=== PATIENT | female | born 1950 | race Caucasian/White ===

== ENCOUNTER 2022-06-15 14:54 | Outpatient (CLI) | payer MEDICARE, BC, SELFPAY ==
--- OUTSIDE RECORDS SUMMARY | 2022-06-15 14:58 | XMS_ITS | Encounter Summary ---
:1950 Author Organization [facility] Address [address] [place] [id number] Care Team Providers Name Role Phone GonzalezWarner rojasbreonna Garcia APRN, CANDICE Primary Care Provider Encounter Details Date Type Department Care Team Description 05/11/2022 Ancillary Procedure [facility] [address] [place], [place] [address] Social History Tobacco Use Types Packs/Day Years Used Date Former Smoker 1 Quit: 1978 Smokeless Tobacco: Never Used Comments: Former smoker x one year at e age of 34 years Alcohol Use Standard Drinks/Week Comments Not Currently 0 (1 standard drink = 0.6 oz pure alcoho l) Alcohol Habits Answer Date Recorded How often do you have a drink containing alcohol? Monthly or less 09/05/2019 How many drinks containing alcohol do you have on a Not aske d typical day when you are drinking? How often do you have six or more drinks on one Not asked occasion? Comment: Not asked Physical Activity Answer Date Recorded On average, how many days per week do you engage in moderate 0 days 10/27/2018 to strenuous exercise (like walking fast, running, jogging, dancing, swimming, biking, or other activities that cause a light or heavy sweat)? On average, how many minutes do you engage in exercise at No t asked this level? Education Answer Date Recorded What is the highest level of school you have Some college, n o degree 10/21/2018 completed or the highest degree you have received? Sex Assigned at Date Recorded Not on file documented as of this encounter Plan of Treatment Not on filedocumented as of this encounter Procedures Procedure Name Priority Date/Time Associated Diagnosis Comme nts XR CERVICAL SPINE Routine 05/11/2022 3:40 PM Neck stiffness Re sults for this COMPLETE 4-5 VIEWS CDT procedure are in the results section. documented in this encounter Results X-ray cervical spine complete 4-5 views (05/11/2022 3:40 PM CDT) Anatomical Region Laterality Modality Spine, C-spine Radiographic Imaging Specimen (Source) Anatomical Collection Method Collection Time Re ceived Time Location / / Volume Laterality 05/11/2022 3:40 PM CDT Impressions 05/11/2022 3:46 PM CDT IMPRESSION: CERVICAL SPINE 4-5 VIEWS There is mild disc space narrowing with endplate spurring at C5-6 and C6-7. ??There is mild neural foraminal n arrowing bilaterally from C3-4 through C6-7. ??No fracture, malalignmen t, or lytic or blastic lesion. Narrative 05/11/2022 3:46 PM CDT INDICATION: Chronic neck stiffness COMPARISON: None available Procedure Note Jackelyn Mcclelland MD - 05/11/2022 INDICATION: Chronic neck stiffness COMPARISON: None available IMPRESSION: CERVICAL SPINE 4-5 VIEWS There is mild disc space narrowing with endplate spurring at C5-6 and C6-7. There is mild neural foraminal morris rowing bilaterally from C3-4 through C6-7. No fracture, malalignment, or lytic or blastic lesion. Chad Nava MD IMG XR PROCEDURES documented in this encounter Visit Diagnoses Not on filedocumented in this encounter Care Teams Hall Manager Relationship Specialty Start Date End Date Palak Cooley, MANUFACTURING ENGINEERING PROFESSOR, WHITE WASHER PCP - General 05/19/21 [address], [place] [address] documented as of this encounter
--- OUTSIDE RECORDS SUMMARY | 2022-06-15 14:58 | XMS_ITS | Encounter Summary ---
:1950 Author Organization [facility] Address [address] [place] [address] Care Team Providers Name Role Phone GonzalezWarner rojasbreonna Garcia APRN, TRAFFIC CHIEF Primary Care Provider Reason for Visit Reason Comments Medicare Annual Wellness Visit Subsequent Encounter Details Date Type Department Care Team Description 11/27/2021 Clinical Support [place] Medicare annual wellness [address] visit, subsequent [place], [place] [address] Social History Tobacco Use Types Packs/Day Years Used Date Former Smoker 1 Smokeless Tobacco: Never Used Comments: Former smoker x one year at th e age of 34 years Alcohol Use Standard Drinks/Week Comments Yes 0 (1 standard drink = 0.6 oz [...] on file documented as of this encounter Last Filed Vital Signs Vital Sign Reading Time Taken Comments Blood Pressure 110/72 11/27/2021 11:05 AM RIVER GUIDE Pulse 60 11/27/2021 11:05 AM RIVER GUIDE Temperature 36 ??C (96.8 ??F) 11/27/2021 11:05 AM RIVER GUIDE Respiratory Rate 14 11/27/2021 11:05 AM RIVER GUIDE Oxygen Saturation 98% 11/27/2021 11:05 AM RIVER GUIDE Inhaled Oxygen Concentration - - Weight 96.6 kg (213 lb) 11/27/2021 11:05 AM RIVER GUIDE Height 157.5 cm (5' 2) 11/27/2021 11:05 AM RIVER GUIDE Body Mass Index 38.96 11/27/2021 11:05 AM RIVER GUIDE documented in this encounter Progress Notes Asmita Yun LPN - 11/27/2021 10:20 AM CST Annual Wellness Visit CARE TEAM / RESOURCES: Patient Care Team: Palak Cooley APRN, TRAFFIC CHIEF as PCP - General [facility]: [facility] [place] [facility]: None at this time Pharmacy: [address] [address] Other: Visit Vitals BP 110/72 (BP Location: Right arm, Patient Position: Sitting, BP Cuff Size: Adult long) Pulse 60 Temp (!) 36 ??C (96.8 ??F) (Temporal) Resp 14 Ht 1.575 m (5' 2) Wt 96.6 kg (213 lb) SpO2 98% BMI 38.96 kg/m?? Smoking Status Former Smoker BSA 2.06 m?? No Known Allergies Outpatient Encounter Medications as of 11/27/2021 Medication Sig Dispense Refill ??? aspirin 81 MG EC tablet Take 81 mg by mouth 1 (one) time each day ??? atenolol (TENORMIN) 25 MG tablet Take 0.5 tablets (12.5 mg total) by mouth 1 (one) time each day90 tablet 3 ??? Cholecalciferol (VITAMIN D3) 5000 units tablet Take 5,000 Units by mouth daily ??? glucosamine-chondroitin 750-600 MG tablet Take 2 tablets by mouth 1 (one) time each day ??? HORSE CHESTNUT PO Take 250 mg by mouth 1 (one) time each day Takes 1 daily. ??? hydroCHLOROthiazide (HYDRODIURIL) 12.5 MG tablet Take 1 tablet (12.5 mg total) by mouth 1 (one) time each day 90 tablet 3 ??? Lactobacillus (ACIDOPHILUS PROBIOTIC) tablet Take 1 tablet by mouth 1 (one) time each day ??? levothyroxine (Synthroid) 75 MCG tablet Take 1 tablet (75 mcg total) by mouth 1 (one) time each day 90 tablet 3 ??? Lutein-Zeaxanthin 25-5 MG capsule Take 1 capsule by mouth 1 (one) time each day ??? Misc Natural Products (ADRENAL PO) Take by mouth (ashwaganda root, cordyceps Mycelium, Shisandraberry, ginseng, rhodiola root, red azeri ginseng, ginseng root, eleuthero root) ??? [place]-3 Fatty Acids ([employer] FISH OIL) 1200 MG capsule Take 1,200 mg by mouth 1 (one) time each day ??? UNABLE TO FIND TUMERIC/CURCUMEN 500mg tablet 1 daily ??? Zinc 50 MG capsule Take 1 capsule by mouth 1 (one) time each day No facility-administered encounter medications on file as of 11/27/2021. Immunization History Administered Date(s) Administered ??? COVID-19, mRNA, LNP-S, PF, 30mcg/0.3mL dose Pfizer 11/22/2020, 12/13/2020 Patient Active Problem List Diagnosis ??? Edema ??? Essential (primary) hypertension ??? Body mass index (BMI) 40.0-44.9, adult ??? Primary osteoarthritis of both knees ??? Benign paroxysmal positional vertigo ??? Varicose veins of right lower extremity with pain ??? Prediabetes ??? Rosacea ??? Presbycusis of both ears ??? Mixed hyperlipidemia ??? Sensorineural hearing loss (SNHL) of both ears ??? Tinnitus of both ears ??? 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 Allergic rhinitis ??? Arthritis ??? Cataract 2017 wears glasses, [facility] [place], [place] ??? Depression ??? Disease of thyroid gland ??? Herpes zoster without complication 2017 ??? HL (hearing loss) ??? Hypertension ??? Obesity ??? Palpitations 07/16/2017 ??? Rosacea ??? Swelling of lower extremity 03/03/2019 ??? Tinnitus ??? Urinary tract infection ??? Varicella ??? Visual impairment ??? Zoster without complications 07/20/2017 Past Surgical History: Procedure Laterality Date ??? TONSILLECTOMY History of tonsillectomy with adenoidectomy ??? WISDOM TOOTH EXTRACTION Social History Socioeconomic History ??? Marital status: Spouse name: None ??? Number of children: 2 ??? Years of education: None ??? Highest education level: Some college, no degree Occupational History ??? Occupation: Retired Tobacco Use ??? Smoking status: Former Smoker Years: 1.00 ??? Smokeless tobacco: Never Used ??? Tobacco comment: Former smoker x one year at the age of 34 years Vaping Use ??? Vaping Use: Never used Substance and Sexual Activity ??? Alcohol use: Yes ??? Drug use: No ??? Sexual activity: None Other Topics Concern ??? None Social History Narrative Caffeine use: hot chocolate Uses seatbelt Carbon monoxide detector in home Smoke detector in home Uses sunscreen No Advance Directive No guns in home Social Determinants of Health Financial Resource Strain: Not on file Food Insecurity: Not on file Transportation Needs: Not on file Physical Activity: Not on file Stress: Not on file Social Connections: Not on file Intimate Partner Violence: Not on file Housing Stability: Not on file General Care Management Assessment completed with:: Patient Enrolled in care management program:: No Living arrangement:: Spouse Support system:: Spouse, Neighbors, Family, Friends Family conflict:: No Type of residence:: Private residence Home care services:: No Equipment used at home:: None Communication device:: No Financial problems:: No Transportation issues:: No Transportation means:: Regular car Bed or wheelchair confined:: No Diet:: Regular (The patient avoids added sugar and processed foods of any kind) Inadequate nutrition:: No Exercise:: Currently not exercising Inadequate activity/exercise:: Yes Medication adherence problem:: No Experiencing side effects from current medications:: No History of falls in last 6 months:: No Difficulty keeping appointments:: No Family aware of the patient's advance care planning wishes:: No Spiritism or spiritual beliefs that impact treatment:: No Chronic pain:: No Pain Assessment Scored: 0-No pain and location: Utilization / Navigation of Health Care Systems: Does not overuse the [facility], Acute Care, eVisits or Emergency Room. PHQ-9 mental health screening performed. Scored: LEONIDAS-7 anxiety screening performed. Scored: 0 Mini-Cog test performed. Scored: 5 CAGE-AID test performed. BMI/weight management reviewed. BMI: Body mass index is 38.96 kg/m??. Declined referral to nutrition education for BMI greater than 30. Fall Risk Assessment performed. Scored: Tug time: Referral to Physical Therapy not applicable due to low fall risk. Colon Cancer Screening: Last done: Never Due: Declines at this time. Breast Cancer Screening: Last done: Declines at this time but the nurse will set an alarm to readdress in 6 months. Osteoporosis Screening: Last done: Declines Prostate Cancer Screening: No results found for: PSA, PSAD Hepatitis C Screening: Lab Results Component Value Date HEPCAB NON-REACTIVE 11/06/2020 Glaucoma Screening: Preformed at outside facility AAA Screening: Not indicated Lung Cancer Screening: Not indicated Findings: The patients HgbA1c has been trending down and should be repeated today. The patient is also due for a LIPID which could be of benefit. The nurse was unable to find a BP in the patients left arm today but was able to hear one in the right arm. The patient stated that they differ so she wanted both checked. The following referral(s) were created: None. What is an Annual Wellness Visit? Yearly appointment performed by another provider to create or update the personalized prevention plan. This plan helps prevent illness based on your current health and risk factors. ?? Medicare part B coverage the Annual Wellness Visit 100%. ?? Keep in mind that the annual wellness visit is not head to toe physical. ?? The service is similar to but separate from a one time a Welcome to Medicare Preventative Visit. The following information is regarding different screenings that will be discussed. Colon Cancer: ?? Age 50 and up (usually done until age 75) Breast Cancer: Medicare Part B (Medical Insurance) covers a Screening mammogram once every 12 months (11 full months must have passed since the last screening) ?? Women with Part B 40 or older are covered. Provider discretion beyond age 74 ?? Women with Part B between 35-39 can get one baseline mammogram Osteoporosis: Medicare Part B (Medical Insurance) covers this test once every 24 months for people who meet the criteria below: ?? A woman whose doctor determines both of these (based on her medical history and other findings): She's estrogen deficient AND She's at risk for osteoporosis ?? A person whose X-rays show possible osteoporosis, osteopenia, or vertebral fractures ?? A person taking prednisone or steroid-type drugs or is planning to begin this treatment ?? A person who has been diagnosed with primary hyperparathyroidism ?? A person who is being monitored to see if their osteoporosis drug therapy is working Prostate Cancer: Medicare Part B (Medical Insurance) covers: ?? Digital rectal exam: Once every 12 months ?? Prostate specific antigen (PSA) test: Once every 12 months ?? All men over 50 (beginning the day after your 50th birthday) with Part B are covered. Hepatitis C: Medicare covers one Hepatitis C screening test. Medicare also covers yearly repeat screening for certain people at high risk. ?? Those at high risk because they use or used illicit injection drugs. ?? Those who had a blood transfusion before 1991. ?? Those born between 3674-4170. Glaucoma: Medicare Part B (Medical Insurance) covers a glaucoma test once every 12 months for people at high risk for glaucoma. You're at high risk if one of these applies: ?? You have diabetes. ?? You have a family history of glaucoma. ?? You're and 50 or older. ?? You're and 65 or older. AAA: Medicare Part B (Medical Insurance) covers a one-time abdominal aortic aneurysm ultrasound for people who meet the criteria below: ?? You have a family history of abdominal aortic aneurysms. ?? You???re a man age 65 to 75 and have smoked at least 100 cigarettes in your lifetime. Lung Cancer: Medicare Part B (Medical Insurance) covers a lung cancer screening with Low Dose Computed Tomography(LDCT) once per year to those who meet ALL of these conditions: ?? They're 50-77. ?? They're asymptomatic (they don???t have signs or symptoms of lung cancer). ?? They're either a current smoker or have quit smoking within the last 15 years. They have a tobacco smoking history of at least 20 ???pack years?? (an average of one pack a day for 20 years).Nurse Note R GUIDE documented in this encounter Plan of Treatment Not on filedocumented as of this encounter Visit Diagnoses Diagnosis Medicare annual wellness visit, subseque nt documented in this encounter Care Teams Drier Take Off Tender Relationship Specialty Start Date End Date Palak Cooley, RAJI, TRAFFIC CHIEF PCP - General 05/19/[address] [place] [address] documented as of this encounter
--- OUTSIDE RECORDS SUMMARY | 2022-06-15 14:58 | XMS_ITS | Encounter Summary ---
:1950 Author Organization [facility] Address [address] [place] [address] Care Team Providers Name Role Phone GonzalezPalak rojas Jose ALEGRIA, SEASONAL WAREHOUSE ASSOCIATE Primary Care Provider Encounter Details Date Type Department Care Team Description 05/04/2022 Orders Only [place] Eneida Ayers MD [address] [facility] [address] [place], [place] [address] [place], [place] [phone] (Wo rk) Social History Tobacco Use Types Packs/Day Years [...] filedocumented as of this encounter Visit Diagnoses Not on filedocumented in this encounter Care Teams Pigskin Trimmer Relationship Specialty Start Date End Date Palak Cooley APRN, SEASONAL WAREHOUSE ASSOCIATE PCP - General 05/19/21 [address] [place] [address] documented as of this encounter
--- OUTSIDE RECORDS SUMMARY | 2022-06-15 14:58 | XMS_ITS | Encounter Summary ---
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 Generalized edema; [address] [place], [place] Mixed hyperlipidemia; [phone] [id number] Primary osteoarthritis of both knees Social History Tobacco Use Types Packs/Day Years [...] Time Taken Comments Blood Pressure 110/72 11/27/2021 10:26 AM UNDER SEAL OPERATOR Pulse 60 11/27/2021 10:26 AM UNDER SEAL OPERATOR Temperature 36 ??C (96.8 ??F) 11/27/2021 10:26 AM UNDER SEAL OPERATOR Respiratory Rate 14 11/27/2021 10:26 AM UNDER SEAL OPERATOR Oxygen Saturation 98% 11/27/2021 10:26 AM UNDER SEAL OPERATOR Inhaled Oxygen Concentration - - Weight 96.6 kg (213 lb) 11/27/2021 10:26 AM UNDER SEAL OPERATOR Height 159 cm (5' 2.6) 11/27/2021 10:26 AM UNDER SEAL OPERATOR Body Mass Index 38.22 11/27/2021 10:26 AM UNDER SEAL OPERATOR documented in this encounter Patient Instructions Patient InstructionsTamadou Cooley APRN, CNP - 11/27/2021 10:20 AM CST Atenolol 12.5 mg daily Add back hydrochlorothiazide 12.5mg daily Check bp/nurse bp check. Monitor for excess dizziness. Continue synthroid at 75mcg daily, refilled 1 year. But if have significant wt loss may need to recheck. Diclofenac gel can use up to 4x/day for arthritis pain. Fasting labs in the near future. R SEAL OPERATOR documented in this encounter Progress Notes Palak Cooley APRN, CNP - 11/27/2021 10:20 AM CST Subjective Patient ID: Rina Fisher is a 71 y.o. female. Chief Complaint Patient presents with ??? Thyroid review HPI The patient presents to the [place] clinic for follow up of hypothyroidism. She is taking her thyroid medication as prescribed in the AM. Her thyroid levels were reviewed and stable today. Since we held the hydrochlorothiazide from the last visit per patient her hands and legs appeared more puffy. She also feels achy knees. Patient and her plans to go to [place] this month for vacation. They will drive to [facility]. She denies alcohol use or smoking. She's been trying to exercise. Recently seen at the clinicfor contusion of the nose bridge. Her has regular vivid dreams in his sleep and usually flails his extremities during sleep. Overall healing but still experience some mild puffiness at the leftlower eye and cheek. No pain at present, slightly tender with deep palpation per patient. The following portions of the patient's chart were reviewed in this encounter and updated as appropriate: Tobacco Allergies Meds Problems Med Hx Surg Hx Fam Hx No Known Allergies Current Outpatient Medications: ??? aspirin 81 MG EC tablet, Take 81 mg by mouth 1 (one) time each day, Disp: , Rfl: ??? atenolol (TENORMIN) 25 MG tablet, Take 0.5 tablets (12.5 mg total) by mouth 1 (one) time each day, Disp: 90 tablet, Rfl: 3 ??? Cholecalciferol (VITAMIN D3) 5000 units tablet, Take 5,000 Units by mouth daily, Disp: , Rfl: ??? glucosamine-chondroitin 750-600 MG tablet, Take 2 tablets by mouth 1 (one) time each day , Disp:, Rfl: ??? HORSE CHESTNUT PO, Take 250 mg by mouth 1 (one) time each day Takes 1 daily., Disp: , Rfl: ??? Lactobacillus (ACIDOPHILUS PROBIOTIC) tablet, Take 1 tablet by mouth 1 (one) time each day, Disp: , Rfl: ??? levothyroxine (Synthroid) 75 MCG tablet, Take 1 tablet (75 mcg total) by mouth 1 (one) time eachday, Disp: 90 tablet, Rfl: 3 ??? Lutein-Zeaxanthin 25-5 MG capsule, Take 1 capsule by mouth 1 (one) time each day, Disp: , Rfl: ??? Misc Natural Products (ADRENAL PO), Take by mouth (ashwaganda root, cordyceps Mycelium, Shisandra tao, ginseng, rhodiola root, red slovenian ginseng, ginseng root, eleuthero root), Disp: , Rfl: ??? Galvin-3 Fatty Acids ([employer] FISH OIL) 1200 MG capsule, Take 1,200 mg by mouth 1 (one) time each day, Disp: , Rfl: ??? UNABLE TO FIND, TUMERIC/CURCUMEN 500mg tablet 1 daily, Disp: , Rfl: ??? Zinc 50 MG capsule, Take 1 capsule by mouth 1 (one) time each day, Disp: , Rfl: ??? hydroCHLOROthiazide (HYDRODIURIL) 12.5 MG tablet, Take 1 tablet (12.5 mg total) by mouth 1 (one)time each day, Disp: 90 tablet, Rfl: 3 Review of Systems All other systems negative except HPI Objective Visit Vitals BP 110/72 (BP Location: Right arm, Patient Position: Sitting, BP Cuff Size: Adult long) Pulse 60 Temp (!) 36 ??C (96.8 ??F) (Temporal) Resp 14 Ht 1.59 m (5' 2.6) Wt 96.6 kg (213 lb) SpO2 98% BMI 38.22 kg/m?? Smoking Status Former Smoker BSA 2.07 m?? Physical Exam Vitals reviewed. Constitutional: General: She is not in acute distress. Appearance: Normal appearance. She is obese. She is not ill-appearing. HENT: Head: Comments: Facial rosacea. Nose: Nose normal. Eyes: Extraocular Movements: Extraocular movements intact. Conjunctiva/sclera: Conjunctivae normal. Comments: Glasses. Left lower eye is minimally puffy. No discoloration. Cardiovascular: Rate and Rhythm: Normal rate and regular rhythm. Pulmonary: Effort: Pulmonary effort is normal. Breath sounds: Normal breath sounds. Musculoskeletal: Cervical back: Normal range of motion. Right lower leg: Edema present. Left lower leg: Edema present. Comments: Hands are a bit puffy. Neurological: Mental Status: She is alert. Assessment/Plan Problem List Items Addressed This Visit Circulatory Essential (primary) hypertension Overview Atenolol 12.5mg dialy hydrochlorothiazide 12.5mg daily Continue diet/exercise. Relevant Medications atenolol (TENORMIN) 25 MG tablet hydroCHLOROthiazide (HYDRODIURIL) 12.5 MG tablet Other Relevant Orders Hemoglobin A1c Lipid panel Comprehensive metabolic panel Musculoskeletal Primary osteoarthritis of both knees Overview Patient states her knee pain have been improving with the weight loss and use of regular compression socks. Endocrine/Metabolic Mixed hyperlipidemia Overview 2020: ASCVD 10yr risk 27.2%, high. Declined statin. Using fish oil and baby aspirin. 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 BP and pulse controlled and normal today. We can resume the hydrochlorothiazide for the puffiness complaint she has. She also has a history of arthritic knees. Weight of no significant change. She will return in the near future for annual fasting labs. Otherwise will send report by mail. Willfollow up in 1 year. She declined all other health maintenance checks and was agreeable to discontinue them. Patient Instructions Atenolol 12.5 mg daily Add back hydrochlorothiazide 12.5mg daily Check bp/nurse bp check. Monitor for excess dizziness. Continue synthroid at 75mcg daily, refilled 1 year. But if have significant wt loss may need to recheck. Diclofenac gel can use up to 4x/day for arthritis pain. Fasting labs in the near future. R SEAL OPERATOR Yesi Yee - 11/27/2021 10:20 AM CST Left message with patient to make appointment for fasting labs. Yesi Yee - 11/27/2021 10:20 AM CST Left message with patient to make appointment for fasting labs. Yesi Yee - 11/27/2021 10:20 AM CST LMTCB to make appt for fasting labs (has active orders from Fredy Cooley). Karena Maddox - 11/27/2021 10:20 AM CST Leb appt scheduled for Wednesday03/04/22. Karena Maddox - 11/27/2021 10:20 AM CST Left message on home phone requesting diabetic review with fasting labs. Cell phone has no VM set up. 03/03/22 - Left message requesting lab appt for A1C. Karena Maddox - 11/27/2021 10:20 AM CST Left message on home phone requesting diabetic review with fasting labs. Cell phone has no VM set up. Karena Maddox - 11/27/2021 10:20 AM CST Left message on home phone requesting diabetic review with fasting labs. Cell phone has no VM set up. Left message requesting lab appt for A1C. Karena Maddox - 11/27/2021 10:20 AM CST Left message on home phone requesting diabetic review with fasting labs. Cell phone has no VM set up. Lab appt scheduled for Wednesday03/04/22. documented in this encounter Plan of Treatment Not on filedocumented as of this encounter Results (ABNORMAL) Comprehensive metabolic panel (03/04/2022 11:09 AM CDT) [facility] Time Signature Total Protein 6.7 6.3 - 8.2 03/05/2022 [place] g/dL 1:[address] [facility] Albumin, Serum 4.1 3.5 - 5.0 03/05/2022 [place] g/dL 1:[address] [facility] Total Bilirubin 0.8 0.1 - 1.0 03/05/2022 [place] mg/dL 1:[address] [facility] AST 18 8 - 43 U/L 03/05/2022 [place] 1:[address] [facility] Alkaline 77 38 - 128 03/05/2022 [place] Phosphatase U/L 1:[address] [facility] ALT (SGPT) 16 0 - 34 U/L 03/05/2022 [place] 1:[address] [facility] Sodium 139 135 - 145 03/05/2022 [place] mEq/L 1:[address] [facility] Potassium 4.5 3.5 - 5.1 03/05/2022 [place] mEq/L 1:[address] [facility] Chloride 106 98 - 107 03/05/2022 [place] mEq/L 1:[address] [facility] CO2 30 (H) 22 - 29 03/05/2022 [place] mmol/L 1:[address] [facility] BUN 15 5 - 25 03/05/2022 [place] mg/dL 1:[address] [facility] Creatinine 0.9 0.4 - 1.2 03/05/2022 [place] mg/dL 1:[address] [facility] Glucose 123 (H) 70 - 100 03/05/2022 [place] mg/dL 1:[address] [facility] Calcium, Total,S 9.3 8.4 - 10.2 03/05/2022 [place] mg/dL 1:[address] [facility] Fasting? Yes 03/04/2022 [place] 11:[address] [facility] Specimen Anatomical Collection Method Collection Time Receive d Time (Source) Location / / Volume Laterality Blood 03/04/2022 11:09 03/05/2022 AM CDT 12:19 PM CDT Palak Cooley APRN, CNP LAB BLOOD ORDERABLES Performing Organization Address City/State/ZIP Code Phon e Number [facility] [address] [place] [address] (ABNORMAL) Lipid panel (03/04/2022 11:09 AM CDT) athologist Signature Cholesterol 183 0 - 199 03/05/2022 [facility] mg/dL 1:54 PM [facility] Comment: Recommended by National Cholesterol Education Program (ATP III) -------- Cholesterol Ranges -------- <200 ?Desirable 200-239 ? Borderline high >=240 ? High Triglycerides 96 0 - 149 mg/dL 03/05/2022 1:54 PM CDT [facility] Comment: -------- TRIG Ranges -------- <150 ?Normal 150-199 ? Borderline high 200-499 ? High >=500 ? Very high HDL 44 40 - 250 mg/dL 03/05/2022 1:54 PM CDT [facility] Comment: -------- HDL Ranges -------- <40 ?Low 40-59 ?Normal >=60 ? Optimal LDL Calculated 120 (H) 0 - 99 mg/dL 03/05/2022 1:54 PM CDT [facility] Comment: -------- LDL Ranges -------- <100 ? Optimal 100-129 ?Near optimal/above op timal 130-159 ?Borderline high 160-189 ?High >=190 ?Very high Specimen Anatomical Collection Method Collection Time Receive d Time (Source) Location / / Volume Laterality Blood 03/04/2022 11:09 03/05/2022 AM CDT 12:19 PM CDT Palak Cooley APRN, FISH SKINNING MACHINE FEEDER LAB BLOOD ORDERABLES Performing Organization Address City/State/ZIP Code Phon e Number [facility] [address] [place] [address] (ABNORMAL) Hemoglobin A1c (03/04/2022 11:09 AM CDT) Analysis Performed At Patho logist Time Signature Hemoglobin A1C 6.1 (H) 4.0 - 5.6 03/05/2022 [place] % A1C 12:[address] [facility] Comment: Reference Range 4.0-5.6% is for non-preg nant adults >=18 yrs <5.6% ? Non-Diabetic 5.7-6.4% ??Increased risk of Diabetes >=6.5% ?Indicative of Diabetes <7.0% ? ADA goal for glycemic contro l Methodology may not detect all hemoglobi n variants which can affect A1c results. Method certified by National Glycohemoglobin Standardization Program. Specimen Anatomical Collection Method Collection Time Receive d Time (Source) Location / / Volume Laterality Blood 03/04/2022 11:09 03/05/2022 AM CDT 12:19 PM CDT Palak Cooley APRN, CNP LAB BLOOD ORDERABLES Performing Organization Address City/State/ZIP Code Phon e Number [facility] [address] [place] [address] documented in this encounter Visit Diagnoses Diagnosis Hypothyroidism due to Param's thyroi ditis - Primary Essential (primary) hypertension Unspecified essential hypertension Generalized edema Edema Mixed hyperlipidemia Primary osteoarthritis of both knees documented in this encounter Care Teams Metal Fabricator Helper Relationship Specialty Start Date End Date Palak Cooley APRN, FISH SKINNING MACHINE FEEDER PCP - General 05/19/[address] [place], [place] [address] documented as of this encounter
--- OUTSIDE RECORDS SUMMARY | 2022-06-15 14:58 | XMS_ITS | Encounter Summary ---
:1950 Author Organization [facility] Address [address] [place] [address] Care Team Providers Name Role Phone GonzalezWarner rojasbreonna Garcia APRN, CANDICE Primary Care Provider Encounter Details Date Type Department Care Team Description 05/11/2022 Ancillary Procedure [facility] [address] [place], [place] [address] Social History Tobacco Use Types [...] Priority Date/Time Associated Diagnosis Comme nts XR SHOULDER 2+ Routine 05/11/2022 3:41 PM Acute pain of both R esults for this VIEWS LEFT CDT shoulders procedure are i n the results section. documented in this encounter Results X-ray Shoulder 2+ Views Left (05/11/2022 3:41 PM CDT) Anatomical Region Laterality Modality Upper Extremities, Shoulder Left Radiographic Imaging Specimen (Source) Anatomical Collection Method Collection Time Re ceived Time Location / / Volume Laterality 05/11/2022 3:41 PM CDT Impressions 05/11/2022 3:45 PM CDT IMPRESSION: SHOULDER COMPLETE LEFT (MIN 2 VIEWS) Linear areas of artifact project over th e shoulder. ??No definitive soft tissue calcification. ??There is mild to moderate narrowing with spurring at the acromioclavicular joint. ??There is mild subacromial spurring. ?? There is mild spurring inferiorly at the glenohumeral joint. ??No fracture, dislocation, or lytic or blastic lesion. Narrative 05/11/2022 3:45 PM CDT INDICATION: left shoulder AC joint pain, possible de generative rotator cuff tear? COMPARISON: None available Procedure Note Jackelyn Mcclelland MD - 05/11/2022 INDICATION: left shoulder AC joint pain, possible de generative rotator cuff tear? COMPARISON: None available IMPRESSION: SHOULDER COMPLETE LEFT (MIN 2 VIEWS) Linear areas of artifact project over th e shoulder. No definitive soft tissue calcification. There is mild to m oderate narrowing with spurring at the acromioclavicular joint. There is mild subacromial spurring. There is mild spurring inferiorly at the glenohumeral joint. No fracture, dislocation, or lytic or blastic lesion. Chad Nava MD IMG XR PROCEDURES documented in this encounter Visit Diagnoses Not on filedocumented in this encounter Care Teams Director Of Distance Learning Relationship Specialty Start Date End Date Palak Cooley, SENIOR WEB ENGINEER, EDUCATIONAL PROGRAMMING DIRECTOR PCP - General 05/19/21 [address] [place] [address] documented as of this encounter
--- OUTSIDE RECORDS SUMMARY | 2022-06-15 14:58 | XMS_ITS | Encounter Summary ---
:1950 Author Organization [facility] [place] [facility] Address [address] [place] [address] Care Team Providers Name Role Phone GonzalezWarner rojasbreonna Garcia APRN, PROPERTY UTILIZATION OFFICER Primary Care Provider Encounter Details Date Type Department Care Team Description 03/04/2022 Lab [place] Essential (primary) hyperten harmony; [address] Mixed hyperlipidemia [place], [place] [address] Social History Tobacco Use [...] Name Priority Date/Time Associated Diagnosis Comme nts GLOMERULAR FILTRATION Routine 03/04/2022 11:09 Essential (prim alan) Results for this RATE AM CDT hypertension procedure are i n the results section. HEMOGLOBIN A1C Routine 03/04/2022 11:09 Essential (primary) Re sults for this AM CDT hypertension procedure are i n the results section. LIPID PANEL Routine 03/04/2022 11:09 Essential (primary) Resu lts for this AM CDT hypertension procedure are in Mixed hyperlipidemia the res ults section. COMPREHENSIVE Routine 03/04/2022 11:09 Essential (primary) Res ults for this METABOLIC PANEL AM CDT hypertension procedure ar e in the results section. documented in this encounter Results Glomerular filtration rate (GFR) (03/04/2022 11:09 AM CDT) athologist Signature GFR >60 03/05/2022 [facility] 1:54 PM CDT [facility] >60 03/05/2022 [facility] [place] GFR 1:54 PM T [facility] Comment: GFR calculated from serum creatinine v alue Chronic Kidney Disease less than 60 mL/m in/1.73 m2 Kidney Failure less than 15 mL/min/1.73 m2 IDMS-Traceable MDRD Study Equation used. Specimen Anatomical Collection Method Collection Time Receive d Time (Source) Location / / Volume Laterality 03/04/2022 11:09 03/04/2022 AM CDT 11:09 AM CDT Palak Cooley APRN, CNP LAB BLOOD ORDERABLES Performing Organization Address City/State/ZIP Code Phon e Number [facility] [address] [place] [address] (ABNORMAL) Hemoglobin A1c (03/04/2022 11:09 AM CDT) Analysis Performed At Patho logist Time Signature Hemoglobin A1C 6.1 (H) 4.0 - 5.6 03/05/2022 [place] % A1C 12:57 PM CDT [facility] Comment: Reference Range 4.0-5.6% [...] Organization Address City/State/ZIP Code Phon e Number [facility] [address] [place] [address] (ABNORMAL) Lipid panel (03/04/2022 11:09 AM CDT) athologist Signature Cholesterol 183 0 - 199 03/05/2022 [facility] mg/dL 1:54 PM [facility] Comment: Recommended by National Cholesterol Education Program (ATP III) -------- Cholesterol Ranges -------- <200 ?Desirable 200-239 ? Borderline high >=240 ? High Triglycerides 96 0 - 149 mg/dL 03/05/2022 1:54 PM CDT [facility] Comment: -------- TRIG Ranges -------- <150 ?Normal 150-199 ? Borderline high 200-499 ? High >=500 ? Very high HDL 44 40 - 250 mg/dL 03/05/2022 1:54 PM CDT [facility] Comment: -------- HDL Ranges -------- <40 ?Low 40-59 ?Normal >=60 ? Optimal LDL Calculated 120 (H) 0 - 99 mg/dL 03/05/2022 1:54 PM T [facility] Comment: -------- LDL Ranges -------- <100 ? Optimal 100-129 ?Near optimal/above op timal 130-159 ?Borderline high 160-189 ?High >=190 ?Very high Specimen Anatomical Collection Method Collection Time Receive d Time (Source) Location / / Volume Laterality Blood 03/04/2022 11:09 03/05/2022 AM CDT 12:19 PM CDT Palakbreonna Cooley TYPEWRITER ASSEMBLER, PROPERTY UTILIZATION OFFICER LAB BLOOD ORDERABLES Performing Organization Address City/State/ZIP Code Phon e Number [facility] [address] [place] [address] (ABNORMAL) Comprehensive metabolic panel (03/04/2022 11:09 AM CDT) [facility] Method Time Signature Total Protein 6.7 6.3 - 8.2 03/05/2022 [place] g/dL 1:54 PM [facility] Albumin, Serum 4.1 3.5 - 5.0 03/05/2022 [place] g/dL 1:54 PM [facility] Total Bilirubin 0.8 0.1 - 1.0 03/05/2022 [place] mg/dL 1:54 PM [facility] AST 18 8 - 43 U/L 03/05/2022 [place] 1:54 PM [facility] Alkaline 77 38 - 128 03/05/2022 [place] Phosphatase U/L 1:54 PM [facility] ALT (SGPT) 16 0 - 34 U/L 03/05/2022 [place] 1:54 PM [facility] Sodium 139 135 - 145 03/05/2022 [place] mEq/L 1:54 PM [facility] Potassium 4.5 3.5 - 5.1 03/05/2022 [place] mEq/L 1:54 PM [facility] Chloride 106 98 - 107 03/05/2022 [place] mEq/L 1:54 PM [facility] CO2 30 (H) 22 - 29 03/05/2022 [place] mmol/L 1:54 PM [facility] BUN 15 5 - 25 03/05/2022 [place] mg/dL 1:54 PM [facility] Creatinine 0.9 0.4 - 1.2 03/05/2022 [place] mg/dL 1:54 PM [facility] Glucose 123 (H) 70 - 100 03/05/2022 [place] mg/dL 1:54 PM [facility] Calcium, Total,S 9.3 8.4 - 10.2 03/05/2022 [place] mg/dL 1:54 PM [facility] Fasting? Yes 03/04/2022 [place] 11:13 AM [facility] Specimen Anatomical Collection Method Collection Time Receive d Time (Source) Location / / Volume Laterality Blood 03/04/2022 11:09 03/05/2022 AM CDT 12:19 PM CDT Palak Cooley APRN, CNP LAB BLOOD ORDERABLES Performing Organization Address City/State/ZIP Code Phon e Number [facility] [address] [place] [phone] documented in this encounter Visit Diagnoses Diagnosis Essential (primary) hypertension Unspecified essential hypertension Mixed hyperlipidemia documented in this encounter Care Teams Machinist Mechanic Relationship Specialty Start Date End Date Palak Cooley APRN, CNP PCP - General 05/19/21 [address] [place] [address] documented as of this encounter
--- OUTSIDE RECORDS SUMMARY | 2022-06-15 14:58 | XMS_ITS | Encounter Summary ---
:1950 Author Organization [facility] Address [address] [place] [address] Care Team Providers Name Role Phone Palak Cooley APRN, CNP Primary Care Provider Encounter Details Date Type Department Care Team Description 05/06/2022 Telephone [place] Palak Cooley APRN, CNP [address] [place], [place] [address] [place] [address] (Wo rk) Social History Tobacco Use Types [...] on file documented as of this encounter Miscellaneous Notes Telephone Encounter - Earline Montoya RN - 05/08/2022 4:13 PM CDT Patient in clinic being seen at this time. Telephone Encounter - Karena Maddox - 05/08/2022 1:42 PM CDT Pt schedled an appt with Dr Nava for this afternoon. NO NEED TO CALL. What we received form Hilda Amato is a letter explaining Pt's condition. I called Hilda and asked for xray orders and she she since Pt is on medicare a chiropractor can not order xrays and needs a medical Provider to do it. Pt called back about getting the x-rays completed. I called Hilda Amato and they will re-fax the xray order to us. (order has been received) I explained to Pt we do not have a last pattern grader in [place] until nextweek 05/15/22. I am going to contact Saundra in [place] to have her look at the xray order once weget it and see when Pt an have it competed in [place]. Until she can get this xray done and have her treatment determined by [facility]ilda Amato, Pt is wondering what OTC treatment she can do. Pt's shoulders have been painful for a month as well as pain in both hips and back. Please call Pt at [phone] to advise. Telephone Encounter - Jackson Flowers LPN - 05/08/2022 10:41 AM CDT Please review and advise on x-rays for this patient Telephone Encounter - Yesi Yee - 05/06/2022 2:16 PM CDT Pt seeing Dr. Jose Alberto Amato for ambulatory care coordinator in [place], painful joints, pain management. Stated a letterwas sent from Dr. Amato 8 as wanting x-rays to be taken if possible. Pt on , could possibly pay toward further chiropractic treatment, which is what pt desires. Advise [phone]. documented in this encounter Plan of Treatment Not on filedocumented as of this encounter Visit Diagnoses Not on filedocumented in this encounter Care Teams Patient Experience Coordinator Relationship Specialty Start Date End Date Palak Cooley, RAJI, BUSINESS STRATEGIST PCP - General 05/19/21 [address] [place] [address] documented as of this encounter
--- OUTSIDE RECORDS SUMMARY | 2022-06-15 14:58 | XMS_ITS | Encounter Summary ---
:1950 Author Organization [facility] Address [address] [place] [address] Care Team Providers Name Role Phone GonzalezPalak rojas Jose ALEGRIA, WOOD FURNITURE ASSEMBLER Primary Care Provider Reason for Visit Reason Onset Date Comments Wants PMR labs 05/12/2022 Encounter Details Date Type Department Care Team Description 05/12/2022 Telephone [place] Chad Nava MD Wants PMR labs [address] [place], [place] [address] [place], [place] [phone] (Wo rk) Social History Tobacco Use Types [...] Telephone Encounter - Earline Montoya RN - 05/12/2022 10:41 AM CDT Spoke with patient and call successfully transferred to R to schedule lab draw. Telephone Encounter - Chad Nava MD - 05/12/2022 10:11 AM CDT Diagnosis Plan 1. Polyarthralgia ESR-Sed rate C-reactive protein CBC Branch Off w/Diff Telephone Encounter - Earline Montoya RN - 05/12/2022 9:47 AM CDT Please advise and order labs. Telephone Encounter - Caty Escobar - 05/12/2022 9:29 AM CDT Pt was seen by Dr Nava and she had declined blood testing for PMR. She has changed her mind and would like him to order labs. Please contact pt when ordered. She will need a lab appt. documented in this encounter Plan of Treatment Not on filedocumented as of this encounter Results (ABNORMAL) CBC Branch Off w/Diff (05/18/2022 11:32 AM CDT) Analysis Performed At Patho logist Time Signature WBC 10.5 3.5 - 10.5 05/18/2022 [facility] K/uL 12:49 PM CDT [place] RBC 4.78 3.90 - 05/18/2022 [facility] 5.00 M/uL 12:49 PM CDT [place] Hemoglobin 13.8 12.0 - 05/18/2022 [facility] 15.5 g/dL 12:49 PM CDT [place] Hematocrit 43.1 35.0 - 05/18/2022 [facility] 44.0 % 12:49 PM CDT [place] Platelets 288 150 - 450 05/18/2022 [facility] K/uL 12:49 PM CDT [place] MCV 90.2 81.6 - 05/18/2022 [facility] 98.3 fL 12:49 PM CDT [place] MCH 28.9 26.0 - 05/18/2022 [facility] 32.0 pg 12:49 PM CDT [place] MCHC 32.0 32.0 - 05/18/2022 [facility] 36.0 g/dL 12:49 PM CDT [place] RDW 12.9 11.9 - 05/18/2022 [facility] 15.5 % 12:49 PM CDT [place] Lymphocytes % 24.4 % 05/18/2022 [facility] 12:49 PM CDT [place] Mid-size Cells 4.0 % 05/18/2022 [facility] 12:49 PM CDT [place] Granulocytes/Fabienne 71.6 % 05/18/2022 [facility] trophils 12:49 PM CDT [place] Lymphocytes 2.6 0.9 - 2.9 05/18/2022 [facility] Absolute K/uL 12:49 PM CDT [place] MIDS Absolute 0.4 0.4 - 1.5 05/18/2022 [facility] K/uL 12:49 PM CDT [place] Granulocytes/Fabienne 7.5 (H) 1.7 - 7.0 05/18/2022 [facility] trophils K/uL 12:49 PM CDT [place] Absolute Specimen Anatomical Collection Method Collection Time Receive d Time (Source) Location / / Volume Laterality Blood 05/18/2022 11:32 05/18/2022 AM CDT 11:34 AM CDT Chad Nava MD LAB BLOOD ORDERABLES Performing Organization Address City/State/ZIP Code Phon e Number [facility] [place] [address] [place] [address] (ABNORMAL) C-reactive protein (05/18/2022 11:32 AM CDT) P athologist Signature CRP 14.4 (H) 0.0 - 4.9 05/19/2022 [facility] mg/L 1:34 PM CDT [facility] Specimen Anatomical Collection Method Collection Time Receive d Time (Source) Location / / Volume Laterality Blood (Blood, 05/18/2022 11:32 05/19/2022 Venous) AM CDT 12:20 PM CDT Chad Nava MD LAB BLOOD ORDERABLES Performing Organization Address City/State/ZIP Code Phon e Number [facility] [address] [place] [phone] ESR-Sed rate (05/18/2022 11:32 AM CDT) P athologist Signature Sed Rate 26 0 - 29 05/19/2022 [facility] mm/hr 1:03 PM CDT [facility] Specimen Anatomical Collection Method Collection Time Receive d Time (Source) Location / / Volume Laterality Blood (Blood, 05/18/2022 11:32 05/19/2022 Venous) AM CDT 12:20 PM CDT Chad Nava MD LAB BLOOD ORDERABLES Performing Organization Address City/State/ZIP Code Phon e Number [facility] [address] [place] [phone] documented in this encounter Visit Diagnoses Diagnosis Polyarthralgia - Primary Pain in joint, multiple sites documented in this encounter Care Teams Supervisor Dairy Sanitation Relationship Specialty Start Date End Date Palak Cooley, RN HOME HEALTH, WOOD FURNITURE ASSEMBLER PCP - General 05/19/[address] [place] [address] documented as of this encounter
--- OUTSIDE RECORDS SUMMARY | 2022-06-15 14:58 | XMS_ITS | Encounter Summary ---
:1950 Author Organization [facility] Address [address] [place] [address] Care Team Providers Name Role Phone Palak Cooley APRN, CANDICE Primary Care Provider Reason for Visit Reason Onset Date Comments lab results 03/04/2022 Encounter Details Date Type Department Care Team Description 03/04/2022 Telephone [place] Palak Cooley APRN, CNP lab results [address] [place], [place] [address] [place] [address] (Wo rk) Social History Tobacco Use Types [...] this encounter Miscellaneous Notes Telephone Encounter - Asmita Yun LPN - 03/06/2022 1:46 PM CDT Noted Telephone Encounter - Yesi Yee - 03/06/2022 12:53 PM CDT To drafting detailer bag, 6, to be mailed. Telephone Encounter - Asmita Yun LPN - 03/06/2022 12:37 PM CDT Please mail labs to patient. Telephone Encounter - Karena Maddox - 03/04/2022 11:17 AM CDT Pt asked if her lab results from today's 03/04/22 visit could be mailed to her. documented in this encounter Plan of Treatment Not on filedocumented as of this encounter Visit Diagnoses Not on filedocumented in this encounter Care Teams Centerless Grinder Operator Relationship Specialty Start Date End Date Palak Cooley, RAJI, DISTRICT SALES MANAGER PCP - General 05/19/21 [facility] [address], [place] [address] documented as of this encounter
--- OUTSIDE RECORDS SUMMARY | 2022-06-15 14:58 | XMS_ITS | Encounter Summary ---
:1950 Author Organization [facility] Address [address] [place] [address] Care Team Providers Name Role Phone Palak Cooley Jose NICOLEN, MAIL RIDER Primary Care Provider Encounter Details Date Type Department Care Team Description 05/18/2022 Lab [place] Polyarthralgia [address] [place], [place] [address] Social History Tobacco Use [...] documented as of this encounter Miscellaneous Notes Result Encounter Note - Chad Nava MD - 05/18/2022 11:30 AM CDT CISCO. I reviewed her results, recommended prednisone and she declines for now; she may be coming in to get a printed copy of lab reports. documented in this encounter Plan of Treatment Not on filedocumented as of this encounter Procedures Procedure Name Priority Date/Time Associated Diagnosis Comme nts CBC BRANCH OFFICE Routine 05/18/2022 11:32 Polyarthralgia Resu lts for this W/DIFF AM CDT procedure are i n the results section. SEDIMENTATION RATE, Routine 05/18/2022 11:32 Polyarthralgia Re sults for this AUTOMATED AM CDT procedure are i n the results section. C-REACTIVE PROTEIN Routine 05/18/2022 11:32 Polyarthralgia Res ults for this AM CDT procedure are i n the results section. documented in this encounter Results ESR-Sed rate (05/18/2022 11:32 AM CDT) athologist Signature Sed Rate 26 0 - 29 05/19/2022 [facility] mm/hr 1:03 PM CDT [facility] Specimen Anatomical Collection Method Collection Time Receive d Time (Source) Location / / Volume Laterality Blood (Blood, 05/18/2022 11:32 05/19/2022 Venous) AM CDT 12:20 PM CDT Chad Nava MD LAB BLOOD ORDERABLES Performing Organization Address City/State/ZIP Code Phon e Number [facility] [address] [place] [phone] (ABNORMAL) C-reactive protein (05/18/2022 11:32 AM CDT) athologist Signature CRP 14.4 (H) 0.0 - 4.9 05/19/2022 [facility] mg/L 1:34 PM CDT [facility] Specimen Anatomical Collection Method Collection Time Receive d Time (Source) Location / / Volume Laterality Blood (Blood, 05/18/2022 11:32 05/19/2022 Venous) AM CDT 12:20 PM CDT Chad Nava MD LAB BLOOD ORDERABLES Performing Organization Address City/[facility]/ZIP Code Phon e Number [facility] [address] [place] [address] (ABNORMAL) CBC Branch Off w/Diff (05/18/2022 11:32 AM CDT) Analysis Performed At Patho logist Time Signature WBC 10.5 3.5 - 10.5 05/18/2022 [facility] K/uL 12:49 PM CDT [place] RBC 4.78 3.90 - 05/18/2022 [facility] 5.00 M/uL 12:49 PM CDT [place] Hemoglobin 13.8 12.0 - 05/18/2022 [facility] 15.5 g/dL 12:49 PM CDT [place] Hematocrit 43.1 35.0 - 05/18/2022 [facility] 44.0 % 12:49 PM CDT [place] Platelets 288 150 - 450 05/18/2022 [facility] K/uL 12:49 PM CDT [place] MCV 90.2 81.6 - 05/18/2022 [facility] 98.3 fL 12:49 PM CDT [place] MCH 28.9 26.0 - 05/18/2022 [facility] 32.0 pg 12:49 PM CDT [place] MCHC 32.0 32.0 - 05/18/2022 [facility] 36.0 g/dL 12:49 PM CDT [place] RDW 12.9 11.9 - 05/18/2022 [facility] 15.5 % 12:49 PM CDT [place] Lymphocytes % 24.4 % 05/18/2022 [facility] 12:49 PM CDT [place] Mid-size Cells 4.0 % 05/18/2022 [facility] 12:49 PM CDT [place] Granulocytes/Fabienne 71.6 % 05/18/2022 [facility] trophils 12:49 PM CDT [place] Lymphocytes 2.6 0.9 - 2.9 05/18/2022 [facility] Absolute K/uL 12:49 PM CDT [place] MIDS Absolute 0.4 0.4 - 1.5 05/18/2022 [facility] K/uL 12:49 PM CDT [place] Granulocytes/Fabienne 7.5 (H) 1.7 - 7.0 05/18/2022 [facility] trophils K/uL 12:49 PM CDT [place] Absolute Specimen Anatomical Collection Method Collection Time Receive d Time (Source) Location / / Volume Laterality Blood 05/18/2022 11:32 05/18/2022 AM CDT 11:34 AM CDT Chad Nava MD LAB BLOOD ORDERABLES Performing Organization Address City/State/ZIP Code Phon e Number [facility] [place] [address] [place] [address] documented in this encounter Visit Diagnoses Diagnosis Polyarthralgia Pain in joint, multiple sites documented in this encounter Care Teams Compounding Pharmacy Technician Relationship Specialty Start Date End Date Palak Cooley, FUNCTIONAL MENTAL DISABILITY TEACHER, MAIL RIDER PCP - General 05/19/21 [address] [place] [address] documented as of this encounter
--- OUTSIDE RECORDS SUMMARY | 2022-06-15 14:58 | XMS_ITS | Encounter Summary ---
:1950 Author Organization [facility] Address [address] [place] [address] Care Team Providers Name Role Phone Palak Cooley APRN, CNP Primary Care Provider Encounter Details Date Type Department Care Team Description 01/28/2022 Telephone [place] Palak Cooley APRN, CNP [address] [place], [place] [address] [place] [address] (Wo rk) Social History Tobacco Use Types [...] Telephone Encounter - Asmita Yun LPN - 01/29/2022 9:02 AM CDT She is currently at the hospital with her who is having surgery. She will call back to schedule labs once this is over with and he is home. Telephone Encounter - Yesi Yee - 01/28/2022 1:31 PM CDT Left message with patient to make appointment for fasting labs per message from Fredy Cooley. documented in this encounter Plan of Treatment Not on filedocumented as of this encounter Visit Diagnoses Not on filedocumented in this encounter Care Teams Senior Actuarial Analyst Relationship Specialty Start Date End Date Palak Cooley APRN, SHIPPING TECHNICIAN PCP - General 05/19/21 [address], [place] [address] documented as of this encounter
--- OUTSIDE RECORDS SUMMARY | 2022-06-15 14:58 | XMS_ITS | Encounter Summary ---
:[address] 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 She was concern about the synthroid being prescribed. Her sister who is a nurse also has this and is using armour thyroid. This is derived from porcine. I am happy to send the armour thyroid for her however do not know if her insurance will cover it. As I attempted to pend the medication and an indication poppedup suggesting alternative therapy due to coverage. I also offered an endocrinology referral she can discuss in detail, but she didn't seem interested as it is located in [place]. At the end she was agreeable to try the synthroid and f/u in 2 months to recheck. 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 [address] documented as of this encounter
--- OUTSIDE RECORDS SUMMARY | 2022-06-15 14:58 | XMS_ITS | Encounter Summary ---
:1950 Author Organization [facility] Address [address] [place] [address] Care Team Providers Name Role Phone GonzalezWarner rojasbreonna Garcia APRN, CANDICE Primary Care Provider Encounter Details Date Type Department Care Team Description 05/11/2022 Ancillary Procedure [facility] [address] [place], [place] [address] Social History Tobacco Use Types [...] Priority Date/Time Associated Diagnosis Comme nts XR LUMBAR SPINE Routine 05/11/2022 3:38 PM Chronic bilateral R esults for this COMPLETE 4+ VIEWS CDT low back pain procedure are in without sciatica the results section. documented in this encounter Results X-ray Lumbar Spine Complete 4+ Views (05/11/2022 3:38 PM CDT) Anatomical Region Laterality Modality Spine, L-spine Radiographic Imaging Specimen (Source) Anatomical Collection Method Collection Time Re ceived Time Location / / Volume Laterality 05/11/2022 3:38 PM CDT Impressions 05/11/2022 3:42 PM CDT IMPRESSION: LUMBAR SPINE MIN 4 VIEWS There is stable mild chronic anterior ve rtebral body wedging at T12 and L1. ??No malalignment or acute fracture. ??No suspicious lytic or blastic lesion. ??There is mild disc space narro wing with endplate spurring at T11-12 and T12-L1. ??There is minimal di sc space narrowing at L2-3. ??There is minimal anterior endplate spurring at L3-4. ??There is mild to moderate bilateral facet joint spurring at L4-5 a nd L5-S1. ??There is scattered aortic calcification. Narrative 05/11/2022 3:42 PM CDT INDICATION: >8 weeks of low back pain COMPARISON: Two view chest x-ray July 16, 2017 Procedure Note Jackelyn Mcclelland MD - 05/11/2022 INDICATION: >8 weeks of low back pain COMPARISON: Two view chest x-ray July 16, 2017 IMPRESSION: LUMBAR SPINE MIN 4 VIEWS There is stable mild chronic anterior ve rtebral body wedging at T12 and L1. No malalignment or acute fracture. N o suspicious lytic or blastic lesion. There is mild disc space narrowi ng with endplate spurring at T11-12 and T12-L1. There is minimal disc space narrowing at L2-3. There is minimal anterior endplate spurring at L3-4. There is mild to moderate bilateral facet joint spurring at L4-5 a nd L5-S1. There is scattered aortic calcification. Chad Nava MD IMG XR PROCEDURES documented in this encounter Visit Diagnoses Not on filedocumented in this encounter Care Teams Oil Inspector Relationship Specialty Start Date End Date Palak Cooley, CORPORATE TRAVEL AGENT, SUPERVISOR HOT DIP TINNING PCP - General 05/19/21 [address] [place] [address] documented as of this encounter
--- OUTSIDE RECORDS SUMMARY | 2022-06-15 14:58 | XMS_ITS | Encounter Summary ---
:1950 Author Organization [facility] Address [address] [place] [address] Care Team Providers Name Role Phone GonzalezWarner rojasbreonna Garcia APRN, SUPERVISOR SCRAP PREPARATION Primary Care Provider Encounter Details Date Type Department Care Team Description 07/28/2021 Lab [place] Hypothyroidism due to [address] Param's thyroiditis [place], [place] [address] Social History Tobacco Use [...] Name Priority Date/Time Associated Diagnosis Comme nts TSH Routine 07/28/2021 10:55 AM Hypothyroidism due to Results for this ELECTROPLATING TECHNICIAN Param's thyroiditis proc edure are in the results section. documented in this encounter Results TSH (07/28/2021 10:55 AM ELECTROPLATING TECHNICIAN) P athologist Signature TSH, Sensitive 2.13 0.46 - 07/28/2021 LUISA LEON L 4.68 mIU/L 7:32 PM ELECTROPLATING TECHNICIAN [facility] Comment: The results from this or any other diagn ostic test should be used and interpreted only in the context of the overall clinical picture. Biotin levels in serum remain elevated f or up to 24 hours after oral or intravenous biotin adminis tration and may interfere with this assay to produce unr eliable results. Heterophilic antibodies in serum or plas ma samples may cause interference in immunoassays. ??Exposure to animal antigens, either in the environment or as part of treatment or imaging procedures, may have circulating anti-an imal antibodies present. These antibodies may interfere with the assay reagents to produce unreliable results. ??Results which are inconsistent with clinical observations indicate the need for additional testing. 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 [address] documented as of this encounter
--- OUTSIDE RECORDS SUMMARY | 2022-06-15 14:58 | XMS_ITS | Encounter Summary ---
:1950 Author Organization [facility] Address [address] [place] [address] Care Team Providers Name Role Phone Palak Cooley APRN, LEAD NUCLEAR MEDICINE TECHNOLOGIST Primary Care Provider Reason for Visit Reason Onset Date Comments Levothyroxine refill 10/29/2021 Encounter Details Date Type Department Care Team Description 10/29/2021 Telephone [place] Palak Cooley APRN, Levothyroxine refill [address] [place], [place] [address] [address] [facility] [phone] [place], [place] [address] (Wo rk) Social History Tobacco Use Types [...] Telephone Encounter - Asmita Yun LPN - 11/19/2021 3:42 PM CST noted M PRESSURE CHAMBER OPERATOR Telephone Encounter - Karena Maddox - 11/19/2021 3:32 PM CST Thyroid lab scheduled for Wednesday11/24/21. Thyroid review with Fredy Cooley scheduled for 11/27/21. M PRESSURE CHAMBER OPERATOR Telephone Encounter - Karena [place] - 11/18/2021 9:09 AM CST Left message requesting med review with lab work. M PRESSURE CHAMBER OPERATOR Telephone Encounter - Palak Cooley APRN, CNP - 10/29/2021 11:08 AM CST Needs recheck tsh non fasting for more refills. Sent #[phone] to [facility]. Lab ordered to start 10/31/21. Need appt with provider after for tsh review/bp recheck. M PRESSURE CHAMBER OPERATOR Telephone Encounter - Karena [place] - 10/29/2021 10:52 AM CST Pt called stating she realized she only has 5 pills of her Levothyroxine remaining and the bottle states no refills. Pt is needing this refilled. Pt uses [facility] pharmacy. Please call Pt at [phone] to advise. 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 [address] documented as of this encounter
--- OUTSIDE RECORDS SUMMARY | 2022-06-15 14:58 | XMS_ITS | Encounter Summary ---
:1950 Author Organization [facility] Address [address] [place] [id number] Care Team Providers Name Role Phone GonzalezWarner rojasbreonna Garcia APRN, CANDICE Primary Care Provider Encounter Details Date Type Department Care Team Description 05/11/2022 Ancillary Procedure [facility] [address] [place], [place] [address] Social History Tobacco Use Types [...] of both R esults for this VIEWS RIGHT CDT shoulders procedure are i n the results section. documented in this encounter Results X-ray Shoulder 2+ Views Right (05/11/2022 3:41 PM CDT) Anatomical Region Laterality Modality Upper Extremities, Shoulder Right Radiographic Imaging Specimen (Source) Anatomical Collection Method Collection Time Re ceived Time Location / / Volume Laterality 05/11/2022 3:41 PM CDT Impressions 05/11/2022 3:46 PM CDT IMPRESSION: SHOULDER COMPLETE RIGHT (MIN 2 VIEWS) There is mild narrowing at the acromiocl avicular joint. ??The glenohumeral joint shows no abnormality. ??No soft ti ssue calcification, fracture, dislocation, or lytic or blastic lesion. Narrative 05/11/2022 3:46 PM CDT INDICATION: right shoulder AC joint pain, possible d egenerative rotator cuff tear? COMPARISON: None available Procedure Note Jackelyn Mcclelland MD - 05/11/2022 INDICATION: right shoulder AC joint pain, possible d egenerative rotator cuff tear? COMPARISON: None available IMPRESSION: SHOULDER COMPLETE RIGHT (MIN 2 VIEWS) There is mild narrowing at the acromiocl avicular joint. The glenohumeral joint shows no abnormality. No soft tiss ue calcification, fracture, dislocation, or lytic or blastic lesion. Chad Nava MD IMG XR PROCEDURES documented in this encounter Visit Diagnoses Not on filedocumented in this encounter Care Teams Watch Manufacturing Supervisor Relationship Specialty Start Date End Date Palak Cooley, PORT PATROL OFFICER, LOAF COUNTER PCP - General 05/19/21 [facility] [address], [place] [address] documented as of this encounter
--- OUTSIDE RECORDS SUMMARY | 2022-06-15 14:58 | XMS_ITS | Encounter Summary ---
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 (Primary Dx); [address] CANDICE ALEGRIA Essential (primary) hypertension [place], [place] [address] [place] [address] [place], [place] [phone] [id number] Social History Tobacco Use Types Packs/Day Years [...] Sign Reading Time Taken Comments Blood Pressure 112/60 07/31/2021 1:44 PM MAPPING ENGINEER Pulse 67 07/31/2021 1:03 PM MAPPING ENGINEER Temperature 36.1 ??C (96.9 ??F) 07/31/2021 1:03 PM MAPPING ENGINEER Respiratory Rate 16 07/31/2021 1:03 PM MAPPING ENGINEER Oxygen Saturation 98% 07/31/2021 1:03 PM MAPPING ENGINEER Inhaled Oxygen Concentration - - Weight 92.5 kg (204 lb) 07/31/2021 1:03 PM MAPPING ENGINEER Height - - Body Mass Index 37.31 05/29/2021 10:59 AM CDT documented in this encounter Patient Instructions Patient InstructionsTamadou Cooley APRN, CNP - 07/31/2021 1:00 PM CST Refill synthroid 75mcg daily x3mons revisit; wt changes, recheck tsh hydrochlorothiazide water pill cut in half x5 days then stop Come check bp in about 2-3weeks nurse visit. ING ENGINEER documented in this encounter Progress Notes Palak Cooley APRN, CNP - 07/31/2021 1:00 PM CST Subjective Patient ID: Rina Fisher is a 70 y.o. female. Chief Complaint Patient presents with ??? Follow-up 2 weeks HPI The patient presents to the [facility] for follow-up, recently diagnosed hypothyroidism dueto Param's thyroiditis. Today she is feeling very well. States last time when she was seen 2 months ago she had no motivation or energy to do things. Today she is very motivated and it is doing more around the house. She is not exercising but is watching what she eats and trying to eat healthier. She is also sleeping a bit better. We reviewed that her weight has decreased, today at 204 pounds, few months ago at 211 pounds, and 9 months ago at 233 pounds. Her blood pressure is also trending downwards along with her weight. The following portions of the patient's chart were reviewed in this encounter and updated as appropriate: Tobacco Allergies Meds Med Hx Surg Hx Fam Hx Soc Hx No Known Allergies Current Outpatient Medications: ??? aspirin 81 MG EC tablet, Take 81 mg by mouth 1 (one) time each day, Disp: , Rfl: ??? atenolol (TENORMIN) 25 MG tablet, Take 1 tablet (25 mg total) by mouth 1 (one) time each day, Disp: 90 tablet, Rfl: 3 ??? Cholecalciferol (VITAMIN D3) 5000 units tablet, Take 5,000 Units by mouth daily, Disp: , Rfl: ??? glucosamine-chondroitin 750-600 MG tablet, Take 2 tablets by mouth 1 (one) time each day , Disp:, Rfl: ??? HORSE CHESTNUT PO, Take 250 mg by mouth 2 (two) times a day Takes 1 daily., Disp: , Rfl: ??? Lactobacillus (ACIDOPHILUS PROBIOTIC) tablet, Take 1 tablet by mouth 1 (one) time each day, Disp: , Rfl: ??? levothyroxine (Synthroid) 75 MCG tablet, Take 1 tablet (75 mcg total) by mouth 1 (one) time eachday, Disp: 90 tablet, Rfl: 0 ??? Lutein-Zeaxanthin 25-5 MG capsule, Take 1 capsule by mouth 1 (one) time each day, Disp: , Rfl: ??? Misc Natural Products (ADRENAL PO), Take by mouth (ashwaganda root, cordyceps Mycelium, Shisandra tao, ginseng, rhodiola root, red turkish ginseng, ginseng root, eleuthero root), Disp: , Rfl: ??? [place]-3 Fatty Acids ([employer] FISH OIL) 1200 MG capsule, Take 1,200 mg by mouth 1 (one) time each day, Disp: , Rfl: ??? UNABLE TO FIND, TUMERIC/CURCUMEN 500mg tablet 1 daily, Disp: , Rfl: ??? Zinc 50 MG capsule, Take 1 capsule by mouth 1 (one) time each day, Disp: , Rfl: Review of Systems All other systems negative except HPI Objective Visit Vitals BP 112/60 (BP Location: Left arm, Patient Position: Sitting) Pulse 67 Temp (!) 36.1 ??C (96.9 ??F) (Temporal) Resp 16 Wt 92.5 kg (204 lb) SpO2 98% BMI 37.31 kg/m?? Smoking Status Former Smoker BSA 2.01 m?? Physical Exam General: Alert and oriented female in no acute distress not ill-appearing Heart: RRR, S1-S2 Lungs: CTA bilaterally Psych: Mood, thought process, eye contact, speech are normal. Assessment/Plan Problem List Items Addressed This Visit Circulatory Essential (primary) hypertension Overview Atenolol 25 mg daily Continue diet/exercise. 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 We can go ahead and decrease and stop the hydrochlorothiazide at this time and she will come back in a couple weeks to do a blood pressure recheck. Encourage An again to try to exercise at least 5 to 10 minutes a day. Patient Instructions Refill synthroid 75mcg daily x3mons revisit; wt changes, recheck tsh hydrochlorothiazide water pill cut in half x5 days then stop Come check bp in about 2-3weeks nurse visit. ING ENGINEER documented in this encounter Plan of Treatment Not on filedocumented as of this encounter Results TSH (11/24/2021 11:01 AM MAPPING ENGINEER) P athologist Signature TSH, Sensitive 3.10 0.46 - 11/25/2021 LUISA MEDICA L 4.68 mIU/L 2:30 PM MAPPING [facility]INE[facility] Comment: The results from this [...] (Source) Location / / Volume Laterality Blood 11/24/2021 11:01 11/25/2021 AM MAPPING ENGINEER 12:53 PM MAPPING ENGINEER Palak Cooley APRN, CNP LAB BLOOD ORDERABLES Performing Organization Address City/State/ZIP Code Phon e Number [facility] [address] [place] [address] documented in this encounter Visit Diagnoses Diagnosis Hypothyroidism due to Param's thyroi ditis - Primary Essential (primary) hypertension Unspecified essential hypertension documented in this encounter Care Teams Cloth Inspector Relationship Specialty Start Date End Date Palak Cooley APRN, CNP PCP - General 05/19/[address] [place] [address] documented as of this encounter
--- OUTSIDE RECORDS SUMMARY | 2022-06-15 14:58 | XMS_ITS | Encounter Summary ---
:1950 Author Organization [facility] Address [address] [place] [address] Care Team Providers Name Role Phone GonzalezWarner rojasbreonna Garcia APRN, NAVAL ENGINEER Primary Care Provider Reason for Visit Reason Comments Blood Pressure Check Encounter Details Date Type Department Care Team Description 09/10/2021 Clinical Support [place] [address] [place], [place] [address] Social History Tobacco Use [...] Sign Reading Time Taken Comments Blood Pressure 123/72 09/10/2021 2:39 PM ELECTRICAL MECHANIC Pulse 70 09/10/2021 2:39 PM ELECTRICAL MECHANIC Temperature - - Respiratory Rate - - Oxygen Saturation - - Inhaled Oxygen Concentration - - Weight - - Height - - Body Mass Index - - documented in this encounter Plan of Treatment Not on filedocumented as of this encounter Visit Diagnoses Not on filedocumented in this encounter Care Teams Indirect Fire Infantryman Relationship Specialty Start Date End Date Palak Cooley APRN, NAVAL ENGINEER PCP - General 05/19/21 [address] [place] [address] documented as of this encounter
--- OUTSIDE RECORDS SUMMARY | 2022-06-15 14:58 | XMS_ITS | Encounter Summary ---
:1950 Author Organization [facility] Address [address] [place] [address] Care Team Providers Name Role Phone GonzalezWarner rojasbreonna Garcia APRN, CANDICE Primary Care Provider Encounter Details Date Type Department Care Team Description 05/11/2022 Ancillary Procedure [facility] [address] [place], [place] [address] Social History Tobacco Use Types [...] Priority Date/Time Associated Diagnosis Comme nts XR HIP 2-3 VIEWS Today 05/11/2022 3:08 PM Posterior pain of Results for this RIGHT WITH PELVIS CDT right hip procedure are in Pain of both the results sacroiliac joints section. documented in this encounter Results X-ray hip 2-3 views right with pelvis (05/11/2022 3:08 PM CDT) Anatomical Region Laterality Modality Radiographic Imaging Specimen (Source) Anatomical Collection Method Collection Time Re ceived Time Location / / Volume Laterality 05/11/2022 3:08 PM CDT Impressions 05/11/2022 3:11 PM CDT IMPRESSION: HIP 2-3 VIEWS RIGHT WITH PELVIS There is mild narrowing with spurring bi laterally at the hip joints, more prominent on the left. ??There is minima l spurring bilaterally at the inferior sacroiliac joints. ??Endplate s purring is partially demonstrated in the lower lumbar spine. ??Bone densit y appears diffusely decreased. ??No fracture, dislocation, or lytic or blast ic lesion. Narrative 05/11/2022 3:11 PM CDT INDICATION: Bilateral groin and posterior hip SI checo nt pain > 8 weeks COMPARISON: None available Procedure Note Jackelyn Mcclelland MD - 05/11/2022 INDICATION: Bilateral groin and posterior hip SI checo nt pain > 8 weeks COMPARISON: None available IMPRESSION: HIP 2-3 VIEWS RIGHT WITH PELVIS There is mild narrowing with spurring bi laterally at the hip joints, more prominent on the left. There is minimal spurring bilaterally at the inferior sacroiliac joints. Endplate spu rring is partially demonstrated in the lower lumbar spine. Bone density appears diffusely decreased. No fracture, dislocation, or lytic or blast ic lesion. Chad Nava MD IMG XR PROCEDURES documented in this encounter Visit Diagnoses Not on filedocumented in this encounter Care Teams Hooker On Relationship Specialty Start Date End Date Palak Cooley, SYSTEMS SOFTWARE DEVELOPER, SHAREBROKER PCP - General 05/19/21 [address] [place] [address] documented as of this encounter
--- OUTSIDE RECORDS SUMMARY | 2022-06-15 14:58 | XMS_ITS | Clinical Summary ---
:1950 Author Organization [facility] [place] [facility] Address [address] [place] [address] Care Team Providers Name Role Phone GonzalezWarner rojasbreonna Garcia APRN, AUTOMATIC LATHE OPERATOR Primary Care Provider Allergies No known active allergies Medications Medication Sig Dispensed Refills Start Date End Date Status aspirin 81 MG EC tablet Take 81 mg by 0 Active mouth 1 (one) time each day [place]-3 Fatty Acids ([facility]S Take 1,200 mg 0 Active FISH OIL) 1200 MG capsule by mouth 1 (one) time each day glucosamine-chondroitin Take 2 tablets 0 Active 750-600 MG tablet by mouth 1 (one) time each day Cholecalciferol (VITAMIN Take 5,000 0 Active D3) 5000 units tablet Units by mouth daily UNABLE TO FIND TUMERIC/CURCUME 0 Active N 500mg tablet 1 daily HORSE CHESTNUT PO Take 250 mg by 0 Active mouth 1 (one) time each day Takes 1 daily. Lactobacillus Take 1 tablet 0 Ac tive (ACIDOPHILUS PROBIOTIC) by mouth 1 tablet (one) time each day Zinc 50 MG capsule Take 1 capsule 0 Active by mouth 1 (one) time each day Lutein-Zeaxanthin 25-5 MG Take 1 capsule 0 Active capsule by mouth 1 (one) time each day Misc Natural Products Take by mouth 0 Active (ADRENAL PO) (ashwaganda root, cordyceps Mycelium, Shisandra tao, ginseng, rhodiola root, red romansh ginseng, ginseng root, eleuthero root) levothyroxine (Synthroid) Take 1 tablet 90 tablet 3 11/27/2021 Active 75 MCG tabletIndications: (75 mcg total) Hypothyroidism due to by mouth 1 Param's thyroiditis (one) time each day atenolol (TENORMIN) 25 MG Take 0.5 90 tablet 3 11/27/2021 Active tabletIndications: tablets (12.5 Essential (primary) mg total) by hypertension mouth 1 (one) time each day hydroCHLOROthiazide Take 1 tablet 90 tablet 3 11/27/202111/27 Active (HYDRODIURIL) 12.5 MG (12.5 mg total) 3 tabletIndications: by mouth 1 Essential (primary) (one) time each hypertension, Generalized day edema ibuprofen (ADVIL) 800 MG Take 800 mg by 0 Active tablet mouth every 6 (six) hours if needed for mild pain Patient taking 800mg 3 times daily Active Problems Problem Noted Date 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 11/07/20: A1C 6.1 Last Assessment & Plan: Discuss results with the patient and at this time she would like to have time to work on her diet and exercise. She will follow up in 6 months and we can recheck this. Presbycusis of both ears 11/07/2020 Overview: Patient states she had a positive hearin g loss test at one of the hearing aid clinic that offered free testing. She also has tinnitus. Last Assessment & Plan: She was agreeable for an audiology refer ral. Mixed hyperlipidemia 11/07/2020 Overview: 2020: ASCVD 10yr risk 27.2%, high. Decli juana statin. Using fish oil and baby aspirin. Last Assessment & Plan: Again declined statin therapy. Benign paroxysmal positional vertigo 11/04/2020 Varicose veins of right lower extremity with pain 02/18 Overview: Currently using compression socks and st ates overall symptoms improved. She is working on weight loss and exercise. Taking horse [place] supplement and states this is helping. Body mass index (BMI) 40.0-44.9, adult 11/29/2018 Primary osteoarthritis of both knees 11/29/2018 Overview: Patient states her knee pain have been i mproving with the weight loss and use of regular compression socks. Last Assessment & Plan: Currently doing well and has no complain ts. Edema 07/16/2017 Essential (primary) hypertension 07/16/2017 Overview: Atenolol 12.5mg dialy hydrochlorothiazide 12.5mg daily Continue diet/exercise. Last Assessment & Plan: Hypertension is improving with lifestyle modifications. Continue current treatment regimen. Blood pressure will be reassessed at the next regular appointment. 6months. Discussed monitor for any dizziness, per form at home bp checks or clinic bp checks. Discussed small frequent exercise. Rosacea Overview: Patient states the facial redness improv es with evening primrose oil. Declines other treatments needed. Resolved Problems Problem Noted Date Resolved Date Swelling of lower extremity 03/03/2019 11/07/2020 Zoster without complications 07/20/2017 05/29/2021 Palpitations 07/16/2017 11/07/2020 Encounters Date Type Specialty Care Team Description 05/19/2022 Telephone Family Medicine Chad Nava MD 05/18/2022 Lab Family Medicine Polyarthralg ia 05/12/2022 Telephone Family Chad Bui PMR becki Waters MD 05/11/2022 Ancillary Procedure Radiology 05/11/2022 Ancillary Procedure Radiology 05/11/2022 Ancillary Procedure Radiology 05/11/2022 Ancillary Procedure Radiology 05/11/2022 Ancillary Procedure Radiology 05/08/2022 Office Visit Family Chad Bui Neck stiff ness (Primary Dx); MD Jt Chronic bilater al low back pain without sciatica; Acute pain of b oth shoulders; Posterior pain of right hip; Pain of both sa croiliac joints 05/06/2022 Telephone Family Medicine Palak Cooley, BALANCE STAFF INSPECTOR, AUTOMATIC LATHE OPERATOR 05/04/2022 Orders Only Family Medicine Eneida Ayers MD from Last 3 Months Immunizations Name Administration Dates Next Due COVID-19, mRNA, LNP-S, PF, 30mcg/0.3mL dose Pfizer 1, 11/22/2020 Family History Medical History Relation Comments Colon polyps Brother COPD Father Hearing loss Father Heart failure Father Hyperlipidemia Father Hypertension Father Kidney failure Father STAGE 4 Melanoma Father Prostate cancer Father Anxiety disorder Mother Atrial fibrillation Mother Clotting disorder Mother Lung Depression Mother Hearing loss Mother Heart attack Mother Hypertension Mother Addiction problem Son Anxiety disorder Son Depression Son Diabetes Son Relation Status Comments Brother Alive Father Mother Son Social History Tobacco Use Types Packs/Day Years Used Date Former Smoker 1 Quit: 1978 Smokeless Tobacco: Never Used Tobacco Cessation: Counseling Given: No Comments: Former smoker x one year at [...] Assigned at Date Recorded Not on file Last Filed Vital Signs Vital Sign Reading Time Taken Comments Blood Pressure 102/74 05/08/2022 3:53 PM CDT Pulse 70 05/08/2022 3:53 PM CDT Temperature 36.2 ??C (97.2 ??F) 05/08/2022 3:53 PM CDT Respiratory Rate 16 05/08/2022 3:53 PM CDT Oxygen Saturation 99% 05/08/2022 3:53 PM CDT Inhaled Oxygen Concentration - - Weight 97.8 kg (215 lb 8 oz) 05/08/2022 3:53 PM CDT Height 160 cm (5' 3) 05/08/2022 3:53 PM CDT Body Mass Index 38.17 05/08/2022 3:53 PM CDT Plan of Treatment Health Maintenance Due Date Last Done Comments CT Colonography 1950 FIT-DNA 1950 Sigmoidoscopy 1950 iFOBT 1950 Zoster Vaccines (1 of 2) 1999 Glaucoma Screening 67+ Yr 11/08/2022 Postpo juana from 1950 (Caitlyn ent Refused) Fall Risk Performed 11/27/2022 11/27/2021 [facility] 11/27/2022 11/27/2021 COVID-19 Vaccine Discontinued 12/13/2020, 11/22/2020 Colonoscopy Discontinued Colorectal Cancer Screening Discontinued HPV Vaccines Aged Out No longer eligib le based on patient's age to complete this to pic Mammogram Discontinued Pneumococcal Vaccine: 65+ Discontinued Years Procedures Procedure Name Priority Date/Time Associated Diagnosis Comme nts SEDIMENTATION RATE, Routine 05/18/2022 11:32 Polyarthralgia Re sults for this AUTOMATED AM CDT procedure are i n the results section. C-REACTIVE PROTEIN Routine 05/18/2022 11:32 Polyarthralgia Res ults for this AM CDT procedure are i n the results section. CBC BRANCH OFFICE Routine 05/18/2022 11:32 Polyarthralgia Resu lts for this W/DIFF AM CDT procedure are i n the results section. XR SHOULDER 2+ VIEWS Routine 05/11/2022 3:41 Acute pain of bot h Results for this LEFT PM CDT shoulders procedure are i n the results section. XR SHOULDER 2+ VIEWS Routine 05/11/2022 3:41 Acute pain of bot h Results for this RIGHT PM CDT shoulders procedure are i n the results section. XR CERVICAL SPINE Routine 05/11/2022 3:40 Neck stiffness Resul ts for this COMPLETE 4-5 VIEWS PM CDT procedure are in the results section. XR LUMBAR SPINE Routine 05/11/2022 3:38 Chronic bilateral low Results for this COMPLETE 4+ VIEWS PM CDT back pain without proce dure are in sciatica the results section. XR HIP 2-3 VIEWS Today 05/11/2022 3:08 Posterior pain of Res ults for this RIGHT WITH PELVIS PM CDT right hip procedure are in Pain of both the results sacroiliac joints section. from Last 3 Months Results (ABNORMAL) CBC Branch Off w/Diff (05/18/2022 11:32 AM CDT) Analysis Performed At Patho logist Time Signature WBC 10.5 3.5 - 10.5 05/18/2022 [facility] K/uL 12:49 PM CDT FALLS RBC 4.78 3.90 - 05/18/2022 [facility] 5.00 M/uL 12:49 PM CDT FALLS Hemoglobin 13.8 12.0 - 05/18/2022 [facility] 15.5 g/dL 12:49 PM CDT FALLS Hematocrit 43.1 35.0 - 05/18/2022 [facility] 44.0 % 12:49 PM CDT FALL[place] Platelets 288 150 - 450 05/18/2022 [facility] K/uL 12:49 PM CDT F[place] MCV 90.2 81.6 - 05/18/2022 [facility] 98.3 fL 12:49 PM CDT F[place] MCH 28.9 26.0 - 05/18/2022 [facility] 32.0 pg 12:49 PM CDT F[place] MCHC 32.0 32.0 - 05/18/2022 [facility] 36.0 g/dL 12:49 PM CDT F[place] RDW 12.9 11.9 - 05/18/2022 [facility] 15.5 % 12:49 PM CDT [place] Lymphocytes % 24.4 % 05/18/2022 [facility] 12:49 PM CDT [place] Mid-size Cells 4.0 % 05/18/2022 [facility] 12:49 PM CDT [place] Granulocytes/Fabienne 71.6 % 05/18/2022 [facility] trophils 12:49 PM CDT [place] Lymphocytes 2.6 0.9 - 2.9 05/18/2022 [facility] Absolute K/uL 12:49 PM CDT [place] MIDS Absolute 0.4 0.4 - 1.5 05/18/2022 [facility] K/uL 12:49 PM CDT [place] Granulocytes/Fabienne 7.5 (H) 1.7 - 7.0 05/18/2022 [facility] trophils K/uL 12:49 PM CDT [place] Absolute Specimen Anatomical Collection Method Collection Time Receive d Time (Source) Location / / Volume Laterality Blood 05/18/2022 11:32 05/18/2022 AM CDT 11:34 AM CDT Chad Nava MD LAB BLOOD ORDERABLES Performing Organization Address [facility]/ZIP Code Phon e Number [facility] [place] [address] [place] [address] ESR-Sed rate (05/18/2022 11:32 AM CDT) P athologist Signature Sed Rate 26 0 - 29 05/19/2022 [facility] mm/hr 1:03 PM CDT [facility] Specimen Anatomical Collection Method Collection Time Receive d Time (Source) Location / / Volume Laterality Blood (Blood, 05/18/2022 11:32 05/19/2022 Venous) AM CDT 12:20 PM CDT Chad Nava MD LAB BLOOD ORDERABLES Performing Organization Address [facility]/ZIP Code Phon e Number [facility] [address] [place] [phone] (ABNORMAL) C-reactive protein (05/18/2022 11:32 AM CDT) athologist Signature CRP 14.4 (H) 0.0 - 4.9 05/19/2022 [facility] mg/L 1:34 PM CDT [facility] Specimen Anatomical Collection Method Collection Time Receive d Time (Source) Location / / Volume Laterality Blood (Blood, 05/18/2022 11:32 05/19/2022 Venous) AM CDT 12:20 PM CDT Cahd Nava MD LAB BLOOD ORDERABLES Performing Organization Address [facility]/ZIP [facility] Phon e Number [facility] [address] [place] [phone] X-ray Shoulder 2+ Views Right (05/11/2022 3:41 [...] lesion. Chad Nava MD IMG XR PROCEDURES X-ray Shoulder 2+ Views Left (05/11/2022 3:41 [...] lytic or blastic lesion. Chad Nava MD IM XR PROCEDURES X-ray cervical spine complete 4-5 views (05/11/2022 [...] lytic or blastic lesion. Chad Nava MD [facility] XR PROCEDURES X-ray Lumbar Spine Complete 4+ Views (05/11/2022 [...] calcification. Chad Nava MD IMG XR PROCEDURES X-ray hip 2-3 views right with pelvis [...] lesion. Chad Nava MD IMG XR PROCEDURES from Last 3 Months Insurance Payer Benefit Plan / Subscriber ID Effective Dates Phone Addre ss Type Group MEDICARE MEDICARE [id number] 2020-Presen [address] [place] [address] BCBS OF BCBS AMBLER [id number] 2020-Presen [address] [address] [place] [address] [place] MEDICARE NON [id number] ADVANTAGE Care Teams Music Producer Relationship Specialty Start Date End Date Palak Cooley, BALANCE STAFF INSPECTOR, AUTOMATIC LATHE OPERATOR PCP - General 05/19/[address] [place], [place] [address]
--- OUTSIDE RECORDS SUMMARY | 2022-06-15 14:58 | XMS_ITS | Encounter Summary ---
:1950 Author Organization [facility] Address [address] [place] [address] Care Team Providers Name Role Phone Palak Cooley Jose ALEGRIA, FURNITURE PAINTER Primary Care Provider Encounter Details Date Type Department Care Team Description 05/19/2022 Telephone [place] Chad Nava MD [address] [facility] [address] [place], [place] [address] [place], [place] [phone] (Wo rk) Social History Tobacco Use Types [...] this encounter Miscellaneous Notes Telephone Encounter - Chad Nava MD - 05/19/2022 1:59 PM CDT Spoke to patient I believe she has PMR, ESR was borderline, and CRP was elevated and other usual indices for inflammation on her CBC were elevated relative to her baseline. I recommended prednisone 15 mg/ day and follow up in 7-10 days but patient declines for now and worries about possible steroid side effects. She will come cotton picking machine operator copies of her lab reports. I did give anticipatory guidance on if any headaches in the temporal area that are new or different from prior headaches to let us know right away as concern for GCA complications in patients with PMR is higher. documented in this encounter Plan of Treatment Not on filedocumented as of this encounter Visit Diagnoses Not on filedocumented in this encounter Care Teams Call Or Contact Centre Manager Relationship Specialty Start Date End Date Palak Cooley APRN, FURNITURE PAINTER PCP - General 05/19/[address] [place] [id number] documented as of this encounter
--- OUTSIDE RECORDS SUMMARY | 2022-06-15 14:58 | XMS_ITS | Encounter Summary ---
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 documented in this encounter Results TSH (11/24/2021 11:01 AM [facility]) P athologist Signature TSH, Sensitive 3.10 0.46 - 11/25/2021 [facility] 4.68 mIU/L 2:30 PM [facility] Comment: The results from this [...] Volume Laterality Blood 11/24/2021 11:01 11/25/2021 AM [facility] 12:53 PM [facility] Palak Cooley APRN, CNP LAB BLOOD ORDERABLES Performing Organization Address City/State/ZIP Code Phon e Number [facility] [address] [place] [address] documented in this encounter Visit Diagnoses Diagnosis Hypothyroidism due to Param's thyroi ditis documented in this encounter Care Teams Manufacturers Agent Relationship Specialty Start Date End Date Palak Cooley APRN DECORATING MACHINE TENDER PCP - General 05/19/[address] [place] [address] documented as of this encounter
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
--- OUTSIDE RECORDS SUMMARY | 2022-06-15 14:59 | XMS_ITS | Encounter Summary ---
:1950 Author Organization [facility] Address [address] [place] [address] Care Team Providers Name Role Phone None, Pcp Primary Care Provider Unavailable Reason for Visit Reason Comments Medicare Annual Wellness Visit Initial Encounter Details Date Type Department Care Team Description 11/07/2020 Clinical Support Kiel Gong Medicare annual wellness [address] visit, initial KAREN Butts [phone] 09 Social History Tobacco Use Types [...] Sign Reading Time Taken Comments Blood Pressure 138/76 11/07/2020 9:25 AM CROSSCUTTER Pulse 84 11/07/2020 9:25 AM CROSSCUTTER Temperature 35.6 ??C (96.1 ??F) 11/07/2020 9:25 AM CROSSCUTTER Respiratory Rate 14 11/07/2020 9:25 AM CROSSCUTTER Oxygen Saturation 99% 11/07/2020 9:25 AM CROSSCUTTER Inhaled Oxygen Concentration - - Weight 106 kg (233 lb) 11/07/2020 9:25 AM CROSSCUTTER Height 157.5 cm (5' 2.01) 11/07/2020 9:25 AM CROSSCUTTER Body Mass Index 42.61 11/07/2020 9:25 AM CROSSCUTTER documented in this encounter Progress Notes Asmita Yun LPN - 11/07/2020 11:20 AM CST Annual Wellness Visit CARE TEAM / RESOURCES: Patient Care Team: Pcp None as PCP - General (Pressure Vessel Inspector) [facility] Care: [facility]: NONE at this time Pharmacy: [facility] [address] [address] Other: Visit Vitals BP 138/76 (BP Location: Right arm, Patient Position: Sitting) Pulse 84 Temp (!) 35.6 ??C (96.1 ??F) (Temporal) Resp 14 Ht 1.575 m (5' 2.01) Wt 106 kg (233 lb) SpO2 99% BMI 42.61 kg/m?? Smoking Status Former Smoker BSA 2.15 m?? No Known Allergies Outpatient Encounter Medications as of 11/07/2020 Medication Sig Dispense Refill ??? aspirin 81 MG EC tablet Take 81 mg by mouth 1 (one) time each day ??? atenolol (TENORMIN) 25 MG tablet TAKE 1 TABLET BY MOUTH ONCE DAILY. 90 tablet 3 ??? Cholecalciferol (VITAMIN D3) 5000 units tablet Take 5,000 Units by mouth daily ??? EQL EVENING PRIMROSE OIL PO Take 1,300 tablets by mouth daily ??? glucosamine-chondroitin 750-600 MG tablet Take 2 tablets by mouth 1 (one) time each day ??? HORSE CHESTNUT PO Take 250 mg by mouth 2 (two) times a day ??? hydroCHLOROthiazide (HYDRODIURIL) 25 MG tablet TAKE 1 TABLET BY MOUTH ONCE DAILY. 90 tablet 3 ??? Lactobacillus (ACIDOPHILUS PROBIOTIC) tablet Take 1 tablet by mouth 1 (one) time each day ??? Multiple Vitamins-Minerals (MULTIVITAMIN ADULT PO) Take by mouth 1 (one) time each day No Iron ??? [place]-3 Fatty Acids ([facility] FISH OIL) 1200 MG capsule Take 1,200 mg by mouth 1 (one) time each day ??? UNABLE TO FIND Med Name: SUPER B COMPLEX / B Vit / Biotin / Folate / Pantothenic Acid ??? UNABLE TO FIND TUMERIC/CURCUMEN 500mg tablet 1 daily No facility-administered encounter medications on file as of 11/07/2020. There is no immunization history on file for this patient. Patient Active Problem List Diagnosis ??? Edema ??? Essential (primary) hypertension ??? Palpitations ??? Zoster without complications ??? Body mass index (BMI) 40.0-44.9, adult ??? Primary osteoarthritis of both knees ??? Benign paroxysmal positional vertigo ??? Varicose veins of lower extremity ??? Swelling of lower extremity Past Medical History: Diagnosis Date ??? Allergic ??? Allergic rhinitis ??? Arthritis ??? Cataract ??? Depression ??? Hypertension ??? Obesity ??? Rosacea ??? Urinary tract infection ??? Varicella ??? Visual impairment Past Surgical History: Procedure Laterality Date ??? TONSILLECTOMY History of tonsillectomy with adenoidectomy ??? WISDOM TOOTH EXTRACTION Social History Socioeconomic History ??? Marital status: Spouse name: None ??? Number of children: 2 ??? Years of education: None ??? Highest education level: Some college, no degree Occupational History ??? 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 Financial resource strain: None ??? Food insecurity Worry: None Inability: None ??? Transportation needs Medical: None Non-medical: None Tobacco Use ??? Smoking status: Former Smoker Years: 1.00 ??? Smokeless tobacco: Never Used ??? Tobacco comment: Former smoker x one year at the age of 34 years Substance and Sexual Activity ??? Alcohol use: Yes Frequency: Monthly or less ??? Drug use: No ??? Sexual activity: None Lifestyle ??? Physical activity Days per week: 0 days Minutes per session: None ??? Stress: None Relationships ??? Social connections Talks on phone: None Gets together: None Attends confucianist service: None Active member of club or organization: None Attends meetings of clubs or organizations: None Relationship status: None ??? Intimate partner violence Fear of current or ex partner: None Emotionally abused: None Physically abused: None Forced sexual activity: None Other Topics Concern ??? None Social History Narrative Caffeine use: hot chocolate Uses seatbelt Carbon monoxide detector in home Smoke detector in home Uses sunscreen No Advance Directive No guns in home Pain Assessment Scored: 0-No pain and location: Utilization / Navigation of Health Care Systems: Does not overuse the [facility], Acute Care, eVisits or Emergency Room. PHQ-9 mental health screening performed. Scored: LEONIDAS-7 anxiety screening performed. Scored: Mini-Cog test performed. Scored: CAGE-AID test performed. BMI/weight management reviewed. BMI: Body mass index is 42.61 kg/m??. Declined referral to nutrition education for BMI greater than 30. Fall Risk Assessment performed. Scored: Tug time: Referral to Physical Therapy not applicable due to low fall risk. Colon Cancer Screening: Last done: NEVER Due: The patient declined at this time. Doctor will discuss cologaurd Breast Cancer Screening: Last done: DECLINES at this time Osteoporosis Screening: Last done: DECLINES at this time Prostate Cancer Screening: No results found for: PSA, PSAD Hepatitis C Screening: No results found for: HEPCAB Glaucoma Screening: Not indicated AAA Screening: Not indicated Lung Cancer Screening: Not indicated Findings: The nurse gave the patient information on a ColoGaurd. She is due for a pneumonia vaccine as one has never been given. The following referral(s) were created: None. What [...] transfusion before 1991. ?? Those born between 7123-3017. Glaucoma: Medicare Part B (Medical Insurance) covers [...] meet ALL of these conditions: ?? They're 55-77. ?? They're asymptomatic (they don???t have signs or symptoms of lung cancer). ?? They're either a current smoker or have quit smoking within the last 15 years. ?? They have a tobacco smoking history of at least 30 ???pack years?? (an average of one pack a dayfor 30 years). SCUTTER documented in this encounter Plan of Treatment Not on filedocumented as of this encounter Visit Diagnoses Diagnosis Medicare annual wellness visit, initial documented in this encounter Care Teams Cardiac Nurse Practitioner Relationship Specialty Start Date End Date None, Pcp PCP - General Pressure Vessel Inspector 11/06/20 05/18/21 [address] [place] [address] documented as of this encounter
--- OUTSIDE RECORDS SUMMARY | 2022-06-15 14:59 | XMS_ITS | Encounter Summary ---
:1950 Author Organization [facility] Address [address] [place] [address] Care Team Providers Name Role Phone None, Pcp Primary Care Provider Unavailable Reason for Visit Reason Comments Hearing Loss 5+ years Tinnitus 5+ years Consultation (Routine) - Closed Specialty Diagnoses / Procedures Referred By Contact Refer red To Contact Audiology Diagnoses Presbycusis of both ears Palak Cooley, RAJI, DIRECTOR INSURANCE Audiology [address] [place] [address] [place] [address] [place] [address] Fax: Referral ID Status Reason Start Date Expiration Date Visits V isits Requested Authorized [id number] Closed Specialty 11/07/2020 11/07/2021 1 1 Services Required Encounter Details Date Type Department Care Team Description 12/10/2020 Office Visit Audiology Batsheva Zambrano, Sensorineural hearing loss ( SNHL) of both ears (Primary Dx); [address] [place] [address] Au.D. Tinnitus of both ears [address] [phone] [place] [phone] Social History Tobacco Use Types Packs/Day Years [...] documented as of this encounter Progress Notes Anca Oswald - 12/10/2020 4:00 PM CDT Audiology: Audiological Evaluation Subjective Referral: Palak Cooley APRN, CNP Chief complaint: Chief Complaint Patient presents with ??? Hearing Loss 5+ years ??? Tinnitus 5+ years Reason for visit: Ms. Fisher is seen today at the request of Palak Cooley APRN, CNP for an evaluation of hearing. Patient has noticed increasing difficulty hearing. Patient denies: otalgia, dizziness and aural fullness Patient complains of: hearing loss and tinnitus for at least the last 5 years Family History of hearing loss: Yes History of loud noise exposure: No Objective Otoscopic examination: Right Ear: clear ear canal Left Ear: clear ear canal Pure tone audiometry indicated a mild to moderate sensorineural hearing loss in both ears. Speech recognition thresholds were obtained at 35 dB HL in the right ear and at 35 dB HL in the left ear. Wordrecognition scores were obtained at 96% with a presentation level of 70 dB HL in the right ear and at 100% with a presentation level of 70 dB HL in the left ear. Words were presented using recorded speech at the patient's most comfortable listening level without the use of visual and contextual cues, bilaterally. Appropriate masking was used, as needed, during all testing. Assessment: Encounter Diagnoses Name Primary? Sensorineural hearing loss (SNHL) of both ears Yes ??? Tinnitus of both ears Plan 1. A copy of the audiologic evaluation was provided for the patient's personal records. 2. Consider amplification trial period. 3. Re-check hearing in 1-2 years, sooner if perceived change in hearing. documented in this encounter Plan of Treatment Scheduled Referrals Name Type Priority Associated Diagnoses Order S [facility] Ambulatory referral Outpatient Referral Routine Presbycusis of both Ordered: to Audiology ears 11/07/2020 documented as of this encounter Visit Diagnoses Diagnosis Sensorineural hearing loss (SNHL) of bot h ears - Primary Tinnitus of both ears Unspecified tinnitus documented in this encounter Care Teams Surface Supply Breathing Apparatus Relationship Specialty Start Date End Date None, Pcp PCP - General Train Station Agent 11/06/20 05/18/21 [address] [place] [address] documented as of this encounter
--- OUTSIDE RECORDS SUMMARY | 2022-06-15 14:59 | XMS_ITS | Encounter Summary ---
:1950 Author Organization [facility] Address [address] [place] [address] Care Team Providers Name Role Phone Margie Mcmanus APRN, CNP Primary Care Provider [phone] Reason for Referral Consultation (Routine) - Closed Specialty Diagnoses / Procedures Referred By Contact Refer red To Contact Diagnoses Chronic pain of both knees Margie Mcmanus, [facility] CANDICE [facility] [place] [address] [address] [place] [id number] Phone: Fax: Referral ID Status Reason Start Date Expiration Date Visits Requ ested Visits Authorized [id number] Closed 01/05/2019 01/06/2020 1 1 Encounter Details Date Type Department Care Team Description 01/05/2019 Orders Only [place] Margie Mcmanus, Chronic pain of both [address] CANDICE ALEGRIA knees (Primary Dx) [place], [place] [address] [address] [place] [address] [phone] Social History Tobacco Use Types Packs/Day Years [...] as of this encounter Plan of Treatment Scheduled Referrals Name Type Priority Associated Order Schedule Diagnoses Ambulatory External Outpatient Referral Routine Chronic pain o f Ordered: Referral both knees 01/05/2019 documented as of this encounter Visit Diagnoses Diagnosis Chronic pain of both knees - Primary documented in this encounter Care Teams Watchmaker Apprentice Relationship Specialty Start Date End Date Margie Mcmanus, RN CARE TRANSITION, WEIGHER AND GRADER PCP - General 04/26/18 05/27/[address] [place] [address] [place] [address] documented as of this encounter
--- OUTSIDE RECORDS SUMMARY | 2022-06-15 14:59 | XMS_ITS | Encounter Summary ---
:1950 Author Organization [facility] Address [address] [place] [address] Care Team Providers Name Role Phone Margie Mcmanus BILINGUAL TEACHER ASSISTANT, EYE CARE PROFESSIONAL Primary Care Provider [phone] Encounter Details Date Type Department Care Team Description 09/06/2019 Orders Only [place] Margie Mcmanus, Prediabetes (Primary [address] BILINGUAL TEACHER ASSISTANT, EYE CARE PROFESSIONAL Dx) [place], [place] 100 [facility] [address] [place] [address] Social History Tobacco Use Types Packs/Day Years [...] as of this encounter Visit Diagnoses Diagnosis Prediabetes - Primary Other abnormal glucose documented in this encounter Care Teams Copy Room Technician Relationship Specialty Start Date End Date Margie Mcmanus APRN, EYE CARE PROFESSIONAL PCP - General 04/26/18 05/27/20 100 [facility] [place] [address] documented as of this encounter
--- OUTSIDE RECORDS SUMMARY | 2022-06-15 14:59 | XMS_ITS | Encounter Summary ---
:1950 Author Organization [facility] Address [address] [place] [address] Care Team Providers Name Role Phone Margie Mcmanus READING SPECIALIST, MOBILE PHLEBOTOMIST Primary Care Provider [phone] Reason for Visit Reason Onset Date Comments QUESTIONS ABOUT KNEE INJ. 11/17/2018 Encounter Details Date Type Department Care Team Description 11/17/2018 Telephone [place] Margie Mcmanus, QUESTIONS ABOUT KNEE [address] READING SPECIALIST, MOBILE PHLEBOTOMIST INJ. [place], [place] [address] [address] [facility] [address] [phone] [place], [place] [address] Social History Tobacco Use Types Packs/Day Years Used Date Former Smoker 1 Comments: Former smoker x one year at [...] this encounter Miscellaneous Notes Telephone Encounter - Margie Mcmanus APRN, CNP - 11/22/2018 2:48 PM LAGGING MACHINE OPERATOR Referral completed. ING MACHINE OPERATOR Telephone Encounter - Karena Maddox - 11/17/2018 4:41 PM CST Pt would like to see Dr Karena Christiansen Podiatry at [facility]. Pt will make appt to consult with Dr. Ayers about knee injections. ING MACHINE OPERATOR Telephone Encounter - Geena Webb MA - 11/17/2018 1:39 PM CST Patient informed and will call back when she gets the podiatry information ING MACHINE OPERATOR Telephone Encounter - Margie Mcmanus APRN, CNP - 11/17/2018 12:43 PM LAGGING MACHINE OPERATOR The patient should come in for consultation with Dr. Crisostomo regarding the Synvisc injections, as they do need to be prior off before she can receive them. When she knows where she would like to go to podiatry it certainly be willing to make those arrangements, referrals. Say hi to her for me. Thanks Vern. ING MACHINE OPERATOR Telephone Encounter - Geena Webb MA - 11/17/2018 11:23 AM CST Spoke with patient who wanted to know how affective the synvisc injections can be? Also wondering how long it lasts, do you injections every year or how often? Any side effects? Would you like the patient to come in for a consult about the injections? Patient would like to get her foot looked at firstbefore injections. Patient instructed to call insurance to find out where she is covered for podiatry. ING MACHINE OPERATOR Telephone Encounter - Karena Maddox - 11/17/2018 10:50 AM CST Pt called with some questions about possible knee injections Vern Mcmanus had given her some information on. Pt also noted she would like to go ahead with the podiatry referral, but would like to know her options on where to go for that. Please call Pt to advise. ING MACHINE OPERATOR documented in this encounter Plan of Treatment Not on filedocumented as of this encounter Visit Diagnoses Not on filedocumented in this encounter Care Teams Space Sciences Director Relationship Specialty Start Date End Date Margie Mcmanus, READING SPECIALIST, MOBILE PHLEBOTOMIST PCP - General 04/26/18 05/27/20 100 [facility] [place] [address] documented as of this encounter
--- OUTSIDE RECORDS SUMMARY | 2022-06-15 14:59 | XMS_ITS | Encounter Summary ---
:1950 Author Organization [facility] Address [address] [place] [address] Care Team Providers Name Role Phone Margie Mcmanus DELICATESSEN GOODS STOCK CLERK, TREASURY ACCOUNTANT Primary Care Provider [phone] Encounter Details Date Type Department Care Team Description 01/05/2019 Telephone Kiel Gong Margie Mcmanus, [address] DELICATESSEN GOODS STOCK CLERK, TREASURY ACCOUNTANT [place] [address] [phone] [place], [place] [address] Social History Tobacco Use [...] this encounter Miscellaneous Notes Telephone Encounter - Luz Ny - 01/06/2019 8:28 AM CDT Referral faxed. Telephone Encounter - Kiarra Conner RN - 01/06/2019 8:09 AM CDT Please fax order for PT to [facility] Telephone Encounter - Margie Mcmanus APRN, CANDICE - 01/05/2019 4:47 PM CDT Please let the patient know the referral has been sent, and they will call her to schedule, and she can determine the timing, but at least the process is started. Thanks, Vern Telephone Encounter - Eneida Ayers MD - 01/05/2019 4:34 PM CDT Vern, I was going to do Synvisc injections on Rina's knee(s) but she requires by her insurance to do PT first and if she fails then we can do the injections. She can certainly start PT anytime. I will let you do the referral to PT. Telephone Encounter - Kiarra Conner RN - 01/05/2019 11:02 AM CDT Patient stated her insurance will cover PT in [facility]. She isn't sure if she should be starting PT now with the upcoming appointments.. Orthotics should be coming in 01/18/19. US of legs on 01/27. Please advise and place referral, she does want to do PT though just isn't sure when. documented in this encounter Plan of Treatment Not on filedocumented as of this encounter Visit Diagnoses Not on filedocumented in this encounter Care Teams Contract Specialist Relationship Specialty Start Date End Date Margie Mcmanus APRN, TREASURY ACCOUNTANT PCP - General 8/7/18 9/7/20 [address] [place], [place] [address] documented as of this encounter
--- OUTSIDE RECORDS SUMMARY | 2022-06-15 14:59 | XMS_ITS | Encounter Summary ---
:1950 Author Organization [facility] Address [address] [place] [address] Care Team Providers Name Role Phone None, Pcp Primary Care Provider Unavailable Encounter Details Date Type Department Care Team Description 11/06/2020 Lab Kiel Gong Prediabetes; [address] Encounter for hepatitis C sc reening test for low risk patient; [place] [address] Essential (primary) hyperten harmony [phone] Social History Tobacco Use Types Packs/Day Years [...] Associated Diagnosis Comme nts GLOMERULAR FILTRATION Routine 11/06/2020 10:16 Essential (prim alan) Results for this RATE AM RAISE MINER hypertension procedure are i n the results section. HEPATITIS C ANTIBODY Routine 11/06/2020 10:16 Encounter for Re sults for this AM RAISE MINER hepatitis C procedure are i n screening test for the resul ts low risk patient section. T3 Routine 11/06/2020 10:16 Results for this AM RAISE MINER procedure are i n the results section. TSH Routine 11/06/2020 10:16 Essential (primary) Resu lts for this AM RAISE MINER hypertension procedure are i n the results section. T4, FREE Routine 11/06/2020 10:16 Results for this AM RAISE MINER procedure are i n the results section. MAGNESIUM Routine 11/06/2020 10:16 Essential (primary) Resu lts for this AM RAISE MINER hypertension procedure are i n the results section. HEMOGLOBIN A1C Routine 11/06/2020 10:16 Prediabetes Results f or this AM RAISE MINER procedure are i n the results section. LIPID PANEL Routine 11/06/2020 10:16 Prediabetes Results for this AM RAISE MINER procedure are i n the results section. COMPREHENSIVE Routine 11/06/2020 10:16 Essential (primary) Res ults for this METABOLIC PANEL AM RAISE MINER hypertension procedure ar e in the results section. documented in this encounter Results (ABNORMAL) T3 (11/06/2020 10:16 AM RAISE MINER) P athologist Signature T3, Total 4.31 (H) 0.97 - 1.69 11/07/2020 [facility] ng/mL 7:21 PM [facility] Comment: The results from this or any other diagn ostic test should be used and interpreted only in the context of the overall clinical picture. Heterophilic antibodies in serum or plas ma [...] Time (Source) Location / / Volume Laterality 11/06/2020 10:16 11/07/2020 AM RAISE MINER 12:45 PM RAISE MINER Palak Cooley APRN, RESIDENTIAL TECH LAB BLOOD ORDERABLES Performing Organization Address City/State/ZIP Code Phon e Number [facility] [address] [place] [address] T4, free (11/06/2020 10:16 AM RAISE MINER) athologist Signature Free T4 0.81 0.78 - 2.19 11/07/2020 [facility] ng/dL 7:08 PM [facility] Comment: The results from this or any other diagn ostic test should be used and interpreted only in the context of the overall clinical picture. Heterophilic antibodies in serum or plas ma [...] Time (Source) Location / / Volume Laterality 11/06/2020 10:16 11/07/2020 AM RAISE MINER 12:45 PM RAISE MINER Palak Cooley APRN, CNP LAB BLOOD ORDERABLES Performing Organization Address City/[facility] Phon e Number [facility] [address] [place] [phone] Glomerular filtration rate (GFR) (11/06/2020 10:16 AM RAISE MINER) athologist [facility] GFR >60 11/07/2020 [facility] 1:07 PM [facility] >60 11/07/2020 [facility] Mal[place] GFR 1:07 PM [facility] Comment: GFR calculated from serum creatinine v alue Chronic Kidney Disease less than 60 mL/m in/1.73 m2 Kidney Failure less than 15 mL/min/1.73 m2 Note: effective 02/02/07 IDMS-Traceable MDRD Study Equation used. Specimen Anatomical Collection Method Collection Time Receive d Time (Source) Location / / Volume Laterality 11/06/2020 10:16 11/06/2020 AM RAISE MINER 10:16 AM RAISE MINER Palak Cooley APRN, CNP LAB BLOOD ORDERABLES Performing Organization Address City/[facility] Phon e Number [facility] [address] [place] [phone] (ABNORMAL) Lipid panel (11/06/2020 10:16 AM RAISE MINER) athologist Signature Cholesterol 183 0 - 199 11/07/2020 [facility] mg/dL 1:07 PM [facility] Comment: Recommended by National Cholesterol Education Program (ATP III) -------- Cholesterol Ranges -------- <200 ?Desirable 200-239 ? Borderline high >=240 ? High Triglycerides 119 0 - 149 mg/dL 11/07/2020 1:07 PM [facility] Comment: -------- TRIG Ranges -------- <150 ?Normal 150-199 ? Borderline high 200-499 ? High >=500 ? Very high HDL 38 (L) 40 - 250 mg/dL 11/07/2020 1:07 PM [facility] Comment: -------- HDL Ranges -------- <40 ?Low 40-59 ?Normal >=60 ? Optimal LDL Calculated 121 (H) 0 - 99 mg/dL 11/07/2020 1:07 PM [facility] Comment: -------- LDL Ranges -------- <100 ? Optimal 100-129 ?Near optimal/above op timal 130-159 ?Borderline high 160-189 ?High >=190 ?Very high Specimen Anatomical Collection Method Collection Time Receive d Time (Source) Location / / Volume Laterality Blood 11/06/2020 10:16 11/07/2020 AM [facility] 12:32 PM RAISE MINER Palak Cooley GEAR CODING MACHINE OPERATOR, RESIDENTIAL TECH LAB BLOOD ORDERABLES Performing Organization Address City/State/ZIP Code Phon e Number [facility] [address] [place] [phone] (ABNORMAL) TSH (11/06/2020 10:16 AM RAISE MINER) [facility] Method Time Signature TSH, Sensitive 14.30 (H) 0.46 - 11/07/2020 [place] 4.68 mIU/L 2:11 PM [facility] Comment: The results from this [...] (Source) Location / / Volume Laterality Blood 11/06/2020 10:16 11/07/2020 AM RAISE MINER 12:45 PM RAISE [facility] Palak Cooley APRN, RESIDENTIAL TECH LAB BLOOD ORDERABLES Performing Organization Address City/State/ZIP Code Phon e Number [facility] [address] [place] [phone] (ABNORMAL) Comprehensive metabolic panel (11/06/2020 10:16 AM RAISE MINER) [facility] Method Time Signature Total Protein 6.9 6.3 - 8.2 11/07/2020 [place] g/dL 1:07 PM [facility] Albumin, Serum 4.2 3.5 - 5.0 11/07/2020 [place] g/dL 1:07 PM [facility] Total Bilirubin 0.8 0.1 - 1.0 11/07/2020 [facility] mg/dL 1:07 PM [facility] AST 21 8 - 43 U/L 11/07/2020 [place] 1:07 PM [facility] Alkaline 76 38 - 128 11/07/2020 [facility] Phosphatase U/L 1:07 PM [facility] ALT (SGPT) 16 0 - 34 U/L 11/07/2020 [place] 1:07 PM [facility] Sodium 140 135 - 145 11/07/2020 [place] mEq/L 1:07 PM [facility] Potassium 3.8 3.5 - 5.1 11/07/2020 [place] mEq/L 1:07 PM [facility] Chloride 104 98 - 107 11/07/2020 [place] mEq/L 1:07 PM [facility] CO2 30 (H) 22 - 29 11/07/2020 [place] mmol/L 1:07 PM [facility] BUN 22 5 - 25 11/07/2020 [place] mg/dL 1:07 PM [facility] Creatinine 0.8 0.4 - 1.2 11/07/2020 [place] mg/dL 1:07 PM [facility] Glucose 138 (H) 70 - 100 11/07/2020 [place] mg/dL 1:07 PM [facility] Calcium, Total,S 9.3 8.4 - 10.2 11/07/2020 [place] mg/dL 1:07 PM [facility] Fasting? Yes 11/06/2020 [place] 10:19 AM [facility] Specimen Anatomical Collection Method Collection Time Receive d Time (Source) Location / / Volume Laterality Blood 11/06/2020 10:16 11/07/2020 AM RA[facility]ER 12:32 PM RA[facility] Palak Cooley APRN, CNP LAB BLOOD ORDERABLES Performing Organization Address [facility] Code Phon e Number [facility] [address] [place] [phone] Magnesium (11/06/2020 10:16 AM RAISE MINER) P athologist Signature Magnesium 2.1 1.6 - 2.3 11/07/2020 [facility] mg/dL 1:07 PM [facility] Specimen Anatomical Collection Method Collection Time Receive d Time (Source) Location / / Volume Laterality Blood 11/06/2020 10:16 11/07/2020 AM RA[facility] 12:32 PM [facility] Palak Cooley APRN, RESIDENTIAL TECH LAB BLOOD ORDERABLES Performing Organization Address City/[facility] Code Phon e Number [facility] [address] [place] [phone] Hepatitis C antibody (11/06/2020 10:16 AM RAISE MINER) Patholo gist Method Time Signature Hepatitis C NON-REACTI Non-Reacti 11/07/2020 [place] Antibody VE ve 2:35 PM [facility] Comment: The results from this or any other diagn ostic test should be used and interpreted only in the context of the overall clinical picture. Heterophilic antibodies in serum or plas ma [...] Location / / Volume Laterality Blood (Blood, 11/06/2020 10:16 11/07/2020 Venous) AM RAISE MINER 12:45 PM RAISE MINER Palak Cooley APRN, RESIDENTIAL TECH LAB BLOOD ORDERABLES Performing Organization Address City/[facility]/ZIP Code Phon e Number [facility] [address] [place] [phone] (ABNORMAL) Hemoglobin A1c (11/06/2020 10:16 AM RAISE MINER) [facility] Signature Hemoglobin A1C 6.1 (H) 4.0 - 5.6 11/07/2020 [place] % A1C 1:07 PM [facility] Comment: Reference Range 4.0-5.6% [...] (Source) Location / / Volume Laterality Blood 11/06/2020 10:16 11/07/2020 AM [facility]ISE [facility]ER 12:32 PM [facility] Palak Cooley APRN, RESIDENTIAL TECH LAB BLOOD ORDERABLES Performing Organization Address City/State/ZIP Code Phon e Number [facility] [address] [place] [phone] documented in this encounter Visit Diagnoses Diagnosis Prediabetes Other abnormal glucose Encounter for hepatitis C screening test for low risk patient Essential (primary) hypertension Unspecified essential hypertension documented in this encounter Care Teams Automatic Corn Grinder Operator Relationship Specialty Start Date End Date None, Pcp PCP - General Statistical Clerk Advertising 11/06/20 05/18/21 [address] [place] [address] documented as of this encounter
--- OUTSIDE RECORDS SUMMARY | 2022-06-15 14:59 | XMS_ITS | Encounter Summary ---
:[address] [facility] Address [address] [place] [address] Care Team Providers Name Role Phone Margie Mcmanus OUTPATIENT CODER, SALESPERSON DRIVER Primary Care Provider [phone] Reason for Visit Reason Onset Date Comments MED REFILL 07/25/2018 Encounter Details Date Type Department Care Team Description 07/25/2018 Telephone [place] Margie Mcmanus, MED REFILL [address] RAJI, CANDICE [place], [place] [address] [address] [facility] [address] [phone] [place], [place] [address] Social History Tobacco Use Types Packs/Day Years Used Date Never Assessed Alcohol Habits Answer Date Recorded How often [...] exercise at No t asked this level? Sex Assigned at Date Recorded Not on file documented as of this encounter Miscellaneous Notes Telephone Encounter - Kiarra Conner RN - 07/25/2018 3:24 PM CST Patient informed. She stated she will make sure it is the HCTZ and not the Atenolol. EY WORKER Telephone Encounter - Margie Mcmanus APRN, CNP - 07/25/2018 3:18 PM PULLEY WORKER This is been renewed times 90 days hydrochlorothiazide 25 mg that she will need a clinical visit formedication review and that period of time. EY WORKER Telephone Encounter - Geena Webb MA - 07/25/2018 3:01 PM CST I have pended a medication for your review. EY WORKER Telephone Encounter - An Kierra - 07/25/2018 2:47 PM CST The patient is short one 90-day supply of Hydroclorothyazide. [facility]ill to [facility]. She willcall back this afternoon to talk to nurse. EY WORKER documented in this encounter Plan of Treatment Not on filedocumented as of this encounter Visit Diagnoses Diagnosis Hypertension, unspecified type - Primary documented in this encounter Care Teams Religious Educator Relationship Specialty Start Date End Date Margie Mcmanus APRN, CNP PCP - General 04/26/18 05/27/20 100 [facility] [place] [address] documented as of this encounter
--- OUTSIDE RECORDS SUMMARY | 2022-06-15 14:59 | XMS_ITS | Encounter Summary ---
:1950 Author Organization [facility] Address [address] [place] [address] Care Team Providers Name Role Phone Margie Mcmanus APRN, CHEMICAL PLANT WORKER Primary Care Provider Encounter Details Date Type Department Care Team Description 09/05/2019 Lab [place] Essential (primary) hyperten harmony; [address] Prediabetes [place], [place] [address] Social History Tobacco Use [...] Associated Diagnosis Comme nts GLOMERULAR FILTRATION Routine 09/05/2019 10:57 Essential (prim alan) Results for this RATE AM IRISH MOSS BLEACHER hypertension procedure are i n the results section. HEMOGLOBIN A1C Routine 09/05/2019 10:57 Prediabetes Results f or this AM IRISH MOSS BLEACHER procedure are i n the results section. COMPREHENSIVE Routine 09/05/2019 10:57 Essential (primary) Res ults for this METABOLIC PANEL AM IRISH MOSS BLEACHER hypertension procedure ar e in the results section. documented in this encounter Results Glomerular filtration rate (GFR) (09/05/2019 10:57 AM IRISH MOSS BLEACHER) P athologist Signature GFR >60 09/06/2019 [facility] 1:50 PM [facility] >60 09/06/2019 [facility] Spanish GFR 1:50 PM [facility] Comment: GFR calculated from serum creatinine v alue Chronic Kidney Disease less than 60 mL/m in/1.73 m2 Kidney Failure less than 15 mL/min/1.73 m2 Note: effective 02/02/07 IDMS-Traceable MDRD Study Equation used. Specimen Anatomical Collection Method Collection Time Receive d Time (Source) Location / / Volume Laterality 09/05/2019 10:57 09/05/2019 AM IRISH MOSS BLEACHER 10:57 AM IRISH MOSS BLEACHER Margie Mcmanus APRN, CHEMICAL PLANT WORKER LAB BLOOD ORDERABLES Performing Organization Address City/State/ZIP Code Phon e Number [facility] [address] [place] [phone] (ABNORMAL) Hemoglobin A1c (09/05/2019 10:57 AM IRISH MOSS BLEACHER) Analysis Performed At Patho logist Time Signature Hemoglobin A1C 6.2 (H) 4.0 - 5.6 09/06/2019 [place] % A1C 1:32 PM [facility] Comment: Reference Range 4.0-5.6% is [...] (Source) Location / / Volume Laterality Blood 09/05/2019 10:57 09/06/2019 AM IRISH MOSS BLEACHER 12:56 PM IRISH MOSS BLEACHER Margie Mcmanus LAB TECH, CHEMICAL PLANT WORKER LAB BLOOD ORDERABLES Performing Organization Address City/State/ZIP Code Phon e Number [facility] [address] [place] [address] (ABNORMAL) Comprehensive metabolic panel (09/05/2019 10:57 AM IRISH MOSS BLEACHER) [facility] Method Time Signature Total Protein 7.1 6.3 - 8.2 09/06/2019 [place] g/dL 1:50 PM [facility] Albumin, Serum 4.1 3.5 - 5.0 09/06/2019 [place] g/dL 1:50 PM [facility] Total Bilirubin 1.1 (H) 0.1 - 1.0 09/06/2019 [place] mg/dL 1:50 PM [facility] AST 24 8 - 43 U/L 09/06/2019 [place] 1:50 PM [facility] Alkaline 66 38 - 128 09/06/2019 [place] Phosphatase U/L 1:50 PM [facility] ALT (SGPT) 23 0 - 34 U/L 09/06/2019 [place] 1:50 PM [facility] Sodium 143 135 - 145 09/06/2019 [place] mEq/L 1:50 PM [facility] Potassium 4.3 3.5 - 5.1 09/06/2019 [place] mEq/L 1:50 PM [facility] Chloride 105 98 - 107 09/06/2019 [place] mEq/L 1:50 PM [facility] CO2 30 (H) 22 - 29 09/06/2019 [place] mmol/L 1:50 PM [facility] BUN 15 5 - 25 09/06/2019 [place] mg/dL 1:50 PM [facility] Creatinine 0.9 0.4 - 1.2 09/06/2019 [place] mg/dL 1:50 PM [facility] Glucose 129 (H) 70 - 100 09/06/2019 [place] mg/dL 1:50 PM [facility] Calcium, Total,S 9.6 8.4 - 10.2 09/06/2019 [place] mg/dL 1:50 PM [facility] Fasting? Yes 09/05/2019 [place] 10:59 AM [facility] Specimen Anatomical Collection Method Collection Time Receive d Time (Source) Location / / Volume Laterality Blood 09/05/2019 10:57 09/06/2019 AM [facility]ISH MOSS BLEACHER 12:56 PM IRISH MOSS BLEACHER Margie Mcmanus APRN, CNP LAB BLOOD ORDERABLES Performing Organization Address City/State/ZIP Code Phon e Number [facility] [address] [place] [address] documented in this encounter Visit Diagnoses Diagnosis Essential (primary) hypertension Unspecified essential hypertension Prediabetes Other abnormal glucose documented in this encounter Care Teams Sport Internship Relationship Specialty Start Date End Date Margie Mcmanus APRN, CANDICE PCP - General 04/26/18 05/27/20 100 [place] [address] documented as of this encounter
--- OUTSIDE RECORDS SUMMARY | 2022-06-15 14:59 | XMS_ITS | Encounter Summary ---
:1950 Author Organization [facility] Address [address] [place] [address] Care Team Providers Name Role Phone Margie Mcmanus CELL CHANGER, [facility] Primary Care Provider [phone] Encounter Details Date Type Department Care Team Description 12/26/2018 Abstract [facility] Margie Mcmanus, CELL CHANGER, [address] [place] [address] [facility] [address] [phone] [place], [place] [address] Social History Tobacco Use [...] Name Priority Date/Time Associated Diagnosis Comme nts HM LVEF Routine 09/02/2017 Results for thi s procedure are in the resu lts section. documented in this encounter Results Hm LVEF (09/02/2017) P athologist Signature HM LVEF 66% Historical Provider MD HEALTH MAINTENANCE documented in this encounter Visit Diagnoses Not on filedocumented in this encounter Care Teams Industrial Health Engineer Relationship Specialty Start Date End Date Margie Mcmanus APRN, MEDICAL ADMINISTRATIVE TECHNICIAN PCP - General 04/26/18 05/27/[address] [place], [place] [address] [id number] documented as of this encounter
--- OUTSIDE RECORDS SUMMARY | 2022-06-15 14:59 | XMS_ITS | Encounter Summary ---
:1950 Author Organization [facility] Address [address] [place] [address] Care Team Providers Name Role Phone Margie Mcmanus SALESPERSON MEATS, VBA DEVELOPER Primary Care Provider [phone] Encounter Details Date Type Department Care Team Description 05/18/2019 Telephone [place] Margie Mcmanus, [address] SALESPERSON MEATS, VBA DEVELOPER [place] [address] [address] [facility] [address] [address] [phone] [place], [place] [address] Social History Tobacco Use [...] Telephone Encounter - Asmita Yun LPN - 05/18/2019 1:34 PM CDT P.T. FAX: [phone] order so we can fax the referral over. documented in this encounter Plan of Treatment Not on filedocumented as of this encounter Visit Diagnoses Not on filedocumented in this encounter Care Teams Emergency Spill Response Technician Relationship Specialty Start Date End Date Margie Mcmanus APRN, VBA DEVELOPER PCP - General 04/26/18 05/27/[address] [place] [address] [place] [id number] documented as of this encounter
--- OUTSIDE RECORDS SUMMARY | 2022-06-15 14:59 | XMS_ITS | Encounter Summary ---
:1950 Author Organization [facility] Address [address] [place] [address] Care Team Providers Name Role Phone Margie Mcmanus APRN, CASING BUILDER Primary Care Provider [phone] Encounter Details Date Type Department Care Team Description 10/27/2018 Lab [place] Screening, anemia, deficienc y, iron; [address] Lipid screening; [place], [place] [address] Essential hypertension; [phone] Bilateral lower extremity edema; Screening for d iabetes mellitus Social History Tobacco Use Types Packs/Day Years [...] encounter Procedures Procedure Name Priority Date/Time Associated Comments Diagnosis GLOMERULAR Routine 10/27/2018 8:57 AM Essential Results f or this FILTRATION RATE HAT MAKER hypertension procedure are in Bilateral lower the results extremity edema section. CBC BRANCH OFFICE Routine 10/27/2018 8:57 AM Screening, anemia , Results for this W/DIFF HAT MAKER deficiency, iron procedure a re in the results section. HEMOGLOBIN A1C Routine 10/27/2018 8:57 AM Screening for Result s for this HAT MAKER diabetes mellitus procedure are in the results section. LIPID PANEL Routine 10/27/2018 8:57 AM Lipid screening Result s for this HAT MAKER procedure are i n the results section. BASIC METABOLIC Routine 10/27/2018 8:57 AM Essential Result s for this PANEL HAT MAKER hypertension procedure are in Bilateral lower the results extremity edema section. documented in this encounter Results (ABNORMAL) Glomerular filtration rate (GFR) (10/27/2018 8:57 AM HAT MAKER) athologist Signature GFR 55 (A) 10/27/2018 [facility] 11:15 AM [facility] >60 10/27/2018 [facility] [place] GFR 11:15 AM [facility] Comment: GFR calculated from serum creatinine v alue Chronic Kidney Disease less than 60 mL/m in/1.73 m2 Kidney Failure less than 15 mL/min/1.73 m2 Note: effective 02/02/07 IDMS-Traceable MDRD Study Equation used. Specimen Anatomical Collection Method Collection Time Receive d Time (Source) Location / / Volume Laterality 10/27/2018 8:57 AM 9 8:57 HAT MAK[facility] AM HAT MAKER Margie Mcmanus APRN, CASING BUILDER LAB BLOOD ORDERABLES Performing Organization Address City/State/ZIP Code Phon e Number [facility] [address] [place] [id number] (ABNORMAL) Hemoglobin A1c (10/27/2018 8:57 AM HAT MAKER) Analysis Performed At Patho logist Time Signature Hemoglobin A1C 6.5 (H) 4.0 - 5.6 10/27/2018 [place] % A1C 1:45 PM [facility] Comment: Reference Range 4.0-5.6% [...] Location / / Volume Laterality Blood (Blood, 10/27/2018 8:57 AM 10/27/19 19 1:19 Venous) HAT MAKER PM HAT MAKER Margie Mcmanus APRN, CNP LAB BLOOD ORDERABLES Performing Organization Address City/[facility]/ZIP Code Phon e Number [facility] [address] [place] [address] (ABNORMAL) Basic metabolic panel (10/27/2018 8:57 AM HAT MAKER) P athologist Signature Sodium 147 (H) 135 - 145 10/27/2018 [facility] mmol/L 11:15 AM [place] Potassium 3.5 3.5 - 5.1 10/27/2018 [facility] mmol/L 11:15 AM [facility] [place] Comment: . Chloride 106 98 - 107 mmol/L 10/27/2018 11:15 AM HAT MAKER [facility] [place] Comment: . CO2 31 (H) 22 - 29 mmol/L 10/27/2018 11:15 AM HAT MAKER [facility] [place] Comment: . Creatinine 1.0 0.4 - 1.2 mg/dL 10/27/2018 11:15 AM HAT MAKER [facility] [place] Comment: . BUN 16 5 - 25 mg/dL 10/27/2018 11:15 AM HAT MAKER [facility] [place] Comment: . Glucose 138 (H) 70 - 100 mg/dL 10/27/2018 11:15 AM [facility] [place] HAT MAKER Calcium, Total,S 9.6 8.4 - 10.2 mg/dL 10/27/2018 11:15 AM [facility] [place] HAT MAKER Comment: . Specimen Anatomical Collection Method Collection Time Receive d Time (Source) Location / / Volume Laterality Blood (Blood, 10/27/2018 8:57 AM 10/27/19 19 9:02 Venous) HAT MAKER AM HAT MAKER Margie Mcmanus APRN, CNP LAB BLOOD ORDERABLES Performing Organization Address City/[facility]/ZIP Code Phon e Number [facility] [place] [address] [place] [id number] (ABNORMAL) Lipid panel (10/27/2018 8:57 AM HAT MAKER) athologist Signature Cholesterol 150 0 - 199 10/28/2018 [facility] mg/dL 1:52 PM [facility] Comment: Recommended by National Cholesterol Education Program (ATP III) -------- Cholesterol Ranges -------- <200 ? Desirable 200-239 ? Borderline high >=240 ? High Triglycerides 88 0 - 149 mg/dL 10/28/2018 1:52 PM [facility] Comment: -------- TRIG Ranges -------- <150 ?Normal 150-199 ? Borderline high 200-499 ? High >=500 ? Very high HDL 33 (A) 40 - 60 mg/dL 10/28/2018 1:52 PM [facility] Comment: -------- HDL Ranges -------- <40 ?Low 40-59 ?Normal >=60 ? Optimal LDL Calculated 99 0 - 99 mg/dL 10/28/2018 1:52 PM [facility] Comment: -------- LDL Ranges -------- <100 ? Optimal 100-129 ?Near optimal/above op timal 130-159 ?Borderline high 160-189 ?High >=190 ?Very high Fasting? Yes 10/27/2018 9:02 AM [facility] Specimen Anatomical Collection Method Collection Time Receive d Time (Source) Location / / Volume Laterality Blood (Blood, 10/27/2018 8:57 AM 10/28/19 19 Venous) HAT MAKER 12:30 PM HAT MAKER Margie Mcmanus APRN, CASING BUILDER LAB BLOOD ORDERABLES Performing Organization Address City/State/ZIP Code Phon e Number [facility] [address] [place] [phone] CBC Branch Off w/Diff (10/27/2018 8:57 AM HAT MAKER) P athologist Signature WBC 7.4 3.5 - 10.5 10/27/2018 [facility] K/uL 9:03 AM [facility] [place] RBC 4.83 3.90 - 10/27/2018 [facility] 5.00 M/uL 9:03 AM [facility] [place] Hemoglobin 14.6 12.0 - 10/27/2018 [facility] 15.5 g/dL 9:03 AM [facility] [place] Hematocrit 43.5 35.0 - 10/27/2018 [facility] 44.0 % 9:03 AM [facility] [place] Platelets 231 150 - 450 10/27/2018 [facility] K/uL 9:03 AM [facility] [place] MCV 90.1 81.6 - 10/27/2018 [facility] 98.3 fL 9:03 AM [facility] [place] MCH 30.2 26.0 - 10/27/2018 [facility] 32.0 pg 9:03 AM [facility] [place] MCHC 33.6 32.0 - 10/27/2018 [facility] 36.0 g/dL 9:03 AM [facility] [place] RDW 13.1 11.9 - 10/27/2018 [facility] 15.5 % 9:03 AM [facility] [place] Lymphocytes % 22.6 18.0 - 10/27/2018 [facility] 45.0 % 9:03 AM [facility]AT [place] Mid-size Cells 8.8 3.3 - 10.1 10/27/2018 [facility] % 9:03 AM [facility] Granulocytes/Fabienne 68.6 45.8 - 10/27/2018 [facility] trophils 73.7 % 9:03 AM [facility]AT [place] Lymphocytes 1.7 0.9 - 2.9 10/27/2018 [facility] Absolute K/uL 9:03 AM [facility] [place] MIDS Absolute 0.7 0.2 - 0.8 10/27/2018 [facility] K/uL 9:03 AM [facility] [place] Granulocytes/Fabienne 5.0 2.1 - 8.7 10/27/2018 [facility] trophils K/uL 9:03 AM [facility] Absolute Specimen Anatomical Collection Method Collection Time Receive d Time (Source) Location / / Volume Laterality Blood (Blood, 10/27/2018 8:57 AM 10/27/19 19 9:02 Venous) HAT MAKER AM HAT MAKER Margie Mcmanus APRN, CANDICE LAB BLOOD ORDERABLES Performing Organization Address City/State/ZIP Code Phon e Number [facility] [place] [address] [place] [id number] documented in this encounter Visit Diagnoses Diagnosis Screening, anemia, deficiency, iron Screening for iron deficiency anemia Lipid screening Screening for lipoid disorders Essential hypertension Unspecified essential hypertension Bilateral lower extremity edema Screening for diabetes mellitus documented in this encounter Care Teams Lunch Wagon Operator Relationship Specialty Start Date End Date Margie Mcmanus APRN, CASING BUILDER PCP - General 04/26/18 05/27/[address] [place] [address] [place] [address] documented as of this encounter
--- OUTSIDE RECORDS SUMMARY | 2022-06-15 14:59 | XMS_ITS | Encounter Summary ---
:1950 Author Organization [facility] Address [address] [place] [address] Care Team Providers Name Role Phone Margie Mcmanus FIRE ALARM OPERATOR, HOST Primary Care Provider [phone] Encounter Details Date Type Department Care Team Description 12/19/2018 Telephone [place] Margie Mcmanus, [address] FIRE ALARM OPERATOR, HOST [place] [address] [phone] [place], [place] [address] Social History Tobacco Use [...] Telephone Encounter - Asmita Yun LPN - 12/19/2018 1:46 PM CDT The patient is going to call her insurance to find out if P.T. Is covered or not. Than let us know if referral needs to be placed. Telephone Encounter - Eneida Ayers MD - 12/19/2018 1:28 PM CDT Call Rina and let her know that her insurance needs us to document that she has had a trial of PT prior to allowing her to get the Synvisc injections into her knees. Ask if she has had PT for her knees in the last year and if not then we will need to refer her to [facility] in [place] for 8-12 sessions of PT before we can order the Synvisc. Also instruct her if she is currently not taking to take at least 1000 mg (two extra strength) of Tylenol three times a day. If she gets PT and takes the Tylenolas above and she is still having significant knee pain after 4-6 weeks then we can order the Synviscsolution and set her up for injections. Let me know what she says. Telephone Encounter - Asmita Yun LPN - 12/19/2018 1:03 PM CDT Setting up P.T. For the insurance coverage on knee injections. documented in this encounter Plan of Treatment Not on filedocumented as of this encounter Visit Diagnoses Not on filedocumented in this encounter Care Teams Resident Services Manager Relationship Specialty Start Date End Date Margie Mcmanus, FIRE ALARM OPERATOR, HOST PCP - General 04/26/18 05/27/20 [address] [facility] [place] [id number] documented as of this encounter
--- OUTSIDE RECORDS SUMMARY | 2022-06-15 14:59 | XMS_ITS | Encounter Summary ---
:1950 Author Organization [facility] Address [address] [place] [address] Care Team Providers Name Role Phone Margie Mcmanus APRN, DRIED FRUIT WASHER Primary Care Provider [phone] Reason for Visit Reason Comments Blood Pressure Check Encounter Details Date Type Department Care Team Description 10/06/2019 Clinical Support [place] [address] [place], [place] [address] Social History Tobacco Use [...] Sign Reading Time Taken Comments Blood Pressure 128/60 10/06/2019 11:51 AM BODY TEAM MEMBER Pulse 62 10/06/2019 11:51 AM BODY TEAM MEMBER Temperature - - Respiratory Rate - - Oxygen Saturation - - Inhaled Oxygen Concentration - - Weight - - Height - - Body Mass Index - - documented in this encounter Progress Notes Asmita Yun LPN - 10/06/2019 11:30 AM CST BP: 128/60 Right arm P: 62 TEAM MEMBER Margie Mcmanus APRN, CNP - 10/06/2019 11:30 AM CST The patient should be checked on both arms with next blood pressure recheck. TEAM MEMBER Margie Mcmanus APRN, CNP - 10/06/2019 11:30 AM CST The patient was notified she should continue to take the aspirin. TEAM MEMBER documented in this encounter Plan of Treatment Not on filedocumented as of this encounter Visit Diagnoses Not on filedocumented in this encounter Care Teams Microsoft Dynamics Developer Relationship Specialty Start Date End Date Margie Mcmanus APRN, CNP PCP - General 04/26/18 05/27/20 [address] [facility] [place] [id number] documented as of this encounter
--- OUTSIDE RECORDS SUMMARY | 2022-06-15 14:59 | XMS_ITS | Encounter Summary ---
:1950 Author Organization [facility] Address [address] [place] [address] Care Team Providers Name Role Phone Margie Mcmanus APRN, ANCIENT ART CURATOR Primary Care Provider [phone] Reason for Visit Reason Comments Annual Exam Encounter Details Date Type Department Care Team Description 10/27/2018 Office Visit Binu Gong Margie Mcmanus Annual physical exam (Primar y Dx); [address] M, CANDICE ALEGRIA Essential hypertension; [place], [place] [address] Bilateral lower extremity edema; [address] [place] [address] Left foot pain; [phone] Chronic pain of both knees; Situational dep ression; Screening, anem ia, deficiency, iron; Lipid screening ; Screening for d iabetes mellitus Social History Tobacco Use Types Packs/Day Years Used Date Former Smoker 1 Tobacco Cessation: Counseling Given: No Comments: Former [...] Sign Reading Time Taken Comments Blood Pressure 128/68 10/27/2018 9:16 AM MULTIMEDIA EDITOR Pulse 74 10/27/2018 9:16 AM MULTIMEDIA EDITOR Temperature 37 ??C (98.6 ??F) 10/27/2018 9:16 AM MULTIMEDIA EDITOR Respiratory Rate 16 10/27/2018 9:16 AM MULTIMEDIA EDITOR Oxygen Saturation 95% 10/27/2018 9:16 AM MULTIMEDIA EDITOR Inhaled Oxygen Concentration - - Weight 106 kg (234 lb 2.1 oz) 10/27/2018 9:16 AM MULTIMEDIA EDITOR Height 160 cm (5' 2.99) 10/27/2018 9:16 AM MULTIMEDIA EDITOR Body Mass Index 41.48 10/27/2018 9:16 AM MULTIMEDIA EDITOR documented in this encounter Patient Instructions Patient InstructionsChera Mcmanus APRN, CNP - 10/27/2018 8:00 AM MULTIMEDIA EDITOR Mammogram please consider Colonoscopy first recommendation (Cologuard) Will call with the official radiology reports Left foot pain - consider podiatry Osteoarthritis - could consider Sinvisc injections DEXA scan Immunizations Varicosities could consider general surgery referral IMEDIA EDITOR documented in this encounter Progress Notes Margie Mcmanus APRN, CNP - 10/27/2018 8:00 AM CST Well Adult - Estab Subjective Patient ID: Rina Fisher is a 67 y.o. female presenting for the following concerns. Chief Complaint Patient presents with ??? Annual Exam HPI: The patient is a pleasant 67-year-old female presenting ambulatory to the clinical setting today vivian annual physical. The patient has never had a mammogram. The patient has not had a DEXA scan, but feels she attains an adequate amount of dietary calcium, as she likes milk, yogurt, cheese, and broccoli, and takes a multivitamin daily and Vitamin D 5000 international units daily. The patient has never had colon cancer screening and her brother had an adenomatous polyp. The patient inquires about Cologuard testing. The patient does not formally exercise, as she does not like to be cold in the winter, planning assistant the summertime, and then acknowledges she makes excuses. The patient is not updated on flu, Tdap, Pneumovax, Prevnar, nor Shingrix immunizations. The patient has multiple concerns today. The patient reports her only child, her son, at the age of 45, on July 22, 2018. The patient's son had been addicted to drugs, was meth dependent, and ultimately , and likely from a meth overdose. The patient reports her son had lived in [place], in a motel, the [facility] had rented for him, and for whatever reason her son was asked to leave. 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 The mother reports her son made the decision to move to [place], and was attempting to facilitate rehab. She received a call from a hospital in [place],with a physician on the line, as her son was in full cardiac arrest, was intubated, initially with no pulse, and then staff had regained a pulse. The patient was at work the day she received this phonecall, and was trying to make significant decisions on her son's behalf, over the phone, without being in his presence, which was most difficult. The patient knew her son do not want to be resuscitated and made the decision to discontinue all resuscitative efforts. The patient was crying several times when telling the story. The patient reports her cut the end of his finger off this past year,with multiple medical visits, which has been stressful. The patient reports one of her best friends,her second cousin, who is now in [place], lost her 40-year-old son, from an apparent heart attack, and she has been supportive, as they are both grieving the loss of their sons. She reports she was able to get together her friend, cousin over Thanksgiving which was good. The patient continues to work but is liking her job less. She does feel a sense of depression. The patient injured her left foot in March while walking, hearing a crunch. The patient feels she mayhave sprained it, and it seems to be improving; however, there is a sense it slips, with pain in herleft mid-foot radiating into the arch of her foot. The patient has tried orthotics and an ankle support. The patient reports there is discomfort, as she points to the first and second metatarsal of theleft foot. The patient reports she has to wear tennis shoes with good support. The patient reports she has had pain in her knees, as she points to the distal patellar aspect, to the point she has to hang on to something while going up and down the stairs. The patient denies any locking sensation; however, there is an unstable feeling, as if they are going to give out. The patient reports she does notkneel because of her discomfort. The patient reports she feels she is developing a left fourth trigger finger, for the past couple of months, as it gravitates to a flexed position. The patient's past medical history includes allergic rhinitis, hypertension, palpitations, varicose veins, lower extremity edema, arthritis, cataracts, depression, rosacea, stress incontinence, and obesity. The patient is currently on HCTZ 25 mg daily, Atenolol 25 mg daily, and a baby aspirin daily for her hypertension, palpitations, and lower extremity edema, with improvement in her symptoms and normal blood pressure readings. The patient does consume dietary sodium, does not formally exercise, alcohol use is rare, and she is a non- smoker. The patient takes fish oil and glucosamine chondroitin forher joint discomfort. She is not on any medication for her rosacea. The following portions of the patient's chart were reviewed in this encounter and updated as appropriate: Allergies Meds Problems Med Hx Surg Hx Fam Hx Current Outpatient Medications: ??? aspirin 81 MG EC tablet, Take 81 mg by mouth 1 (one) time each day, Disp: , Rfl: ??? atenolol (TENORMIN) 25 MG tablet, Take by mouth 1 (one) time each day, Disp: , Rfl: ??? glucosamine-chondroitin 750-600 MG tablet, Take 2 tablets by mouth 1 (one) time each day , Disp:, Rfl: ??? Multiple Vitamins-Minerals (MULTIVITAMIN ADULT PO), Take by mouth 1 (one) time each day, Disp: ,Rfl: ??? Creswell-3 Fatty Acids ([facility] FISH OIL) 1200 MG capsule, Take 1,200 mg by mouth 1 (one) time each day, Disp: , Rfl: ??? UNABLE TO FIND, Med Name: SUPER B COMPLEX / D3 5000i.u. / LUTEIN-ZANTHUM / EVENING PRIMROSE OIL / CURCUMIN, Disp: , Rfl: ??? hydroCHLOROthiazide (HYDRODIURIL) 25 MG tablet, Take 1 tablet (25 mg total) by mouth 1 (one) time each day, Disp: 90 tablet, Rfl: 0 No Known Allergies There is no immunization history on file for this patient. Past Medical History: Diagnosis Date ??? Allergic ??? Allergic rhinitis ??? Arthritis ??? Cataract ??? Depression ??? Hypertension ??? Obesity ??? Rosacea ??? Urinary tract infection ??? Varicella ??? Visual impairment Past Surgical History: Procedure Laterality Date ??? TONSILLECTOMY History of tonsillectomy with adenoidectomy ??? WISDOM TOOTH EXTRACTION Family History Problem Relation Age of Onset ??? Heart attack Mother ??? Atrial fibrillation Mother ??? Hypertension Mother ??? Depression Mother ??? Anxiety disorder Mother ??? Clotting disorder Mother Lung ??? Kidney failure Father STAGE 4 ??? COPD Father ??? Heart failure Father ??? Hyperlipidemia Father ??? Hypertension Father ??? Prostate cancer Father ??? Melanoma Father 89 ??? Colon polyps Brother ??? Diabetes Son ??? Anxiety disorder Son ??? Depression Son ??? Addiction problem Son Social History Socioeconomic History ??? Marital status: Spouse name: Not on file ??? Number of children: 2 ??? Years of education: Not on file ??? Highest education level: Some college, no degree Occupational History ??? 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 Financial resource strain: Not on file ??? Food insecurity: Worry: Not on file Inability: Not on file ??? Transportation needs: Medical: Not on file Non-medical: Not on file Tobacco Use ??? Smoking status: Former Smoker Years: 1.00 ??? Tobacco comment: Former smoker x one year at the age of 34 years Substance and Sexual Activity ??? Alcohol use: Yes Frequency: Monthly or less ??? Drug use: No ??? Sexual activity: Not on file Lifestyle ??? Physical activity: Days per week: 0 days Minutes per session: Not on file ??? Stress: Not on file Relationships ??? Social connections: Talks on phone: Not on file Gets together: Not on file Attends christian service: Not on file Active member of club or organization: Not on file Attends meetings of clubs or organizations: Not on file Relationship status: Not on file ??? Intimate partner violence: Fear of current or ex partner: Not on file Emotionally abused: Not on file Physically abused: Not on file Forced sexual activity: Not on file Other Topics Concern ??? Not on file Social History Narrative Caffeine use: hot chocolate Uses seatbelt Carbon monoxide detector in home Smoke detector in home Uses sunscreen No Advance Directive No guns in home REVIEW OF SYSTEMS: GENERAL: No fever, chills, sweats, change in weight, and/or change in appetite. The patient has a level of fatigue, is unable to discern when this started, but states she wants to sleep a lot, is not tracking well, and likely from depression. INTEGUMENTARY: See HPI. The patient has a history of rosacea. The patient reports she has itchy discomfort in her back and likely dry skin from the cold winter. The patient reports her skin is hard, from her sock line distally, and tender from her sock line proximal to her knees, which is been ongoingfor an unspecified period of time. No rashes, lesions, and/or pruritus. HEAD/NECK: No headache or dizziness. EYES: The patient reports she has had visual changes, wears glasses, and is due for an eye exam. EARS: No hearing loss and/or pain. The patient has tinnitus in both ears. NOSE: The patient has chronic sinusitis and sneezes every day. MOUTH/THROAT: The patient has had problems with her teeth, which have broken, and she does not see adentist on a regular basis. CARDIOVASCULAR: The patient has had palpitations which have been thoroughly worked up. She has bilateral lower extremity edema, which typically starts from the calf distally, and persistently. No chestpain, pressure, lightheadedness, dizziness, presyncope and/or syncope. The patient has a history of a cardiac murmur. RESPIRATORY: The patient experiences dyspnea with exertion. No cough, asthma and/or wheezing. The patient does not feel she has sleep apnea. BREASTS: No pain, masses, discharge and/or change in appearance. The patient has not had a mammogram. GASTROINTESTINAL: The patient reports about a week ago, she had an area of tenderness over her rectal area, that did not feel like her previous hemorrhoids, which seem to have resolved. The patient experiences diarrhea which she feels is from anxiety, and infrequent constipation. The patient occasionally has heartburn, typically food triggered. No nausea, vomiting, loss of appetite, abdominal pain, hematemesis, melena, and/or hematochezia. The patient has not had colon cancer screening. GENITOURINARY: The patient has urinary frequency, urgency, and stress incontinence. No hematuria or dysuria. 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 The patient is unable to recall when her last menstrual period was, no vaginal bleeding since. She is sexually active with no discomfort. ENDOCRINOLOGY: No thyroid dysfunction, diabetes, nor osteoporosis. MUSCULOSKELETAL: See HPI. The patient has had bilateral knee discomfort, as she points to her distalpatellar area, bilaterally, which she noticed before going to [place] in July, which were swollen in October. The patient has had left foot pain, as she points to her midfoot, which radiates through the arch of her foot, since March, when she heard something crunch, while walking, with an unstablesliding feeling since. The patient noticed when she strenuously active, doing yardwork in April, she has significant knee discomfort. The patient reports she had discomfort in her knees, legs, ankle. NEUROLOGICAL: The patient reports she had discomfort in her right forearm, and a numbness, tingling sensation, a few weeks ago, which lasted for a day or 2, and has since resolved. The patient feels a sense of weakness in her legs, which she feels is from deconditioning. No migraine headache and/or seizures. PSYCHIATRIC: See HPI. The patient has situational depression, regarding the loss of her son. The patient is contemplating retiring, as she is liking her job less than she used to, particularly in the past 6 months, with new management. Objective Visit Vitals BP 128/68 (BP Location: Left arm, Patient Position: Sitting) Pulse 74 Temp 37 ??C (98.6 ??F) Resp 16 Ht 1.6 m (5' 2.99) Wt 106 kg (234 lb 2.1 oz) SpO2 95% BMI 41.48 kg/m?? Smoking Status Former Smoker BSA 2.17 m?? GENERAL: The patient is alert, orientated and in no apparent distress. HEET: Head normocephalic. Eyes - pupils round and reactive to light. EOMs intact without nystagmus. Ears - normal canals, normal pearly anne TMs bilaterally. Throat - normal oropharynx. Uvula rises midline. No erythema. Poor dentition. NECK: Supple. No cervical or posterior lymphadenopathy. No thyromegaly. BREASTS: Symmetric, no retractions, discharge or lesions. Contour and consistency firm and homogenous. No masses or tenderness, no lymphadenopathy. INTEGUMENTARY: Skin is warm and dry. No evidence of lesions. CARDIOVASCULAR: Normal heart rate and rhythm. No murmur despite previous auscultation. The patient has significant edema from below her knees distally significant over the sock line. The patient has several scattered thrombosed vessels on both of her lower extremities, starting in her thighs distally. Positive peripheral pulses, x4. RESPIRATORY: Lungs are clear, bilaterally. No wheezing. MUSCULOSKELETAL: The patient moves freely about the room. GYNECOLOGIC: The patient declined. GASTROENTEROLOGY: Abdomen is soft, no organomegaly, positive bowel sounds. The patient has a thrombosed hemorrhoid which appears to be healing at about 3:00, an area where it opened, with a scab remaining. NEUROLOGICAL: The patient is alert and oriented to person, place, time, and situation. PSYCHIATRIC: The patient's affect is appropriate. The patient became teary-eyed several times when discussing the loss of her son. DIAGNOSTICS: Basic metabolic panel, CBC with differential, lipid panel, hemoglobin A1c, left foot x-ray, and knee x-rays. Assessment/Plan Rina was seen today for annual exam. Diagnoses and all orders for this visit: Annual physical exam (Primary) Essential hypertension - Basic metabolic panel; Future Bilateral lower extremity edema - Basic metabolic panel; Future Left foot pain - X-ray Foot 1-2 Views Left; Future - Cancel: X-ray Foot 1-2 Views Left Chronic pain of both knees - X-ray Knee 3 Views Right; Future - X-ray Knee 1-2 Views Left; Future - Cancel: X-ray Knee 3 Views Right - X-ray Knee 1-2 Views Left Situational depression Screening, anemia, deficiency, iron - CBC Branch Off w/Diff; Future Lipid screening - Lipid panel; Future Screening for diabetes mellitus - Hemoglobin A1c; Future Other orders - X-ray foot 3+ views left - X-ray knee 4+ views right Discussed the plan of care with the patient. Recommended a DEXA scan for screening osteoporosis, anderson mammogram screening for breast cancer, which the patient will consider. Recommended updating her immunizations including her Tdap, Pneumovax, Prevnar, and Shingrix, which she will consider. Recommended a colonoscopy, because of her brothers history of adenomatous polyps, the patient received information regarding Cologuard testing. Explained to the patient if the Cologuard testing is positive, the colonoscopy would be diagnostic and not screening. The patient should formally exercise for 30 minutes daily. The patient no longer needs a Pap smear, after the age of 65. The patient could consider a surgical referral for the varicosities in her lower extremities which could be causing her lower extremity weakness. The patient will continue on all of her current medications, a baby aspirin daily, atenolol 25 mg daily, hydrochlorothiazide 25 mg tablet daily for hypertension, peripheral edema, and palpitations. The patient can be referred to podiatry for her left foot discomfort, unstable feeling, but she is considering housekeeper caregiver. She will be notified of her left foot x-ray, with no evidenceof fractures at this time. The patient can consider Synvisc for her chronic knee pain, with evidenceof degenerative changes on the xray. Discussed prescribing an antidepressant the patient declines. The patient should see a dentist on a regular basis. The patient will be notified of her lab results, and official radiology report of her knees and left foot x-rays. The patient agrees and understands this plan of care. Margie Mcmanus APRN, CANDICE IMEDIA EDITOR documented in this encounter Plan of Treatment Not on filedocumented as of this encounter Procedures Procedure Name Priority Date/Time Associated Diagnosis Comme nts XR FOOT 3+ VIEWS Routine 10/27/2018 10:18 AM Resu lts for this LEFT MULTIMEDIA EDITOR procedure are i n the results section. XR KNEE 1-2 VIEWS Routine 10/27/2018 10:15 AM Chronic pain of both Results for this LEFT MULTIMEDIA EDITOR knees procedure are i n the results section. XR KNEE 4+ VIEWS Routine 10/27/2018 10:13 AM Resu lts for this RIGHT MULTIMEDIA EDITOR procedure are i n the results section. documented in this encounter Results X-ray foot 3+ views left (10/27/2018 10:18 AM MULTIMEDIA EDITOR) Anatomical Region Laterality Modality Lower Extremities, Foot Left Radiographic Nicol ging Specimen (Source) Anatomical Collection Method Collection Time Re ceived Time Location / / Volume Laterality 10/27/2018 10:18 AM MULTIMEDIA EDITOR Impressions 10/27/2018 10:30 AM MULTIMEDIA EDITOR IMPRESSION: FOOT COMPLETE LEFT MIN 3 VIEWS No fracture or dislocation. ??No lytic l esion or erosion. ??There is mild spurring medially at the 1st metatarsal head. ??There is a moderate to large plantar calcaneal spur. ??Small sc lerotic bone island is seen at the base of the great toe proximal phalanx. Narrative 10/27/2018 10:30 AM MULTIMEDIA EDITOR INDICATION: left foot pain since march, unstable feel ing in the foot COMPARISON: None available Procedure Note Jackelyn Mcclelland MD - 10/27/2018 INDICATION: left foot pain since march, unstable feel ing in the foot COMPARISON: None available IMPRESSION: FOOT COMPLETE LEFT MIN 3 VIEWS No fracture or dislocation. No lytic les ion or erosion. There is mild spurring medially at the 1st metatarsal head. There is a moderate to large plantar calcaneal spur. Small scle rotic bone island is seen at the base of the great toe proximal phalanx. Margie Mcmanus MONORAIL CAR OPERATOR, ANCIENT ART CURATOR IMG XR PROCEDURES X-ray Knee 1-2 Views Left (10/27/2018 10:15 AM MULTIMEDIA EDITOR) Anatomical Region Laterality Modality Lower Extremities, Knee Left Radiographic Nicol ging Specimen (Source) Anatomical Collection Method Collection Time Re ceived Time Location / / Volume Laterality 10/27/2018 10:15 AM MULTIMEDIA EDITOR Impressions 10/27/2018 10:30 AM MULTIMEDIA EDITOR IMPRESSION: KNEE LEFT (1-2 VIEWS) There is mild patellofemoral joint spurr ing. ??There is a minimal effusion. ?? No fracture, dislocation, or lytic or bl astic lesion. Narrative 10/27/2018 10:30 AM MULTIMEDIA EDITOR INDICATION: bilateral knee pain COMPARISON: None available Procedure Note Jackelyn Mcclelland MD - 10/27/2018 INDICATION: bilateral knee pain COMPARISON: None available IMPRESSION: KNEE LEFT (1-2 VIEWS) There is mild patellofemoral joint spurr ing. There is a minimal effusion. No fracture, dislocation, or lytic or bl astic lesion. Margie Mcmanus APRN, CNP IMG XR PROCEDURES X-ray knee 4+ views right (10/27/2018 10:13 AM MULTIMEDIA EDITOR) Anatomical Region Laterality Modality Lower Extremities, Knee Right Radiographic Nicol ging Specimen (Source) Anatomical Collection Method Collection Time Re ceived Time Location / / Volume Laterality 10/27/2018 10:13 AM MULTIMEDIA EDITOR Impressions 10/27/2018 10:34 AM MULTIMEDIA EDITOR IMPRESSION: KNEE COMPLETE RIGHT (MIN 4 VIEWS) Right knee: There is narrowing with spurring, which is mild to moderate at the medial compartment and mild at the lateral comp artment and patellofemoral joint. ?? There is a small effusion. ??No fracture , dislocation, or lytic or blastic lesion. Left knee: There is narrowing with spurring, which is moderate at the medial compartment and mild at the lateral comp artment. ??No fracture, dislocation, or lytic or blastic lesion. Narrative 10/27/2018 10:34 AM MULTIMEDIA EDITOR INDICATION: bilateral knee pain COMPARISON: None available Procedure Note Jackelyn Mcclelland MD - 10/27/2018 INDICATION: bilateral knee pain COMPARISON: None available IMPRESSION: KNEE COMPLETE RIGHT (MIN 4 VIEWS) Right knee: There is narrowing with spurring, which is mild to moderate at the medial compartment and mild at the lateral comp artment and patellofemoral joint. There is a small effusion. No fracture, dislocation, or lytic or blastic lesion. Left knee: There is narrowing with spurring, which is moderate at the medial compartment and mild at the lateral comp artment. No fracture, dislocation, or lytic or blastic lesion. Margie Mcmanus APRN, CANDICE IMG XR PROCEDURES (ABNORMAL) Hemoglobin A1c (10/27/2018 8:57 AM MULTIMEDIA EDITOR) Analysis Performed At Patho logist Time Signature Hemoglobin A1C 6.5 (H) 4.0 - 5.6 10/27/2018 LUISA % A1C 1:45 PM [facility] Comment: Reference Range 4.0-5.6% [...] 10/27/2018 8:57 AM 10/27/19 19 1:19 Venous) MULTIMEDIA EDITOR PM MULTIMEDIA EDITOR Margie Mcmanus APRN, ANCIENT ART CURATOR LAB BLOOD ORDERABLES Performing Organization Address City/State/ZIP Code Phon e Number [facility] [address] [place] [id number] CBC Branch Off w/Diff (10/27/2018 8:57 AM MULTIMEDIA EDITOR) P athologist Signature WBC 7.4 3.5 - 10.5 10/27/2018 [facility] K/uL 9:03 AM MULTIMEDIA EDITOR [place] RBC 4.83 3.90 - 10/27/2018 [facility] 5.00 M/uL 9:03 AM MULTIMEDIA EDITOR [place]ALL[place] Hemoglobin 14.6 12.0 - 10/27/2018 [facility] 15.5 g/dL 9:03 AM MULTIMEDIA EDITOR [place]ALL[place] Hematocrit 43.5 35.0 - 10/27/2018 [facility] 44.0 % 9:03 AM MULTIMEDIA EDITOR [place]ALL[place] Platelets 231 150 - 450 10/27/2018 [facility] K/uL 9:03 AM MULTIMEDIA EDITOR [place]ALL[place] MCV 90.1 81.6 - 10/27/2018 [facility] 98.3 fL 9:03 AM MULTIMEDIA EDITOR [place]ALLS MCH 30.2 26.0 - 10/27/2018 [facility] 32.0 pg 9:03 AM MULTIMEDIA EDITOR [place]ALL[place] MCHC 33.6 32.0 - 10/27/2018 [facility] 36.0 g/dL 9:03 AM MULTIMEDIA EDITOR [place]ALL[place] RDW 13.1 11.9 - 10/27/2018 [facility] 15.5 % 9:03 AM MULTIMEDIA EDITOR FALLS Lymphocytes % 22.6 18.0 - 10/27/2018 [facility] 45.0 % 9:03 AM MULTIMEDIA EDITOR FALLS Mid-size Cells 8.8 3.3 - 10.1 10/27/2018 [facility] % 9:03 AM MULTIMEDIA EDITOR FALLS Granulocytes/Fabienne 68.6 45.8 - 10/27/2018 [facility] trophils 73.7 % 9:03 AM MULTIMEDIA EDITOR [place]ALL[place] Lymphocytes 1.7 0.9 - 2.9 10/27/2018 [facility] Absolute K/uL 9:03 AM MULTIMEDIA EDITOR [place]ALL[place] MIDS Absolute 0.7 0.2 - 0.8 10/27/2018 [facility] [facility] K/uL 9:03 AM MULTIMEDIA EDITOR [place] Granulocytes/Fabienne 5.0 2.1 - 8.7 10/27/2018 [facility] trophils K/uL 9:03 AM MULTIMEDIA EDITOR [place] Absolute Specimen Anatomical Collection Method Collection Time Receive d Time (Source) Location / / Volume Laterality Blood (Blood, 10/27/2018 8:57 AM 10/27/19 19 9:02 Venous) MULTIMEDIA EDITOR AM MULTIMEDIA EDITOR Margie Mcmanus APRN, ANCIENT ART CURATOR LAB BLOOD ORDERABLES Performing Organization Address City/State/ZIP Code Phon e Number [facility] [place] [address] [place] [address] (ABNORMAL) Lipid panel (10/27/2018 8:57 AM MULTIMEDIA EDITOR) athologist Signature Cholesterol 150 0 - 199 10/28/2018 [facility] mg/dL 1:52 PM [facility] Comment: Recommended by National Cholesterol Education Program (ATP III) -------- Cholesterol Ranges -------- <200 ? Desirable 200-239 ? Borderline high >=240 ? High Triglycerides 88 0 - 149 mg/dL 10/28/2018 1:52 PM [facility] Comment: -------- TRIG Ranges -------- <150 ?Normal 150-199 ? Borderline high 200-499 ? High >=500 ? Very high HDL 33 (A) 40 - 60 mg/dL 10/28/2018 1:52 PM [facility] Comment: -------- HDL Ranges -------- <40 ?Low 40-59 ?Normal >=60 ? Optimal LDL Calculated 99 0 - 99 mg/dL 10/28/2018 1:52 PM [facility] Comment: -------- LDL Ranges -------- <100 ? Optimal 100-129 ?Near optimal/above op timal 130-159 ?Borderline high 160-189 ?High >=190 ?Very high Fasting? Yes 10/27/2018 9:02 AM [facility] Specimen Anatomical Collection Method Collection Time Receive d Time (Source) Location / / Volume Laterality Blood (Blood, 10/27/2018 8:57 AM 10/28/19 19 Venous) MULTIMEDIA EDITOR 12:30 PM MULTIMEDIA EDITOR Margie Mcmanus APRN, ANCIENT ART CURATOR LAB BLOOD ORDERABLES Performing Organization Address City/State/ZIP Code Phon e Number [facility] [address] [place] [address] (ABNORMAL) Basic metabolic panel (10/27/2018 8:57 AM MULTIMEDIA EDITOR) P athologist Signature Sodium 147 (H) 135 - 145 10/27/2018 [facility] mmol/L 11:15 AM MULTIMEDIA EDITOR [place] Potassium 3.5 3.5 - 5.1 10/27/2018 [facility] mmol/L 11:15 AM [facility] Comment: . Chloride 106 98 - 107 mmol/L 10/27/2018 11:15 AM [facility] [place] [place] Comment: . CO2 31 (H) 22 - 29 mmol/L 10/27/2018 11:15 AM MULTIMEDIA EDITOR [place] Comment: . Creatinine 1.0 0.4 - 1.2 mg/dL 10/27/2018 11:15 AM [facility] [place] [place] Comment: . BUN 16 5 - 25 mg/dL 10/27/2018 11:15 AM [facility] [place] Comment: . Glucose 138 (H) 70 - 100 mg/dL 10/27/2018 11:15 AM [facility] [place] MULTIMEDIA EDITOR Calcium, Total,S 9.6 8.4 - 10.2 mg/dL 10/27/2018 11:15 AM [facility] [place] [place] MULTIMEDIA EDITOR Comment: . Specimen Anatomical Collection Method Collection Time Receive d Time (Source) Location / / Volume Laterality Blood (Blood, 10/27/2018 8:57 AM 10/27/19 19 9:02 Venous) MULTIMEDIA EDITOR AM MULTIMEDIA EDITOR Margie Mcmanus APRN, ANCIENT ART CURATOR LAB BLOOD ORDERABLES Performing Organization Address City/State/ZIP Code Phon e Number [facility] [address] [place] [address] documented in this encounter Visit Diagnoses Diagnosis Annual physical exam - Primary Routine general medical examination at a health care facility Essential hypertension Unspecified essential hypertension Bilateral lower extremity edema Left foot pain Pain in soft tissues of limb Chronic pain of both knees Situational depression Screening, anemia, deficiency, iron Screening for iron deficiency anemia Lipid screening Screening for lipoid disorders Screening for diabetes mellitus documented in this encounter Care Teams Senior Escrow Officer Relationship Specialty Start Date End Date Margie Mcmanus APRN, ANCIENT ART CURATOR PCP - General 04/26/18 05/27/[address] [place] [address] [facility] [address] documented as of this encounter
--- OUTSIDE RECORDS SUMMARY | 2022-06-15 14:59 | XMS_ITS | Encounter Summary ---
:1950 Author Organization [facility] Address [address] [place] [address] Care Team Providers Name Role Phone Margie Mcmanus FINANCIAL SERVICE PROFESSIONAL, TOOLER Primary Care Provider [phone] Reason for Visit Reason Comments Med Refill Encounter Details Date Type Department Care Team Description 11/04/2019 Refill [place] Margie Mcmanus, Hypertension, [address] FINANCIAL SERVICE PROFESSIONAL, TOOLER unspecified type [place] [address] [address] [facility] [phone] [place], [place] [address] Social History Tobacco Use [...] this encounter Miscellaneous Notes Telephone Encounter - Leighkami Langford LPN - 11/06/2019 11:04 AM CST Last visit in Provider Department: 09/05/2019 Upcoming appointment with Provider: Visit date not found Last Rx: Atenolol 25 mg 11/15/2018 # 90, 3 refills HCTZ 25 mg 11/15/2018 # 90, 3 refills Requested Prescriptions Pending Prescriptions Disp Refills ??? atenolol (TENORMIN) 25 MG tablet [Pharmacy Med Name: ATENOLOL 25MG TABS] 90 tablet 3 Sig: TAKE 1 TABLET BY MOUTH ONCE DAILY. ??? hydroCHLOROthiazide (HYDRODIURIL) 25 MG tablet [Pharmacy Med Name: HYDROCHLOROTHIAZIDE 25MG TABS] 90 tablet 3 Sig: TAKE 1 TABLET BY MOUTH ONCE DAILY. Labs: Component Latest Ref Rng & Units 09/05/2019 Total Protein 6.3 - 8.2 g/dL 7.1 Albumin, Serum 3.5 - 5.0 g/dL 4.1 Total Bilirubin 0.1 - 1.0 mg/dL 1.1 (H) AST 8 - 43 U/L 24 Alkaline Phosphatase 38 - 128 U/L 66 ALT (SGPT) 0 - 34 U/L 23 Sodium 135 - 145 mEq/L 143 Potassium 3.5 - 5.1 mEq/L 4.3 Chloride 98 - 107 mEq/L 105 CO2 22 - 29 mmol/L 30 (H) BUN 5 - 25 mg/dL 15 Creatinine 0.4 - 1.2 mg/dL 0.9 Glucose 70 - 100 mg/dL 129 (H) Calcium, Total,S 8.4 - 10.2 mg/dL 9.6 Fasting? Yes Patient has pending AREVALO!c Vitals: BP Readings from Last 2 Encounters: 10/06/19 128/60 09/05/19 147/60 GRATION PARALEGAL documented in this encounter Plan of Treatment Not on filedocumented as of this encounter Visit Diagnoses Diagnosis Hypertension, unspecified type documented in this encounter Care Teams After School Program Director Relationship Specialty Start Date End Date Margie Mcmanus APRN, TOOLER PCP - General 04/26/18 05/27/20 [address] [facility] [place] [id number] documented as of this encounter
--- OUTSIDE RECORDS SUMMARY | 2022-06-15 14:59 | XMS_ITS | Encounter Summary ---
:[address] [facility] Address [address] [place] [address] Care Team Providers Name Role Phone Margie Mcmanus APRN, MULTIPLEX OPERATOR Primary Care Provider [phone] Reason for Visit Reason Comments Follow-up blood pressure Labs Only would like an A1c Encounter Details Date Type Department Care Team Description 09/05/2019 Office Visit [place] Margie Mcmanus (primary) hyperten harmony (Primary Dx); [address] M, RAJI, CANDICE Prediabetes [place], [place] [address] [facility] [address] [place] [address] Social History Tobacco Use Types Packs/Day Years [...] Sign Reading Time Taken Comments Blood Pressure 147/60 09/05/2019 10:02 AM NEW CAR SALES MANAGER Pulse 61 09/05/2019 10:02 AM NEW CAR SALES MANAGER Temperature 35.8 ??C (96.5 ??F) 09/05/2019 10:02 AM NEW CAR SALES MANAGER Respiratory Rate 16 09/05/2019 10:02 AM NEW CAR SALES MANAGER Oxygen Saturation - - Inhaled Oxygen Concentration - - Weight 100 kg (221 lb 8 oz) 09/05/2019 10:02 AM NEW CAR SALES MANAGER Height - - Body Mass Index 39.25 05/18/2019 12:31 PM CDT documented in this encounter Patient Instructions Patient InstructionsChera Mcmanus APRN, CNP - 09/05/2019 10:00 AM NEW CAR SALES MANAGER Will call with lab results CAR SALES MANAGER documented in this encounter Progress Notes Margie Mcmanus APRN, CNP - 09/05/2019 10:00 AM CST Estab Patient Visit Subjective Patient ID: Rina Fisher is a 68 y.o. female presenting for the following concerns. Chief Complaint Patient presents with ??? Follow-up blood pressure ??? Labs Only would like an A1c HPI: The patient is a pleasant 68 y.o. year old female presenting ambulatory to the clinical setting to discuss her blood pressure medications, have fasting labs drawn, and discuss varicose veins. The patient reports since October she has incorporated a healthy diet, eating whole-wheat and vegetables, decreasing portion sizes, avoiding sodium, started taking a probiotic, and a horse Sarepta extract supplement. The patient reports by incorporating this healthy diet and supplement she is losingweight. The patient initially intended to discuss decreasing her blood pressure medications with herweight loss; however, she realizes with her blood pressure being elevated at 147/60, she may need tocontinue her hypertension medications. The patient is currently on atenolol 25 mg and hydrochlorothiazide 25 mg daily for her hypertension and peripheral edema, and is tolerating the medications without side effects. The patient denies any chest pain, discomfort, lightheadedness, dizziness, palpitations, presyncope, syncope and/or cardiac murmur. The patient does have lower extremity edema which has improved with weight loss, a diuretic, and compression stockings. Non-smoker. The patient has a history of varicose veins, was evaluated by a vascular specialist at [place] on 03/03/19, with the recommendation of wearing compression stockings, incorporating a healthier diet and exercising. The patient reports she found comfortable non-prescription compression stockings, which she can put on, they do not bunch at her ankles, nor cut the circulation off at her knees. The patient reports the stockings, which she has been wearing since June, have been effective, as her lower extremities are not nearly as tired with activity and the swelling has decreased. The patient reports the reduction in her weight may be improving her symptoms as well. The patient notices her stomach does not feel as bloated nor the swelling on top of her hands. The patient is not formally exercising. The patient inquires if she should be on a baby aspirin, with the new recommendations. She has family history of cardiac disease. The patient???s blood sugar was 138 on 10/27/2018 and she would like to repeat a fasting blood sugar and HGB A1c today. The patient hopes with the dietary changes, and weight loss, her fasting blood sugars will improve. ROS: GENERAL: The patient lost 13 pounds since October by incorporating a healthier diet. EARS: The patient reports she feels her tinnitus is worsening, in both of her ears, a higher pitch in her right ear, and a lower rumbling, waterfall in her left ear, with decreased hearing in both ears. The patient is scheduled for hearing aids. CARDIOVASCULAR: See HPI. The patient has as history of hypertension, peripheral edema, and varicose veins. No chest pain, pressure, palpitations, lightheadedness, dizziness, presyncope, syncope, and/orcardiac murmurs. MUSCULOSKELETAL: The patient reports her bilateral knee discomfort has improved, she can go up and down the stairs easier, and possibly improved because of weight loss. NEUROLOGICAL: The patient reports when she was on a turbulent flight to [place] this fall, without eating, she became quite dizzy, and walking in the airport with other people walking around her, made her feel even dizzier. The patient reports her symptoms resolved after eating and resting. The following portions of the patient's chart were reviewed in this encounter and updated as appropriate: Tobacco Allergies Meds Problems Med Hx Surg Hx Fam Hx Soc Hx Current Outpatient Medications: ??? aspirin 81 MG EC tablet, Take 81 mg by mouth 1 (one) time each day, Disp: , Rfl: ??? atenolol (TENORMIN) 25 MG tablet, TAKE ONE TABLET BY MOUTH EVERY DAY, Disp: 90 tablet, Rfl: 3 ??? Cholecalciferol (VITAMIN D3) 5000 units tablet, Take 5,000 Units by mouth daily, Disp: , Rfl: ??? EQL EVENING PRIMROSE OIL PO, Take 1,300 tablets by mouth daily, Disp: , Rfl: ??? glucosamine-chondroitin 750-600 MG tablet, Take 2 tablets by mouth 1 (one) time each day , Disp:, Rfl: ??? HORSE CHESTNUT PO, Take 250 mg by mouth 2 (two) times a day, Disp: , Rfl: ??? hydroCHLOROthiazide (HYDRODIURIL) 25 MG tablet, TAKE ONE TABLET BY MOUTH EVERY DAY, Disp: 90 tablet, Rfl: 3 ??? Lactobacillus (ACIDOPHILUS PROBIOTIC) tablet, Take 1 tablet by mouth 1 (one) time each day, Disp: , Rfl: ??? Multiple Vitamins-Minerals (MULTIVITAMIN ADULT PO), Take by mouth 1 (one) time each day, Disp: ,Rfl: ??? Mona-3 Fatty Acids ([employer] FISH OIL) 1200 MG capsule, Take 1,200 mg by mouth 1 (one) time each day, Disp: , Rfl: ??? UNABLE TO FIND, Med Name: SUPER B COMPLEX / D3 5000i.u. / LUTEIN-ZANTHUM / EVENING PRIMROSE OIL / CURCUMIN, Disp: , Rfl: ??? UNABLE TO FIND, MEMBERS SINGH EYE MULTIPLE VITAMIN TABLET, Disp: , Rfl: ??? UNABLE TO FIND, TUMERIC/CURCUMEN 500mg tablet 1 daily, Disp: , Rfl: Objective Visit Vitals BP 147/60 (BP Location: Right arm, Patient Position: Sitting) Pulse 61 Temp (!) 35.8 ??C (96.5 ??F) (Temporal) Resp 16 Wt 100 kg (221 lb 8 oz) BMI 39.25 kg/m?? Smoking Status Former Smoker BSA 2.11 m?? GENERAL: The patient is alert, orientated, and in no apparent distress. EARS: Normal canals, normal pearly anne TMs bilaterally. CARDIOVASCULAR: Normal heart rate and rhythm. No murmur. No peripheral edema. Positive peripheral pulses, x4. The patient does have varicose veins scattered throughout her lower extremities, the swelling in her lower extremities is minimal today with the compression stockings. The patient's blood pressure was rechecked in her right arm for 107/60. RESPIRATORY: Lungs are clear, bilaterally. No wheezing. DIAGNOSTICS: Lab on 09/05/2019 Component Date Value Ref Range Status ??? Total Protein 09/05/2019 7.1 6.3 - 8.2 g/dL Final ??? Albumin, Serum 09/05/2019 4.1 3.5 - 5.0 g/dL Final ??? Total Bilirubin 09/05/2019 1.1* 0.1 - 1.0 mg/dL Final ??? AST 09/05/2019 24 8 - 43 U/L Final ??? Alkaline Phosphatase 09/05/2019 66 38 - 128 U/L Final ??? ALT (SGPT) 09/05/2019 23 0 - 34 U/L Final ??? Sodium 09/05/2019 143 135 - 145 mEq/L Final ??? Potassium 09/05/2019 4.3 3.5 - 5.1 mEq/L Final ??? Chloride 09/05/2019 105 98 - 107 mEq/L Final ??? CO2 09/05/2019 30* 22 - 29 mmol/L Final ??? BUN 09/05/2019 15 5 - 25 mg/dL Final ??? Creatinine 09/05/2019 0.9 0.4 - 1.2 mg/dL Final ??? Glucose 09/05/2019 129* 70 - 100 mg/dL Final ??? Calcium, Total,S 09/05/2019 9.6 8.4 - 10.2 mg/dL Final ??? Fasting? 09/05/2019 Yes Final ??? Hemoglobin A1C 09/05/2019 6.2* 4.0 - 5.6 % A1C Final ? ? GFR 09/05/2019 >60 Final ? ? GFR 09/05/2019 >60 Final Assessment/Plan Rina was seen today for follow-up and labs only. Diagnoses and all orders for this visit: Essential (primary) hypertension (Primary) - Comprehensive metabolic panel; Future Prediabetes - Hemoglobin A1c; Future Discussed the plan of care with the patient. The patient will continue atenolol 25 mg daily and hydrochlorothiazide 25 mg daily. The patient should continue to eat healthy and will likely continue to lose weight. Recommended formal exercise for 30 minutes daily and continue to wear the compression stockings. The patient will be notified of her lab results. The patient agrees and understands this planof care. Margie Mcmanus APRN, CANDICE documented in this encounter Plan of Treatment Not on filedocumented as of this encounter Results (ABNORMAL) Comprehensive metabolic panel (09/05/2019 10:57 AM NEW CAR SALES MANAGER) [facility] Time Signature Total Protein 7.1 6.3 - 8.2 09/06/2019 [place] g/dL 1:50 PM [facility] Albumin, Serum 4.1 3.5 - 5.0 09/06/2019 [place] g/dL 1:50 PM [facility] Total Bilirubin 1.1 (H) 0.1 - 1.0 09/06/2019 [place] mg/dL 1:50 PM [facility] AST 24 8 - 43 U/L 09/06/2019 [place] 1:50 PM [facility] Alkaline 66 38 - 128 09/06/2019 [place] Phosphatase U/L 1:50 PM [facility] ALT (SGPT) 23 0 - 34 U/L 09/06/2019 [place] 1:50 PM [facility] Sodium 143 135 - 145 09/06/2019 [place] mEq/L 1:50 PM [facility] Potassium 4.3 3.5 - 5.1 09/06/2019 [place] mEq/L 1:50 PM [facility] Chloride 105 98 - 107 09/06/2019 [place] mEq/L 1:50 PM [facility] CO2 30 (H) 22 - 29 09/06/2019 [place] mmol/L 1:50 PM [facility] BUN 15 5 - 25 09/06/2019 [place] mg/dL 1:50 PM [facility] Creatinine 0.9 0.4 - 1.2 09/06/2019 [place] mg/dL 1:50 PM [facility] Glucose 129 (H) 70 - 100 09/06/2019 [place] mg/dL 1:50 PM [facility] Calcium, Total,S 9.6 8.4 - 10.2 09/06/2019 [place] mg/dL 1:50 PM [facility] Fasting? Yes 09/05/2019 [place] 10:59 AM [facility] Specimen Anatomical Collection Method Collection Time Receive d Time (Source) Location / / Volume Laterality Blood 09/05/2019 10:57 09/06/2019 AM NEW CAR SALES MANAGER 12:56 PM NEW CAR SALES MANAGER Margie Mcmanus APRN, MULTIPLEX OPERATOR LAB BLOOD ORDERABLES Performing Organization Address City/[facility]/ZIP Code Phon e Number [facility] [address] [place] [address] (ABNORMAL) Hemoglobin A1c (09/05/2019 10:57 AM NEW CAR SALES MANAGER) [facility] Time Signature Hemoglobin A1C 6.2 (H) 4.0 - 5.6 09/06/2019 [place] % A1C 1:32 PM [facility] Comment: Reference Range 4.0-5.6% is for [...] Volume Laterality Blood 09/05/2019 10:57 09/06/2019 AM NEW CAR SALES MANAGER 12:56 PM NEW CAR SALES MANAGER Margie Mcmanus APRN, MULTIPLEX OPERATOR LAB BLOOD ORDERABLES Performing Organization Address City/[facility]/ZIP Code Phon e Number [facility] [address] [place] [address] documented in this encounter Visit Diagnoses Diagnosis Essential (primary) hypertension - Prima ry Unspecified essential hypertension Prediabetes Other abnormal glucose documented in this encounter Care Teams Bottle Feeder Relationship Specialty Start Date End Date Margie Mcmanus APRN, MULTIPLEX OPERATOR PCP - General 04/26/18 05/27/20 100 [facility] [place] [id number] documented as of this encounter
--- OUTSIDE RECORDS SUMMARY | 2022-06-15 14:59 | XMS_ITS | Encounter Summary ---
:1950 Author Organization [facility] Address [address] [place] [address] Care Team Providers Name Role Phone Margie Mcmanus Claudine ALEGRIA, DEMAND PLANNING MANAGER Primary Care Provider [phone] Reason for Referral Consultation (Routine) - Denied Specialty Diagnoses / Procedures Referred By Contact Refer red To Contact Diagnoses Primary osteoarthritis of both knees Eneida Ayers MD Molenaar, D. Karl, MD [address] [place] [address] [place], [place] [facility] [phone] Fax: Referral ID Status Reason Start Date Expiration Date Visits Requ ested Visits Authorized [id number] Denied 11/29/2018 11/30/2019 1 0 Scheduling Instructions Please obtain a Prior Authorization so t hat we can give a series of three injections of Synvisc first in her right knee and i f this goes well then we will later on do her left knee. Other solutions other than Sy nvisc would be OK depending upon what is covered. Let us know [facility] so that we can schedule our patient for this procedure at the [facility] site in [place]. Consultation (Routine) - Closed Specialty Diagnoses / Procedures Referred By Contact Refer red To Contact Diagnoses Left foot pain Eneida Ayers MD [facility] [address] [address] Referral ID Status Reason Start Date Expiration Date Visits Requ ested Visits Authorized [id number] Closed 11/29/2018 11/30/2019 1 1 Scheduling Instructions Please refer patient to [facility] odiatrist, [facility] Reason for Visit Reason Comments Consult knee injection Encounter Details Date Type Department Care Team Description 11/28/2018 Office Visit Eneida Gray Chronic pain of both knees ( Primary Dx); [address] MD Kranthi Left foot pain; [place], [place] [address] Primary ost eoarthritis of both knees [address] [phone] KAR[place] Butts [id number] Social History Tobacco Use Types Packs/Day Years [...] Sign Reading Time Taken Comments Blood Pressure 132/64 11/28/2018 8:49 AM CDT Pulse 86 11/28/2018 8:49 AM CDT Temperature 28.6 ??C (83.4 ??F) 11/28/2018 8:49 AM CDT Respiratory Rate 17 11/28/2018 8:49 AM CDT Oxygen Saturation 97% 11/28/2018 8:49 AM CDT Inhaled Oxygen Concentration - - Weight 106 kg (233 lb 0.4 oz) 11/28/2018 8:49 AM CDT Height 160 cm (5' 2.99) 11/28/2018 8:49 AM CDT Body Mass Index 41.29 11/28/2018 8:49 AM CDT documented in this encounter Progress Notes Eneida Ayers MD - 11/28/2018 8:40 AM CDT Estab Patient Visit Subjective Patient ID: Rina Fisher is a 68 y.o. female. HPI Patient is here today for a couple different reasons. First she has previously seen the gear hobber operator down in [facility] a Dr. Stark who she liked referral again to because of some left foot pain and discomfort so we will put that referral secondary to some left foot pain unstable ankle and affecting her gait. She has had x-rays previously takenof her ankles and feet and will let the gear hobber operator do further x-rays if they feel necessary. Next she is having problems with both her knees and she is wondering about Synvisc injection. She has never had any surgery in her knees she has no had no MRIs of her knees she has had no particular knee injuries either remotely or recently. She did have x-rays taken within the last 1 year which showed minimal to moderate degenerative changes right greater than left. Her knees do not really swell on her they do not give out on her and they do not lock in position but they do tend to cause a little pain and discomfort with walking and ambulation and she would like to see whether or not injection therapy would be of benefit. She will sometimes wear knee wraps around her knees just to help the aches and pains medications like Glucosamine and ibuprofen help a little bit but she feels that her symptoms have been progressivelygetting little worse in the last year and as such she like to try something else so that she can do more household activity climb up stairs better and walk a little better when she is shopping. It should also be noted she has had no history of gout no history of rheumatoid arthritis no historyof pseudogout or other arthritic conditions other than degenerative changes. Review of Systems See history of present illness Objective Physical Exam She is alert she appears comfortable at rest her vital signs are stable no fever is noted. She can go from a sitting to standing position without too much difficulty she can walk from the chair to the exam table get up on the exam table without too much difficulty. Upon evaluation of both lower extremities from the knee and down to the ankle and foot there is no obvious redness no obvious open sores there is no varicosities warmth is good sensation is good there is no open calluses or other sores. She can move her ankles left right up and down through full rangeof motion without any particular difficulty. The Achilles tendons are intact ankle is okay there is no particular tenderness on the plantar aspect there is no particular discomfort with movement of her forefoot tore her metatarsal bones. Her knees are not swollen there is no significant joint line tenderness there is no tenderness over the patella region the patella tendon or the bursal region. She has pretty good full active range of motion without any joint line instability. We reviewed her x-rays that have been done and again minimal to moderate degenerative changes we actually looked at the x-rays ourselves and again the more moderate changes in the right medial portion of her knee. We then discussed with her that MRI scans are much more specific and I suspect given the amount of discomfort or pain she is having I suspect she has more cartilage damage that what is noted on x-ray findings and as such I do feel she is an excellent candidate for injection therapy. We then discussed the injection therapy with her what it did includes the fact we have to get thingsapproved for her and then set her up for a series of injections we discussed that there is spaced 1 week apart we discussed only one knee at a time. The overall assessment is bilateral knee pain secondary to degenerative joint disease of both knees. Plan at this time is to qualify her for Synvisc injections and then to set her up for these procedures. Secondary issue was left ankle and foot pain secondary to degenerative arthritis plan for that is referral to Dr. Stark gear hobber operator done in [facility]. Assessment/Plan Diagnoses and all orders for this visit: Chronic pain of both knees Asmita Yun LPN - 11/28/2018 8:40 AM CDT She already has an appointment with Podiatry they called today. She will wait two weeks to hear about the injections. documented in this encounter Plan of Treatment Scheduled Referrals Name Type Priority Associated Diagnoses Order S chedule Ambulatory External Outpatient Referral Routine Left foot pain Ordered: Referral 11/29/2018 Ambulatory referral Outpatient Referral Routine Primary osteoa rthritis Ordered: for ortho injection of both knees 019 (ortho and SMAP use only) documented as of this encounter Visit Diagnoses Diagnosis Chronic pain of both knees - Primary Left foot pain Pain in soft tissues of limb Primary osteoarthritis of both knees documented in this encounter Care Teams Trust Administrative Assistant Relationship Specialty Start Date End Date Margie Mcmanus, DIET ASSISTANT, DEMAND PLANNING MANAGER PCP - General 04/26/18 05/27/20 [address] [place] [address] documented as of this encounter
--- OUTSIDE RECORDS SUMMARY | 2022-06-15 14:59 | XMS_ITS | Encounter Summary ---
:1950 Author Organization [facility] Address [address] [place] [address] Care Team Providers Name Role Phone Margie Mcmanus APRN, CNP Primary Care Provider [phone] Reason for Referral Consultation (Routine) - Closed Specialty Diagnoses / Procedures Referred By Contact Refer red To Contact Diagnoses Left foot pain Margie Mcmanus, [facility] [place] CANDICE ALEGRIA [address] [place] [address] [address] [place] [address] Fax: Referral ID Status Reason Start Date Expiration Date Visits Requ ested Visits Authorized [id number] Closed 11/22/2018 11/23/2019 1 1 [place] DRILLER Encounter Details Date Type Department Care Team Description 11/22/2018 Orders Only [place] Margie Mcmanus, Left foot pain [address] CANDICE ALEGRIA (Primary Dx) [place], [place] [address] [facility] [address] [place] [address] Social History Tobacco Use Types Packs/Day Years [...] documented as of this encounter Progress Notes Margie Mcmanus APRN, CNP - 11/22/2018 2:46 PM CST Please see note. NE DRILLER documented in this encounter Plan of Treatment Scheduled Referrals Name Type Priority Associated Order Schedule Diagnoses Ambulatory External Outpatient Referral Routine Left foot pain Ordered: Referral 11/22/2018 documented as of this encounter Visit Diagnoses Diagnosis Left foot pain - Primary Pain in soft tissues of limb documented in this encounter Care Teams Voltage Tester Relationship Specialty Start Date End Date Margie Mcmanus APRN, CNP PCP - General 04/26/18 05/27/20 100 [facility] [place] [address] documented as of this encounter
--- OUTSIDE RECORDS SUMMARY | 2022-06-15 14:59 | XMS_ITS | Encounter Summary ---
:1950 Author Organization [facility] Address [address] [place] [address] Care Team Providers Name Role Phone Margie Mcmanus DIGITAL ENGINEER, SOFTWARE DESIGN ENGINEER Primary Care Provider [phone] Reason for Visit Reason Onset Date Comments talk with nurse 05/18/2019 Encounter Details Date Type Department Care Team Description 05/18/2019 Telephone [place] Margie Mcmanus, talk with nurse [address] DIGITAL ENGINEER, SOFTWARE DESIGN ENGINEER [place], [place] [address] [address] [facility] [address] [phone] [place], [place] [address] Social History Tobacco Use [...] Encounter - Asmita Yun LPN - 05/18/2019 12:02 PM CDT Wanting the patient to come in at 1:20pm, she is getting a ride. Telephone Encounter - Karena Maddox - 05/18/2019 11:50 AM CDT Pt called stating she woke up feeling dizzy. She has tried drinking water but threw it up both times. Please call Pt at [phone] to advise. documented in this encounter Plan of Treatment Not on filedocumented as of this encounter Visit Diagnoses Not on filedocumented in this encounter Care Teams Stator Tester Relationship Specialty Start Date End Date Margie Mcmanus APRN, SOFTWARE DESIGN ENGINEER PCP - General 04/26/18 05/27/20 [address] [facility] [place] [address] documented as of this encounter
--- OUTSIDE RECORDS SUMMARY | 2022-06-15 14:59 | XMS_ITS | Encounter Summary ---
:1950 Author Organization [facility] Address [address] [place] [address] Care Team Providers Name Role Phone None, Pcp Primary Care Provider Unavailable Reason for Referral Consultation (Routine) - Closed Specialty Diagnoses / Procedures Referred By Contact Refer red To Contact Audiology Diagnoses Presbycusis of both ears Palak Cooley APRN, CNP Se Audiology [address] [place] [address] [place] [address] Fax: Referral ID Status Reason Start Date Expiration Date Visits V isits Requested Authorized [id number] Closed Specialty 11/07/2020 11/07/2021 1 1 Services Required Scheduling Instructions Please call the Audiology Judo Instructor desk at [phone] ext. [phone] to schedule an appointment. Tinnitus + hearing loss test 1 yr ago pe r patient. TOCK SPRAY UNIT FEEDER Reason for Visit Reason Comments BP Med review Encounter Details Date Type Department Care Team Description 11/07/2020 Office Visit [place] Palak Cooley, Well woman exam (Primary Dx) ; [address] CANDICE ALEGRIA Essential (primary) hypertension; [place], [place] [address] Prediabetes; [address] [place], [place] Primary osteoarthritis of venkata th knees; [phone] [id number] Varicose veins of right lower extremity with pain; [phone] Rosacea; (Work) Encounter for hepatitis C screening test for low risk patient; [phone] Presbycusis of both ears; (Fax) Elevated TSH; Mixed hyperlipi demia Social History Tobacco Use Types Packs/Day Years [...] Time Taken Comments Blood Pressure 138/76 11/07/2020 9:07 AM GUNSTOCK SPRAY UNIT FEEDER Pulse 84 11/07/2020 9:07 AM GUNSTOCK SPRAY UNIT FEEDER Temperature 35.6 ??C (96.1 ??F) 11/07/2020 9:07 AM GUNSTOCK SPRAY UNIT FEEDER Respiratory Rate 14 11/07/2020 9:07 AM GUNSTOCK SPRAY UNIT FEEDER Oxygen Saturation 99% 11/07/2020 9:07 AM GUNSTOCK SPRAY UNIT FEEDER Inhaled Oxygen Concentration - - Weight 101 kg (223 lb) 11/07/2020 9:07 AM GUNSTOCK SPRAY UNIT FEEDER Height 157.5 cm (5' 2) 11/07/2020 9:07 AM GUNSTOCK SPRAY UNIT FEEDER Body Mass Index 40.79 11/07/2020 9:07 AM GUNSTOCK SPRAY UNIT FEEDER documented in this encounter Patient Instructions Patient InstructionsTamadou Cooley APRN, CRIME ANALYST - 11/07/2020 9:00 AM CST Look into twin fruit Higher protein foods. Protein/fruit smoothies Low carb soups. Fit on francisco javier, Maimai exercise videos. Get better sleep TOCK SPRAY UNIT FEEDER documented in this encounter Progress Notes Palak Cooley APRN, CNP - 11/07/2020 9:00 AM CST Subjective Patient ID: Rina Fisher is a 69 y.o. female. Chief Complaint Patient presents with ??? BP Med review HPI Patient [facility] for a medication refill. She is also due for an annual exam. Overall she has been doing well. She has a history of varicose veins with discomfort and was seen by a specialist in the past recommending compression socks and diet exercise. She has been applying compression socks and this has been helping. She also has bilateral arthritic right knees confirmed by previous imaging. Overall symptoms have been improving she has been working out weight loss. She uses ibuprofen as needed and in the past 1 month she may be two doses. Patient also commented on some gurgling sensation in her upper abdomen with deep breathing. Does notoccur in pattern or exacerbated by any reasons. In the last 1 month she had about 2 occurrences of this. There is no pain and this does not wake her up at night. Patient recently retired in March 2020. Currently at home with her . She does have trouble with sleeping at home as her has vivid dreams and would sometimes wake her up at night due to his movements. The following portions of the patient's chart [...] time each day, Disp: 90 tablet, Rfl: 1 ??? Cholecalciferol (VITAMIN D3) 5000 units tablet, [...] time each day, Disp: 90 tablet, Rfl: 1 ??? Lactobacillus (ACIDOPHILUS PROBIOTIC) tablet, Take 1 tablet by mouth 1 (one) time each day, Disp: , Rfl: ??? Multiple Vitamins-Minerals (MULTIVITAMIN ADULT PO), Take by mouth 1 (one) time each day No Iron,Disp: , Rfl: ??? Ransom-3 Fatty Acids ([employer] FISH OIL) 1200 MG capsule, Take 1,200 mg by mouth 1 (one) time each day, Disp: , Rfl: ??? UNABLE TO FIND, Med Name: SUPER B COMPLEX / B Vit / Biotin / Folate / Pantothenic Acid, Disp: , Rfl: ??? UNABLE TO FIND, TUMERIC/CURCUMEN 500mg tablet 1 daily, Disp: , Rfl: No Known Allergies Past Medical History: Diagnosis Date ??? Allergic rhinitis ??? Arthritis ??? Cataract 2017 wears glasses, [facility] [employer] [place], [place] ??? Depression ??? Herpes zoster without complication 2018 ??? Hypertension ??? Obesity ??? Palpitations 07/16/2017 ??? Rosacea ??? Swelling of lower extremity 03/03/2019 ??? Urinary tract infection ??? Varicella ??? Visual impairment Past Surgical History: Procedure Laterality Date ??? TONSILLECTOMY History of tonsillectomy with adenoidectomy ??? WISDOM TOOTH EXTRACTION Social History Socioeconomic History ??? Marital status: Spouse name: Not on file ??? Number of children: 2 ??? Years of education: Not on file ??? Highest education level: Some college, no degree Occupational History ??? 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 Financial resource strain: Not on file ??? Food insecurity Worry: Not on file Inability: Not on file ??? Transportation needs Medical: Not on file Non-medical: Not on file Tobacco Use ??? Smoking status: Former Smoker Years: 1.00 ??? Smokeless tobacco: Never Used ??? Tobacco comment: Former smoker x one year at the age of 34 years Substance and Sexual Activity ??? Alcohol use: Yes Frequency: Monthly or less ??? Drug use: No ??? Sexual activity: Not on file Lifestyle ??? Physical activity Days per week: 0 days Minutes per session: Not on file ??? Stress: Not on file Relationships ??? Social connections Talks on phone: Not on file Gets together: Not on file Attends sabianism service: Not on file Active member of club or organization: Not on file Attends meetings of clubs or organizations: Not on file Relationship status: Not on file ??? Intimate partner violence Fear of current or ex partner: Not on file Emotionally abused: Not on file Physically abused: Not on file Forced sexual activity: Not on file Other Topics Concern ??? Not on file Social History Narrative Caffeine use: hot chocolate Uses seatbelt Carbon monoxide detector in home Smoke detector in home Uses sunscreen No Advance Directive No guns in home Family History Problem Relation Age of Onset [...] ??? Depression Son ??? Addiction problem Son There is no immunization history on file for this patient. Review of Systems All other systems reviewed and negative Objective Visit Vitals BP 138/76 (BP Location: Right arm, Patient Position: Sitting) Pulse 84 Temp (!) 35.6 ??C (96.1 ??F) (Temporal) Resp 14 Ht 1.575 m (5' 2) Wt 101 kg (223 lb) SpO2 99% BMI 40.79 kg/m?? Smoking Status Former Smoker BSA 2.1 m?? Physical Exam GENERAL APPEARANCE: The patient is in no acute distress, is obese, not ill appearing, very pleasant. HEENT: Normocephalic and atraumatic. Moderate centralize facial redness. EOMI, PERRL. Conjunctivae clear. Oropharynx is clear. Mouth revealed good dentition, no lesions. Tympanic membranes are clear. NECK: Supple. No thyroid enlargement. LUNGS: Lungs are clear to auscultation at all lobes anterior/posterior. No wheezes, rhonchi, or rales. HEART: Regular rate and rhythm with normal S1 and S2. No murmurs. ABDOMEN: Soft, nontender, bowel sounds hyperactive. MUSC: No asymmetry or weakness. NEUROLOGIC: Gait is normal. Cranial nerves II through XII are intact. Deep tendon reflexes +2 bilaterally. PSYCHIATRIC: The patient is awake, alert, and oriented x3. Recent and remote memory is intact. Appropriate mood and affect. SKIN: Warm, dry, and well perfused. Good turgor. Assessment/Plan Problem List Items Addressed This Visit Nervous Varicose veins of right lower extremity with pain Overview Currently using compression socks and states overall symptoms improved. She is working on weight loss and exercise. Taking horse Tiffin supplement and states this is helping. Presbycusis of both ears Overview Patient states she had a positive hearing loss test at one of the hearing aid clinic that offered free testing. She also has tinnitus. Current Assessment & Plan She was agreeable for an audiology referral. Relevant Orders Ambulatory referral to Audiology Circulatory Essential (primary) hypertension Overview Hydrochlorothiazide 25 mg daily Atenolol 25 mg daily Would like time to continue working on diet and exercise before increasing medications. Current Assessment & Plan Follow-up in 6 months. Patient was agreeable. Relevant Medications atenolol (TENORMIN) 25 MG tablet hydroCHLOROthiazide (HYDRODIURIL) 25 MG tablet Other Relevant Orders TSH (Completed) Comprehensive metabolic panel (Completed) Magnesium (Completed) Musculoskeletal Primary osteoarthritis of both knees Overview Patient states her knee pain have been improving with the weight loss. Last year she lost about 17 pounds however recently she came back about 6 pounds or so and continues to work on exercise and dieting. Current Assessment & Plan Currently doing well and has no complaints. Rosacea Overview Patient states the facial redness improves with evening primrose oil. Declines other treatments needed. Endocrine/Metabolic Prediabetes Overview A1c in August 2019 was 6.2. 11/07/20: 6.1 Current Assessment & Plan Discuss results with the patient and at this time she would like to have time to work on her diet and exercise. She will follow up in 6 months and we can recheck this. Relevant Orders Hemoglobin A1c (Completed) Lipid panel (Completed) Mixed hyperlipidemia Overview ASCVD 10yr risk 27.2%, high Current Assessment & Plan Recommended statin therapy, patient would like time to think about it and continue to work on the diet and exercise. She is currently taking baby aspirin and fish oil. Other Visit Diagnoses Well woman exam - Primary Encounter for hepatitis C screening test for low risk patient Relevant Orders Hepatitis C antibody (Completed) Elevated TSH Relevant Orders Add-On Test Request (Completed) TSH There are no preventive care reminders to display for this patient. Immunizations due: declined shingrix/pneum23 Hepatitis C: ordered Colon Cancer Screen: decline Last eye exam: 04/2020 Last Dental visit: >1yr Mammogram: decline Pap exam: decline Glaucoma Screen 67+: decline DXA hip/spine >65, or <65 FRAX 10yr risk >9.3%: decline Contacted patient by phone and discussed laboratory results: She had somewhat of an elevated TSH and is overall asymptomatic. Reviewed some of her vitamin supplements and 2 of them has biotin content. She was agreeable to hold the supplements for 2 weeks and we can recheck her TSH. This is likely related to the supplement. Patient Instructions Look into twin fruit Higher protein foods. Protein/fruit smoothies Low carb soups. Fit on francisco javier, Maimai exercise videos. Get better sleep TOCK SPRAY UNIT FEEDER documented in this encounter Miscellaneous Notes Assessment & Plan Note - Palak Cooley APRN, CNP - 11/08/2020 7:55 AM GUNSTOCK SPRAY UNIT FEEDER Associated Problem(s): Primary osteoarthritis of both knees Currently doing well and has no complaints. TOCK SPRAY UNIT FEEDER Assessment & Plan Note - Palak Cooley APRN, CNP - 11/08/2020 7:54 AM GUNSTOCK SPRAY UNIT FEEDER Associated Problem(s): Presbycusis of both ears She was agreeable for an audiology referral. TOCK SPRAY UNIT FEEDER Assessment & Plan Note - Palak Cooley APRN, CNP - 11/08/2020 7:53 AM GUNSTOCK SPRAY UNIT FEEDER Associated Problem(s): Mixed hyperlipidemia Recommended statin therapy, patient would like time to think about it and continue to work on the diet and exercise. She is currently taking baby aspirin and fish oil. TOCK SPRAY UNIT FEEDER Assessment & Plan Note - Palak Cooley APRN, CNP - 11/08/2020 7:52 AM GUNSTOCK SPRAY UNIT FEEDER Associated Problem(s): Prediabetes Discuss results with the patient and at this time she would like to have time to work on her diet and exercise. She will follow up in 6 months and we can recheck this. TOCK SPRAY UNIT FEEDER Assessment & Plan Note - Palak Cooley APRN, CNP - 11/07/2020 12:27 PM GUNSTOCK SPRAY UNIT FEEDER Associated Problem(s): Essential (primary) hypertension Follow-up in 6 months. Patient was agreeable. TOCK SPRAY UNIT FEEDER documented in this encounter Plan of Treatment Scheduled Referrals Name Type Priority [facility] Diagnoses [facility] referral Outpatient Referral Routine Presbycusis of both Ordered: to Audiology ears 11/07/2020 documented as of this encounter Procedures Procedure Name Priority Date/Time Associated Diagnosis Comme nts ADD-ON TEST REQUEST Routine 11/07/2020 5:12 PM Elevated TSH Re sults for this GUNSTOCK SPRAY UNIT FEEDER procedure are i n the results section. documented in this encounter Results (ABNORMAL) TSH (11/25/2020 2:03 PM GUNSTOCK SPRAY UNIT FEEDER) Analysis Performed At Patho logist Time Signature TSH, Sensitive 6.88 (H) 0.46 - 11/26/2020 LUISA 4.68 mIU/L 4:46 PM [facility] Comment: The results from [...] (Source) Location / / Volume Laterality Blood 11/25/2020 2:03 PM 1 1:53 GUNSTOCK SPRAY UNIT FEEDER PM [facility]ST[facility]AY UNIT FEEDER Palak Cooley APRN, CRIME ANALYST LAB BLOOD ORDERABLES Performing Organization Address City/[facility] Code Phon e Number [facility] [address] [place] [phone] Add-On Test Request (11/07/2020 5:12 PM GUNSTOCK SPRAY UNIT FEEDER) [facility] Method Time Signature Add-on Testing SEE BELOW 11/07/2020 LUISA 6:30 PM GUNSTOCK SPRAY UNIT FEEDER [facility] Comment: Free T4 and T3 added. Specimen Anatomical Collection Method Collection Time Receive d Time (Source) Location / / Volume Laterality 11/07/2020 5:12 PM 1 5:12 GUNSTOCK SPRAY UNIT FEEDER PM [facility] FEEDER Palak Cooley APRN, CRIME ANALYST LAB BLOOD ORDERABLES Performing Organization Address [facility] Code Phon e Number [facility] [address] [place] [phone] Hepatitis C antibody (11/06/2020 10:16 AM GUNSTOCK SPRAY UNIT FEEDER) [facility] Method Time Signature Hepatitis C NON-REACTI Non-Reacti 11/07/2020 LUISA Antibody VE ve 2:35 PM GUNSTOCK SPRAY UNIT FEEDER [facility] Comment: The results [...] Blood (Blood, 11/06/2020 10:16 11/07/2020 Venous) AM GUNSTOCK SPRAY UNIT FEEDER 12:45 PM GUNSTOCK SPRAY UNIT FEEDER Palak Cooley APRN, CNP LAB BLOOD ORDERABLES Performing Organization Address City/State/ZIP Code Phon e Number [facility] [address] [place] [phone] Magnesium (11/06/2020 10:16 AM GUNSTOCK SPRAY UNIT FEEDER) P athologist Signature Magnesium 2.1 1.6 - 2.3 11/07/2020 LUISA MEDICAL mg/dL 1:07 PM [facility] Specimen Anatomical Collection Method Collection Time Receive d Time (Source) Location / / Volume Laterality Blood 11/06/2020 10:16 11/07/2020 AM GUNSTOCK SPRAY UNIT FEEDER 12:32 PM G[employer]STOCK SPRAY UNIT FEEDER Palak Cooley APRN, CNP LAB BLOOD ORDERABLES Performing Organization Address [facility] Code Phon e Number [facility] [address] [place] [phone] (ABNORMAL) Comprehensive metabolic panel (11/06/2020 10:16 AM GUNSTOCK SPRAY UNIT FEEDER) Patholo gist Method Time Signature Total Protein 6.9 6.3 - 8.2 11/07/2020 LUISA g/dL 1:07 PM [facility] Albumin, Serum 4.2 3.5 - 5.0 11/07/2020 LUISA g/dL 1:07 PM [facility] Total Bilirubin 0.8 0.1 - 1.0 11/07/2020 LUISA mg/dL 1:07 PM [facility] AST 21 8 - 43 U/L 11/07/2020 LUISA 1:07 PM [facility] Alkaline 76 38 - 128 11/07/2020 LUISA Phosphatase U/L 1:07 PM [facility] ALT (SGPT) 16 0 - 34 U/L 11/07/2020 LUISA 1:07 PM [facility] Sodium 140 135 - 145 11/07/2020 LUISA mEq/L 1:07 PM [facility] Potassium 3.8 3.5 - 5.1 11/07/2020 LUISA mEq/L 1:07 PM [facility] Chloride 104 98 - 107 11/07/2020 LUISA mEq/L 1:07 PM [facility] CO2 30 (H) 22 - 29 11/07/2020 LUISA mmol/L 1:07 PM [facility] BUN 22 5 - 25 11/07/2020 LUISA mg/dL 1:07 PM [facility] Creatinine 0.8 0.4 - 1.2 11/07/2020 LUISA mg/dL 1:07 PM [facility] Glucose 138 (H) 70 - 100 11/07/2020 LUISA mg/dL 1:07 PM [facility] Calcium, Total,S 9.3 8.4 - 10.2 11/07/2020 LUISA mg/dL 1:07 PM [facility] Fasting? Yes 11/06/2020 LUISA 10:19 AM [facility] Specimen Anatomical Collection Method Collection Time Receive d Time (Source) Location / / Volume Laterality Blood 11/06/2020 10:16 11/07/2020 AM GUNSTOCK SPRAY UNIT FEEDER 12:32 PM GUNSTOCK SPRAY UNIT FEEDER Palak Cooley APRN, CRIME ANALYST LAB BLOOD ORDERABLES Performing Organization Address City/State/ZIP Code Phon e Number [facility] [address] [place] [address] (ABNORMAL) TSH (11/06/2020 10:16 AM GUNSTOCK SPRAY UNIT FEEDER) [facility] Method Time Signature TSH, Sensitive 14.30 (H) 0.46 - 11/07/2020 LUISA 4.68 mIU/L 2:11 PM [facility] Comment: The results from this or [...] Volume Laterality Blood 11/06/2020 10:16 11/07/2020 AM GUNSTOCK SPRAY UNIT FEEDER 12:45 PM G[employer]STOCK [employer]AY UNIT FEEDER Palak Garcia Lenora VISUAL DESIGNER, CRIME ANALYST LAB BLOOD ORDERABLES Performing Organization Address City/State/ZIP Code Osiel Cantrell [facility] [address] [place] [address] (ABNORMAL) Lipid panel (11/06/2020 10:16 AM GUNSTOCK SPRAY UNIT FEEDER) athologist Signature Cholesterol 183 0 - 199 11/07/2020 [facility] mg/dL 1:07 PM [facility] Comment: Recommended by National Cholesterol Education Program (ATP III) -------- Cholesterol Ranges -------- <200 ?Desirable 200-239 ? Borderline high >=240 ? High Triglycerides 119 0 - 149 mg/dL 11/07/2020 1:07 PM [facility] Comment: -------- TRIG Ranges -------- <150 ?Normal 150-199 ? Borderline high 200-499 ? High >=500 ? Very high HDL 38 (L) 40 - 250 mg/dL 11/07/2020 1:07 PM [facility] Comment: -------- HDL Ranges -------- <40 ?Low 40-59 ?Normal >=60 ? Optimal LDL Calculated 121 (H) 0 - 99 mg/dL 11/07/2020 1:07 PM [facility] Comment: -------- LDL Ranges -------- <100 ? Optimal 100-129 ?Near optimal/above op timal 130-159 ?Borderline high 160-189 ?High >=190 ?Very high Specimen Anatomical Collection Method Collection Time Receive d Time (Source) Location / / Volume Laterality Blood 11/06/2020 10:16 11/07/2020 AM GUNSTOCK SPRAY UNIT FEEDER 12:32 PM GUNSTOCK SPRAY UNIT FEEDER Palak Jose Lenora ALEGRIA CNP LAB BLOOD ORDERABLES Performing Organization Address City/[facility]/ZIP Code Phon e Number [facility] [address] [place] [phone] (ABNORMAL) Hemoglobin A1c (11/06/2020 10:16 AM GUNSTOCK SPRAY UNIT FEEDER) Analysis Performed At Patho logist Time Signature Hemoglobin A1C 6.1 (H) 4.0 - 5.6 11/07/2020 LUISA % A1C 1:07 PM [facility] Comment: Reference Range 4.0-5.6% is for [...] Volume Laterality Blood 11/06/2020 10:16 11/07/2020 AM GUNSTOCK SPRAY UNIT FEEDER 12:32 PM [employer]AY UNIT FEEDER Palak Cooley APRN, CNP LAB BLOOD ORDERABLES Performing Organization Address City/[facility] Phon e Number [facility] [address] [place] [phone] documented in this encounter Visit Diagnoses Diagnosis Well woman exam - Primary Routine general medical examination at a health care facility Essential (primary) hypertension Unspecified essential hypertension Prediabetes Other abnormal glucose Primary osteoarthritis of both knees Varicose veins of right lower extremity with pain Rosacea Encounter for hepatitis C screening test for low risk patient Presbycusis of both ears Elevated TSH Other abnormal blood chemistry Mixed hyperlipidemia documented in this encounter Care Teams Radio Tester Relationship Specialty Start Date End Date None, Pcp PCP - General Architectural Manager 11/06/20 05/18/21 [address] [place] [address] documented as of this encounter
--- OUTSIDE RECORDS SUMMARY | 2022-06-15 14:59 | XMS_ITS | Encounter Summary ---
:1950 Author Organization [facility] Address [address] [place] [address] Care Team Providers Name Role Phone Palak Cooley APRN, CANDICE Primary Care Provider Encounter Details Date Type Department Care Team Description 06/02/2021 Telephone [facility] rv[facility] Palak Cooley APRN, CNP [address] [place] [address] [place], [place] [phone] (Wo rk) Social History Tobacco Use Types [...] filedocumented as of this encounter Results TSH (07/28/2021 10:55 AM DYE JIG OPERATOR) P athologist Signature TSH, Sensitive 2.13 0.46 - 07/28/2021 LUISA LEON L 4.68 mIU/L 7:32 PM [facility]PER[facility] Comment: The results from this [...] (Blood, 07/28/2021 10:55 07/28/2021 6:31 Venous) AM DYE JIG OPERATOR PM DYE JIG OPERATOR Palak Cooley APRN, CNP LAB BLOOD ORDERABLES Performing Organization Address City/State/ZIP Code Phon e Number [facility] [address] [place] [phone] documented in this encounter Visit Diagnoses Diagnosis 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 [address] documented as of this encounter
--- OUTSIDE RECORDS SUMMARY | 2022-06-15 14:59 | XMS_ITS | Encounter Summary ---
:1950 Author Organization [facility] Address [address] [place] [address] Care Team Providers Name Role Phone Gonzalezcrystal Palak Garcia LICENSED MIDWIFE, CANDICE Primary Care Provider Reason for Visit Reason Comments Medication Visit Encounter Details Date Type Department Care Team Description 05/29/2021 Office Visit Kiel Gong GonzalezcrystalPalak, Essential (primary) hyperten harmony (Primary Dx); [address] CANDICE ALEGRIA Prediabetes; [place], [place] [address] Primary osteoarthritis of both knees; [address] [place], [place] Mixed hyperlipidemia [phone] [id number] Social History Tobacco Use Types Packs/Day Years [...] Sign Reading Time Taken Comments Blood Pressure 120/74 05/29/2021 10:59 AM CDT Pulse 76 05/29/2021 10:59 AM CDT Temperature 36.7 ??C (98 ??F) 05/29/2021 10:59 AM CDT Respiratory Rate 16 05/29/2021 10:59 AM CDT Oxygen Saturation 96% 05/29/2021 10:59 AM CDT Inhaled Oxygen Concentration - - Weight 96.1 kg (211 lb 12.8 oz) 05/29/2021 10:59 AM CDT Height 157.5 cm (5' 2) 05/29/2021 10:59 AM CDT Body Mass Index 38.74 05/29/2021 10:59 AM CDT documented in this encounter Patient Instructions Patient InstructionsTamadou Cooley APRN, CNP - 05/29/2021 11:00 AM CDT Congratulations on your recent weight loss! Keep up the good work! Continue youtube different exercises at least 10min daily. Try to get more sleep at least 8hrs a night. Continue diet regimen. documented in this encounter Progress Notes Palak Cooley APRN, CNP - 05/29/2021 11:00 AM CDT Subjective Patient ID: Rina Fisher is a 70 y.o. female. Chief Complaint Patient presents with ??? Medication Visit HPI The patient presents to the [facility] for medication/lab visit. She is doing well today and has no complaints. She lost about 10+lbs in the last six months. She is feeling good and states her legs/knee pain has improved. Denies any further leg pain, is using her compression socks regularly. She is cutting out carbs. States need to improve on her sleep habits. Is retired and is sleeping at 1-2am and waking up at 9-10am. She would eat at 11am and would be done eating at 7pm at night. States in the last 2 weeks she's been stuck on the same weight. Taking atenolol and hydrochlorothiazide 25mg daily when she can remember. She is forgetting to take it about once a week. She did not take her meds this am, did take it yesterday. Denies smoking or regular alcohol use. The following portions of the patient's chart [...] time each day, Disp: , Rfl: ??? Lutein-Zeaxanthin 25-5 MG capsule, Take 1 capsule by mouth 1 (one) time each day, Disp: , Rfl: ??? Misc Natural Products (ADRENAL PO), Take by mouth (ashwaganda root, cordyceps Mycelium, Shisandra tao, ginseng, rhodiola root, red albanian ginseng, ginseng root, eleuthero root), Disp: , Rfl: ??? [place]-3 Fatty Acids ([facility] FISH OIL) 1200 MG [...] 1 (one) time each day No Iron (Patient not taking: Reported on 05/29/2021), Disp: , Rfl: ??? UNABLE TO FIND, Med Name: SUPER B COMPLEX / B Vit / Biotin / Folate / Pantothenic Acid (Patient not taking: Reported on 05/29/2021), Disp: , Rfl: Review of Systems Constitutional: Sometimes feels tired after weeding or easily tired per patient with chores at home. Contributes this to possibility of laying around more often. Neurological: Negative for dizziness. All other systems negative except HPI Objective Visit Vitals BP 120/74 (BP Location: Right arm, Patient Position: Sitting, BP Cuff Size: Large adult) Pulse 76 Temp 36.7 ??C (98 ??F) (Temporal) Resp 16 Ht 1.575 m (5' 2) Wt 96.1 kg (211 lb 12.8 oz) SpO2 96% BMI 38.74 kg/m?? Smoking Status Former Smoker BSA 2.05 m?? Physical Exam Vitals reviewed. Constitutional: General: She is not in acute distress. Appearance: Normal appearance. She is obese. She is not ill-appearing. Cardiovascular: Rate and Rhythm: Normal rate and regular rhythm. Heart sounds: No murmur heard. Pulmonary: Effort: Pulmonary effort is normal. Breath sounds: Normal breath sounds. Musculoskeletal: General: Normal range of motion. Neurological: Mental Status: She is alert. Psychiatric: Mood and Affect: Mood normal. Behavior: Behavior normal. Thought Content: Thought content normal. Assessment/Plan Problem List Items Addressed This Visit Circulatory Essential (primary) hypertension - Primary Overview Hydrochlorothiazide 25 mg daily Atenolol 25 mg daily Continue diet/exercise. Current Assessment & Plan Hypertension is improving with lifestyle modifications. Continue current treatment regimen. Blood pressure will be reassessed at the next regular appointment. 6months. Discussed monitor for any dizziness, perform at home bp checks or clinic bp checks. Discussed small frequent exercise. Musculoskeletal Primary osteoarthritis of both knees Overview Patient states her knee pain have been improving with the weight loss and use of regular compression socks. Endocrine/Metabolic Prediabetes Overview 09/07 A1C 6.2. /: A1C 6.1 Relevant Orders Hemoglobin A1c Microalbumin/Creatinine Ratio HemoCue glucose Mixed hyperlipidemia Overview ASCVD 10yr risk 27.2%, high. Declined statin. Using fish oil and baby aspirin. Current Assessment & Plan Again declined statin therapy. Patient saw audiology; will need to get hearing aides at [facility] per pt. Not currently taking any biotin supplement. Patient Instructions Congratulations on your recent weight loss! Keep up the good work! Continue youtube different exercises at least 10min daily. Try to get more sleep at least 8hrs a night. Continue diet regimen. documented in this encounter Miscellaneous Notes Assessment & Plan Note - Palak Cooley APRN, CNP - 05/29/2021 11:40 AM CDT Associated Problem(s): Essential (primary) hypertension Hypertension is improving with lifestyle modifications. Continue current treatment regimen. Blood pressure will be reassessed at the next regular appointment. 6months. Discussed monitor for any dizziness, perform at home bp checks or clinic bp checks. Discussed small frequent exercise. Assessment & Plan Note - Palak Cooley APRN, CNP - 05/29/2021 11:39 AM CDT Associated Problem(s): Mixed hyperlipidemia Again declined statin therapy. documented in this encounter Plan of Treatment Not on filedocumented as of this encounter Results Microalbumin/Creatinine Ratio (05/29/2021 11:54 AM CDT) athologist Signature Microalbumin,m 11.3 0.0 - 16.6 05/30/2021 [facility] g/day mg/L 2:17 PM CDT [facility] Comment: . Creatinine, Urine 252 mg/dL 05/30/2021 2:21 PM CDT [facility] Comment: No established reference range. Microalb/Creat Ratio 4 0 - 24 mg/g 05/30/2021 2:2 1 PM CDT [facility] Specimen Anatomical Collection Method Collection Time Receive d Time (Source) Location / / Volume Laterality Urine 05/29/2021 11:54 05/30/2021 AM CDT 12:49 PM CDT Palak Cooley APRN, CNP LAB URINE ORDERABLES Performing Organization Address City/State/ZIP Code Phon e Number [facility] [address] [place] [address] (ABNORMAL) HemoCue glucose (05/29/2021 11:45 AM CDT) P athologist Signature Glucose, Bld 111 (H) 70 - 100 05/29/2021 [facility] mg[facility] 12:10 PM CDT [place] Comment: . Specimen Anatomical Collection Method Collection Time Receive d Time (Source) Location / / Volume Laterality Blood 05/29/2021 11:45 05/29/2021 AM CDT 12:09 PM CDT Palak Cooley APRN, CNP LAB BLOOD ORDERABLES Performing Organization Address City/State/ZIP Code Phon e Number [facility] [place] [address] [place] [address] (ABNORMAL) Hemoglobin A1c (05/29/2021 11:45 AM CDT) Analysis Performed At Patho logist Time Signature Hemoglobin A1C 5.8 (H) 4.0 - 5.6 05/30/2021 [place] % A1C 3:15 PM CDT [facility] Comment: Reference [...] (Source) Location / / Volume Laterality Blood 05/29/2021 11:45 05/30/2021 AM CDT 12:48 PM CDT Palak Cooley APRN, CNP LAB BLOOD ORDERABLES Performing Organization Address City/State/ZIP Code Phon e Number [facility] [address] [place] [address] documented in this encounter Visit Diagnoses Diagnosis Essential (primary) hypertension - Prima ry Unspecified essential hypertension Prediabetes Other abnormal glucose Primary osteoarthritis of both knees Mixed hyperlipidemia documented in this encounter Care Teams Supervisor [employer] Relationship Specialty Start Date End Date Palak Cooley APRN, CNP PCP - General 05/19/[address] [place] [address] documented as of this encounter
--- OUTSIDE RECORDS SUMMARY | 2022-06-15 14:59 | XMS_ITS | Encounter Summary ---
:1950 Author Organization [facility] Address [address] [place] [address] Care Team Providers Name Role Phone None, Pcp Primary Care Provider Unavailable Encounter Details Date Type Department Care Team Description 11/25/2020 Lab [place] Elevated TSH [address] [place], [place] [address] Social History Tobacco Use [...] encounter Miscellaneous Notes Result Encounter Note - Palak Cooley APRN, CNP - 11/25/2020 2:00 PM DELINQUENT ACCOUNT CLERK We can recheck this in 8 weeks, ask that patient hold the biotin supplment 1 week prior to checking.Somewhat elevated but not interventions needed. NQUENT ACCOUNT CLERK Result Encounter Note - Palak Cooley APRN, CNP - 11/25/2020 2:00 PM DELINQUENT ACCOUNT CLERK She can resume the supplement for now hold for 1 week before next tsh recheck. NQUENT ACCOUNT CLERK documented in this encounter Plan of Treatment Not on filedocumented as of this encounter Procedures Procedure Name Priority Date/Time Associated Diagnosis Comme nts TSH Routine 11/25/2020 2:03 PM Elevated TSH Results f or this DELINQUENT ACCOUNT CLERK procedure are i n the results section . documented in this encounter Results (ABNORMAL) Thyroid Function [place] (05/29/2021 11:45 AM CDT) Analysis Performed At Patho logist Time Signature TSH, Sensitive 8.50 (H) 0.46 - 05/30/2021 [place] 4.68 mIU/L 2:39 PM CDT [facility] Comment: The results from this or [...] Location / / Volume Laterality Blood (Blood, 05/29/2021 11:45 05/30/2021 [place]) AM CDT 12:56 PM CDT Palak Cooley APRN, CNP LAB BLOOD ORDERABLES Performing Organization Address City/State/ZIP Code Phon e Number [facility] [address] [place] [address] (ABNORMAL) TSH (11/25/2020 2:03 PM DELINQUENT ACCOUNT CLERK) Analysis Performed At Patho logist Time Signature TSH, Sensitive 6.88 (H) 0.46 - 11/26/2020 [place] 4.68 mIU/L 4:46 PM [facility] Comment: The results from [...] / Volume Laterality Blood 11/25/2020 2:03 PM 1:53 DELINQUENT ACCOUNT CLERK PM DELINQUENT ACCOUNT CLERK Palak Cooley APRN, MEDICAL RECEPTIONIST BILLER LAB BLOOD ORDERABLES Performing Organization Address City/State/ZIP Code Phon e Number [facility] [address] [place] [address] documented in this encounter Visit Diagnoses Diagnosis Elevated TSH Other abnormal blood chemistry documented in this encounter Care Teams Chaplaincy Relationship Specialty Start Date End Date None, Pcp PCP - General Shoe Stitcher Odd 11/06/20 05/18/[address] [place] [address] documented as of this encounter
--- OUTSIDE RECORDS SUMMARY | 2022-06-15 14:59 | XMS_ITS | Encounter Summary ---
:1950 Author Organization [facility] Address [address] [place] [address] Care Team Providers Name Role Phone Palak Cooley APRN, CNP Primary Care Provider Encounter Details Date Type Department Care Team Description 05/29/2021 Lab [place] Prediabetes; [address] Elevated TSH [place], [place] [address] Social History Tobacco Use [...] - Palak Cooley APRN, CNP - 05/29/2021 10:15 AM CDT Letter routed to [facility] bilingual medical receptionist to print and mail to patient per pt request thanks. documented in this encounter Plan of Treatment Not on filedocumented as of this encounter Procedures Procedure Name Priority Date/Time Associated Comments Diagnosis MICROALBUMIN/CREATININE Routine 05/29/2021 11:54 Prediabetes Results for this RATIO AM CDT procedure are i n the results section. FASTING ? Routine 05/29/2021 11:45 Prediabetes Results for this AM CDT procedure are i n the results section. THYROPEROXIDASE (TPO) Routine 05/29/2021 11:45 Elevated TSH Re sults for this AB AM CDT procedure are i n the results section. THYROID FUNCTION Routine 05/29/2021 11:45 Elevated TSH Results for this [place] AM CDT procedure are i n the results section. HEMOCUE GLUCOSE Routine 05/29/2021 11:45 Prediabetes Results for this AM CDT procedure are i n the results section. T4, FREE Routine 05/29/2021 11:45 Elevated TSH Results for this AM CDT procedure are i n the results section. HEMOGLOBIN A1C Routine 05/29/2021 11:45 Prediabetes Results f or this AM CDT procedure are i n the results section. documented in this encounter Results Microalbumin/Creatinine Ratio (05/29/2021 11:54 AM CDT) P athologist Signature Microalbumin,m 11.3 0.0 - 16.6 05/30/2021 [facility] g/day mg/L 2:17 PM CDT [facility] Comment: . Creatinine, Urine 252 mg/dL 05/30/2021 2:21 PM CDT [facility] Comment: No established reference range. Microalb/Creat Ratio 4 0 - 24 mg/g 05/30/2021 2:2 1 PM CDT [facility] Specimen Anatomical Collection Method Collection Time Receive d Time (Source) Location / / Volume Laterality Urine 05/29/2021 11:54 05/30/2021 AM CDT 12:49 PM CDT Palak Cooley APRN, CNP LAB URINE ORDERABLES Performing Organization Address City/State/ZIP Code Phon e Number [facility] [address] [place] [address] T4, free (05/29/2021 11:45 AM CDT) P athologist Signature Free T4 0.79 0.78 - 2.19 05/30/2021 [facility] ng/dL 5:04 PM CDT [facility] Comment: The results from this [...] Time (Source) Location / / Volume Laterality 05/29/2021 11:45 05/30/2021 AM CDT 12:56 PM CDT Palak Cooley APRN, CNP LAB BLOOD ORDERABLES Performing Organization Address City/State/ZIP Code Phon e Number [facility] [address] [place] [address] (ABNORMAL) Thyroperoxidase (TPO) Ab (05/29/2021 11:45 AM CDT) Patholo gist Method Time Signature Thyroid 245.3 (H) <9.0 06/02/[address] [facility] Peroxidase IU/mL 1:53 PM CDT LAB[facility]ATORIES (TPO) Ab Comment: Test Performed by: [facility] [address] [place] [address] Web Manager: Graham Beach M.D. Ph. D.; CLIA# [id number] Specimen Anatomical Collection Method Collection Time Receive d Time (Source) Location / / Volume Laterality 05/29/2021 11:45 05/30/2021 8:16 AM CDT PM CDT Palak Cooley APRN, CNP LAB BLOOD ORDERABLES Performing Organization Address City/[facility]/ZIP Code Phon e Number [facility] see result attachment for specific address Fasting ? (05/29/2021 11:45 AM CDT) athologist Signature Fasting? Yes 05/29/2021 [facility] 12:09 PM CDT [place] Specimen Anatomical Collection Method Collection Time Receive d Time (Source) Location / / Volume Laterality 05/29/2021 11:45 05/29/2021 AM CDT 11:45 AM CDT Palak Cooley APRN, FUR CLEANER LAB BLOOD ORDERABLES Performing Organization Address City/State/ZIP Code Phon e Number [facility] [place] [address] [place], [place] [address] (ABNORMAL) Thyroid Function [place] (05/29/2021 11:45 AM CDT) Analysis Performed At [facility] Signature TSH, Sensitive 8.50 (H) 0.46 - 05/30/2021 [place] 4.68 mIU/L 2:39 PM CDT [facility] Comment: The results from [...] CDT 12:56 PM CDT Palak Cooley APRN, FUR CLEANER LAB BLOOD ORDERABLES Performing Organization Address City/State/ZIP Code Phon e Number [facility] [address] [place] [address] (ABNORMAL) Hemoglobin A1c (05/29/2021 11:45 AM CDT) Analysis Performed At [facility] Time Signature Hemoglobin A1C 5.8 (H) 4.0 - 5.6 05/30/2021 [place] % A1C 3:15 PM CDT [facility] [...] Organization Address City/State/ZIP Code Phon e Number [facility] [address] [place] [address] (ABNORMAL) HemoCue glucose (05/29/2021 11:45 AM CDT) athologist Signature Glucose, Bld 111 (H) 70 - 100 05/29/2021 [facility] mg/dL 12:10 PM CDT [place] Comment: . Specimen Anatomical Collection Method Collection Time Receive d Time (Source) Location / / Volume Laterality Blood 05/29/2021 11:45 05/29/2021 AM CDT 12:09 PM CDT Palak Cooley APRN, CNP LAB BLOOD ORDERABLES Performing Organization Address City/[facility]/ZIP Code Phon e Number [facility] [address] [place] [address] documented in this encounter Visit Diagnoses Diagnosis Prediabetes Other abnormal glucose Elevated TSH Other abnormal blood chemistry documented in this encounter Care Teams Ota Relationship Specialty Start Date End Date Palak Cooley APRN, CNP PCP - General 05/19/[address] [place] [address] documented as of this encounter
--- OUTSIDE RECORDS SUMMARY | 2022-06-15 14:59 | XMS_ITS | Encounter Summary ---
:1950 Author Organization [facility] Address [address] [place] [address] Care Team Providers Name Role Phone Margie Mcmanus TWIST TESTER, [facility] Primary Care Provider [phone] Encounter Details Date Type Department Care Team Description 10/21/2018 Abstract [facility] Margie Mcmanus, RAJI, [address] [place] [address] [facility] [address] [phone] [place], [place] [address] Social History Tobacco Use [...] on filedocumented in this encounter Care Teams Cdl Program Coordinator Relationship Specialty Start Date End Date Margie Mcmanus, TWIST TESTER, AIR CONDITIONING ENGINEER PCP - General 04/26/18 05/27/20 [address] [place] [address] documented as of this encounter
--- OUTSIDE RECORDS SUMMARY | 2022-06-15 14:59 | XMS_ITS | Encounter Summary ---
:1950 Author Organization [facility] Address [address] [place] [address] Care Team Providers Name Role Phone Margie Mcmanus APRN, CANDICE Primary Care Provider [phone] Reason for Referral Consultation (Routine) - Canceled Specialty Diagnoses / Procedures Referred By Contact Refer red To Contact Diagnoses Benign paroxysmal positional vertigo, unspecified laterality Margie Mcmanus, [facility] RAJI, CANDICE SYSTEM - [place] [id number] [place] [address] Phone: Fax: Referral ID Status Reason Start Date Expiration Date Visits V isits Requested Authorized [id number] Canceled 05/18/2019 05/18/2020 1 1 Consultation (Routine) - Closed Specialty Diagnoses / Procedures Referred By Contact Refer red To Contact Diagnoses Benign paroxysmal positional vertigo, unspecified laterality Margie Mcmanus, [facility] RAJI, SOCCER COACH SYSTEM - [address] [address] [place] [address] Phone: Fax: Referral ID Status Reason Start Date Expiration Date Visits Requ ested Visits Authorized [id number] Closed 05/18/2019 05/18/2020 1 1 Consultation (Routine) - Closed Specialty Diagnoses / Procedures Referred By Contact Refer red To Contact Diagnoses Benign paroxysmal positional vertigo, unspecified laterality Margie Mcmanus, [facility] RAJI, SOCCER COACH SYSTEM - [place] [address] [address] [place] [address] Phone: Fax: Referral ID Status Reason Start Date Expiration Date Visits Requ ested Visits Authorized [id number] Closed 05/18/2019 05/18/2020 1 1 Reason for Visit Reason Comments Nausea Dizziness Encounter Details Date Type Department Care Team Description 05/18/2019 Office Visit [place] Margie Mcmanus Benign paroxysmal [address] M, CANDICE ALEGRIA positional vertigo, [place] [address] unspecified [id number] [place] [address] laterality (Primary [phone] Dx) Social History Tobacco Use Types Packs/Day Years [...] Sign Reading Time Taken Comments Blood Pressure 119/76 05/18/2019 12:38 PM CDT Pulse 72 05/18/2019 12:38 PM CDT Temperature 35.8 ??C (96.4 ??F) 05/18/2019 12:31 PM CDT Respiratory Rate 16 05/18/2019 12:31 PM CDT Oxygen Saturation 94% 05/18/2019 12:31 PM CDT Inhaled Oxygen Concentration - - Weight 104 kg (228 lb 6.3 oz) 05/18/2019 12:31 PM CDT Height 160 cm (5' 2.99) 05/18/2019 12:31 PM CDT Body Mass Index 40.47 05/18/2019 12:31 PM CDT documented in this encounter Patient Instructions Patient InstructionsChera Mcmanus APRN, CNP - 05/18/2019 1:20 PM CDT Will have [place] to arrange a physical therapy documented in this encounter Progress Notes Margie Mcmanus APRN, CNP - 05/18/2019 1:20 PM CDT Estab Patient Visit Subjective Patient ID: Rina Fisher is a 68 y.o. female presenting for the following concerns. Chief Complaint Patient presents with ??? Nausea ??? Dizziness HPI: The patient is a pleasant 68-year-old female presenting ambulatory to the clinical setting today with acute onset of dizziness, with head movements, as if the room is spinning, causing nausea, vomiting, which started acutely at around 6:30 this morning, when she got up to void. The patient recalls being up at 3:00 in the morning to void, and was feeling fine. The patient reports initially the dizziness, nausea, and vomiting, which was so extreme, she could not even drink water without having an emesis. No abdominal pain. The patient feels her symptoms are improving at this time. The patient finds if she holds her head still, or closes her eyes when she turns her head, her symptoms are less severe. The patient denies any headache or injury. No difficulty swallowing, smiling and/or talking. The patient made sure she was neurologically intact this morning, hearing stories that dizziness is a symptom of a stroke, and has not noticed any deficits. The patient denies any chest pain or discomfort. No cough nor dyspnea. The patient has had 2 bowel movements today which is not unusual. No fevers but she did feel a little chilled this morning. No UTI symptoms, no urinary frequency, urgency, dysuria and/or hematuria. The patient reports she has a longstanding history of having dizziness, particularly on rides, and even as a small child, but has never had the degree of dizziness she is presenting with today. The patient was not able to drive to this clinical appointment because of her symptoms. ROS: GENERAL: No fever, the patient did have chills this morning. EYES: The patient denies any visual changes and the dizziness improves when her eyes are closed before she moves her head. CARDIOVASCULAR: No chest pain or discomfort. RESPIRATORY: No dyspnea on exertion, cough, asthma and/or wheezing. GASTROINTESTINAL: See HPI. The patient is having nausea and vomiting from the dizziness without associated abdominal pain. GENITOURINARY: No dysuria, urinary frequency, urgency, nocturia and/or hematuria. NEUROLOGICAL: See HPI. The patient had acute onset of dizziness, with head movement, as if the room is spinning, with decreased symptoms with holding her head straight, looking straight ahead, and closing her eyes before moving her head from side to side. The patient reports her symptoms seem to be improving at this time. The following portions of the patient's chart [...] time each day , Disp:, Rfl: ??? hydroCHLOROthiazide (HYDRODIURIL) 25 MG tablet, TAKE ONE TABLET BY MOUTH EVERY DAY, Disp: 90 tablet, Rfl: 3 ??? Multiple Vitamins-Minerals (MULTIVITAMIN ADULT PO), Take by mouth 1 (one) time each day, Disp: ,Rfl: ??? [place]-3 Fatty Acids (CVS FISH OIL) 1200 MG [...] Disp: , Rfl: Objective Visit Vitals BP 119/76 (BP Location: Right arm, Patient Position: Sitting) Pulse 72 Temp (!) 35.8 ??C (96.4 ??F) (Temporal) Resp 16 Ht 1.6 m (5' 2.99) Wt 104 kg (228 lb 6.3 oz) SpO2 94% BMI 40.47 kg/m?? Smoking Status Former Smoker BSA 2.15 m?? GENERAL: The patient is alert, orientated, and in no apparent distress. HEENT: Head normocephalic. Eyes - pupils round and reactive to light. Horizontal nystagmus bilaterally, causing the patient to have obvious discomfort, as she squints her eyes. NEUROLOGICAL: The patient is alert and oriented to person, place, time, and situation. Cranial nerves II through XII grossly intact. DIAGNOSTICS: None. Assessment/Plan Encounter Diagnosis Name Primary? Benign paroxysmal positional vertigo, unspecified laterality Yes Discussed the plan of care with the patient. Recommend the patient have physical therapy for her benign positional vertigo even this afternoon to provide her comfort. Will try to arrange a physical therapy consultation at [facility] today. The patient will not drive until she feels she is safe in proceeding. The patient agrees and understands this plan of care. Margie Mcmanus APRN, CANDICE documented in this encounter Plan of Treatment Scheduled Referrals Name Type Priority Associated Diagnoses Order S chedule Ambulatory External Outpatient Referral Routine Benign paroxys mal Ordered: Referral positional vertigo, 05/18/20 19 unspecified laterality Ambulatory External Outpatient Referral Routine Benign paroxys mal Ordered: Referral positional vertigo, 05/18/20 19 unspecified laterality Ambulatory External Outpatient Referral Routine Benign paroxys mal Ordered: Referral positional vertigo, 05/18/20 19 unspecified laterality documented as of this encounter Visit Diagnoses Diagnosis Benign paroxysmal positional vertigo, un specified laterality - Primary documented in this encounter Care Teams Supervisor Machining Relationship Specialty Start Date End Date Margie Mcmanus, SKI PATROLLER, SOCCER COACH PCP - General 04/26/18 05/27/20 [address] [place] [address] documented as of this encounter
--- OUTSIDE RECORDS SUMMARY | 2022-06-15 14:59 | XMS_ITS | Encounter Summary ---
:1950 Author Organization [facility] Address [address] [place] [address] Care Team Providers Name Role Phone Palak Cooley INDUSTRIAL ENGINEERING ANALYST, AIR CARGO SPECIALIST SUPERVISOR Primary Care Provider Reason for Visit Reason Comments Med Refill Encounter Details Date Type Department Care Team Description 2018 Refill [place] Margie Mcmanus, Hypertension, [address] INDUSTRIAL ENGINEERING ANALYST, CANDICE unspecified type [place], [place] [address] [address] [facility] [address] [phone] [place], [place] [address] Social History Tobacco Use [...] this encounter Miscellaneous Notes Telephone Encounter - Myrtle Carter MA - 11/15/2018 6:28 AM PREDATORY ANIMAL TRAPPER HCTZ 25mg last rx 07/25/18 #90 no refill Atenolol 25mg last rx 08/13/17 #90, 3 refills Last date med(s) reviewed: 10/27/18 No Appt scheduled 10/27/18 BP 128/68 Component Latest Ref Rng & Units 10/27/2018 Sodium 135 - 145 mmol/L 147 (H) Potassium 3.5 - 5.1 mmol/L 3.5 Chloride 98 - 107 mmol/L 106 CO2 22 - 29 mmol/L 31 (H) Creatinine 0.4 - 1.2 mg/dL 1.0 BUN 5 - 25 mg/dL 16 Glucose 70 - 100 mg/dL 138 (H) Calcium, Total,S 8.4 - 10.2 mg/dL 9.6 No pending labs in chart ATORY ANIMAL TRAPPER documented in this encounter Plan of Treatment Not on filedocumented as of this encounter Visit Diagnoses Diagnosis Hypertension, unspecified type documented in this encounter Care Teams Pastoral Worker Relationship Specialty Start Date End Date Palak Cooley, INDUSTRIAL ENGINEERING ANALYST, AIR CARGO SPECIALIST SUPERVISOR PCP - General 05/19/[address] [place] [address] documented as of this encounter
--- OUTSIDE RECORDS SUMMARY | 2022-06-15 14:59 | XMS_ITS | Encounter Summary ---
:1950 Author Organization [facility] Address [address] [place] [address] Care Team Providers Name Role Phone None, Pcp Primary Care Provider Unavailable Reason for Visit Reason Onset Date Comments return call 11/27/2020 Encounter Details Date Type Department Care Team Description 11/27/2020 Telephone [place] Palak Cooley, GLASS FRAME FITTER, E COMMERCE MERCHANT return call [address] [place], [place] [address] [place] [address] [phone] (Wo rk) Social History Tobacco Use Types [...] Telephone Encounter - Asmita Yun LPN - 11/27/2020 1:04 PM CST See other notes ENTICESHIP TRAINING REPRESENTATIVE Telephone Encounter - Margret Romano - 11/27/2020 10:32 AM CST Patient called back in regards to lab tests. She had received a call. Please call her again. (no nurse available) ENTICESHIP TRAINING REPRESENTATIVE documented in this encounter Plan of Treatment Not on filedocumented as of this encounter Visit Diagnoses Not on filedocumented in this encounter Care Teams Senior Examiner Relationship Specialty Start Date End Date None, Pcp PCP - General Photo Offset Printer 11/06/20 05/18/21 210 [place] [address] documented as of this encounter
[2022-06-15 15:21] LABS: Appearance Urine Clear (Clear); Bilirubin Urine Negative (Negative); Blood Urine Negative (Negative); Color Urine Yellow (Yellow); Glucose Urine Negative (Negative); Ketones Urine Negative (Negative); Leukocyte Esterase Urine Negative (Negative); Nitrite Urine Negative (Negative); Protein Urine Negative (Negative); Specific Gravity Urine 1.015 (1.000-1.030); Urobilinogen Urine 0.2 (0.2-1.0); pH Urine 5.5 (5.0-8.5)
[2022-06-15 21:43] LABS: Basophils Percent Auto 0.5 % (0.0-3.0); Eosinophils Percent Auto 4.4 % (0.0-7.0); Hematocrit 43.1 % (33.0-51.0); Hemoglobin* 13.8 gm/dL (12.0-16.0); Immature Granulocytes Abs Auto 0.02 K/uL (0.00-0.30); Lymphocytes Percent Auto 24.1 % (20-44); Mean Corpuscular HGB Conc 32 gm/dL (32-36); Mean Corpuscular Hemoglobin 29 pg (26-34); Mean Corpuscular Volume 91 fL (80-100); Monocytes Percent Auto 6.8 % (0.0-11.0); Platelet Count* 340 K/uL (140-440); RDW Coefficient of Variation % 13.9 % (11.5-15.5); Red Blood Count 4.72 m/uL (4.00-5.20); White Blood Count* 11.93 K/uL (4.50-11.00)
[2022-06-15 21:50] LABS: Slide Review Reflex No
[2022-06-15 22:42] LABS: Erythrocyte SedimentationRate* 18 mm/hr (2-20)
[2022-06-17 15:28] LABS: CRP, High Sensitivity 5.6 mg/L (<=3.0)
== END 2022-06-15 14:55 | disposition home or self-care (01) ==
PROVIDERS: PCP Nurse Practitioner Family; Visit Provider Nurse Practitioner Family
DX: M25.50 Pain in unspecified joint (principal); M79.10 Myalgia, unspecified site; R32 Unspecified urinary incontinence; E06.3 Autoimmune thyroiditis
CPT/HCPCS: 36415; 81003; 85025; 85651; 86141; 86618; 87086; 87186

== ENCOUNTER 2022-06-16 12:43 | Outpatient (CLI) | payer MEDICARE, BC, SELFPAY ==
--- OUTSIDE RECORDS SUMMARY | 2022-06-16 12:46 | XMS_ITS | Clinical Summary ---
:1950 Author Organization [facility] Address [address] [place] [address] Care Team Providers Name Role Phone GonzalezWarner rojasbreonna Garcia APRN, MANAGER SALT Primary Care Provider Allergies No known active allergies Medications Medication Sig Dispensed Refills Start Date End Date Status aspirin 81 MG EC tablet Take 81 mg by 0 Active mouth 1 (one) time each day [place]-3 Fatty Acids (CVS Take 1,200 mg 0 [...] Mycelium, Shisandra tao, ginseng, rhodiola root, red french ginseng, ginseng root, eleuthero root) levothyroxine (Synthroid) [...] on weight loss and exercise. Taking horse [place] supplement and states this is helping. Body [...] joints 05/06/2022 Telephone Family Medicine Palak Cooley, CERAMIC CHEMIST, MANAGER SALT 05/04/2022 Orders Only Family Medicine Eneida Ayers [...] ent Refused) Fall Risk Performed 11/27/2022 11/27/2021 [facility] Annual Wellness 11/27/2022 11/27/2021 COVID-19 Vaccine Discontinued [...] Signature WBC 10.5 3.5 - 10.5 05/18/2022 [facility] [place] K/uL 12:49 PM CDT FALLS RBC 4.78 3.90 - 05/18/2022 [facility] [place] 5.00 M/uL 12:49 PM CDT FALLS Hemoglobin 13.8 12.0 - 05/18/2022 [facility] [place] 15.5 g/dL 12:49 PM CDT FALLS Hematocrit 43.1 35.0 - 05/18/2022 [facility] [place] 44.0 % 12:49 PM CDT F[place] Platelets 288 150 - 450 05/18/2022 [facility] [place] K/uL 12:49 PM CDT [place] MCV 90.2 81.6 - 05/18/2022 [facility] [place] 98.3 fL 12:49 PM CDT [place] MCH 28.9 26.0 - 05/18/2022 [facility] [place] 32.0 pg 12:49 PM CDT F[place] MCHC 32.0 32.0 - 05/18/2022 [facility] [place] 36.0 g/dL 12:49 PM CDT F[place] RDW 12.9 11.9 - 05/18/2022 [facility] [place] 15.5 % 12:49 PM CDT [place] Lymphocytes % 24.4 % 05/18/2022 [facility] [place] 12:49 PM CDT [place] Mid-size Cells 4.0 % 05/18/2022 [facility] [place] 12:49 PM CDT [place] Granulocytes/Fabienne 71.6 % 05/18/2022 [facility] [place] trophils 12:49 PM CDT [place] Lymphocytes 2.6 0.9 - 2.9 05/18/2022 [facility] [place] Absolute K/uL 12:49 PM CDT [place] MIDS Absolute 0.4 0.4 - 1.5 05/18/2022 [facility] [place] K/uL 12:49 PM CDT [place] Granulocytes/Fabienne 7.5 (H) 1.7 - 7.0 05/18/2022 [facility] [place] trophils K/uL 12:49 PM CDT [place] Absolute Specimen Anatomical Collection Method Collection Time Receive d Time (Source) Location / / Volume Laterality Blood 05/18/2022 11:32 05/18/2022 AM CDT 11:34 AM CDT Chad Nava MD LAB BLOOD ORDERABLES Performing Organization Address [facility]/ZIP Code Phon e Number [facility] [place] [address] [place] [address] ESR-Sed rate (05/18/2022 11:32 AM CDT) P athologist Signature Sed Rate 26 0 - 29 05/19/2022 [facility] mm/hr 1:03 PM CDT [facility] Specimen Anatomical Collection Method Collection Time Receive d Time (Source) Location / / Volume Laterality Blood (Blood, 05/18/2022 11:32 05/19/2022 Venous) AM CDT 12:20 PM CDT Chad Nava MD LAB BLOOD ORDERABLES Performing Organization Address [facility]/ZIP Code Phon e Number [facility] [address] [place] [phone] (ABNORMAL) C-reactive protein (05/18/2022 11:32 AM CDT) athologist Signature CRP 14.4 (H) 0.0 - 4.9 05/19/2022 [facility] mg/L 1:34 PM CDT [facility] Specimen Anatomical Collection Method Collection Time Receive d Time (Source) Location / / Volume Laterality Blood (Blood, 05/18/2022 11:32 05/19/2022 Venous) AM CDT 12:20 PM CDT Chad Nava MD LAB BLOOD ORDERABLES Performing Organization Address [facility]/ZIP [facility] Phon e Number [facility] [address] [place] [phone] X-ray Shoulder 2+ Views Right (05/11/2022 3:41 [...] lytic or blastic lesion. Chad Nava MD [facility] XR PROCEDURES X-ray Lumbar Spine Complete 4+ [...] INDICATION: Bilateral groin and posterior hip SI cheoc nt pain > 8 weeks COMPARISON: None [...] Phone Addre ss Type Group MEDICARE MEDICARE [id number] 2020-[employer] [address] [place] [address] BCBS OF BCBS [place] [id number] 2020-[employer]en [address] [place] [address] [place], [place]ICARE [place] [id number] ADVANTAGE Care Teams Construction Economist Relationship Specialty Start Date End Date Palak Cooley, CERAMIC CHEMIST, MANAGER SALT PCP - General 05/19/[address] [place], [place] [address]
--- OUTSIDE RECORDS SUMMARY | 2022-06-16 12:46 | XMS_ITS | Encounter Summary ---
:1950 Author Organization [facility] Address [address] [place] [address] Care Team Providers Name Role Phone GonzalezWarner rojasbreonna Garcia APRN, CANDICE Primary Care Provider Encounter Details Date Type Department Care Team Description 05/11/2022 Ancillary Procedure [facility] [address] [place], [place] [address] Social History Tobacco Use Types [...] on filedocumented in this encounter Care Teams Licensed Direct Entry Midwife Relationship Specialty Start Date End Date Palak Cooley, COSMETICS AND TOILETRIES SALESPERSON, HONING MACHINE OPERATOR SEMIAUTOMATIC PCP - General 05/19/21 [address] [place] [address] documented as of this encounter
--- OUTSIDE RECORDS SUMMARY | 2022-06-16 12:46 | XMS_ITS | Encounter Summary ---
:[address] [facility] Address [address] [place] [address] Care Team Providers Name Role Phone GonzalezWarner rojasbreonna Garcia APRN, CROSS TIE CUTTER Primary Care Provider Reason for Visit Reason Comments Medicare Annual Wellness Visit Subsequent Encounter Details Date Type Department Care Team Description 11/27/2021 Clinical Support [place] Medicare annual wellness [address] visit, subsequent [place], [place] [address] Social History Tobacco Use [...] Comments Blood Pressure 110/72 11/27/2021 11:05 AM MOLD REPAIR TECHNICIAN Pulse 60 11/27/2021 11:05 AM MOLD REPAIR TECHNICIAN Temperature 36 ??C (96.8 ??F) 11/27/2021 11:05 AM MOLD REPAIR TECHNICIAN Respiratory Rate 14 11/27/2021 11:05 AM MOLD REPAIR TECHNICIAN Oxygen Saturation 98% 11/27/2021 11:05 AM MOLD REPAIR TECHNICIAN Inhaled Oxygen Concentration - - Weight 96.6 kg (213 lb) 11/27/2021 11:05 AM MOLD REPAIR TECHNICIAN Height 157.5 cm (5' 2) 11/27/2021 11:05 AM MOLD REPAIR TECHNICIAN Body Mass Index 38.96 11/27/2021 11:05 AM MOLD REPAIR TECHNICIAN documented in this encounter Progress Notes Asmita Yun LPN - 11/27/2021 10:20 AM CST Annual Wellness Visit CARE TEAM / RESOURCES: Patient Care Team: Palak oColey APRN, CROSS TIE CUTTER as PCP - General Eye Care: [facility] Dental Care: None at this time Pharmacy: [address] [address] Other: Visit Vitals BP 110/72 (BP Location: [...] cordyceps Mycelium, Shisandraberry, ginseng, rhodiola root, red greenlandic ginseng, ginseng root, eleuthero root) ??? [place]-3 Fatty Acids ([facility] FISH OIL) 1200 MG [...] ??? Cataract 2017 wears glasses, [facility] [place], [place] ??? Depression ??? Disease of thyroid [...] the patient's advance care planning wishes:: No Alevism or spiritual beliefs that impact treatment:: No [...] transfusion before 1991. ?? Those born between 9350-6009. Glaucoma: Medicare Part B (Medical Insurance) covers [...] pack a day for 20 years).Nurse Note REPAIR TECHNICIAN documented in this encounter Plan of Treatment Not on filedocumented as of this encounter Visit Diagnoses Diagnosis Medicare annual wellness visit, subseque nt documented in this encounter Care Teams Falafel Cart Cook Relationship Specialty Start Date End Date Palak Cooley, RAJI, CROSS TIE CUTTER PCP - General 05/19/[address] [place] [address] documented as of this encounter
--- OUTSIDE RECORDS SUMMARY | 2022-06-16 12:46 | XMS_ITS | Encounter Summary ---
:1950 Author Organization [facility] Address [address] [place] [address] Care Team Providers Name Role Phone GonzalezPalak rojas Jose ALEGRIA, REHABILITATION ENGINEER Primary Care Provider Encounter Details Date Type Department Care Team Description 05/04/2022 Orders Only [place] Eneida Ayers MD [address] [facility] [address] [place], [place] [address] [place], [place] [phone] (Wo rk) Social History Tobacco Use Types [...] on filedocumented in this encounter Care Teams Programming Instructor Relationship Specialty Start Date End Date Palak Cooley APRN, REHABILITATION ENGINEER PCP - General 05/19/21 [address] [place] [address] documented as of this encounter
--- OUTSIDE RECORDS SUMMARY | 2022-06-16 12:46 | XMS_ITS | Encounter Summary ---
:[address] [facility] Address [address] [place] [address] Care Team Providers Name Role Phone GonzalezWarner rojasbreonna Garcia APRN, CANDICE Primary Care Provider Encounter Details Date Type Department Care Team Description 05/11/2022 Ancillary Procedure [facility] [address] [place], [place] [address] Social History Tobacco Use Types [...] on filedocumented in this encounter Care Teams Grievance Coordinator Relationship Specialty Start Date End Date Palak Cooley, GREENS TIER, ROTARY DRYER OPERATOR PCP - General 05/19/21 [facility] [address], [place] [address] documented as of this encounter
--- OUTSIDE RECORDS SUMMARY | 2022-06-16 12:46 | XMS_ITS | Encounter Summary ---
:1950 Author Organization [facility] Address [address] [place] [address] Care Team Providers Name Role Phone GonzalezWarner rojasbreonna Garcia APRN, CANDICE Primary Care Provider Encounter Details Date Type Department Care Team Description 05/11/2022 Ancillary Procedure [facility] [address] [facility] 11 [place], [place] [address] Social History Tobacco Use Types [...] on filedocumented in this encounter Care Teams Brazer Helper Induction Relationship Specialty Start Date End Date Palak Cooley, BAND SAW RUNNER, YARD PIPE GRADER PCP - General 05/19/21 [address] [address] documented as of this encounter
--- OUTSIDE RECORDS SUMMARY | 2022-06-16 12:46 | XMS_ITS | Encounter Summary ---
:1950 Author Organization [facility] Address [address] [place] [address] Care Team Providers Name Role Phone Palak Cooley Jose NICOLEN, CREELER Primary Care Provider Encounter Details Date Type Department Care Team Description 05/18/2022 Lab [facility] Polyarthralgia [address] [place], [place] [address] Social History Tobacco Use [...] Sed Rate 26 0 - 29 05/19/2022 [facility] mm/hr 1:03 PM CDT [facility] Specimen Anatomical Collection Method Collection Time Receive d Time (Source) Location / / Volume Laterality Blood (Blood, 05/18/2022 11:32 05/19/2022 Venous) AM CDT 12:20 PM CDT Chad Nava MD LAB BLOOD ORDERABLES Performing Organization Address City/State/ZIP Code Phon e Number [facility] [address] [place] [phone] (ABNORMAL) C-reactive protein (05/18/2022 11:32 AM CDT) athologist Signature CRP 14.4 (H) 0.0 - 4.9 05/19/2022 [facility] mg/L 1:34 PM CDT CENTER [facility] Specimen Anatomical Collection Method Collection Time Receive d Time (Source) Location / / Volume Laterality Blood (Blood, 05/18/2022 11:32 05/19/2022 Venous) AM CDT 12:20 PM CDT Chad Nava MD LAB BLOOD ORDERABLES Performing Organization Address City/[facility]/ZIP Code Phon e Number [facility] [address] [place] [phone] (ABNORMAL) CBC Branch Off w/Diff (05/18/2022 11:32 AM CDT) Analysis Performed At Patho logist Time Signature WBC 10.5 3.5 - 10.5 05/18/2022 [facility] K/uL 12:49 PM CDT [place] RBC 4.78 3.90 - 05/18/2022 [facility] 5.00 M/uL 12:49 PM CDT [place] Hemoglobin 13.8 12.0 - 05/18/2022 [facility] 15.5 g/dL 12:49 PM CDT [place] Hematocrit 43.1 35.0 - 05/18/2022 [facility] 44.0 % 12:49 PM CDT [place] Platelets 288 150 - 450 05/18/2022 [facility] K/uL 12:49 PM CDT [place] MCV 90.2 81.6 - 05/18/2022 [facility] 98.3 fL 12:49 PM CDT [place] MCH 28.9 26.0 - 05/18/2022 [facility] 32.0 pg 12:49 PM CDT [place] MCHC 32.0 32.0 - 05/18/2022 [facility] 36.0 g/dL 12:49 PM CDT [place] RDW 12.9 11.9 - 05/18/2022 [facility] 15.5 % 12:49 PM CDT [place] Lymphocytes % 24.4 % 05/18/2022 [facility] 12:49 PM CDT [place] Mid-size Cells 4.0 % 05/18/2022 [facility] 12:49 PM CDT [place] Granulocytes/Fabienne 71.6 % 05/18/2022 [facility] trophils 12:49 PM CDT [place] Lymphocytes 2.6 0.9 - 2.9 05/18/2022 [facility] Absolute K/uL 12:49 PM CDT [place] MIDS Absolute 0.4 0.4 - 1.5 05/18/2022 [facility] K/uL 12:49 PM CDT [place] Granulocytes/Fabienne 7.5 (H) 1.7 - 7.0 05/18/2022 [facility] trophils K/uL 12:49 PM CDT [place] Absolute Specimen Anatomical Collection Method Collection Time Receive d Time (Source) Location / / Volume Laterality Blood 05/18/2022 11:32 05/18/2022 AM CDT 11:34 AM CDT Chad Nava MD LAB BLOOD ORDERABLES Performing Organization Address City/State/ZIP Code Phon e Number [facility] [place] [address] [place] [phone] documented in this encounter Visit Diagnoses Diagnosis Polyarthralgia Pain in joint, multiple sites documented in this encounter Care Teams Training Director Relationship Specialty Start Date End Date Palak Cooley, PROP SAWYER, CREELER PCP - General 05/19/21 [address] [place] [address] documented as of this encounter
--- OUTSIDE RECORDS SUMMARY | 2022-06-16 12:46 | XMS_ITS | Encounter Summary ---
:1950 Author Organization [facility] Address [address] [place] [address] Care Team Providers Name Role Phone Palak Cooley Jose NICOLEN, APPLICATION ADMINISTRATOR Primary Care Provider Reason for Visit Reason Comments Pain Bilateral shoulders, hips, b ack Encounter Details Date Type Department Care Team Description 05/08/2022 Office Visit [place] Chad Nava, Neck stiffness (Primary Dx); [address] MD Chronic bilateral low back pain without sciatica; [place], [place] [address] Acute pain of both shoulders; [address] [place], [place] Posterior pain of right hip; [phone] Pain of both sacroiliac joints Social History Tobacco Use Types Packs/Day Years [...] Mass Index 38.17 05/08/2022 3:53 PM CDT documented in this encounter Progress Notes Chad Nava MD - 05/08/2022 3:40 PM CDT Subjective Patient ID: Rina Fisher is a 71 y.o. female. Chief Complaint Patient presents with ??? Pain Bilateral shoulders, hips, back HPI Patient reports bilateral low back pain that is worsened during gardening season. She did a lot of weeding in February and it did not get better like it usually does in a a couple days. Did some window washing about one month ago. Trouble reaching above head and pain in both shoulders for the past 1 monthsince window washing. Also has neck stiffness. She did have some sciatic pain in right leg last weekthat has resolved Hamstrings feel tight. Taking ibuprofen 800 mg TID for the past week. Tylenol did not help. Denies weakness or numbness. No fevers or chills. No prior injuries or surgeries in these areas. Patient recently seen by health care law specialist here in [place]. Patient requesting imaging. Letter received and reviewed from Chiropractor, Dr. Hilda Amato. The following portions of the patient's chart were reviewed in this encounter and updated as appropriate: Tobacco Allergies Meds Med Hx Surg Hx Fam Hx Soc Hx ROS ROS done as noted in HPI Objective Visit Vitals BP 102/74 (BP Location: Left arm, Patient Position: Sitting, BP Cuff Size: Large adult) Pulse 70 Temp 36.2 ??C (97.2 ??F) (Temporal) Resp 16 Ht 1.6 m (5' 3) Wt 97.8 kg (215 lb 8 oz) SpO2 99% BMI 38.17 kg/m?? Smoking Status Former Smoker BSA 2.08 m?? Physical Exam Vitals reviewed. Constitutional: General: She is not in acute distress. Appearance: She is not ill-appearing or toxic-appearing. Musculoskeletal: Comments: Bilateral shoulders pain with palpation in AC joint areas and Proximal biceps. Active ROMdecreased to abduction bilaterally. Positive empty can sign bilaterally for supraspinatus. Negative Obriens test bilaterally for labral tear. Positive Neers testing bilaterally for shoulder impingement. Bilateral hips with pain in hip adductors and ipsilateral hip/ pelvic rim area when performing FABERtest. Negative FADIR test bilaterally. No hip joint groin tenderness. No greater trochanteric tenderness. Negative straight leg raise bilaterally. Tenderness to bilateral musculature in paraspinal areas of low back. No spinous process tenderness or swelling. Negative Spurlings test bilaterally. Passive ROM neck normal. No cervical vertebral tenderness. There is tenderness medial to scapula areas bilaterally. Neurological: Mental Status: She is alert. Assessment Diagnosis Plan 1. Neck stiffness X-ray cervical spine complete 4-5 views 2. Chronic bilateral low back pain without sciatica X-ray Lumbar Spine Complete 4+ Views X-ray Lumbar Spine Complete 4+ Views 3. Acute pain of both shoulders X-ray Shoulder 2+ Views Right X-ray Shoulder 2+ Views Left X-ray Shoulder 2+ Views Right X-ray Shoulder 2+ Views Left 4. Posterior pain of right hip X-ray hip 2-3 views right with pelvis X-ray hip 2-3 views right with pelvis 5. Pain of both sacroiliac joints X-ray hip 2-3 views right with pelvis X-ray hip 2-3 views right with pelvis Patient has 2 months of low back pain and 1 month of shoulder pain and trouble reaching above head. Consider ESR CRP (for possible PMR). Patient states prefers XR's and have these sent to Chiropractorand see if treatments there help. I will follow up with her on these results when they are back and she may need copies sent to Dr. Amato. Recommending relative rest and OTC NSAID in the meantime. Patient Instructions Provided handout on PMR to consider ruling that out Note created using voice dictation software. Total time spent in patient care was over 30 minutes which included the pre- work, visit work, and post-visit work. documented in this encounter Plan of Treatment Not on filedocumented as of this encounter Procedures Procedure Name Priority Date/Time Associated Diagnosis Comme nts XR SHOULDER 2+ Routine 05/11/2022 3:41 PM Acute pain of both R esults for this VIEWS RIGHT CDT shoulders procedure are i n the results section. XR SHOULDER 2+ Routine 05/11/2022 3:41 PM Acute pain of both R esults for this VIEWS LEFT CDT shoulders procedure are i n the results section. XR CERVICAL SPINE Routine 05/11/2022 3:40 PM Neck stiffness Re sults for this COMPLETE 4-5 VIEWS CDT procedure are in the results section. XR LUMBAR SPINE Routine 05/11/2022 3:38 PM Chronic bilateral R esults for this COMPLETE 4+ VIEWS CDT low back pain procedure are in without sciatica the results section. XR HIP 2-3 [...] IMG XR PROCEDURES X-ray Shoulder 2+ Views Right (05/11/2022 3:41 [...] Chad Nava MD IMG XR PROCEDURES X-ray cervical spine complete 4-5 [...] neck stiffness COMPARISON: None available Procedure Note Jackleyn Mcclelland MD - 05/11/2022 INDICATION: Chronic neck stiffness COMPARISON: None available IMPRESSION: CERVICAL SPINE 4-5 VIEWS There is mild disc space narrowing with endplate spurring at C5-6 and C6-7. There is mild neural foraminal morris rowing bilaterally from C3-4 through C6-7. No fracture, malalignment, or lytic or blastic lesion. Chad Nava MD IMG XR PROCEDURES X-ray Lumbar Spine Complete 4+ [...] PROCEDURES documented in this encounter Visit Diagnoses Diagnosis Neck stiffness - Primary Torticollis, unspecified Chronic bilateral low back pain without sciatica Acute pain of both shoulders Posterior pain of right hip Pain of both sacroiliac joints documented in this encounter Care Teams Planting Material Unloader Relationship Specialty Start Date End Date Palak Cooley, VIOLIN RESTORER, APPLICATION ADMINISTRATOR PCP - General 05/19/21 [address], [place] [address] documented as of this encounter
--- OUTSIDE RECORDS SUMMARY | 2022-06-16 12:46 | XMS_ITS | Encounter Summary ---
:1950 Author Organization [facility] Address [address] [place] [address] Care Team Providers Name Role Phone GonzalezWarner rojasbreonna Garcia APRN, CANDICE Primary Care Provider Encounter Details Date Type Department Care Team Description 05/11/2022 Ancillary Procedure [facility] [address] [place], [place] [address] Social History Tobacco Use Types [...] on filedocumented in this encounter Care Teams Intensive Care Unit Nurse Relationship Specialty Start Date End Date Palka Cooley, KNITTER MACHINE, BEE RANCHER PCP - General 05/19/21 [address] [place] [address] documented as of this encounter
--- OUTSIDE RECORDS SUMMARY | 2022-06-16 12:46 | XMS_ITS | Encounter Summary ---
:1950 Author Organization [facility] Address [address] [place] [address] Care Team Providers Name Role Phone GonzalezWarner rojasbreonna Garcia APRN, CANDICE Primary Care Provider Encounter Details Date Type Department Care Team Description 05/11/2022 Ancillary Procedure [facility] [address] [place], [place] [address] Social History Tobacco Use Types [...] on filedocumented in this encounter Care Teams Registered Nurse Bone Marrow Transplant Relationship Specialty Start Date End Date Palak Cooley, COOLING TOWER OPERATOR, BRACER PCP - General 05/19/21 [address] [place] [address] documented as of this encounter
--- OUTSIDE RECORDS SUMMARY | 2022-06-16 12:46 | XMS_ITS | Encounter Summary ---
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 Generalized edema; [address] [place], [place] Mixed hyperlipidemia; [phone] Primary osteoarthritis of both knees Social History [...] Comments Blood Pressure 110/72 11/27/2021 10:26 AM APPLICATION OPERATIONS ENGINEER Pulse 60 11/27/2021 10:26 AM APPLICATION OPERATIONS ENGINEER Temperature 36 ??C (96.8 ??F) 11/27/2021 10:26 AM APPLICATION OPERATIONS ENGINEER Respiratory Rate 14 11/27/2021 10:26 AM APPLICATION OPERATIONS ENGINEER Oxygen Saturation 98% 11/27/2021 10:26 AM APPLICATION OPERATIONS ENGINEER Inhaled Oxygen Concentration - - Weight 96.6 kg (213 lb) 11/27/2021 10:26 AM APPLICATION OPERATIONS ENGINEER Height 159 cm (5' 2.6) 11/27/2021 10:26 AM APPLICATION OPERATIONS ENGINEER Body Mass Index 38.22 11/27/2021 10:26 AM APPLICATION OPERATIONS ENGINEER documented in this encounter Patient Instructions Patient [...] pain. Fasting labs in the near future. ICATION OPERATIONS ENGINEER documented in this encounter Progress Notes Palak Cooley APRN, CNP - 11/27/2021 10:20 AM CST Subjective Patient ID: Rina Fisher is a 71 y.o. female. Chief Complaint Patient presents with ??? Thyroid review HPI The patient presents to the [place] [facility] for follow up of hypothyroidism. She is taking her thyroid medication as prescribed in the AM. Her thyroid levels were reviewed and stable today. Since we held the hydrochlorothiazide from the last visit per patient her hands and legs appeared more puffy. She also feels achy knees. Patient and her plans to go to [place] this month for vacation. They will drive to [facility]. She denies alcohol use or smoking. She's [...] Mycelium, Shisandra tao, ginseng, rhodiola root, red montenegrin ginseng, ginseng root, eleuthero root), Disp: , Rfl: ??? Ganado-3 Fatty Acids ([facility] FISH OIL) 1200 MG [...] pain. Fasting labs in the near future. ICATION OPERATIONS ENGINEER Yesi Yee - 11/27/2021 10:20 AM CST [...] Comprehensive metabolic panel (03/04/2022 11:09 AM CDT) [facility] Time Signature Total Protein 6.7 6.3 - 8.2 03/05/2022 [facility] g/dL 1:54 PM [facility] Albumin, Serum 4.1 3.5 - 5.0 03/05/2022 [facility] g/dL 1:54 PM [facility] Total Bilirubin 0.8 0.1 - 1.0 03/05/2022 [facility] mg/dL 1:54 PM [facility] AST 18 8 - 43 U/L 03/05/2022 [facility] 1:54 PM [facility] Alkaline 77 38 - 128 03/05/2022 [facility] Phosphatase U/L 1:54 PM [facility] ALT (SGPT) 16 0 - 34 U/L 03/05/2022 [facility] 1:54 PM [facility] Sodium 139 135 - 145 03/05/2022 [facility] mEq/L 1:54 PM [facility] Potassium 4.5 3.5 - 5.1 03/05/2022 [facility] mEq/L 1:54 PM [facility] Chloride 106 98 - 107 03/05/2022 [facility] mEq/L 1:54 PM [facility] CO2 30 (H) 22 - 29 03/05/2022 [facility] mmol/L 1:54 PM [facility] BUN 15 5 - 25 03/05/2022 [facility] mg/dL 1:54 PM [facility] Creatinine 0.9 0.4 - 1.2 03/05/2022 [facility] mg/dL 1:54 PM [facility] Glucose 123 (H) 70 - 100 03/05/2022 [facility] mg/dL 1:54 PM [facility] Calcium, Total,S 9.3 8.4 - 10.2 03/05/2022 [facility] mg/dL 1:54 PM [facility] Fasting? Yes 03/04/2022 [facility] 11:13 AM [facility] Specimen Anatomical Collection Method Collection Time Receive d Time (Source) Location / / Volume Laterality Blood 03/04/2022 11:09 03/05/2022 AM CDT 12:19 PM CDT Palak Cooley APRN, CNP LAB BLOOD ORDERABLES Performing Organization Address City/State/ZIP Code Phon e Number [facility] [address] [place] [address] (ABNORMAL) Lipid panel (03/04/2022 11:09 AM CDT) athologist Signature Cholesterol 183 0 - 199 03/05/2022 [facility] mg/dL 1:54 PM [facility] Comment: Recommended by National Cholesterol Education Program (ATP III) -------- Cholesterol Ranges -------- <200 ?Desirable 200-239 ? Borderline high >=240 ? High Triglycerides 96 0 - 149 mg/dL 03/05/2022 1:54 PM CDT [facility] Comment: -------- TRIG Ranges -------- <150 ?Normal 150-199 ? Borderline high 200-499 ? High >=500 ? Very high HDL 44 40 - 250 mg/dL 03/05/2022 1:54 PM CDT [facility] Comment: -------- HDL Ranges -------- <40 ?Low 40-59 ?Normal >=60 ? Optimal LDL Calculated 120 (H) 0 - 99 mg/dL 03/05/2022 1:54 PM CDT [facility] Comment: -------- LDL Ranges -------- <100 ? Optimal 100-129 ?Near optimal/above op timal 130-159 ?Borderline high 160-189 ?High >=190 ?Very high Specimen Anatomical Collection Method Collection Time Receive d Time (Source) Location / / Volume Laterality Blood 03/04/2022 11:09 03/05/2022 AM CDT 12:19 PM CDT Palak Cooley APRN, SOUP PERSON LAB BLOOD ORDERABLES Performing Organization Address City/State/ZIP Code Phon e Number [facility] [address] [place] [address] (ABNORMAL) Hemoglobin A1c (03/04/2022 11:09 AM CDT) Analysis Performed At Patho logist Time Signature Hemoglobin A1C 6.1 (H) 4.0 - 5.6 03/05/2022 [facility] % A1C 12:57 PM [facility] Comment: Reference Range 4.0-5.6% is [...] Address City/State/ZIP Code Phon e Number [facility] [address] [place] [address] documented in this encounter Visit Diagnoses Diagnosis 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 [place], [place] [address] documented as of this encounter
--- OUTSIDE RECORDS SUMMARY | 2022-06-16 12:46 | XMS_ITS | Encounter Summary ---
:[address] [facility] Address [address] [place] [address] Care Team Providers Name Role Phone GonzalezPalak rojas Jose ALEGRIA, SALES MARKET LEADER Primary Care Provider Reason for Visit Reason Onset Date Comments Wants PMR labs 05/12/2022 Encounter Details Date Type Department Care Team Description 05/12/2022 Telephone [place] Chad Nava MD Wants PMR labs [address] [place], [place] [address] [place], [place] [phone] (Wo rk) Social History Tobacco Use Types [...] Signature WBC 10.5 3.5 - 10.5 05/18/2022 [facility] K/uL 12:49 PM CDT [place] RBC 4.78 3.90 - 05/18/2022 [facility] 5.00 M/uL 12:49 PM CDT [place] Hemoglobin 13.8 12.0 - 05/18/2022 [facility] 15.5 g/dL 12:49 PM CDT [place] Hematocrit 43.1 35.0 - 05/18/2022 [facility] 44.0 % 12:49 PM CDT [place] Platelets 288 150 - 450 05/18/2022 [facility] K/uL 12:49 PM CDT [place] MCV 90.2 81.6 - 05/18/2022 [facility] 98.3 fL 12:49 PM CDT [place] MCH 28.9 26.0 - 05/18/2022 [facility] 32.0 pg 12:49 PM CDT [place] MCHC 32.0 32.0 - 05/18/2022 [facility] 36.0 g/dL 12:49 PM CDT [place] RDW 12.9 11.9 - 05/18/2022 [facility] 15.5 % 12:49 PM CDT [place] Lymphocytes % 24.4 % 05/18/2022 [facility] 12:49 PM CDT [place] Mid-size Cells 4.0 % 05/18/2022 [facility] 12:49 PM CDT [place] Granulocytes/Fabienne 71.6 % 05/18/2022 [facility] trophils 12:49 PM CDT [place] Lymphocytes 2.6 0.9 - 2.9 05/18/2022 [facility] Absolute K/uL 12:49 PM CDT [place] MIDS Absolute 0.4 0.4 - 1.5 05/18/2022 [facility] K/uL 12:49 PM CDT [place] Granulocytes/Fabienne 7.5 (H) 1.7 - 7.0 05/18/2022 [facility] trophils K/uL 12:49 PM CDT [place] Absolute Specimen Anatomical Collection Method Collection Time Receive d Time (Source) Location / / Volume Laterality Blood 05/18/2022 11:32 05/18/2022 AM CDT 11:34 AM CDT Chad Nava MD LAB BLOOD ORDERABLES Performing Organization Address City/State/ZIP Code Phon e Number [facility] [place] [address] [place] [address] (ABNORMAL) C-reactive protein (05/18/2022 11:32 AM CDT) P athologist Signature CRP 14.4 (H) 0.0 - 4.9 05/19/2022 [facility] mg/L 1:34 PM CDT [facility] Specimen Anatomical Collection Method Collection Time Receive d Time (Source) Location / / Volume Laterality Blood (Blood, 05/18/2022 11:32 05/19/2022 Venous) AM CDT 12:20 PM CDT Chad Nava MD LAB BLOOD ORDERABLES Performing Organization Address City/State/ZIP Code Phon e Number [facility] [address] [place] [address] ESR-Sed rate (05/18/2022 11:32 AM CDT) P athologist Signature Sed Rate 26 0 - 29 05/19/2022 [facility] mm/hr 1:03 PM CDT [facility] Specimen Anatomical Collection Method Collection Time Receive d Time (Source) Location / / Volume Laterality Blood (Blood, 05/18/2022 11:32 05/19/2022 Venous) AM CDT 12:20 PM CDT Chad Nava MD LAB BLOOD ORDERABLES Performing Organization Address City/State/ZIP Code Phon e Number [facility] [address] [place] [address] documented in this encounter Visit Diagnoses Diagnosis Polyarthralgia - Primary Pain in joint, multiple sites documented in this encounter Care Teams Veneer Stock Layer Relationship Specialty Start Date End Date Palak Cooley, BUSINESS INFORMATION MANAGER, SALES MARKET LEADER PCP - General 05/19/[address] [place] [address] documented as of this encounter
--- OUTSIDE RECORDS SUMMARY | 2022-06-16 12:46 | XMS_ITS | Encounter Summary ---
:1950 Author Organization [facility] Address [address] [place] [address] Care Team Providers Name Role Phone Palak Cooley APRN, CANDICE Primary Care Provider Reason for Visit Reason Onset Date Comments lab results 03/04/2022 Encounter Details Date Type Department Care Team Description 03/04/2022 Telephone [place] Palak Cooley APRN, CNP lab results [address] [place], [place] [address] [place] [address] (Wo rk) Social History Tobacco Use Types [...] Yee - 03/06/2022 12:53 PM CDT To double cut sawyer bag, 6, to be mailed. Telephone Encounter [...] on filedocumented in this encounter Care Teams Index Editor Relationship Specialty Start Date End Date Palak Cooley, RAJI, SUPERVISOR WELDING EQUIPMENT REPAIRER PCP - General 05/19/[address] [facility] [address], [place] [address] documented as of this encounter
--- OUTSIDE RECORDS SUMMARY | 2022-06-16 12:46 | XMS_ITS | Encounter Summary ---
:1950 Author Organization [facility] Address [address] [place] [address] Care Team Providers Name Role Phone Palak Cooley APRN, CNP Primary Care Provider Encounter Details Date Type Department Care Team Description 01/28/2022 Telephone [place] Palak Cooley APRN, CNP [address] [place], [place] [address] [place] [address] (Wo rk) Social History Tobacco Use Types [...] on filedocumented in this encounter Care Teams Crystal Report Developer Relationship Specialty Start Date End Date Palak Cooley APRN, DUMBWAITER OPERATOR PCP - General 05/19/21 [address], [place] [address] documented as of this encounter
--- OUTSIDE RECORDS SUMMARY | 2022-06-16 12:46 | XMS_ITS | Encounter Summary ---
:1950 Author Organization [facility] Address [address] [place] [address] Care Team Providers Name Role Phone Palak Cooley Jose ALEGRIA, TRADE MARK EXAMINER Primary Care Provider Encounter Details Date Type Department Care Team Description 05/19/2022 Telephone [place] Chad Nava MD [address] [facility] 20 [place], [place] [address] [place], [place] [phone] (Wo rk) Social History Tobacco Use Types [...] possible steroid side effects. She will come cigar packer and picker copies of her lab reports. I did [...] on filedocumented in this encounter Care Teams Mechanical Drawing Teacher Relationship Specialty Start Date End Date Palak Cooley APRN, TRADE MARK EXAMINER PCP - General 05/19/[address] [place] [address] documented as of this encounter
--- OUTSIDE RECORDS SUMMARY | 2022-06-16 12:46 | XMS_ITS | Encounter Summary ---
:1950 Author Organization [facility] Address [address] [place] [address] Care Team Providers Name Role Phone GonzalezWarner rojasbreonna Garcia APRN, DISPLAY FABRICATION SUPERVISOR Primary Care Provider Encounter Details Date Type Department Care Team Description 03/04/2022 Lab [place] Essential (primary) hyperten harmony; [address] Mixed hyperlipidemia [place], [place] [address] Social History Tobacco Use [...] AM CDT) athologist Signature GFR >60 03/05/2022 [facility] 1:54 PM CDT CENTER LABORATORY >60 03/05/2022 [facility] Peruvian GFR 1:54 PM T CENTER LABORATORY Comment: [...] Organization Address City/State/ZIP Code Phon e Number [facility] [address] [place] [address] (ABNORMAL) Hemoglobin A1c (03/04/2022 11:09 AM CDT) Analysis Performed At Patho logist Time Signature Hemoglobin A1C 6.1 (H) 4.0 - 5.6 03/05/2022 [place] % A1C 12:57 PM CDT MEDICAL CENTER [...] Organization Address City/State/ZIP Code Phon e Number [facility] [address] [place] [address] (ABNORMAL) Lipid panel (03/04/2022 11:09 AM CDT) athologist Signature Cholesterol 183 0 - 199 03/05/2022 [facility] mg/dL 1:54 PM [facility] Comment: Recommended by National Cholesterol Education Program (ATP III) -------- Cholesterol Ranges -------- <200 ?Desirable 200-239 ? Borderline high >=240 ? High Triglycerides 96 0 - 149 mg/dL 03/05/2022 1:54 PM CDT [facility] Comment: -------- TRIG Ranges -------- <150 ?Normal 150-199 ? Borderline high 200-499 ? High >=500 ? Very high HDL 44 40 - 250 mg/dL 03/05/2022 1:54 PM CDT [facility] Comment: -------- HDL Ranges -------- <40 ?Low 40-59 ?Normal >=60 ? Optimal LDL Calculated 120 (H) 0 - 99 mg/dL 03/05/2022 1:54 PM T [facility] Comment: -------- LDL Ranges -------- <100 ? Optimal 100-129 ?Near optimal/above op timal 130-159 ?Borderline high 160-189 ?High >=190 ?Very high Specimen Anatomical Collection Method Collection Time Receive d Time (Source) Location / / Volume Laterality Blood 03/04/2022 11:09 03/05/2022 AM CDT 12:19 PM CDT Palakbreonna Cooley OCCUPATIONAL THERAPY PROFESSOR, DISPLAY FABRICATION SUPERVISOR LAB BLOOD ORDERABLES Performing Organization Address City/State/ZIP Code Phon e Number [facility] [address] [place] [address] (ABNORMAL) Comprehensive metabolic panel (03/04/2022 11:09 AM CDT) [facility] Method Time Signature Total Protein 6.7 6.3 - 8.2 03/05/2022 [place] g/dL 1:54 PM [facility] Albumin, Serum 4.1 3.5 - 5.0 03/05/2022 [place] g/dL 1:54 PM [facility] Total Bilirubin 0.8 0.1 - 1.0 03/05/2022 [place] mg/dL 1:54 PM [facility] AST 18 8 - 43 U/L 03/05/2022 [place] 1:54 PM [facility] Alkaline 77 38 - 128 03/05/2022 [place] Phosphatase U/L 1:54 PM [facility] ALT (SGPT) 16 0 - 34 U/L 03/05/2022 [place] 1:54 PM [facility] Sodium 139 135 - 145 03/05/2022 [place] mEq/L 1:54 PM [facility] Potassium 4.5 3.5 - 5.1 03/05/2022 [place] mEq/L 1:54 PM [facility] Chloride 106 98 - 107 03/05/2022 [place] mEq/L 1:54 PM [facility] CO2 30 (H) 22 - 29 03/05/2022 [place] mmol/L 1:54 PM [facility] BUN 15 5 - 25 03/05/2022 [place] mg/dL 1:54 PM [facility] Creatinine 0.9 0.4 - 1.2 03/05/2022 [place] mg/dL 1:54 PM [facility] Glucose 123 (H) 70 - 100 03/05/2022 [place] mg/dL 1:54 PM [facility] Calcium, Total,S 9.3 8.4 - 10.2 03/05/2022 [place] mg/dL 1:54 PM [facility] Fasting? Yes 03/04/2022 [place] 11:13 AM [facility] Specimen Anatomical Collection Method Collection Time Receive d Time (Source) Location / / Volume Laterality Blood 03/04/2022 11:09 03/05/2022 AM CDT 12:19 PM CDT Palak Cooley APRN, CNP LAB BLOOD ORDERABLES Performing Organization Address City/State/ZIP Code Phon e Number [facility] [address] [place] [address] documented in this encounter Visit Diagnoses Diagnosis Essential (primary) hypertension Unspecified essential hypertension Mixed hyperlipidemia documented in this encounter Care Teams Net C Developer Relationship Specialty Start Date End Date Palak Cooley APRN, CNP PCP - General 05/19/21 [address] [place] [address] documented as of this encounter
--- OUTSIDE RECORDS SUMMARY | 2022-06-16 12:47 | XMS_ITS | Encounter Summary ---
:1950 Author Organization [facility] Address [address] [place] [address] Care Team Providers Name Role Phone Palak Cooley APRN, CANDICE Primary Care Provider Encounter Details Date Type Department Care Team Description 06/02/2021 Telephone [facility] Palak Cooley APRN, CNP [address] [place] [address] [place], [place] [address] (Wo rk) Social History Tobacco Use Types [...] this encounter Results TSH (07/28/2021 10:55 AM OTOLARYNGOLOGY REP) P athologist Signature TSH, Sensitive 2.13 0.46 - 07/28/2021 [place] LEON L 4.68 mIU/L 7:32 PM OTOLARYNGOLOGY REP CENTER LABORATORY Comment: The results from this [...] (Blood, 07/28/2021 10:55 07/28/2021 6:31 Venous) AM OTOLARYNGOLOGY REP PM OTOLARYNGOLOGY REP Palak Cooley APRN, CNP LAB BLOOD ORDERABLES Performing Organization Address City/State/ZIP Code Phon e Number [facility] [address] [place] [address] documented in this encounter Visit Diagnoses Diagnosis 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 [address] documented as of this encounter
--- OUTSIDE RECORDS SUMMARY | 2022-06-16 12:47 | XMS_ITS | Encounter Summary ---
:1950 Author Organization [facility] Address [address] [place] [address] Care Team Providers Name Role Phone None, Pcp Primary Care Provider Unavailable Encounter Details Date Type Department Care Team Description 11/25/2020 Lab [place] Elevated TSH [address] [place], [place] [address] Social History Tobacco Use [...] Cooley APRN, CNP - 11/25/2020 2:00 PM PHARMACOLOGY ASSOCIATE We can recheck this in 8 weeks, ask that patient hold the biotin supplment 1 week prior to checking.Somewhat elevated but not interventions needed. MACOLOGY ASSOCIATE Result Encounter Note - Palak Cooley APRN, CNP - 11/25/2020 2:00 PM PHARMACOLOGY ASSOCIATE She can resume the supplement for now hold for 1 week before next tsh recheck. MACOLOGY ASSOCIATE documented in this encounter Plan of Treatment Not on filedocumented as of this encounter Procedures Procedure Name Priority Date/Time Associated Diagnosis Comme nts TSH Routine 11/25/2020 2:03 PM Elevated TSH Results f or this PHARMACOLOGY ASSOCIATE procedure are i n the results section . documented in this encounter Results (ABNORMAL) Thyroid Function [place] (05/29/2021 11:45 AM CDT) Analysis Performed At Patho logist Time Signature TSH, Sensitive 8.50 (H) 0.46 - 05/30/2021 [place] 4.68 mIU/L 2:39 PM CDT [facility] Comment: The results from this [...] Organization Address City/State/ZIP Code Phon e Number [facility] [address] [place] [address] (ABNORMAL) TSH (11/25/2020 2:03 PM PHARMACOLOGY ASSOCIATE) Analysis Performed At Patho logist Time Signature TSH, Sensitive 6.88 (H) 0.46 - 11/26/2020 [place] 4.68 mIU/L 4:[address] [facility] Comment: The results from [...] Volume Laterality Blood 11/25/2020 2:03 PM 1:53 PHARMACOLOGY ASSOCIATE PM PHARMACOLOGY ASSOCIATE Palak Cooley APRN, HALAL MEAT PACKER LAB BLOOD ORDERABLES Performing Organization Address City/State/ZIP Code Phon e Number [facility] [address] [place] [address] documented in this encounter Visit Diagnoses Diagnosis Elevated TSH Other abnormal blood chemistry documented in this encounter Care Teams Social Services Designee Relationship Specialty Start Date End Date None, Pcp PCP - General Telegraph Messenger 11/06/20 05/18/[address] [place] [address] documented as of this encounter
--- OUTSIDE RECORDS SUMMARY | 2022-06-16 12:47 | XMS_ITS | Encounter Summary ---
:1950 Author Organization [facility] Address [address] [place] [address] Care Team Providers Name Role Phone Margie Mcmanus APRN, CNP Primary Care Provider [phone] Reason for Referral Consultation (Routine) - Closed Specialty Diagnoses / Procedures Referred By Contact Refer red To Contact Diagnoses Left foot pain Margie Mcmanus, [facility] CANDICE ALEGRIA [address] [place] [address] [address] [place] [address] Fax: Referral ID Status Reason Start Date Expiration Date Visits Requ ested Visits Authorized [id number] Closed 11/22/2018 11/23/2019 1 1 LAYER Encounter Details Date Type Department Care Team Description 11/22/2018 Orders Only [place] Margie Mcmanus, Left foot pain [address] CANDICE ALEGRIA (Primary Dx) [place], [place] 100 [facility] [address] [place] [address] Social History Tobacco Use Types Packs/Day Years [...] 11/22/2018 2:46 PM CST Please see note. LAYER documented in this encounter Plan of Treatment Scheduled Referrals Name Type Priority Associated Order Schedule Diagnoses Ambulatory External Outpatient Referral Routine Left foot pain Ordered: Referral 11/22/2018 documented as of this encounter Visit Diagnoses Diagnosis Left foot pain - Primary Pain in soft tissues of limb documented in this encounter Care Teams Pack Worker Relationship Specialty Start Date End Date Margie Mcmanus APRN, CNP PCP - General 04/26/18 05/27/20 100 [facility] [place] [address] documented as of this encounter
--- OUTSIDE RECORDS SUMMARY | 2022-06-16 12:47 | XMS_ITS | Encounter Summary ---
:[address] 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 Dx); [address] CANDICE ALEGRIA Essential (primary) hypertension [place], [place] [address] [place] [address] [place], [place] [phone] [address] Social History Tobacco Use Types Packs/Day Years [...] Comments Blood Pressure 112/60 07/31/2021 1:44 PM LABORER POULTRY HATCHERY Pulse 67 07/31/2021 1:03 PM LABORER POULTRY HATCHERY Temperature 36.1 ??C (96.9 ??F) 07/31/2021 1:03 PM LAB[facility]ER POULTRY HATCHERY Respiratory Rate 16 07/31/2021 1:03 PM LABORER POULTRY HATCHERY Oxygen Saturation 98% 07/31/2021 1:03 PM LABORER POULTRY HATCHERY Inhaled Oxygen Concentration - - Weight 92.5 kg (204 lb) 07/31/2021 1:03 PM LABORER POULTRY HATCHERY Height - - Body Mass Index 37.31 05/29/2021 10:59 AM CDT documented in this encounter Patient Instructions Patient InstructionsTamadou Cooley APRN, CNP - 07/31/2021 1:00 PM CST Refill synthroid 75mcg daily x3mons revisit; wt changes, recheck tsh hydrochlorothiazide water pill cut in half x5 days then stop Come check bp in about 2-3weeks nurse visit. RER POULTRY HATCHERY documented in this encounter Progress Notes Palak Cooley APRN, CNP - 07/31/2021 1:00 PM CST Subjective Patient ID: Rina Fisher is a 70 y.o. female. Chief Complaint Patient presents with ??? Follow-up 2 weeks HPI The patient presents to the [facility] for follow-up, recently diagnosed hypothyroidism dueto Param's [...] Mycelium, Shisandra tao, ginseng, rhodiola root, red grenadian ginseng, ginseng root, eleuthero root), Disp: , Rfl: ??? [place]-3 Fatty Acids ([facility] FISH OIL) 1200 MG [...] check bp in about 2-3weeks nurse visit. RER POULTRY HATCHERY documented in this encounter Plan of Treatment Not on filedocumented as of this encounter Results TSH (11/24/2021 11:01 AM LABORER POULTRY HATCHERY) P athologist Signature TSH, Sensitive 3.10 0.46 - 11/25/2021 [place] MEDICA L 4.68 mIU/L 2:30 PM LABORER POULTRY [facility]ATCHERY [facility] Comment: The results from this [...] Volume Laterality Blood 11/24/2021 11:01 11/25/2021 AM LAB[facility] POULTRY HATCHERY 12:53 PM LAB[facility]ER POULTRY HATCHERY Palak Cooley APRN, CNP LAB BLOOD ORDERABLES Performing Organization Address City/State/ZIP Code Phon e Number [facility] [address] [place] [address] documented in this encounter Visit Diagnoses Diagnosis 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 [address] documented as of this encounter
--- OUTSIDE RECORDS SUMMARY | 2022-06-16 12:47 | XMS_ITS | Encounter Summary ---
:1950 Author Organization [facility] Address [address] [place] [address] Care Team Providers Name Role Phone Palak Cooley APRN, COMSEC MANAGER Primary Care Provider Reason for Visit Reason Onset Date Comments Levothyroxine refill 10/29/2021 Encounter Details Date Type Department Care Team Description 10/29/2021 Telephone [place] Palak Cooley APRN, Levothyroxine refill [address] [place], [place] [address] [address] [facility] [phone] [place], [place] [address] (Wo rk) Social History [...] LPN - 11/19/2021 3:42 PM CST noted ISTRY TUTOR Telephone Encounter - Karena Maddox - 11/19/2021 3:32 PM CST Thyroid lab scheduled for Wednesday11/24/21. Thyroid review with Fredy Cooley scheduled for 11/27/21. ISTRY TUTOR Telephone Encounter - Karena Maddox - 11/18/2021 9:09 AM CST Left message requesting med review with lab work. ISTRY TUTOR Telephone Encounter - Palak Cooley APRN, CNP - 10/29/2021 11:08 AM CST Needs recheck tsh non fasting for more refills. Sent #[phone] to [facility]. Lab ordered to start 10/31/21. Need appt with provider after for tsh review/bp recheck. ISTRY TUTOR Telephone Encounter - Karena Maddox - 10/29/2021 10:52 AM CST Pt called stating she realized she only has 5 pills of her Levothyroxine remaining and the bottle states no refills. Pt is needing this refilled. Pt uses [facility] pharmacy. Please call Pt at [phone] to advise. 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 [address] documented as of this encounter
--- OUTSIDE RECORDS SUMMARY | 2022-06-16 12:47 | XMS_ITS | Encounter Summary ---
:1950 Author Organization [facility] Address [address] [place] [address] Care Team Providers Name Role Phone Margie Mcmanus APRN, PERSONAL LINES INSURANCE AGENT Primary Care Provider [phone] Reason for Visit Reason Comments Follow-up blood pressure Labs Only would like an A1c Encounter Details Date Type Department Care Team Description 09/05/2019 Office Visit [place] Margie Mcmanus (primary) hyperten harmony (Primary Dx); [address] M, RAJI, CANDICE Prediabetes [place], [place] 100 [facility] [address] [place] [address] Social History Tobacco Use Types Packs/Day Years [...] Comments Blood Pressure 147/60 09/05/2019 10:02 AM TECHNICAL MAINTENANCE TECHNICIAN Pulse 61 09/05/2019 10:02 AM TECHNICAL MAINTENANCE TECHNICIAN Temperature 35.8 ??C (96.5 ??F) 09/05/2019 10:02 AM TECHNICAL MAINTENANCE TECHNICIAN Respiratory Rate 16 09/05/2019 10:02 AM TECHNICAL MAINTENANCE TECHNICIAN Oxygen Saturation - - Inhaled Oxygen Concentration - - Weight 100 kg (221 lb 8 oz) 09/05/2019 10:02 AM TECHNICAL MAINTENANCE TECHNICIAN Height - - Body Mass Index 39.25 05/18/2019 12:31 PM CDT documented in this encounter Patient Instructions Patient InstructionsChera Mcmanus APRN, CNP - 09/05/2019 10:00 AM TECHNICAL MAINTENANCE TECHNICIAN Will call with lab results NICAL MAINTENANCE TECHNICIAN documented in this encounter Progress Notes Margie [...] started taking a probiotic, and a horse Waldwick extract supplement. The patient reports by incorporating [...] was evaluated by a vascular specialist at [place] on 03/03/19, with the recommendation of wearing [...] she was on a turbulent flight to [place] this fall, without eating, she became quite [...] (one) time each day, Disp: ,Rfl: ??? [place]-3 Fatty Acids ([facility] FISH OIL) 1200 MG [...] this planof care. Margie Mcmanus APRN, [facility] documented in this encounter Plan of Treatment Not on filedocumented as of this encounter Results (ABNORMAL) Comprehensive metabolic panel (09/05/2019 10:57 AM TECHNICAL MAINTENANCE TECHNICIAN) [facility] Time Signature Total Protein 7.1 6.3 - 8.2 09/06/2019 [place] g/dL 1:50 PM [facility] Albumin, Serum 4.1 3.5 - 5.0 09/06/2019 [place] g/dL 1:50 PM [facility] Total Bilirubin 1.1 (H) 0.1 - 1.0 09/06/2019 [place] mg/dL 1:50 PM [facility] AST 24 8 - 43 U/L 09/06/2019 [place] 1:50 PM [facility] Alkaline 66 38 - 128 09/06/2019 [place] Phosphatase U/L 1:50 PM [facility] ALT (SGPT) 23 0 - 34 U/L 09/06/2019 [place] 1:50 PM [facility] Sodium 143 135 - 145 09/06/2019 [place] mEq/L 1:50 PM [facility] Potassium 4.3 3.5 - 5.1 09/06/2019 [place] mEq/L 1:50 PM [facility] Chloride 105 98 - 107 09/06/2019 [place] mEq/L 1:50 PM [facility] CO2 30 (H) 22 - 29 09/06/2019 [place] mmol/L 1:50 PM [facility] BUN 15 5 - 25 09/06/2019 [place] mg/dL 1:50 PM [facility] Creatinine 0.9 0.4 - 1.2 09/06/2019 [place] mg/dL 1:50 PM [facility] Glucose 129 (H) 70 - 100 09/06/2019 [place] mg/dL 1:50 PM [facility] Calcium, Total,S 9.6 8.4 - 10.2 09/06/2019 [place] mg/dL 1:50 PM [facility] Fasting? Yes 09/05/2019 [place] 10:59 AM [facility] Specimen Anatomical Collection Method Collection Time Receive d Time (Source) Location / / Volume Laterality Blood 09/05/2019 10:57 09/06/2019 AM TECHNICAL MAINTENANCE TECHNICIAN 12:56 PM TECHNICAL MAINTENANCE TECHNICIAN Margie Mcmanus APRN, PERSONAL LINES INSURANCE AGENT LAB BLOOD ORDERABLES Performing Organization Address City/[facility]/ZIP Code Phon e Number [facility] [address] [place] [address] (ABNORMAL) Hemoglobin A1c (09/05/2019 10:57 AM TECHNICAL MAINTENANCE TECHNICIAN) Analysis Performed At [facility] Time Signature Hemoglobin A1C 6.2 (H) 4.0 - 5.6 09/06/2019 [place] % A1C 1:32 PM [facility] Comment: Reference Range 4.0-5.6% [...] Volume Laterality Blood 09/05/2019 10:57 09/06/2019 AM TECHNICAL MAINTENANCE TECHNICIAN 12:56 PM TECHNICAL MAINTENANCE TECHNICIAN Margie Mcmanus APRN, PERSONAL LINES INSURANCE AGENT LAB BLOOD ORDERABLES Performing Organization Address City/[facility]/ZIP Code Phon e Number [facility] [address] [place] [address] documented in this encounter Visit Diagnoses Diagnosis Essential (primary) hypertension - Prima ry Unspecified essential hypertension Prediabetes Other abnormal glucose documented in this encounter Care Teams Pile Driver Operator Helper Relationship Specialty Start Date End Date Margie Mcmanus APRN, PERSONAL LINES INSURANCE AGENT PCP - General 04/26/18 05/27/20 100 [facility] [place] [address] documented as of this encounter
--- OUTSIDE RECORDS SUMMARY | 2022-06-16 12:47 | XMS_ITS | Encounter Summary ---
:1950 Author Organization [facility] Address [address] [place] [address] Care Team Providers Name Role Phone Margie Mcmanus APRN, CNP Primary Care Provider [phone] Reason for Referral Consultation (Routine) - Closed Specialty Diagnoses / Procedures Referred By Contact Refer red To Contact Diagnoses Chronic pain of both knees Margie Mcmanus, [facility] CANDICE [facility] [place] [address] [address] [place] [id number] Phone: Fax: Referral ID Status Reason Start Date Expiration Date Visits Requ ested Visits Authorized [id number] Closed 01/05/2019 01/06/2020 1 1 Encounter Details Date Type Department Care Team Description 01/05/2019 Orders Only [place] Margie Mcmanus, Chronic pain of both [address] CANDICE ALEGRIA knees (Primary Dx) [place], [place] [address] [address] [place] [address] [phone] Social History Tobacco Use Types Packs/Day Years [...] Primary documented in this encounter Care Teams Appliances Sample Maker Relationship Specialty Start Date End Date Margie Mcmanus, LANDSCAPE PAINTER, STORAGE BATTERY INSPECTOR AND TESTER PCP - General 04/26/18 05/27/[address] [place] [address] [place] [address] documented as of this encounter
--- OUTSIDE RECORDS SUMMARY | 2022-06-16 12:47 | XMS_ITS | Encounter Summary ---
:1950 Author Organization [facility] Address [address] [place] [address] Care Team Providers Name Role Phone Margie Mcmanus Claudine ALEGRIA, CREATIVE DESIGNER Primary Care Provider [phone] Reason for Referral Consultation (Routine) - Denied Specialty Diagnoses / Procedures Referred By Contact Refer red To Contact Diagnoses Primary osteoarthritis of both knees Eneida Ayers MD Molenaar, D. Karl, MD [address] [place] [address] [place], [place] [facility] [phone] Fax: Referral ID Status Reason Start Date Expiration Date Visits Requ ested Visits Authorized [id number] Denied 11/29/2018 11/30/2019 1 0 Scheduling Instructions [...] our patient for this procedure at the [facility] [place]. Consultation (Routine) - Closed Specialty Diagnoses / Procedures Referred By Contact Refer red To Contact Diagnoses Left foot pain Eneida Ayers MD [facility] [address] [phone] Referral ID Status Reason Start Date Expiration Date Visits Requ ested Visits Authorized [id number] Closed 11/29/2018 11/30/2019 1 1 Scheduling Instructions Please refer patient to [facility] odiatrist, [facility] Reason for Visit Reason Comments Consult knee injection Encounter Details Date Type Department Care Team Description 11/28/2018 Office Visit Eneida Gray Chronic pain of both knees ( Primary Dx); [address] MD Kranthi Left foot pain; [place], [place] [address] Primary ost eoarthritis of both knees [address] [place] [phone] KAREN Butts [address] Social History Tobacco Use Types Packs/Day Years [...] reasons. First she has previously seen the manager strategic alliances down in [facility] a Dr. Stark who she liked referral again to because of some left foot pain and discomfort so we will put that referral secondary to some left foot pain unstable ankle and affecting her gait. She has had x-rays previously takenof her ankles and feet and will let the manager strategic alliances do further x-rays if they feel necessary. [...] for that is referral to Dr. Stark manager strategic alliances done in [facility]. Assessment/Plan Diagnoses and all orders for this [...] knees documented in this encounter Care Teams Converter Skimmer Relationship Specialty Start Date End Date Margie Mcmanus, OCCUPATIONAL WORK EXPERIENCE TEACHER, CREATIVE DESIGNER PCP - General 04/26/18 05/27/20 100 [place] [address] documented as of this encounter
--- OUTSIDE RECORDS SUMMARY | 2022-06-16 12:47 | XMS_ITS | Encounter Summary ---
:1950 Author Organization [facility] Address [address] [place] [address] Care Team Providers Name Role Phone Margie Mcmanus MEDICAL OFFICE TECHNOLOGIST, CORRUGATOR HELPER Primary Care Provider [phone] Encounter Details Date Type Department Care Team Description 09/06/2019 Orders Only [employer] Margie Mcmanus, Prediabetes (Primary [address] MEDICAL OFFICE TECHNOLOGIST, CORRUGATOR HELPER Dx) [place], [place] 100 [facility] [address] [place] [address] Social History Tobacco Use Types Packs/Day Years [...] glucose documented in this encounter Care Teams Day Haul Youth Supervisor Relationship Specialty Start Date End Date Margie Mcmanus APRN, CORRUGATOR HELPER PCP - General 04/26/18 05/27/20 100 [facility] KAREN BLAKELY [id number] documented as of this encounter
--- OUTSIDE RECORDS SUMMARY | 2022-06-16 12:47 | XMS_ITS | Encounter Summary ---
:1950 Author Organization [facility] Address [address] [place] [address] Care Team Providers Name Role Phone None, Pcp Primary Care Provider Unavailable Reason for Visit Reason Comments Hearing Loss 5+ years Tinnitus 5+ years Consultation (Routine) - Closed Specialty Diagnoses / Procedures Referred By Contact Refer red To Contact Audiology Diagnoses Presbycusis of both ears Palak Cooley, RAJI, DELIVER DRIVER Audiology [address] [place] [address] [place] [address] [place] [address] Fax: Referral ID Status Reason Start Date Expiration Date Visits V isits Requested Authorized [id number] Closed Specialty 11/07/2020 11/07/2021 1 1 Services Required Encounter Details Date Type Department Care Team Description 12/10/2020 Office Visit Audiology Batsheva Zambrano, Sensorineural hearing loss ( SNHL) of both ears (Primary Dx); [address] [place] [address] Au.D. Tinnitus of both ears [address] [phone] [place] [phone] Social History Tobacco Use Types Packs/Day Years [...] Priority Associated Diagnoses Order S [facility] Ambulatory referral Outpatient Referral Routine Presbycusis of both Ordered: to Audiology ears 11/07/2020 documented as of this encounter Visit Diagnoses Diagnosis Sensorineural hearing loss (SNHL) of bot h ears - Primary Tinnitus of both ears Unspecified tinnitus documented in this encounter Care Teams Bible Worker Relationship Specialty Start Date End Date None, Pcp PCP - General Laborer [employer] Farm 11/06/20 05/18/21 210 [place] [address] documented as of this encounter
--- OUTSIDE RECORDS SUMMARY | 2022-06-16 12:47 | XMS_ITS | Encounter Summary ---
:1950 Author Organization [facility] Address [address] [place] [address] Care Team Providers Name Role Phone Margie Mcmanus APRN, ACCESS RN Primary Care Provider [phone] Encounter Details Date Type Department Care Team Description 09/05/2019 Lab [place] Essential (primary) hyperten harmony; [address] Prediabetes [place], [place] [address] Social History Tobacco Use [...] (prim alan) Results for this RATE AM OFFICE SUPPORT ASSISTANT hypertension procedure are i n the results section. HEMOGLOBIN A1C Routine 09/05/2019 10:57 Prediabetes Results f or this AM OFFICE SUPPORT ASSISTANT procedure are i n the results section. COMPREHENSIVE Routine 09/05/2019 10:57 Essential (primary) Res ults for this METABOLIC PANEL AM OFFICE SUPPORT ASSISTANT hypertension procedure ar e in the results section. documented in this encounter Results Glomerular filtration rate (GFR) (09/05/2019 10:57 AM OFFICE SUPPORT ASSISTANT) P athologist Signature GFR >60 09/06/2019 [facility] 1:50 PM [facility] >60 09/06/2019 [facility] Singaporean GFR 1:50 PM [facility] Comment: GFR calculated from serum creatinine v alue Chronic Kidney Disease less than 60 mL/m in/1.73 m2 Kidney Failure less than 15 mL/min/1.73 m2 Note: effective 02/02/07 IDMS-Traceable MDRD Study Equation used. Specimen Anatomical Collection Method Collection Time Receive d Time (Source) Location / / Volume Laterality 09/05/2019 10:57 09/05/2019 AM OFFICE SUPPORT ASSISTANT 10:57 AM OFFICE SUPPORT ASSISTANT Margie Mcmanus APRN, ACCESS RN LAB BLOOD ORDERABLES Performing Organization Address City/State/ZIP Code Phon e Number [facility] [address] [place] [id number] (ABNORMAL) Hemoglobin A1c (09/05/2019 10:57 AM OFFICE SUPPORT ASSISTANT) Analysis Performed At Patho logist Time Signature Hemoglobin A1C 6.2 (H) 4.0 - 5.6 09/06/2019 [place] % A1C 1:32 PM [facility] Comment: Reference Range 4.0-5.6% [...] Volume Laterality Blood 09/05/2019 10:57 09/06/2019 AM OFFICE SUPPORT ASSISTANT 12:56 PM OFFICE SUPPORT ASSISTANT Margie Mcmanus BEAUTY OPERATOR, ACCESS RN LAB BLOOD ORDERABLES Performing Organization Address City/State/ZIP Code Phon e Number [facility] [address] [place] [address] (ABNORMAL) Comprehensive metabolic panel (09/05/2019 10:57 AM OFFICE SUPPORT ASSISTANT) [facility] Method Time Signature Total Protein 7.1 6.3 - 8.2 09/06/2019 [place] g/dL 1:50 PM [facility] Albumin, Serum 4.1 3.5 - 5.0 09/06/2019 [place] g/dL 1:50 PM [facility] Total Bilirubin 1.1 (H) 0.1 - 1.0 09/06/2019 [place] mg/dL 1:50 PM [facility] AST 24 8 - 43 U/L 09/06/2019 [place] 1:50 PM [facility] Alkaline 66 38 - 128 09/06/2019 [place] Phosphatase U/L 1:50 PM [facility] ALT (SGPT) 23 0 - 34 U/L 09/06/2019 [place] 1:50 PM [facility] Sodium 143 135 - 145 09/06/2019 [place] mEq/L 1:50 PM [facility] Potassium 4.3 3.5 - 5.1 09/06/2019 [place] mEq/L 1:50 PM [facility] Chloride 105 98 - 107 09/06/2019 [place] mEq/L 1:50 PM [facility] CO2 30 (H) 22 - 29 09/06/2019 [place] mmol/L 1:50 PM [facility] BUN 15 5 - 25 09/06/2019 [place] mg/dL 1:50 PM [facility] Creatinine 0.9 0.4 - 1.2 09/06/2019 [place] mg/dL 1:50 PM [facility] Glucose 129 (H) 70 - 100 09/06/2019 [place] mg/dL 1:50 PM [facility] Calcium, Total,S 9.6 8.4 - 10.2 09/06/2019 [place] mg/dL 1:50 PM [facility] Fasting? Yes 09/05/2019 [place] 10:59 AM [facility] Specimen Anatomical Collection Method Collection Time Receive d Time (Source) Location / / Volume Laterality Blood 09/05/2019 10:57 09/06/2019 AM OFFICE SUPPORT ASSISTANT 12:56 PM OFFICE SUPPORT ASSISTANT Margie Mcmanus APRN, CNP LAB BLOOD ORDERABLES Performing Organization Address City/State/ZIP Code Phon e Number [facility] [address] [place] [address] documented in this encounter Visit Diagnoses Diagnosis Essential (primary) hypertension Unspecified essential hypertension Prediabetes Other abnormal glucose documented in this encounter Care Teams Trolley Car Operator Relationship Specialty Start Date End Date Margie Mcmanus APRN, CANDICE PCP - General 04/26/18 05/27/20 100 [place] [address] documented as of this encounter
--- OUTSIDE RECORDS SUMMARY | 2022-06-16 12:47 | XMS_ITS | Encounter Summary ---
:1950 Author Organization [facility] Address [address] [place] [address] Care Team Providers Name Role Phone Palak Cooley Jose NICOLEN, BASKET TURNER Primary Care Provider Reason for Visit Reason Comments Facial Injury 2 weeks ago nasal injury, pa in radiating to left eye and ear Encounter Details Date Type Department Care Team Description 10/13/2021 Office Visit [place] Chad Nava, Nose injury, initial [address] MD encounter (Primary Dx) [place], [place] [address] [facility] [address] [place], [place] [phone] Social History Tobacco Use Types Packs/Day Years [...] Comments Blood Pressure 130/72 10/13/2021 2:57 PM LABEL CUTTER Pulse 68 10/13/2021 2:57 PM LABEL CUTTER Temperature 36.3 ??C (97.3 ??F) 10/13/2021 2:57 PM LABEL CUTTER Respiratory Rate 14 10/13/2021 2:57 PM LABEL CUTTER Oxygen Saturation 95% 10/13/2021 2:57 PM LABEL CUTTER Inhaled Oxygen Concentration - - Weight 95.4 kg (210 lb 6.4 oz) 10/13/2021 2:57 PM LABEL CUTTER Height 159 cm (5' 2.6) 10/13/2021 2:57 PM LABEL CUTTER Body Mass Index 37.75 10/13/2021 2:57 PM LABEL CUTTER documented in this encounter Patient Instructions Patient InstructionsCharjuan Nava MD - 10/13/2021 3:00 PM CST If persisting or worsening let me know. Continue warm or ice compresses and ibuprofen. L CUTTER documented in this encounter Progress Notes Chad [...] PO) Oral, (ashwaganda root, cordyceps Mycelium, Shisandra tao, ginseng, rhodiola root, red bengali ginseng, ginseng root, eleuthero root) ??? UNABLE [...] improve. Note created using voice dictation software. L CUTTER documented in this encounter Plan of Treatment Not on filedocumented as of this encounter Visit Diagnoses Diagnosis Nose injury, initial encounter - Primary documented in this encounter Care Teams Electron Beam Operator Relationship Specialty Start Date End Date Palak Cooley APRN, BASKET TURNER PCP - General 05/19/21 210 [address], [place] [address] documented as of this encounter
--- OUTSIDE RECORDS SUMMARY | 2022-06-16 12:47 | XMS_ITS | Encounter Summary ---
:1950 Author Organization [facility] Address [address] [place] [address] Care Team Providers Name Role Phone Gonzalezcrystal Palak Garcia MILLSTONE CLEANER, CANDICE Primary Care Provider Reason for Visit Reason Comments Medication Visit Encounter Details Date Type Department Care Team Description 05/29/2021 Office Visit Kiel Gong GonzalezcrystalPalak, Essential (primary) hyperten harmony (Primary Dx); [address] CANDICE ALEGRIA Prediabetes; [place], [place] [address] Primary osteoarthritis of both knees; [address] [place], [place] Mixed hyperlipidemia [phone] [address] Social History Tobacco Use Types Packs/Day Years [...] regimen. documented in this encounter Progress Notes Paalk Cooley APRN, CNP - 05/29/2021 11:00 AM CDT Subjective Patient ID: Rina Fisher is a 70 y.o. female. Chief Complaint Patient presents with ??? Medication Visit HPI The patient presents to the [facility] for medication/lab visit. She is doing well [...] Mycelium, Shisandra tao, ginseng, rhodiola root, red czech ginseng, ginseng root, eleuthero root), Disp: , Rfl: ??? [place]-3 Fatty Acids ([facility] FISH OIL) 1200 MG [...] Signature Microalbumin,m 11.3 0.0 - 16.6 05/30/2021 [facility] g/day mg/L 2:17 PM CDT [facility] Comment: . Creatinine, Urine 252 mg/dL 05/30/2021 2:21 PM CDT [facility] Comment: No established reference range. Microalb/Creat Ratio 4 0 - 24 mg/g 05/30/2021 2:2 1 PM CDT [facility] Specimen Anatomical Collection Method Collection Time Receive d Time (Source) Location / / Volume Laterality Urine 05/29/2021 11:54 05/30/2021 AM CDT 12:49 PM CDT Palak Cooley APRN, CNP LAB URINE ORDERABLES Performing Organization Address City/State/ZIP Code Phon e Number [facility] [address] [place] [address] (ABNORMAL) HemoCue glucose (05/29/2021 11:45 AM CDT) P athologist Signature Glucose, Bld 111 (H) 70 - 100 05/29/2021 [facility] 12:10 PM CDT [place] Comment: . Specimen Anatomical Collection Method Collection Time Receive d Time (Source) Location / / Volume Laterality Blood 05/29/2021 11:45 05/29/2021 AM CDT 12:09 PM CDT Palak Cooley APRN, CNP LAB BLOOD ORDERABLES Performing Organization Address City/State/ZIP Code Phon e Number [facility] [address] [place] [address] (ABNORMAL) Hemoglobin A1c (05/29/2021 11:45 AM CDT) Analysis Performed At Patho logist Time Signature Hemoglobin A1C 5.8 (H) 4.0 - 5.6 05/30/2021 [place] % A1C 3:15 PM CDT [facility]ENTER [...] Organization Address City/State/ZIP Code Phon e Number [facility] [address] [place] [address] documented in this encounter Visit Diagnoses Diagnosis Essential (primary) hypertension - Prima ry Unspecified essential hypertension Prediabetes Other abnormal glucose Primary osteoarthritis of both knees Mixed hyperlipidemia documented in this encounter Care Teams Travel Registered Nurse Pacu Relationship Specialty Start Date End Date Palak Cooley APRN, CNP PCP - General 05/19/[address] [place] [address] documented as of this encounter
--- OUTSIDE RECORDS SUMMARY | 2022-06-16 12:47 | XMS_ITS | Encounter Summary ---
:1950 Author Organization [facility] Address [address] [place] [address] Care Team Providers Name Role Phone GonzalezWarner rojasbreonna Garcia APRN, SHREDDED FILLER CUTTER OPERATOR Primary Care Provider Encounter Details Date Type Department Care Team Description 07/28/2021 Lab Kiel Gong Hypothyroidism due to [address] Param's thyroiditis [place], [place] [address] Social History Tobacco Use [...] AM Hypothyroidism due to Results for this DIRECTOR OF INTERCOLLEGIATE ATHLETICS Param's thyroiditis proc edure are in the results section. documented in this encounter Results TSH (07/28/2021 10:55 AM DIRECTOR OF INTERCOLLEGIATE ATHLETICS) P athologist Signature TSH, Sensitive 2.13 0.46 - 07/28/2021 [place] LEON L 4.68 mIU/L 7:32 PM DIRECTOR OF INTERCOLLEGIATE ATHLETICS [facility] Comment: The results from this [...] (Blood, 07/28/2021 10:55 07/28/2021 6:31 Venous) AM DIRECTOR OF INTERCOLLEGIATE ATHLETICS PM DIRECTOR OF INTERCOLLEGIATE ATHLETICS Palak Cooley APRN, CNP LAB BLOOD ORDERABLES Performing Organization Address City/State/ZIP Code Phon e Number 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 [address] documented as of this encounter
--- OUTSIDE RECORDS SUMMARY | 2022-06-16 12:47 | XMS_ITS | Encounter Summary ---
:1950 Author Organization [facility] Address [address] [place] [address] Care Team Providers Name Role Phone Margie Mcmanus DIAMOND GRINDER, SPRINKLER IRRIGATION EQUIPMENT MECHANIC Primary Care Provider [phone] Reason for Visit Reason Onset Date Comments talk with nurse 05/18/2019 Encounter Details Date Type Department Care Team Description 05/18/2019 Telephone [place] Margie Mcmanus, talk with nurse [address] DIAMOND GRINDER, SPRINKLER IRRIGATION EQUIPMENT MECHANIC [place], [place] [address] [facility] [phone] [place], [place] [address] Social History Tobacco Use [...] up both times. Please call Pt at [phone] to advise. documented in this encounter Plan of Treatment Not on filedocumented as of this encounter Visit Diagnoses Not on filedocumented in this encounter Care Teams Account Liaison Hospice Relationship Specialty Start Date End Date Margie Mcmanus APRN, SPRINKLER IRRIGATION EQUIPMENT MECHANIC PCP - General 04/26/18 05/27/20 100 [facility] KAREN BLAKELY [address] documented as of this encounter
--- OUTSIDE RECORDS SUMMARY | 2022-06-16 12:47 | XMS_ITS | Encounter Summary ---
:[address] [facility] Address [address] [place] [address] Care Team Providers Name Role Phone Margie Mcmanus RECORD CHANGER TESTER, DRAWING INSTRUCTOR Primary Care Provider [phone] Encounter Details Date Type Department Care Team Description 12/19/2018 Telephone Kiel Gong Margie Mcmanus, [address] RECORD CHANGER TESTER, DRAWING INSTRUCTOR [place] [address] [address] [facility] [address] [phone] [place], [place] [address] Social History Tobacco Use [...] we will need to refer her to [facility] in [place] for 8-12 sessions of PT before we [...] on filedocumented in this encounter Care Teams Window And Door Installer Relationship Specialty Start Date End Date Margie Mcmanus, RECORD CHANGER TESTER, DRAWING INSTRUCTOR PCP - General 04/26/18 05/27/20 100 [facility] K[place] BLAK[place] [address] documented as of this encounter
--- OUTSIDE RECORDS SUMMARY | 2022-06-16 12:47 | XMS_ITS | Encounter Summary ---
:1950 Author Organization [facility] Address [address] [place] [address] Care Team Providers Name Role Phone GonzalezWarner rojasbreonna Garcia APRN, EXTRUSION TECHNICIAN Primary Care Provider Reason for Visit Reason Comments Blood Pressure Check Encounter Details Date Type Department Care Team Description 09/10/2021 Clinical Support [place] [address] [place], [place] [address] Social History Tobacco Use [...] Comments Blood Pressure 123/72 09/10/2021 2:39 PM FOREIGN CORRESPONDENT Pulse 70 09/10/2021 2:39 PM FOREIGN CORRESPONDENT Temperature - - Respiratory Rate - - Oxygen Saturation - - Inhaled Oxygen Concentration - - Weight - - Height - - Body Mass Index - - documented in this encounter Plan of Treatment Not on filedocumented as of this encounter Visit Diagnoses Not on filedocumented in this encounter Care Teams Rn Occupational Relationship Specialty Start Date End Date Palak Cooley APRN, EXTRUSION TECHNICIAN PCP - General 05/19/21 [address] [place] [address] documented as of this encounter
--- OUTSIDE RECORDS SUMMARY | 2022-06-16 12:47 | XMS_ITS | Encounter Summary ---
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 documented in this encounter Results TSH (11/24/2021 11:01 AM WATER TREATMENT PLANT REPAIRER) P athologist Signature TSH, Sensitive 3.10 0.46 - 11/25/2021 [facility] MEDICA L 4.68 mIU/L 2:30 PM WATER TREATMENT PLANT REPAIRER [facility] Comment: The results from this [...] Volume Laterality Blood 11/24/2021 11:01 11/25/2021 AM WATER TREATMENT PLANT REPAIRER 12:53 PM WATER TREATMENT PLANT REPAIRER Palak Cooley APRN, CNP LAB BLOOD ORDERABLES Performing Organization Address City/State/ZIP Code Phon e Number [facility] [address] [facility] [address] [place] [address] documented in this encounter Visit Diagnoses Diagnosis 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 [address] documented as of this encounter
--- OUTSIDE RECORDS SUMMARY | 2022-06-16 12:47 | XMS_ITS | Encounter Summary ---
:1950 Author Organization [facility] Address [address] [place] [address] Care Team Providers Name Role Phone Margie Mcmanus APRN, CANDICE Primary Care Provider [phone] Reason for Referral Consultation (Routine) - Canceled Specialty Diagnoses / Procedures Referred By Contact Refer red To Contact Diagnoses Benign paroxysmal positional vertigo, unspecified laterality Margie Mcmanus, [facility] RAJI, CANDICE SYSTEM - [place] [id number] [place] [address] Phone: Fax: Referral ID Status Reason Start Date Expiration Date Visits V isits Requested Authorized [id number] Canceled 05/18/2019 05/18/2020 1 1 Consultation (Routine) - Closed Specialty Diagnoses / Procedures Referred By Contact Refer red To Contact Diagnoses Benign paroxysmal positional vertigo, unspecified laterality Margie Mcmanus, [facility] RAJI, LEAD TELLER SYSTEM - [address] [address] [place] [address] Phone: Fax: Referral ID Status Reason Start Date Expiration Date Visits Requ ested Visits Authorized [id number] Closed 05/18/2019 05/18/2020 1 1 Consultation (Routine) - Closed Specialty Diagnoses / Procedures Referred By Contact Refer red To Contact Diagnoses Benign paroxysmal positional vertigo, unspecified laterality Margie Mcmanus, [facility] RAJI, LEAD TELLER SYSTEM - [place] [address] [address] [place] [address] Phone: Fax: Referral ID Status Reason Start Date Expiration Date Visits Requ ested Visits Authorized [id number] Closed 05/18/2019 05/18/2020 1 1 Reason for Visit Reason Comments Nausea Dizziness Encounter Details Date Type Department Care Team Description 05/18/2019 Office Visit [place] Margie Mcmanus Benign paroxysmal [address] M, CANDICE ALEGRIA positional vertigo, [place] [address] unspecified [address] [place] [address] laterality (Primary [phone] Dx) Social History Tobacco Use Types Packs/Day [...] 1:20 PM CDT Will have [place] to arrange a physical therapy documented in [...] (one) time each day, Disp: ,Rfl: ??? [place]-3 Fatty Acids ([facility] FISH OIL) 1200 MG [...] to arrange a physical therapy consultation at [facility] today. The patient will not drive [...] Primary documented in this encounter Care Teams Intrusion Analyst Relationship Specialty Start Date End Date Margie Mcmanus, SOCIAL MEDIA INTERN, LEAD TELLER PCP - General 04/26/18 05/27/20 [address] [place] [address] documented as of this encounter
--- OUTSIDE RECORDS SUMMARY | 2022-06-16 12:47 | XMS_ITS | Encounter Summary ---
:1950 Author Organization [facility] Address [address] [place] [address] Care Team Providers Name Role Phone Palak Cooley APRN, CNP Primary Care Provider Encounter Details Date Type Department Care Team Description 05/29/2021 Lab [place] Prediabetes; [address] Elevated TSH [place], [place] [address] Social History Tobacco Use [...] 05/29/2021 10:15 AM CDT Letter routed to boone bilingual receptionist to print and mail to patient [...] Urine 252 mg/dL 05/30/2021 2:[address] [facility] Comment: No established reference range. Microalb/Creat Ratio 4 0 - 24 mg/g 05/30/2021 2:[address] [facility] Specimen Anatomical Collection Method Collection Time Receive d Time (Source) Location / / Volume Laterality Urine 05/29/2021 11:54 05/30/2021 AM CDT 12:49 PM CDT Palak Cooley APRN, CNP LAB URINE ORDERABLES Performing Organization Address City/State/ZIP Code Phon e Number [facility] [address] [place] [address] T4, free (05/29/2021 11:45 AM CDT) P athologist Signature Free T4 0.79 0.78 - 2.19 05/30/2021 [facility] ng/dL 5:04 PM CDT CENTER LABORATORY Comment: [...] City/State/ZIP Code Phon e Number [facility] [address] [place] [address] (ABNORMAL) Thyroperoxidase (TPO) Ab (05/29/2021 11:45 AM CDT) Patholo gist Method Time Signature Thyroid 245.3 (H) <9.0 06/02/2021 [facility] Peroxidase IU/mL 1:53 PM CDT LABORATORIES (TPO) Ab Comment: Test Performed by: [facility] [address] [place] [address] Industrial Gas Production Operator: [place] M.D. Ph. D.; CLIA# [id number] Specimen Anatomical Collection Method Collection Time Receive d Time (Source) Location / / Volume Laterality 05/29/2021 11:45 05/30/2021 8:16 AM CDT PM CDT Palak Cooley APRN, CNP LAB BLOOD ORDERABLES Performing Organization Address City/[facility]/ZIP Code Phon e Number [facility] see result attachment for specific address Fasting ? (05/29/2021 11:45 AM CDT) athologist Signature Fasting? Yes 05/29/2021 [facility] BINU 12:09 PM CDT [place] Specimen Anatomical Collection Method Collection Time Receive d Time (Source) Location / / Volume Laterality 05/29/2021 11:45 05/29/2021 AM CDT 11:45 AM CDT Palak Cooley APRN, PRODUCT MANAGENT INTERN LAB BLOOD ORDERABLES Performing Organization Address City/State/ZIP Code Phon e Number [facility] [place] [address] [place], [place] [address] (ABNORMAL) Thyroid Function [place] (05/29/2021 11:45 AM CDT) Analysis Performed At [facility] Signature TSH, Sensitive 8.50 (H) 0.46 - 05/30/2021 [place] 4.68 mIU/L 2:39 PM CDT [facility] Comment: The results from [...] CDT 12:56 PM CDT Palak Cooley APRN, PRODUCT MANAGENT INTERN LAB BLOOD ORDERABLES Performing Organization Address City/State/ZIP Code Phon e Number [facility] [address] [place] [address] (ABNORMAL) Hemoglobin A1c (05/29/2021 11:45 AM CDT) Analysis Performed At [facility] Time Signature Hemoglobin A1C 5.8 (H) 4.0 - 5.6 05/30/2021 [place] % A1C 3:15 PM CDT MEDICAL CENTER [...] City/State/ZIP Code Phon e Number [facility] [address] [place] [address] (ABNORMAL) HemoCue glucose (05/29/2021 11:45 AM CDT) athologist Signature Glucose, Bld 111 (H) 70 - 100 05/29/2021 [facility] mg/dL 12:10 PM CDT [place] Comment: . Specimen Anatomical Collection Method Collection Time Receive d Time (Source) Location / / Volume Laterality Blood 05/29/2021 11:45 05/29/2021 AM CDT 12:09 PM CDT Palak Cooley APRN, CNP LAB BLOOD ORDERABLES Performing Organization Address City/[facility]/ZIP Code Phon e Number [facility] [address] [place] [address] documented in this encounter Visit Diagnoses Diagnosis Prediabetes Other abnormal glucose Elevated TSH Other abnormal blood chemistry documented in this encounter Care Teams Job Analysis Manager Relationship Specialty Start Date End Date Palak Cooley APRN, CNP PCP - General 05/19/[address] [place] [address] documented as of this encounter
--- OUTSIDE RECORDS SUMMARY | 2022-06-16 12:47 | XMS_ITS | Encounter Summary ---
:1950 Author Organization [facility] Address [address] [place] [address] Care Team Providers Name Role Phone Margie Mcmanus APRN, WEB MACHINE TENDER Primary Care Provider [phone] Reason for Visit Reason Comments Blood Pressure Check Encounter Details Date Type Department Care Team Description 10/06/2019 Clinical Support [place] [address] [place], [place] [address] Social History Tobacco Use [...] Comments Blood Pressure 128/60 10/06/2019 11:51 AM INSTRUMENT MECHANIC WEAPONS SYSTEM Pulse 62 10/06/2019 11:51 AM INSTRUMENT MECHANIC WEAPONS SYSTEM Temperature - - Respiratory Rate - - Oxygen Saturation - - Inhaled Oxygen Concentration - - Weight - - Height - - Body Mass Index - - documented in this encounter Progress Notes Asmita Yun LPN - 10/06/2019 11:30 AM CST BP: 128/60 Right arm P: 62 [employer] MECH[employer] Margie Mcmanus APRN, CNP - 10/06/2019 11:30 AM CST The patient should be checked on both arms with next blood pressure recheck. [employer]CH[employer] SYSTEM Margie Mcmanus APRN, CNP - 10/06/2019 11:30 AM CST The patient was notified she should continue to take the aspirin. [employer]CH[employer] documented in this encounter Plan of Treatment Not on filedocumented as of this encounter Visit Diagnoses Not on filedocumented in this encounter Care Teams Cobbler Apprentice Relationship Specialty Start Date End Date Margie Mcmanus APRN, CNP PCP - General 04/26/18 05/27/20 [address] [facility] [place] [address] documented as of this encounter
--- OUTSIDE RECORDS SUMMARY | 2022-06-16 12:47 | XMS_ITS | Encounter Summary ---
:1950 Author Organization [facility] Address [address] [place] [address] Care Team Providers Name Role Phone None, [...] Comments Blood Pressure 138/76 11/07/2020 9:25 AM NIKE ATHLETE Pulse 84 11/07/2020 9:25 AM NIKE ATHLETE Temperature 35.6 ??C (96.1 ??F) 11/07/2020 9:25 AM NIKE ATHLETE Respiratory Rate 14 11/07/2020 9:25 AM NIKE ATHLETE Oxygen Saturation 99% 11/07/2020 9:25 AM NIKE ATHLETE Inhaled Oxygen Concentration - - Weight 106 kg (233 lb) 11/07/2020 9:25 AM NIKE ATHLETE Height 157.5 cm (5' 2.01) 11/07/2020 9:25 AM NIKE ATHLETE Body Mass Index 42.61 11/07/2020 9:25 AM NIKE ATHLETE documented in this encounter Progress Notes Asmita Yun LPN - 11/07/2020 11:20 AM CST Annual Wellness Visit CARE TEAM / RESOURCES: Patient Care Team: Pcp None as PCP - General (Foam Molder) Eye Care: [facility] Dental Care: NONE at this time Pharmacy: [facility] [address] [address] Other: Visit Vitals BP 138/76 (BP Location: [...] (one) time each day No Iron ??? [place]-3 Fatty Acids ([facility] FISH OIL) 1200 MG [...] college, no degree Occupational History ??? 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 ?? Those born between [birth year]01-6859. Glaucoma: Medicare Part B (Medical Insurance) covers [...] of one pack a dayfor 30 years). ATHLETE documented in this encounter Plan of Treatment Not on filedocumented as of this encounter Visit Diagnoses Diagnosis Medicare annual wellness visit, initial documented in this encounter Care Teams Artificial Candy Maker Relationship Specialty Start Date End Date None, Pcp PCP - General Foam Molder 11/06/20 05/18/21 [address] [place] [address] documented as of this encounter
--- OUTSIDE RECORDS SUMMARY | 2022-06-16 12:47 | XMS_ITS | Encounter Summary ---
:1950 Author Organization [facility] Address [address] [place] [address] Care Team Providers Name Role Phone None, Pcp Primary Care Provider Unavailable Encounter Details Date Type Department Care Team Description 11/06/2020 Lab [place] Prediabetes; [address] Encounter for hepatitis C sc reening test for low risk patient; [place] [address] Essential (primary) hyperten harmony [phone] Social History Tobacco Use Types Packs/Day Years [...] (prim alan) Results for this RATE AM OPS ANALYST hypertension procedure are i n the results section. HEPATITIS C ANTIBODY Routine 11/06/2020 10:16 Encounter for Re sults for this AM OPS ANALYST hepatitis C procedure are i n screening test for the resul ts low risk patient section. T3 Routine 11/06/2020 10:16 Results for this AM OPS ANALYST procedure are i n the results section. TSH Routine 11/06/2020 10:16 Essential (primary) Resu lts for this AM OPS ANALYST hypertension procedure are i n the results section. T4, FREE Routine 11/06/2020 10:16 Results for this AM OPS ANALYST procedure are i n the results section. MAGNESIUM Routine 11/06/2020 10:16 Essential (primary) Resu lts for this AM OPS ANALYST hypertension procedure are i n the results section. HEMOGLOBIN A1C Routine 11/06/2020 10:16 Prediabetes Results f or this AM OPS ANALYST procedure are i n the results section. LIPID PANEL Routine 11/06/2020 10:16 Prediabetes Results for this AM OPS ANALYST procedure are i n the results section. COMPREHENSIVE Routine 11/06/2020 10:16 Essential (primary) Res ults for this METABOLIC PANEL AM OPS ANALYST hypertension procedure ar e in the results section. documented in this encounter Results (ABNORMAL) T3 (11/06/2020 10:16 AM OPS ANALYST) P athologist Signature T3, Total 4.31 (H) 0.97 - 1.69 11/07/2020 [facility] ng/mL 7:21 PM [facility] Comment: The results from this [...] / Volume Laterality 11/06/2020 10:16 11/07/2020 AM OPS ANALYST 12:45 PM OPS ANALYST Palak Cooley APRN, GEOLOGIST LAB BLOOD ORDERABLES Performing Organization Address City/State/ZIP Code Phon e Number [facility] [address] [place] [address] T4, free (11/06/2020 10:16 AM OPS ANALYST) athologist Signature Free T4 0.81 0.78 - 2.19 11/07/2020 [facility] ng/dL 7:08 PM OPS ANALYST [facility]ENTER [facility] Comment: The results from this [...] / Volume Laterality 11/06/2020 10:16 11/07/2020 AM OPS ANALYST 12:45 PM OPS ANALYST Palak Cooley APRN, CNP LAB BLOOD ORDERABLES Performing Organization Address City/[facility] Phon e Number [facility] [address] [place] [address] Glomerular filtration rate (GFR) (11/06/2020 10:16 AM OPS ANALYST) athologist [facility] GFR >60 11/07/2020 [facility] 1:07 PM OPS ANALYST [facility]ENTER [facility] >60 11/07/2020 [facility] Haitian GFR 1:07 PM OPS ANALYST [facility] Comment: GFR calculated from serum creatinine v alue Chronic Kidney Disease less than 60 mL/m in/1.73 m2 Kidney Failure less than 15 mL/min/1.73 m2 Note: effective 02/02/07 IDMS-Traceable MDRD Study Equation used. Specimen Anatomical Collection Method Collection Time Receive d Time (Source) Location / / Volume Laterality 11/06/2020 10:16 11/06/2020 AM OPS ANALYST 10:16 AM OPS ANALYST Palak Cooley APRN, CNP LAB BLOOD ORDERABLES Performing Organization Address City/[facility] Phon e Number [facility] [address] [place] [address] (ABNORMAL) Lipid panel (11/06/2020 10:16 AM OPS ANALYST) athologist Signature Cholesterol 183 0 - 199 11/07/2020 [facility] mg/dL 1:07 PM [facility] Comment: Recommended by National Cholesterol Education Program (ATP III) -------- Cholesterol Ranges -------- <200 ?Desirable 200-239 ? Borderline high >=240 ? High Triglycerides 119 0 - 149 mg/dL 11/07/2020 1:07 PM [facility] Comment: -------- TRIG Ranges -------- <150 ?Normal 150-199 ? Borderline high 200-499 ? High >=500 ? Very high HDL 38 (L) 40 - 250 mg/dL 11/07/2020 1:07 PM [facility] Comment: -------- HDL Ranges -------- <40 ?Low 40-59 ?Normal >=60 ? Optimal LDL Calculated 121 (H) 0 - 99 mg/dL 11/07/2020 1:07 PM [facility] Comment: -------- LDL Ranges -------- <100 ? Optimal 100-129 ?Near optimal/above op timal 130-159 ?Borderline high 160-189 ?High >=190 ?Very high Specimen Anatomical Collection Method Collection Time Receive d Time (Source) Location / / Volume Laterality Blood 11/06/2020 10:16 11/07/2020 AM OPS ANALYST 12:32 PM OPS ANALYST Palak Cooley ROUTE RELIEF DRIVER, GEOLOGIST LAB BLOOD ORDERABLES Performing Organization Address City/State/ZIP Code Phon e Number [facility] [address] [place] [address] (ABNORMAL) TSH (11/06/2020 10:16 AM OPS ANALYST) [facility] Method Time Signature TSH, Sensitive 14.30 (H) 0.46 - 11/07/2020 [place] 4.68 mIU/L 2:11 PM [facility] Comment: The results from this [...] Volume Laterality Blood 11/06/2020 10:16 11/07/2020 AM OPS ANALYST 12:45 PM OPS ANALYST Palak Cooley APRN, GEOLOGIST LAB BLOOD ORDERABLES Performing Organization Address City/State/ZIP Code Phon e Number [facility] [address] [place] [address] (ABNORMAL) Comprehensive metabolic panel (11/06/2020 10:16 AM OPS ANALYST) [facility] Method Time Signature Total Protein 6.9 6.3 - 8.2 11/07/2020 [place] g/dL 1:07 PM [facility] Albumin, Serum 4.2 3.5 - 5.0 11/07/2020 [place] g/dL 1:07 PM [facility] Total Bilirubin 0.8 0.1 - 1.0 11/07/2020 [place] mg/dL 1:07 PM [facility] AST 21 8 - 43 U/L 11/07/2020 [place] 1:07 PM [facility] Alkaline 76 38 - 128 11/07/2020 [place] Phosphatase U/L 1:07 PM [facility] ALT (SGPT) 16 0 - 34 U/L 11/07/2020 [place] 1:07 PM [facility] Sodium 140 135 - 145 11/07/2020 [place] mEq/L 1:07 PM [facility] Potassium 3.8 3.5 - 5.1 11/07/2020 [place] mEq/L 1:07 PM [facility] Chloride 104 98 - 107 11/07/2020 [place] mEq/L 1:07 PM [facility] CO2 30 (H) 22 - 29 11/07/2020 [place] mmol/L 1:07 PM [facility] BUN 22 5 - 25 11/07/2020 [place] mg/dL 1:07 PM [facility] Creatinine 0.8 0.4 - 1.2 11/07/2020 [place] mg/dL 1:07 PM [facility] Glucose 138 (H) 70 - 100 11/07/2020 [place] mg/dL 1:07 PM [facility] Calcium, Total,S 9.3 8.4 - 10.2 11/07/2020 [place] mg/dL 1:07 PM [facility] Fasting? Yes 11/06/2020 [place] 10:19 AM [facility] Specimen Anatomical Collection Method Collection Time Receive d Time (Source) Location / / Volume Laterality Blood 11/06/2020 10:16 11/07/2020 AM OPS ANALYST 12:32 PM OPS ANALYST Palak Cooley APRN, CNP LAB BLOOD ORDERABLES Performing Organization Address [facility] Code Phon e Number [facility] [address] [place] [address] Magnesium (11/06/2020 10:16 AM OPS ANALYST) P athologist Signature Magnesium 2.1 1.6 - 2.3 11/07/2020 [facility] mg/dL 1:07 PM [facility] Specimen Anatomical Collection Method Collection Time Receive d Time (Source) Location / / Volume Laterality Blood 11/06/2020 10:16 11/07/2020 AM OPS ANALYST 12:32 PM OPS ANALYST Palak Cooley APRN, GEOLOGIST LAB BLOOD ORDERABLES Performing Organization Address City/[facility] Code Phon e Number [facility] [address] [place] [address] Hepatitis C antibody (11/06/2020 10:16 AM OPS ANALYST) Patholo gist Method Time Signature Hepatitis C NON-REACTI Non-Reacti 11/07/2020 [place] Antibody VE ve 2:35 PM [facility] Comment: The results from this [...] Blood (Blood, 11/06/2020 10:16 11/07/2020 Venous) AM OPS ANALYST 12:45 PM OPS ANALYST Palak Cooley APRN, GEOLOGIST LAB BLOOD ORDERABLES Performing Organization Address City/[facility]/ZIP Code Phon e Number [facility] [address] [place] [address] (ABNORMAL) Hemoglobin A1c (11/06/2020 10:16 AM OPS ANALYST) [facility] Time Signature Hemoglobin A1C 6.1 (H) 4.0 - 5.6 11/07/2020 [place] % A1C 1:07 PM [facility] Comment: Reference Range 4.0-5.6% is [...] Volume Laterality Blood 11/06/2020 10:16 11/07/2020 AM OPS ANALYST 12:32 PM OPS ANALYST Palak Cooley APRN, GEOLOGIST LAB BLOOD ORDERABLES Performing Organization Address City/State/ZIP Code Phon e Number [facility] [address] [place] [address] documented in this encounter Visit Diagnoses Diagnosis Prediabetes Other abnormal glucose Encounter for hepatitis C screening test for low risk patient Essential (primary) hypertension Unspecified essential hypertension documented in this encounter Care Teams Medical Office Asst Relationship Specialty Start Date End Date None, Pcp PCP - General Manager Trading 11/06/20 05/18/21 [address] [place] [address] documented as of this encounter
--- OUTSIDE RECORDS SUMMARY | 2022-06-16 12:47 | XMS_ITS | Encounter Summary ---
:1950 Author Organization [facility] Address [address] [place] [address] Care Team Providers Name Role Phone Margie Mcmanus OFFICE SPECIALIST, TRADING ANALYST Primary Care Provider [phone] Reason for Visit Reason Onset Date Comments QUESTIONS ABOUT KNEE INJ. 11/17/2018 Encounter Details Date Type Department Care Team Description 11/17/2018 Telephone [place] Margie Mcmanus, QUESTIONS ABOUT KNEE [address] OFFICE SPECIALIST, TRADING ANALYST INJ. [place], [place] [address] [address] [facility] [address] [address] [address] [phone] [place], [place] [address] Social History Tobacco Use [...] Mcmanus APRN, CNP - 11/22/2018 2:48 PM SUPERVISOR MOLD YARD Referral completed. RVISOR MOLD YARD Telephone Encounter - Karena Maddox - 11/17/2018 4:41 PM CST Pt would like to see Dr Karena Christiansen Podiatry at [facility]. Pt will make appt to consult with Dr. Ayers about knee injections. RVISOR MOLD YARD Telephone Encounter - Geena Webb MA - 11/17/2018 1:39 PM CST Patient informed and will call back when she gets the podiatry information RVISOR MOLD YARD Telephone Encounter - Margie Mcmanus APRN, CNP - 11/17/2018 12:43 PM SUPERVISOR MOLD YARD The patient should come in for consultation with Dr. Crisostomo regarding the Synvisc injections, as they do need to be prior off before she can receive them. When she knows where she would like to go to podiatry it certainly be willing to make those arrangements, referrals. Say hi to her for me. Thanks Vern. RVISOR MOLD YARD Telephone Encounter - Geena Webb MA - [...] out where she is covered for podiatry. RVISOR MOLD YARD Telephone Encounter - Karena Maddox - 11/17/2018 10:50 AM CST Pt called with some questions about possible knee injections Vern Mcmanus had given her some information on. Pt also noted she would like to go ahead with the podiatry referral, but would like to know her options on where to go for that. Please call Pt to advise. RVISOR MOLD YARD documented in this encounter Plan of Treatment Not on filedocumented as of this encounter Visit Diagnoses Not on filedocumented in this encounter Care Teams Roastmaster Relationship Specialty Start Date End Date Margie Mcmanus, OFFICE SPECIALIST, TRADING ANALYST PCP - General 04/26/18 05/27/20 [address] [facility] [place] [address] documented as of this encounter
--- OUTSIDE RECORDS SUMMARY | 2022-06-16 12:47 | XMS_ITS | Encounter Summary ---
:1950 Author Organization [facility] Address [address] [place] [address] Care Team Providers Name Role Phone Margie Mcmanus FACE BOSS, DIETARY SUPERVISOR Primary Care Provider Encounter Details Date Type Department Care Team Description 05/18/2019 Telephone [place] Margie Mcmanus, [address] FACE BOSS, DIETARY SUPERVISOR [place] [address] [address] [phone] [place], [place] [address] Social History Tobacco Use [...] - 05/18/2019 1:34 PM CDT P.T. FAX: [phone] order so we can fax the referral over. documented in this encounter Plan of Treatment Not on filedocumented as of this encounter Visit Diagnoses Not on filedocumented in this encounter Care Teams Chief Nurse Executive Relationship Specialty Start Date End Date Margie Mcmanus APRN, DIETARY SUPERVISOR PCP - General 04/26/18 05/27/[address] [place] [address] [place] [id number] documented as of this encounter
--- OUTSIDE RECORDS SUMMARY | 2022-06-16 12:47 | XMS_ITS | Encounter Summary ---
:1950 Author Organization [facility] Address [address] [place] [address] Care Team Providers Name Role Phone Margie Mcmanus RETAIL SALESPERSON, [facility] Primary Care Provider Encounter Details Date Type Department Care Team Description 12/26/2018 Abstract SE Family Med Margie Mcmanus, RETAIL SALESPERSON, [address] [place] [address] [facility] [address] [phone] [place], [place] [address] Social History Tobacco Use [...] on filedocumented in this encounter Care Teams Jewel Stringer Relationship Specialty Start Date End Date Margie Mcmanus APRN, CLINIC CHARGE NURSE PCP - General 04/26/18 05/27/[address] [place], [place] [address] [id number] documented as of this encounter
--- OUTSIDE RECORDS SUMMARY | 2022-06-16 12:47 | XMS_ITS | Encounter Summary ---
:1950 Author Organization [facility] Address [address] [place] [address] Care Team Providers Name Role Phone None, Pcp Primary Care Provider Unavailable Reason for Visit Reason Onset Date Comments return call 11/27/2020 Encounter Details Date Type Department Care Team Description 11/27/2020 Telephone Christopher Palak Cooley, SENIOR ACCOUNTING ANALYST, LAYOUT INSPECTOR return call [address] [place], [place] [address] [place] [address] [phone] (Wo rk) Social History Tobacco Use Types [...] 11/27/2020 1:04 PM CST See other notes EL MOTOR MECHANIC Telephone Encounter - Margret Romano - 11/27/2020 10:32 AM CST Patient called back in regards to lab tests. She had received a call. Please call her again. (no nurse available) EL MOTOR MECHANIC documented in this encounter Plan of Treatment Not on filedocumented as of this encounter Visit Diagnoses Not on filedocumented in this encounter Care Teams Hospital Security Officer Relationship Specialty Start Date End Date None, Pcp PCP - General Sub Master 11/06/20 05/18/21 [address] [place] [address] documented as of this encounter
--- OUTSIDE RECORDS SUMMARY | 2022-06-16 12:47 | XMS_ITS | Encounter Summary ---
:1950 Author Organization [facility] Address [address] [place] [address] Care Team Providers Name Role Phone None, Pcp Primary Care Provider Unavailable Reason for Referral Consultation (Routine) - Closed Specialty Diagnoses / Procedures Referred By Contact Refer red To Contact Audiology Diagnoses Presbycusis of both ears Palak Cooley APRN, CNP Se Audiology [address] [place] [address] [place] [address] Fax: Referral ID Status Reason Start Date Expiration Date Visits V isits Requested Authorized [id number] Closed Specialty 11/07/2020 11/07/2021 1 1 Services Required Scheduling Instructions Please call the Audiology Pediatric Sports Medicine Specialist desk at [phone] ext. [phone] to schedule an appointment. Tinnitus + hearing loss test 1 yr ago pe r patient. TING ENGINE OPERATOR Reason for Visit Reason Comments BP Med review Encounter Details Date Type Department Care Team Description 11/07/2020 Office Visit A[place]on Palak Cooley, Well woman exam (Primary Dx) ; [address] CANDICE ALEGRIA Essential (primary) hypertension; [place], [place] [address] Prediabetes; [address] [place], [place] Primary osteoarthritis of venkata th knees; [phone] Varicose veins of right lower extremity with pain; [phone] Rosacea; (Work) Encounter for hepatitis C screening test for low risk patient; [phone] Presbycusis of both ears; (Fax) Elevated TSH; [...] Comments Blood Pressure 138/76 11/07/2020 9:07 AM HOISTING ENGINE OPERATOR Pulse 84 11/07/2020 9:07 AM HOISTING ENGINE OPERATOR Temperature 35.6 ??C (96.1 ??F) 11/07/2020 9:07 AM HOISTING ENGINE OPERATOR Respiratory Rate 14 11/07/2020 9:07 AM HOISTING ENGINE OPERATOR Oxygen Saturation 99% 11/07/2020 9:07 AM HOISTING ENGINE OPERATOR Inhaled Oxygen Concentration - - Weight 101 kg (223 lb) 11/07/2020 9:07 AM HOISTING ENGINE OPERATOR Height 157.5 cm (5' 2) 11/07/2020 9:07 AM HOISTING ENGINE OPERATOR Body Mass Index 40.79 11/07/2020 9:07 AM HOISTING ENGINE OPERATOR documented in this encounter Patient Instructions Patient InstructionsTamadou Cooley APRN, FARMER GENERAL - 11/07/2020 9:00 AM CST Look into twin fruit Higher protein foods. Protein/fruit smoothies Low carb soups. Fit on francisco javier, [employer] exercise videos. Get better sleep TING ENGINE OPERATOR documented in this encounter Progress Notes Palak Cooley APRN, CNP - 11/07/2020 9:00 AM CST Subjective Patient ID: Rina Fisher is a 69 y.o. female. Chief Complaint Patient presents with ??? BP Med review HPI Patient presents to the [facility] for a medication refill. She is [...] each day No Iron,Disp: , Rfl: ??? [place]-3 Fatty Acids ([facility] FISH OIL) 1200 MG [...] ??? Cataract 2017 wears glasses, [employer] [place], [place] ??? Depression ??? Herpes zoster without [...] college, no degree Occupational History ??? 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 Financial resource strain: [...] file Gets together: Not on file Attends mu-ism service: Not on file Active member of [...] on weight loss and exercise. Taking horse [place] supplement and states this is helping. Presbycusis [...] Low carb soups. Fit on francisco javier, [employer] exercise videos. Get better sleep TING ENGINE OPERATOR documented in this encounter Miscellaneous Notes Assessment & Plan Note - Palak Cooley APRN, CNP - 11/08/2020 7:55 AM HOISTING ENGINE OPERATOR Associated Problem(s): Primary osteoarthritis of both knees Currently doing well and has no complaints. TING ENGINE OPERATOR Assessment & Plan Note - Palak Cooley APRN, CNP - 11/08/2020 7:54 AM HOISTING ENGINE OPERATOR Associated Problem(s): Presbycusis of both ears She was agreeable for an audiology referral. TING ENGINE OPERATOR Assessment & Plan Note - Palak Cooley APRN, CNP - 11/08/2020 7:53 AM HOISTING ENGINE OPERATOR Associated Problem(s): Mixed hyperlipidemia Recommended statin therapy, patient would like time to think about it and continue to work on the diet and exercise. She is currently taking baby aspirin and fish oil. TING ENGINE OPERATOR Assessment & Plan Note - Palak Cooley APRN, CNP - 11/08/2020 7:52 AM HOISTING ENGINE OPERATOR Associated Problem(s): Prediabetes Discuss results with the patient and at this time she would like to have time to work on her diet and exercise. She will follow up in 6 months and we can recheck this. TING ENGINE OPERATOR Assessment & Plan Note - Palak Cooley APRN, CNP - 11/07/2020 12:27 PM HOISTING ENGINE OPERATOR Associated Problem(s): Essential (primary) hypertension Follow-up in 6 months. Patient was agreeable. TING ENGINE OPERATOR documented in this encounter Plan of Treatment Scheduled Referrals Name Type Priority Associated Diagnoses [facility] Outpatient Referral Routine Presbycusis of both Ordered: to Audiology ears 11/07/2020 documented as of this encounter Procedures Procedure Name Priority Date/Time Associated Diagnosis Comme nts ADD-ON TEST REQUEST Routine 11/07/2020 5:12 PM Elevated TSH Re sults for this HOISTING ENGINE OPERATOR procedure are i n the results section. documented in this encounter Results (ABNORMAL) TSH (11/25/2020 2:03 PM HOISTING ENGINE OPERATOR) Analysis Performed At Patho logist Time Signature TSH, Sensitive 6.88 (H) 0.46 - 11/26/2020 LUISA 4.68 mIU/L 4:46 PM [facility] Comment: The results from [...] Laterality Blood 11/25/2020 2:03 PM 1 1:53 HOISTING ENGINE OPERATOR PM HOISTING ENGINE OPERATOR Palak Cooley APRN, FARMER GENERAL LAB BLOOD ORDERABLES Performing Organization Address City/[facility] Code Phon e Number [facility] [address] [place] [phone] Add-On Test Request (11/07/2020 5:12 PM HOISTING ENGINE OPERATOR) [facility] Method Time Signature Add-on Testing SEE BELOW 11/07/2020 LUISA 6:30 PM HOISTING ENGINE OPERATOR [facility] Comment: Free T4 and T3 added. Specimen Anatomical Collection Method Collection Time Receive d Time (Source) Location / / Volume Laterality 11/07/2020 5:12 PM 1 5:12 HOISTING ENGINE OPERATOR PM HOISTING ENGINE OPERATOR Palak Cooley APRN, FARMER GENERAL LAB BLOOD ORDERABLES Performing Organization Address City/[facility] Code Phon e Number [facility] [address] [place] [phone] Hepatitis C antibody (11/06/2020 10:16 AM HOISTING ENGINE OPERATOR) [facility] Method Time Signature Hepatitis C NON-REACTI Non-Reacti 11/07/2020 LUISA Antibody VE ve 2:35 PM HOISTING ENGINE OPERATOR [facility] Comment: The results from [...] Blood (Blood, 11/06/2020 10:16 11/07/2020 Venous) AM HOISTING ENGINE OPERATOR 12:45 PM HOISTING ENGINE OPERATOR Palak Cooley APRN, CNP LAB BLOOD ORDERABLES Performing Organization Address City/State/ZIP Code Phon e Number [facility] [address] [place] [phone] Magnesium (11/06/2020 10:16 AM HOISTING ENGINE OPERATOR) P athologist Signature Magnesium 2.1 1.6 - 2.3 11/07/2020 LUISA MEDICAL mg/dL 1:07 PM [facility] Specimen Anatomical Collection Method Collection Time Receive d Time (Source) Location / / Volume Laterality Blood 11/06/2020 10:16 11/07/2020 AM HOISTING ENGINE OPERATOR 12:32 PM HOISTING ENGINE OPERATOR Palak Cooley APRN, CNP LAB BLOOD ORDERABLES Performing Organization Address [facility] Code Phon e Number [facility] [address] [place] [phone] (ABNORMAL) Comprehensive metabolic panel (11/06/2020 10:16 AM HOISTING ENGINE OPERATOR) Patholo gist Method Time Signature Total Protein 6.9 6.3 - 8.2 11/07/2020 LUISA g/dL 1:07 PM [facility] Albumin, Serum 4.2 3.5 - 5.0 11/07/2020 LUISA g/dL 1:07 PM [facility] Total Bilirubin 0.8 0.1 - 1.0 11/07/2020 LUISA mg/dL 1:07 PM [facility] AST 21 8 - 43 U/L 11/07/2020 LUISA 1:07 PM [facility] Alkaline 76 38 - 128 11/07/2020 LUISA Phosphatase U/L 1:07 PM [facility] ALT (SGPT) 16 0 - 34 U/L 11/07/2020 LUISA 1:07 PM [facility] Sodium 140 135 - 145 11/07/2020 LUISA mEq/L 1:07 PM [facility] Potassium 3.8 3.5 - 5.1 11/07/2020 LUISA mEq/L 1:07 PM [facility] Chloride 104 98 - 107 11/07/2020 LUISA mEq/L 1:07 PM [facility] CO2 30 (H) 22 - 29 11/07/2020 LUISA mmol/L 1:07 PM [facility] BUN 22 5 - 25 11/07/2020 LUISA mg/dL 1:07 PM [facility] Creatinine 0.8 0.4 - 1.2 11/07/2020 LUISA mg/dL 1:07 PM [facility] Glucose 138 (H) 70 - 100 11/07/2020 LUISA mg/dL 1:07 PM [facility] Calcium, Total,S 9.3 8.4 - 10.2 11/07/2020 LUISA mg/dL 1:07 PM [facility] Fasting? Yes 11/06/2020 LUISA 10:19 AM [facility] Specimen Anatomical Collection Method Collection Time Receive d Time (Source) Location / / Volume Laterality Blood 11/06/2020 10:16 11/07/2020 AM HOISTING ENGINE OPERATOR 12:32 PM HOISTING ENGINE OPERATOR Palak Cooley APRN, FARMER GENERAL LAB BLOOD ORDERABLES Performing Organization Address City/State/ZIP Code Phon e Number [facility] [address] [place] [address] (ABNORMAL) TSH (11/06/2020 10:16 AM HOISTING ENGINE OPERATOR) [facility] gist Method Time Signature TSH, Sensitive 14.30 (H) 0.46 - 11/07/2020 LUISA 4.68 mIU/L 2:11 PM [facility] Comment: The results from this [...] Volume Laterality Blood 11/06/2020 10:16 11/07/2020 AM HOISTING ENGINE OPERATOR 12:45 PM HOISTING ENGINE OPERATOR Palak Garcia Lenora DIRECTOR MICROBIOLOGY, FARMER GENERAL LAB BLOOD ORDERABLES Performing Organization Address City/State/ZIP Code Osiel Cantrell [facility] [address] [place] [address] (ABNORMAL) Lipid panel (11/06/2020 10:16 AM HOISTING ENGINE OPERATOR) athologist Signature Cholesterol 183 0 - 199 11/07/2020 [facility] mg/dL 1:07 PM [facility] Comment: Recommended by National Cholesterol Education Program (ATP III) -------- Cholesterol Ranges -------- <200 ?Desirable 200-239 ? Borderline high >=240 ? High Triglycerides 119 0 - 149 mg/dL 11/07/2020 1:[address] [facility] Comment: -------- TRIG Ranges -------- <150 ?Normal 150-199 ? Borderline high 200-499 ? High >=500 ? Very high HDL 38 (L) 40 - 250 mg/dL 11/07/2020 1:07 PM [facility] Comment: -------- HDL Ranges -------- <40 ?Low 40-59 ?Normal >=60 ? Optimal LDL Calculated 121 (H) 0 - 99 mg/dL 11/07/2020 1:[address] [facility] Comment: -------- LDL Ranges -------- <100 ? Optimal 100-129 ?Near optimal/above op timal 130-159 ?Borderline high 160-189 ?High >=190 ?Very high Specimen Anatomical Collection Method Collection Time Receive d Time (Source) Location / / Volume Laterality Blood 11/06/2020 10:16 11/07/2020 AM HOISTING ENGINE OPERATOR 12:32 PM HOISTING ENGINE OPERATOR Palak Jose Lenora ALEGRIA CNP LAB BLOOD ORDERABLES Performing Organization Address City/[facility]/ZIP Code Phon e Number [facility] [address] [place] [phone] (ABNORMAL) Hemoglobin A1c (11/06/2020 10:16 AM HOISTING ENGINE OPERATOR) Analysis Performed At Patho logist Time Signature Hemoglobin A1C 6.1 (H) 4.0 - 5.6 11/07/2020 LUISA % A1C 1:07 PM [facility] Comment: Reference Range 4.0-5.6% is [...] Volume Laterality Blood 11/06/2020 10:16 11/07/2020 AM HOISTING ENGINE OPERATOR 12:32 PM HOISTING ENGINE OPERATOR Palak Cooley APRN, CNP LAB BLOOD ORDERABLES Performing Organization Address City/[facility] Phon e Number [facility] [address] [place] [phone] documented in this encounter Visit Diagnoses Diagnosis [...] hyperlipidemia documented in this encounter Care Teams Integration Solution Architect Relationship Specialty Start Date End Date None, Pcp PCP - General Loan Closer 11/06/20 05/18/21 [address] [place] [address] documented as of this encounter
--- OUTSIDE RECORDS SUMMARY | 2022-06-16 12:48 | XMS_ITS | Encounter Summary ---
:1950 Author Organization [facility] Address [address] [place] [address] Care Team Providers Name Role Phone Palak Cooley ULTRASOUND TECHNOLOGIST, RADIOLOGIST Primary Care Provider Reason for Visit Reason Comments Med Refill Encounter Details Date Type Department Care Team Description 2018 Refill Carrier Margie Mcmanus, Hypertension, [address] ULTRASOUND TECHNOLOGIST, CANDICE unspecified type [place], [place] [address] [address] [facility] [phone] [place], [place] [address] Social History Tobacco Use [...] Myrtle Carter MA - 11/15/2018 6:28 AM JUNIOR BOOKKEEPER HCTZ 25mg last rx 07/25/18 #90 no [...] mg/dL 9.6 No pending labs in chart OR BOOKKEEPER documented in this encounter Plan of Treatment Not on filedocumented as of this encounter Visit Diagnoses Diagnosis Hypertension, unspecified type documented in this encounter Care Teams Awning Spreader Relationship Specialty Start Date End Date Palak Cooley, ULTRASOUND TECHNOLOGIST, RADIOLOGIST PCP - General 05/19/[address] [place] [phone] documented as of this encounter
--- OUTSIDE RECORDS SUMMARY | 2022-06-16 12:48 | XMS_ITS | Encounter Summary ---
:1950 Author Organization [facility] Address [address] [place] [address] Care Team Providers Name Role Phone Margie Mcmanus APRN, SHIPPING HELPER Primary Care Provider [phone] Encounter Details Date Type Department Care Team Description 10/27/2018 Lab [place] Screening, anemia, deficienc y, iron; [address] Lipid screening; [place], [place] [address] Essential hypertension; [phone] Bilateral lower extremity edema; Screening for d [...] Essential Results f or this FILTRATION RATE SAFETY EQUIPMENT TESTER hypertension procedure are in Bilateral lower the results extremity edema section. CBC BRANCH OFFICE Routine 10/27/2018 8:57 AM Screening, anemia , Results for this W/DIFF SAFETY EQUIPMENT TESTER deficiency, iron procedure a re in the results section. HEMOGLOBIN A1C Routine 10/27/2018 8:57 AM Screening for Result s for this SAFETY EQUIPMENT TESTER diabetes mellitus procedure are in the results section. LIPID PANEL Routine 10/27/2018 8:57 AM Lipid screening Result s for this SAFETY EQUIPMENT TESTER procedure are i n the results section. BASIC METABOLIC Routine 10/27/2018 8:57 AM Essential Result s for this PANEL SAFETY EQUIPMENT TESTER hypertension procedure are in Bilateral lower the results extremity edema section. documented in this encounter Results (ABNORMAL) Glomerular filtration rate (GFR) (10/27/2018 8:57 AM SAFETY EQUIPMENT TESTER) athologist Signature GFR 55 (A) 10/27/2018 [facility] 11:15 AM [facility] >60 10/27/2018 [facility] [place] GFR 11:15 AM [facility] Comment: GFR calculated from serum creatinine v alue Chronic Kidney Disease less than 60 mL/m in/1.73 m2 Kidney Failure less than 15 mL/min/1.73 m2 Note: effective 02/02/07 IDMS-Traceable MDRD Study Equation used. Specimen Anatomical Collection Method Collection Time Receive d Time (Source) Location / / Volume Laterality 10/27/2018 8:57 AM 9 8:57 SAFETY EQUIPMENT TESTER AM SAFETY EQUIPMENT TESTER Margie Mcmanus APRN, SHIPPING HELPER LAB BLOOD ORDERABLES Performing Organization Address City/State/ZIP Code Phon e Number [facility] [address] [place] [phone] (ABNORMAL) Hemoglobin A1c (10/27/2018 8:57 AM SAFETY EQUIPMENT TESTER) Analysis Performed At Patho logist Time Signature Hemoglobin A1C 6.5 (H) 4.0 - 5.6 10/27/2018 [place] % A1C 1:45 PM [facility] Comment: Reference Range 4.0-5.6% [...] 10/27/2018 8:57 AM 10/27/19 19 1:19 Venous) SAFETY EQUIPMENT TESTER PM SAFETY EQUIPMENT TESTER Margie Mcmanus APRN, CNP LAB BLOOD ORDERABLES Performing Organization Address City/[facility]/ZIP Code Phon e Number [facility] [address] [place] [address] (ABNORMAL) Basic metabolic panel (10/27/2018 8:57 AM SAFETY EQUIPMENT TESTER) P athologist Signature Sodium 147 (H) 135 - 145 10/27/2018 [facility] mmol/L 11:15 AM SAFETY EQUIPMENT TESTER [place] Potassium 3.5 3.5 - 5.1 10/27/2018 [facility] mmol/L 11:15 AM SAFETY EQUIPMENT TESTER [place] Comment: . Chloride 106 98 - 107 mmol/L 10/27/2018 11:15 AM SAFETY EQUIPMENT TESTER [facility] [place] Comment: . CO2 31 (H) 22 - 29 mmol/L 10/27/2018 11:15 AM SAFETY EQUIPMENT TESTER [facility] [place] Comment: . Creatinine 1.0 0.4 - 1.2 mg/dL 10/27/2018 11:15 AM SAFETY EQUIPMENT TESTER [facility] [place] Comment: . BUN 16 5 - 25 mg/dL 10/27/2018 11:15 AM SAFETY EQUIPMENT TESTER [facility] [place] [place] Comment: . Glucose 138 (H) 70 - 100 mg/dL 10/27/2018 11:15 AM [facility] [place] SAFETY EQUIPMENT TESTER Calcium, Total,S 9.6 8.4 - 10.2 mg/dL 10/27/2018 11:15 AM [facility] [place] SAFETY EQUIPMENT TESTER Comment: . Specimen Anatomical Collection Method Collection Time Receive d Time (Source) Location / / Volume Laterality Blood (Blood, 10/27/2018 8:57 AM 10/27/19 19 9:02 Venous) SAFETY EQUIPMENT TESTER AM SAFETY EQUIPMENT TESTER Margie Mcmanus APRN, CNP LAB BLOOD ORDERABLES Performing Organization Address City/[facility]/ZIP Code Phon e Number [facility] [place] [address] [place] [address] (ABNORMAL) Lipid panel (10/27/2018 8:57 AM SAFETY EQUIPMENT TESTER) athologist Signature Cholesterol 150 0 - 199 10/28/2018 [facility] mg/dL 1:52 PM [facility] Comment: Recommended by National Cholesterol Education Program (ATP III) -------- Cholesterol Ranges -------- <200 ? Desirable 200-239 ? Borderline high >=240 ? High Triglycerides 88 0 - 149 mg/dL 10/28/2018 1:52 PM [facility] Comment: -------- TRIG Ranges -------- <150 ?Normal 150-199 ? Borderline high 200-499 ? High >=500 ? Very high HDL 33 (A) 40 - 60 mg/dL 10/28/2018 1:52 PM [facility] Comment: -------- HDL Ranges -------- <40 ?Low 40-59 ?Normal >=60 ? Optimal LDL Calculated 99 0 - 99 mg/dL 10/28/2018 1:52 PM [facility] Comment: -------- LDL Ranges -------- <100 ? Optimal 100-129 ?Near optimal/above op timal 130-159 ?Borderline high 160-189 ?High >=190 ?Very high Fasting? Yes 10/27/2018 9:02 AM [facility] Specimen Anatomical Collection Method Collection Time Receive d Time (Source) Location / / Volume Laterality Blood (Blood, 10/27/2018 8:57 AM 10/28/19 19 Venous) SAFETY EQUIPMENT TESTER 12:30 PM SAFETY EQUIPMENT TESTER Margie Mcmanus APRN, SHIPPING HELPER LAB BLOOD ORDERABLES Performing Organization Address City/State/ZIP Code Phon e Number [facility] [address] [place] [phone] CBC Branch Off w/Diff (10/27/2018 8:57 AM SAFETY EQUIPMENT TESTER) P athologist Signature WBC 7.4 3.5 - 10.5 10/27/2018 [facility] K/uL 9:03 AM SAFETY EQUIPMENT TESTER [place] RBC 4.83 3.90 - 10/27/2018 [facility] 5.00 M/uL 9:03 AM SAFETY EQUIPMENT TESTER [place] Hemoglobin 14.6 12.0 - 10/27/2018 [facility] 15.5 g/dL 9:03 AM SAFETY EQUIPMENT TESTER [place] Hematocrit 43.5 35.0 - 10/27/2018 [facility] 44.0 % 9:03 AM SAFETY EQUIPMENT TESTER [place] Platelets 231 150 - 450 10/27/2018 [facility] K/uL 9:03 AM SAFETY EQUIPMENT TESTER [place] MCV 90.1 81.6 - 10/27/2018 [facility] 98.3 fL 9:03 AM SAFETY EQUIPMENT TESTER [place] MCH 30.2 26.0 - 10/27/2018 [facility] 32.0 pg 9:03 AM SAFETY EQUIPMENT TESTER [place] MCHC 33.6 32.0 - 10/27/2018 [facility] 36.0 g/dL 9:03 AM SAFETY EQUIPMENT TESTER [place] RDW 13.1 11.9 - 10/27/2018 [facility] 15.5 % 9:03 AM SAFETY EQUIPMENT TESTER [place] Lymphocytes % 22.6 18.0 - 10/27/2018 [facility] 45.0 % 9:03 AM SAFETY EQUIPMENT TESTER [place] Mid-size Cells 8.8 3.3 - 10.1 10/27/2018 [facility] % 9:03 AM SAFETY EQUIPMENT TESTER [place] Granulocytes/Fabienne 68.6 45.8 - 10/27/2018 [facility] trophils 73.7 % 9:03 AM SAFETY EQUIPMENT TESTER [place] Lymphocytes 1.7 0.9 - 2.9 10/27/2018 [facility] Absolute K/uL 9:03 AM SAFETY EQUIPMENT TESTER [place] MIDS Absolute 0.7 0.2 - 0.8 10/27/2018 [facility] K/uL 9:03 AM SAFETY EQUIPMENT TESTER [place] Granulocytes/Fabienne 5.0 2.1 - 8.7 10/27/2018 [facility] trophils K/uL 9:03 AM SAFETY EQUIPMENT TESTER [place] Absolute Specimen Anatomical Collection Method Collection Time Receive d Time (Source) Location / / Volume Laterality Blood (Blood, 10/27/2018 8:57 AM 10/27/19 19 9:02 Venous) SAFETY EQUIPMENT TESTER AM SAFETY EQUIPMENT TESTER Margie Mcmanus APRN, CANDICE LAB BLOOD ORDERABLES Performing Organization Address City/State/ZIP Code Phon e Number [facility] [place] [address] [place] [address] documented in this encounter Visit Diagnoses Diagnosis Screening, anemia, deficiency, iron Screening for iron deficiency anemia Lipid screening Screening for lipoid disorders Essential hypertension Unspecified essential hypertension Bilateral lower extremity edema Screening for diabetes mellitus documented in this encounter Care Teams Network Technical Analyst Relationship Specialty Start Date End Date Margie Mcmanus APRN, SHIPPING HELPER PCP - General 04/26/18 05/27/[address] [place] [address] [place] [id number] documented as of this encounter
--- OUTSIDE RECORDS SUMMARY | 2022-06-16 12:48 | XMS_ITS | Encounter Summary ---
:1950 Author Organization [facility] Address [address] [place] [address] Care Team Providers Name Role Phone Margie Mcmanus EMC STORAGE ARCHITECT, EVENT PROMOTER Primary Care Provider [phone] Reason for Visit Reason Onset Date Comments MED REFILL 07/25/2018 Encounter Details Date Type Department Care Team Description 07/25/2018 Telephone [place] Margie Mcmanus, MED REFILL [address] RAJI, CANDICE [place], [place] [address] REPLACED BY [facility] [address] [phone] [place], [place] [address] Social History Tobacco [...] is the HCTZ and not the Atenolol. ST PATHOLOGY ASSOCIATE PROFESSOR Telephone Encounter - Margie Mcmanus APRN, CNP - 07/25/2018 3:18 PM FOREST PATHOLOGY ASSOCIATE PROFESSOR This is been renewed times 90 days hydrochlorothiazide 25 mg that she will need a clinical visit formedication review and that period of time. ST PATHOLOGY ASSOCIATE PROFESSOR Telephone Encounter - Geena Webb MA - 07/25/2018 3:01 PM CST I have pended a medication for your review. ST PATHOLOGY ASSOCIATE PROFESSOR Telephone Encounter - An Kierra - 07/25/2018 2:47 PM CST The patient is short one 90-day supply of Hydroclorothyazide. Refill to [facility] please. She willcall back this afternoon to talk to nurse. ST PATHOLOGY ASSOCIATE PROFESSOR documented in this encounter Plan of Treatment Not on filedocumented as of this encounter Visit Diagnoses Diagnosis Hypertension, unspecified type - Primary documented in this encounter Care Teams Ceramic Design Engineer Relationship Specialty Start Date End Date Margie Mcmanus APRN, CNP PCP - General 04/26/18 05/27/20 100 REPLACED BY [facility] [place] [address] documented as of this encounter
--- OUTSIDE RECORDS SUMMARY | 2022-06-16 12:48 | XMS_ITS | Encounter Summary ---
:1950 Author Organization [facility] Address [address] [place] [address] Care Team Providers Name Role Phone Margie Mcmanus DURALUMIN METALWORKER, [facility] Primary Care Provider [phone] Encounter Details Date Type Department Care Team Description 10/21/2018 Abstract [facility] Margie Mcmanus, RAJI, [address] [place] [address] [facility] [address] [phone] [place], [place] [address] Social History Tobacco Use [...] on filedocumented in this encounter Care Teams Wireless Sales Representative Relationship Specialty Start Date End Date Margie Mcmanus, DURALUMIN METALWORKER, MACHINE TRIMMER PCP - General 04/26/18 05/27/20 100 [place] [address] documented as of this encounter
--- OUTSIDE RECORDS SUMMARY | 2022-06-16 12:48 | XMS_ITS | Encounter Summary ---
:1950 Author Organization [facility] Address [address] [place] [address] Care Team Providers Name Role Phone Margie Mcmanus APRN, EMC STORAGE ARCHITECT Primary Care Provider [phone] Reason for Visit Reason Comments Annual Exam Encounter Details Date Type Department Care Team Description 10/27/2018 Office Visit [place] Margie Mcmanus Annual physical exam (Primar y Dx); [address] M, CANDICE ALEGRIA Essential hypertension; [place], [place] [address] Bilateral lower extremity edema; [address] [place] [address] Left foot pain; [phone] Chronic pain of both knees; Situational dep [...] Comments Blood Pressure 128/68 10/27/2018 9:16 AM LEAD SIMULATION MODELING ENGINEER Pulse 74 10/27/2018 9:16 AM LEAD SIMULATION MODELING ENGINEER Temperature 37 ??C (98.6 ??F) 10/27/2018 9:16 AM LEAD SIMULATION MODELING ENGINEER Respiratory Rate 16 10/27/2018 9:16 AM LEAD SIMULATION MODELING ENGINEER Oxygen Saturation 95% 10/27/2018 9:16 AM LEAD SIMULATION MODELING ENGINEER Inhaled Oxygen Concentration - - Weight 106 kg (234 lb 2.1 oz) 10/27/2018 9:16 AM LEAD SIMULATION MODELING ENGINEER Height 160 cm (5' 2.99) 10/27/2018 9:16 AM LEAD SIMULATION MODELING ENGINEER Body Mass Index 41.48 10/27/2018 9:16 AM LEAD SIMULATION MODELING ENGINEER documented in this encounter Patient Instructions Patient InstructionsChera Mcmanus APRN, CNP - 10/27/2018 8:00 AM LEAD SIMULATION MODELING ENGINEER Mammogram please consider Colonoscopy first recommendation (Cologuard) Will call with the official radiology reports Left foot pain - consider podiatry Osteoarthritis - could consider Sinvisc injections DEXA scan Immunizations Varicosities could consider general surgery referral SIMULATION MODELING ENGINEER documented in this encounter Progress Notes Margie [...] like to be cold in the winter, cut off [employer]ingle [employer] the summertime, and then acknowledges she makes [...] patient reports her son had lived in [place], in a motel, the [facility] had rented for him, and for whatever reason her son was asked to leave. The patient's son then moved into a hot in [place], and felt as if she was his EYE SPECIALIST. The mother reports her son made the decision to move to [place], and was attempting to facilitate rehab. She received a call from a hospital in [place],with a physician on the line, as her [...] friends,her second cousin, who is now in [place], lost her 40-year-old son, from an apparent [...] (one) time each day, Disp: ,Rfl: ??? [place]-3 Fatty Acids ([employer] FISH OIL) 1200 MG [...] college, no degree Occupational History ??? 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 Financial resource strain: Not [...] file Gets together: Not on file Attends methodist service: Not on file Active member of [...] and stress incontinence. No hematuria or dysuria. LEADERSHIP DEVELOPMENT INSTRUCTOR: 1, para 1. The patient is unable to recall when her last menstrual period was, no vaginal bleeding since. She is sexually active with no discomfort. ENDOCRINOLOGY: No thyroid dysfunction, diabetes, nor osteoporosis. MUSCULOSKELETAL: See HPI. The patient has had bilateral knee discomfort, as she points to her distalpatellar area, bilaterally, which she noticed before going to [place] in July, which were swollen in October. [...] discomfort, unstable feeling, but she is considering child care counselor. She will be notified of her left [...] plan of care. Margie Mcmanus APRN, CANDICE SIMULATION MODELING ENGINEER documented in this encounter Plan of Treatment Not on filedocumented as of this encounter Procedures Procedure Name Priority Date/Time Associated Diagnosis Comme nts XR FOOT 3+ VIEWS Routine 10/27/2018 10:18 AM Resu lts for this LEFT LEAD SIMULATION MODELING ENGINEER procedure are i n the results section. XR KNEE 1-2 VIEWS Routine 10/27/2018 10:15 AM Chronic pain of both Results for this LEFT LEAD SIMULATION MODELING ENGINEER knees procedure are i n the results section. XR KNEE 4+ VIEWS Routine 10/27/2018 10:13 AM Resu lts for this RIGHT LEAD SIMULATION MODELING ENGINEER procedure are i n the results section. documented in this encounter Results X-ray foot 3+ views left (10/27/2018 10:18 AM LEAD SIMULATION MODELING ENGINEER) Anatomical Region Laterality Modality Lower Extremities, Foot Left Radiographic Nicol ging Specimen (Source) Anatomical Collection Method Collection Time Re ceived Time Location / / Volume Laterality 10/27/2018 10:18 AM LEAD SIMULATION MODELING ENGINEER Impressions 10/27/2018 10:30 AM LEAD SIMULATION MODELING ENGINEER IMPRESSION: FOOT COMPLETE LEFT MIN 3 VIEWS No fracture or dislocation. ??No lytic l esion or erosion. ??There is mild spurring medially at the 1st metatarsal head. ??There is a moderate to large plantar calcaneal spur. ??Small sc lerotic bone island is seen at the base of the great toe proximal phalanx. Narrative 10/27/2018 10:30 AM LEAD SIMULATION MODELING ENGINEER INDICATION: left foot pain since march, unstable [...] the great toe proximal phalanx. Margie Mcmanus BUSINESS ANALYST PROJECT MANAGER, EMC STORAGE ARCHITECT IMG XR PROCEDURES X-ray Knee 1-2 Views Left (10/27/2018 10:15 AM LEAD SIMULATION MODELING ENGINEER) Anatomical Region Laterality Modality Lower Extremities, Knee Left Radiographic Nicol ging Specimen (Source) Anatomical Collection Method Collection Time Re ceived Time Location / / Volume Laterality 10/27/2018 10:15 AM LEAD SIMULATION MODELING ENGINEER Impressions 10/27/2018 10:30 AM LEAD SIMULATION MODELING ENGINEER IMPRESSION: KNEE LEFT (1-2 VIEWS) There is mild patellofemoral joint spurr ing. ??There is a minimal effusion. ?? No fracture, dislocation, or lytic or bl astic lesion. Narrative 10/27/2018 10:30 AM LEAD SIMULATION MODELING ENGINEER INDICATION: bilateral knee pain COMPARISON: None available Procedure Note Jakcelyn Mcclelland MD - 10/27/2018 INDICATION: bilateral knee pain COMPARISON: None available IMPRESSION: KNEE LEFT (1-2 VIEWS) There is mild patellofemoral joint spurr ing. There is a minimal effusion. No fracture, dislocation, or lytic or bl astic lesion. Margie Mcmanus APRN, CNP IMG XR PROCEDURES X-ray knee 4+ views right (10/27/2018 10:13 AM LEAD SIMULATION MODELING ENGINEER) Anatomical Region Laterality Modality Lower Extremities, Knee Right Radiographic Nicol ging Specimen (Source) Anatomical Collection Method Collection Time Re ceived Time Location / / Volume Laterality 10/27/2018 10:13 AM LEAD SIMULATION MODELING ENGINEER Impressions 10/27/2018 10:34 AM LEAD SIMULATION MODELING ENGINEER IMPRESSION: KNEE COMPLETE RIGHT (MIN 4 VIEWS) [...] or blastic lesion. Narrative 10/27/2018 10:34 AM LEAD SIMULATION MODELING ENGINEER INDICATION: bilateral knee pain COMPARISON: None available [...] PROCEDURES (ABNORMAL) Hemoglobin A1c (10/27/2018 8:57 AM LEAD SIMULATION MODELING ENGINEER) Analysis Performed At Patho logist Time Signature Hemoglobin A1C 6.5 (H) 4.0 - 5.6 10/27/2018 LUISA % A1C 1:45 PM [facility] Comment: Reference Range 4.0-5.6% [...] 10/27/2018 8:57 AM 10/27/19 19 1:19 Venous) LEAD SIMULATION MODELING ENGINEER PM LEAD SIMULATION MODELING ENGINEER Margie Mcmanus APRN, EMC STORAGE ARCHITECT LAB BLOOD ORDERABLES Performing Organization Address City/State/ZIP Code Phon e Number [facility] [address] [place] [address] CBC Branch Off w/Diff (10/27/2018 8:57 AM LEAD SIMULATION MODELING ENGINEER) P athologist Signature WBC 7.4 3.5 - 10.5 10/27/2018 [facility] K/uL 9:03 AM LEAD SIMULATION MODELING ENGINEER [place] RBC 4.83 3.90 - 10/27/2018 [facility] 5.00 M/uL 9:03 AM LEAD SIMULATION MODELING ENGINEER [place] Hemoglobin 14.6 12.0 - 10/27/2018 [facility] 15.5 g/dL 9:03 AM LEAD SIMULATION MODELING ENGINEER [place] Hematocrit 43.5 35.0 - 10/27/2018 [facility] 44.0 % 9:03 AM LEAD SIMULATION MODELING ENGINEER [place] Platelets 231 150 - 450 10/27/2018 [facility] K/uL 9:03 AM LEAD SIMULATION MODELING ENGINEER [place] MCV 90.1 81.6 - 10/27/2018 [facility] 98.3 fL 9:03 AM LEAD SIMULATION MODELING ENGINEER [place] MCH 30.2 26.0 - 10/27/2018 [facility] 32.0 pg 9:03 AM LEAD SIMULATION MODELING ENGINEER [place] MCHC 33.6 32.0 - 10/27/2018 [facility] 36.0 g/dL 9:03 AM LEAD SIMULATION MODELING ENGINEER [place] RDW 13.1 11.9 - 10/27/2018 [facility] 15.5 % 9:03 AM LEAD SIMULATION MODELING ENGINEER [place] Lymphocytes % 22.6 18.0 - 10/27/2018 [facility] 45.0 % 9:03 AM LEAD SIMULATION MODELING ENGINEER [place] Mid-size Cells 8.8 3.3 - 10.1 10/27/2018 [facility] % 9:03 AM LEAD SIMULATION MODELING ENGINEER [place] Granulocytes/Fabienne 68.6 45.8 - 10/27/2018 [facility] trophils 73.7 % 9:03 AM LEAD SIMULATION MODELING ENGINEER [place] Lymphocytes 1.7 0.9 - 2.9 10/27/2018 [facility] Absolute K/uL 9:03 AM LEAD SIMULATION MODELING ENGINEER [place] MIDS Absolute 0.7 0.2 - 0.8 10/27/2018 [facility] K/uL 9:03 AM LEAD SIMULATION MODELING ENGINEER [place] Granulocytes/Fabienne 5.0 2.1 - 8.7 10/27/2018 [facility] trophils K/uL 9:03 AM LEAD SIMULATION MODELING ENGINEER [place] Absolute Specimen Anatomical Collection Method Collection Time Receive d Time (Source) Location / / Volume Laterality Blood (Blood, 10/27/2018 8:57 AM 10/27/19 19 9:02 Venous) LEAD SIMULATION MODELING ENGINEER AM LEAD SIMULATION MODELING ENGINEER Margie Mcmanus APRN, EMC STORAGE ARCHITECT LAB BLOOD ORDERABLES Performing Organization Address City/State/ZIP Code Phon e Number [facility] [place] [address] [place] [address] (ABNORMAL) Lipid panel (10/27/2018 8:57 AM LEAD SIMULATION MODELING ENGINEER) athologist Signature Cholesterol 150 0 - 199 10/28/2018 [facility] mg/dL 1:52 PM [facility] Comment: Recommended by National Cholesterol Education Program (ATP III) -------- Cholesterol Ranges -------- <200 ? Desirable 200-239 ? Borderline high >=240 ? High Triglycerides 88 0 - 149 mg/dL 10/28/2018 1:52 PM [facility] Comment: -------- TRIG Ranges -------- <150 ?Normal 150-199 ? Borderline high 200-499 ? High >=500 ? Very high HDL 33 (A) 40 - 60 mg/dL 10/28/2018 1:52 PM [facility] Comment: -------- HDL Ranges -------- <40 ?Low 40-59 ?Normal >=60 ? Optimal LDL Calculated 99 0 - 99 mg/dL 10/28/2018 1:52 PM [facility] Comment: -------- LDL Ranges -------- <100 ? Optimal 100-129 ?Near optimal/above op timal 130-159 ?Borderline high 160-189 ?High >=190 ?Very high Fasting? Yes 10/27/2018 9:02 AM [facility] Specimen Anatomical Collection Method Collection Time Receive d Time (Source) Location / / Volume Laterality Blood (Blood, 10/27/2018 8:57 AM 10/28/19 19 Venous) LEAD SIMULATION MODELING ENGINEER 12:30 PM LEAD SIMULATION MODELING ENGINEER Margie Mcmanus APRN, EMC STORAGE ARCHITECT LAB BLOOD ORDERABLES Performing Organization Address City/State/ZIP Code Phon e Number [facility] [address] [place] [address] (ABNORMAL) Basic metabolic panel (10/27/2018 8:57 AM LEAD SIMULATION MODELING ENGINEER) P athologist Signature Sodium 147 (H) 135 - 145 10/27/2018 [facility] mmol/L 11:15 AM LEAD SIMULATION MODELING ENGINEER [place] Potassium 3.5 3.5 - 5.1 10/27/2018 [facility] mmol/L 11:15 AM [facility] [place] Comment: . Chloride 106 98 - 107 mmol/L 10/27/2018 11:15 AM [facility] [place] Comment: . CO2 31 (H) 22 - 29 mmol/L 10/27/2018 11:15 AM LEAD SIMULATION MODELING ENGINEER [place] Comment: . Creatinine 1.0 0.4 - 1.2 mg/dL 10/27/2018 11:15 AM [facility] [place] Comment: . BUN 16 5 - 25 mg/dL 10/27/2018 11:15 AM [facility] [place] Comment: . Glucose 138 (H) 70 - 100 mg/dL 10/27/2018 11:15 AM [facility] [place] LEAD SIMULATION MODELING ENGINEER Calcium, Total,S 9.6 8.4 - 10.2 mg/dL 10/27/2018 11:15 AM [facility] [place] LEAD SIMULATION MODELING ENGINEER Comment: . Specimen Anatomical Collection Method Collection Time Receive d Time (Source) Location / / Volume Laterality Blood (Blood, 10/27/2018 8:57 AM 10/27/19 19 9:02 Venous) LEAD SIMULATION MODELING ENGINEER AM LEAD SIMULATION MODELING ENGINEER Margie Mcmanus APRN, EMC STORAGE ARCHITECT LAB BLOOD ORDERABLES Performing Organization Address City/State/ZIP Code Phon e Number [facility] [place] [address] [place] [address] documented in this encounter Visit Diagnoses Diagnosis [...] mellitus documented in this encounter Care Teams Case Hardener Relationship Specialty Start Date End Date Margie Mcmanus APRN, EMC STORAGE ARCHITECT PCP - General 04/26/18 05/27/[address] [place] [address] [facility] [place] [address] documented as of this encounter
[2022-06-16 21:39] LABS: Free T4 Free Thyroxine* 1.14 ng/dL (0.70-1.85)
== END 2022-06-16 12:44 | disposition home or self-care (01) ==
LOC: KYNREF 12:45
PROVIDERS: PCP Nurse Practitioner Family; Visit Provider Nurse Practitioner Family
DX: M79.10 Myalgia, unspecified site (principal); M25.50 Pain in unspecified joint
CPT/HCPCS: 36415; 84439; 84443

== ENCOUNTER 2022-08-21 10:30 | Outpatient (CLI) | payer MEDICARE, BC, SELFPAY ==
--- OUTSIDE RECORDS SUMMARY | 2022-08-21 10:32 | XMS_ITS | Encounter Summary ---
:1950 Author Organization [facility] Address [address] [place] [address] Care Team Providers Name Role Phone Palak Cooley Jose NICOLEN, ENGINEERING ILLUSTRATOR Primary Care Provider Encounter Details Date Type Department Care Team Description 05/18/2022 Lab [place] [facility] [address] [place], [place] [address] Social History Tobacco Use Types Packs/Day Years Used Date Smoking Tobacco: Former Cigarettes 1 Quit : 1978 Smokeless Tobacco: Never Comments: Former smoker x one year at [...] more drinks on one Not asked occasion? Physical Activity Answer Date Recorded On average, [...] Sed Rate 26 0 - 29 05/19/2022 [facility] mm/hr 1:03 PM [facility] Specimen Anatomical Collection Method Collection Time Receive d Time (Source) Location / / Volume Laterality Blood (Blood, 05/18/2022 11:32 05/19/2022 Venous) AM CDT 12:20 PM CDT Chad Nava MD LAB BLOOD ORDERABLES Performing Organization Address City/State/ZIP Code Phon e Number [facility] [address] [place] [phone] (ABNORMAL) C-reactive protein (05/18/2022 11:32 AM CDT) athologist Signature CRP 14.4 (H) 0.0 - 4.9 05/19/2022 [facility] mg/L 1:34 PM [facility] Specimen Anatomical Collection Method Collection Time Receive d Time (Source) Location / / Volume Laterality Blood (Blood, 05/18/2022 11:32 05/19/2022 Venous) AM CDT 12:20 PM CDT Chad Nava MD LAB BLOOD ORDERABLES Performing Organization Address City/State/ZIP Code Phon e Number [facility] [address] [place] [address] (ABNORMAL) CBC Branch Off w/Diff (05/18/2022 11:32 AM CDT) Analysis Performed At Patho logist Time Signature WBC 10.5 3.5 - 10.5 05/18/2022 [facility] K/uL 12:49 PM CDT [place] RBC 4.78 3.90 - 05/18/2022 [facility] 5.00 M/uL 12:49 PM CDT [place] Hemoglobin 13.8 12.0 - 05/18/2022 [facility] 15.5 g/dL 12:49 PM CDT [place] Hematocrit 43.1 35.0 - 05/18/2022 [facility] 44.0 % 12:49 PM CDT [place] Platelets 288 150 - 450 05/18/2022 [facility] K/uL 12:49 PM CDT [place] MCV 90.2 81.6 - 05/18/2022 [facility] 98.3 fL 12:49 PM CDT [place] MCH 28.9 26.0 - 05/18/2022 [facility] 32.0 pg 12:49 PM CDT [place] MCHC 32.0 32.0 - 05/18/2022 [facility] 36.0 g/dL 12:49 PM CDT [place] RDW 12.9 11.9 - 05/18/2022 [facility] 15.5 % 12:49 PM CDT [place] Lymphocytes % 24.4 % 05/18/2022 [facility] 12:49 PM CDT [place] Mid-size Cells 4.0 % 05/18/2022 [facility] 12:49 PM CDT [place] Granulocytes/Fabienne 71.6 % 05/18/2022 [facility] trophils 12:49 PM CDT [place] Lymphocytes 2.6 0.9 - 2.9 05/18/2022 [facility] Absolute K/uL 12:49 PM CDT [place] MIDS Absolute 0.4 0.4 - 1.5 05/18/2022 [facility] K/uL 12:49 PM CDT [place] Granulocytes/Fabienne 7.5 (H) 1.7 - 7.0 05/18/2022 [facility] trophils K/uL 12:49 PM CDT [place] Absolute Specimen Anatomical Collection Method Collection Time Receive d Time (Source) Location / / Volume Laterality Blood 05/18/2022 11:32 05/18/2022 AM CDT 11:34 AM CDT Chad Nava MD LAB BLOOD ORDERABLES Performing Organization Address City/State/ZIP Code Phon e Number [facility] [place] [address] [place] [address] documented in this encounter Visit Diagnoses Diagnosis Polyarthralgia Pain in joint, multiple sites documented in this encounter Care Teams Manager Sterile Relationship Specialty Start Date End Date Palak Cooley APRN, ENGINEERING ILLUSTRATOR PCP - General 05/19/21 [address] [place] [address] documented as of this encounter
--- OUTSIDE RECORDS SUMMARY | 2022-08-21 10:32 | XMS_ITS | Encounter Summary ---
:1950 Author Organization [facility] Address [address] [place] [address] Care Team Providers Name Role Phone GonzalezModesto rojasmayte Garcia APRN, CNP Primary Care Provider Encounter Details Date Type Department Care Team Description 05/11/2022 Ancillary Procedure [place] [facility] [address] [facility] [address] [place], [place] [address] Social History Tobacco Use Types [...] on filedocumented in this encounter Care Teams Robotics Specialist Relationship Specialty Start Date End Date Palak Cooley, CLERICAL OFFICE WORKER, CLASSIFYING MACHINE OPERATOR PCP - General 05/19/21 [address] [place] [address] documented as of this encounter
--- OUTSIDE RECORDS SUMMARY | 2022-08-21 10:32 | XMS_ITS | Encounter Summary ---
:1950 Author Organization [facility] Address [address] [place] [address] Care Team Providers Name Role Phone GonzalezModesto rojasmayte Garcia APRN, CANDICE Primary Care Provider Encounter Details Date Type Department Care Team Description 05/11/2022 Ancillary Procedure [place] [place] [facility] [address] [facility] [address] [place], [place] [address] Social History Tobacco Use Types [...] on filedocumented in this encounter Care Teams Pin Setter Relationship Specialty Start Date End Date Palak Cooley, SPECTACLE TRUER, SUPERVISOR LOADING PCP - General 05/19/21 [facility] [address], [place] [address] documented as of this encounter
--- OUTSIDE RECORDS SUMMARY | 2022-08-21 10:32 | XMS_ITS | Encounter Summary ---
:1950 Author Organization [facility] Address [address] [place] [address] Care Team Providers Name Role Phone GonzalezPalak rojas Jose ALEGRIA, OLIVE GRADER Primary Care Provider Reason for Visit Reason Onset Date Comments Wants PMR labs 05/12/2022 Encounter Details Date Type Department Care Team Description 05/12/2022 Telephone [place] Chad Nava MD Wants PMR labs [address] [place], [place] [address] [place], [place] [phone] (Wo rk) Social History Tobacco Use Types [...] Signature WBC 10.5 3.5 - 10.5 05/18/2022 [facility] K/uL 12:49 PM CDT [place] RBC 4.78 3.90 - 05/18/2022 [facility] 5.00 M/uL 12:49 PM CDT [place] Hemoglobin 13.8 12.0 - 05/18/2022 [facility] 15.5 g/dL 12:49 PM CDT [place] Hematocrit 43.1 35.0 - 05/18/2022 [facility] 44.0 % 12:49 PM CDT [place] Platelets 288 150 - 450 05/18/2022 [facility] K/uL 12:49 PM CDT [place] MCV 90.2 81.6 - 05/18/2022 [facility] 98.3 fL 12:49 PM CDT [place] MCH 28.9 26.0 - 05/18/2022 [facility] 32.0 pg 12:49 PM CDT [place] MCHC 32.0 32.0 - 05/18/2022 [facility] 36.0 g/dL 12:49 PM CDT [place] RDW 12.9 11.9 - 05/18/2022 [facility] 15.5 % 12:49 PM CDT [place] Lymphocytes % 24.4 % 05/18/2022 [facility] 12:49 PM CDT [place] Mid-size Cells 4.0 % 05/18/2022 [facility] 12:49 PM CDT [place] Granulocytes/Fabienne 71.6 % 05/18/2022 [facility] trophils 12:49 PM CDT [place] Lymphocytes 2.6 0.9 - 2.9 05/18/2022 [facility] Absolute K/uL 12:49 PM CDT [place] MIDS Absolute 0.4 0.4 - 1.5 05/18/2022 [facility] K/uL 12:49 PM CDT [place] Granulocytes/Fabienne 7.5 (H) 1.7 - 7.0 05/18/2022 [facility] trophils K/uL 12:49 PM CDT [place] Absolute Specimen Anatomical Collection Method Collection Time Receive d Time (Source) Location / / Volume Laterality Blood 05/18/2022 11:32 05/18/2022 AM CDT 11:34 AM CDT Chad Nava MD LAB BLOOD ORDERABLES Performing Organization Address City/State/ZIP Code Phon e Number [facility] [place] [address] [place] [address] (ABNORMAL) C-reactive protein (05/18/2022 11:32 AM CDT) P athologist Signature CRP 14.4 (H) 0.0 - 4.9 05/19/2022 [facility] mg/L 1:34 PM CDT [facility] Specimen Anatomical Collection Method Collection Time Receive d Time (Source) Location / / Volume Laterality Blood (Blood, 05/18/2022 11:32 05/19/2022 Venous) AM CDT 12:20 PM CDT Chad Nava MD LAB BLOOD ORDERABLES Performing Organization Address City/State/ZIP Code Phon e Number [facility] [address] [place] [address] ESR-Sed rate (05/18/2022 11:32 AM CDT) P athologist Signature Sed Rate 26 0 - 29 05/19/2022 [facility] mm/hr 1:03 PM CDT [facility] Specimen Anatomical Collection Method Collection Time Receive d Time (Source) Location / / Volume Laterality Blood (Blood, 05/18/2022 11:32 05/19/2022 Venous) AM CDT 12:20 PM CDT Chad Nava MD LAB BLOOD ORDERABLES Performing Organization Address City/State/ZIP Code Phon e Number [facility] [address] [place] [id number] documented in this encounter Visit Diagnoses Diagnosis Polyarthralgia - Primary Pain in joint, multiple sites documented in this encounter Care Teams Metal Turner Relationship Specialty Start Date End Date Palak Cooley, STEAM TRAIN DRIVER, OLIVE GRADER PCP - General 05/19/[address] [place] [address] documented as of this encounter
--- OUTSIDE RECORDS SUMMARY | 2022-08-21 10:32 | XMS_ITS | Encounter Summary ---
:1950 Author Organization [facility] Address [address] [place] [address] Care Team Providers Name Role Phone GonzalezWarner rojasbreonna Garcia APRN, CNP Primary Care Provider Encounter Details Date Type Department Care Team Description 05/11/2022 Ancillary Procedure [place] [facility] [address] [facility] [address] [place], [place] [address] Social History Tobacco Use Types [...] on filedocumented in this encounter Care Teams Bituminous Paving Machine Operator Relationship Specialty Start Date End Date Palak Cooley, DIRECTOR CONSUMER, INTERNET RESEARCHER PCP - General 05/19/[address] [place] [address] documented as of this encounter
--- OUTSIDE RECORDS SUMMARY | 2022-08-21 10:32 | XMS_ITS | Encounter Summary ---
:1950 Author Organization [facility] Address [address] [place] [address] Care Team Providers Name Role Phone Palak Cooley Jose ALEGRIA, CANDICE Primary Care Provider Encounter Details Date Type Department Care Team Description 05/19/2022 Telephone [place] Chad Nava MD [address] [facility] [address] 1705 [facility] 20 [place], [place] [address] [place], [place] [phone] (Wo rk) Social History Tobacco Use Types [...] possible steroid side effects. She will come picking supervisor copies of her lab reports. I did [...] on filedocumented in this encounter Care Teams Pharmaceutical Sales Representative Relationship Specialty Start Date End Date Palak Cooley, TRACK DRESSER, NURSING SERVICES MANAGER PCP - General 05/19/[address] [place] [address] documented as of this encounter
--- OUTSIDE RECORDS SUMMARY | 2022-08-21 10:32 | XMS_ITS | Encounter Summary ---
:1950 Author Organization [facility] Address [address] [place] [address] Care Team Providers Name Role Phone GonzalezPalak rojas Jose ALEGRIA, OPERATIONS TECH Primary Care Provider Reason for Visit Reason Comments Pain Bilateral shoulders, hips, b ack Encounter Details Date Type Department Care Team Description 05/08/2022 Office Visit [place] Chad Nava, Neck stiffness (Primary Dx); [address] MD Chronic bilateral low back pain without sciatica; [place], [place] [address] Acute pain of both shoulders; [address] [place], [place] Posterior pain of right hip; [phone] Pain of both sacroiliac joints Social History [...] in these areas. Patient recently seen by primary care nurse practitioner here in [place]. Patient requesting imaging. Letter received and reviewed [...] joints documented in this encounter Care Teams Human Machine Interface Engineer Relationship Specialty Start Date End Date Palak Cooley, RAJI, OPERATIONS TECH PCP - General 05/19/21 [address] [place] [address] documented as of this encounter
--- OUTSIDE RECORDS SUMMARY | 2022-08-21 10:32 | XMS_ITS | Encounter Summary ---
:1950 Author Organization [facility] Address [address] [place] [address] Care Team Providers Name Role Phone GonzalezWarner rojasbreonna Garcia APRN, CNP Primary Care Provider Encounter Details Date Type Department Care Team Description 05/11/2022 Ancillary Procedure [facility] [address] [facility] [address] [place], [place] [address] Social History Tobacco Use Types [...] on filedocumented in this encounter Care Teams Systems Technician Relationship Specialty Start Date End Date Palak Cooley, NET ARCHITECT, CAR RECORD CLERK PCP - General 05/19/21 [address] [place] [address] documented as of this encounter
--- OUTSIDE RECORDS SUMMARY | 2022-08-21 10:32 | XMS_ITS | Clinical Summary ---
:1950 Author Organization [facility] Address [address] [place] [address] Care Team Providers Name Role Phone GonzalezWarner rojasbreonna Garcia APRN, CONTINUOUS CONVEYOR SCREEN DRIER Primary Care Provider Allergies No known active allergies Medications Medication Sig Dispensed Refills Start Date End Date Status aspirin 81 MG EC tablet Take 81 mg by 0 Active mouth 1 (one) time each day [place]-3 Fatty Acids (CVS Take 1,200 mg 0 [...] Mycelium, Shisandra tao, ginseng, rhodiola root, red arabic ginseng, ginseng root, eleuthero root) levothyroxine (Synthroid) [...] on weight loss and exercise. Taking horse [place] supplement and states this is helping. Body [...] without complications 07/20/2017 05/29/2021 Palpitations 07/16/2017 11/07/2020 Immunizations Name Administration Dates Next Due COVID-19, [...] 1 Quit : 1978 Smokeless Tobacco: Never Tobacco Cessation: Counseling Given: No Comments: Former [...] 1950 FIT-DNA 1950 Sigmoidoscopy 1950 iFOBT 1950 DTaP,Tdap,and Td Vaccines (1 1968 - Tdap) Zoster Vaccines (1 of 2) 1999 Glaucoma Screening 67+ Yr 11/08/2022 Postpo juana from 1950 (Caitlyn ent Refused) Fall Risk Performed 11/27/2022 11/27/2021 [facility] Annual Wellness 11/27/2022 11/27/2021 COVID-19 Vaccine Discontinued 12/13/2020, 11/22/2020 Colonoscopy Discontinued Colorectal Cancer Screening Discontinued HPV Vaccines Aged Out No longer eligib le based on patient's age to complete this to pic Mammogram Discontinued Pneumococcal Vaccine: 65+ Discontinued Years Insurance Payer Benefit Plan / Subscriber ID Effective Dates Phone Addre ss Type Group MEDICARE MEDICARE [id number] 2020-Roxy [address] [place] [id number] BCBS OF BC[employer] [place] [employer] [id number] 2020-Roxy [address] [place] [address] [place], [place] MEDICARE NON [id number] ADVANTAGE Care Teams Implant Polisher Relationship Specialty Start Date End Date Palak Cooley, ENTERPRISE SOLUTIONS ARCHITECT, CONTINUOUS CONVEYOR SCREEN DRIER PCP - General 05/19/[address] [place] [address]
--- OUTSIDE RECORDS SUMMARY | 2022-08-21 10:32 | XMS_ITS | Encounter Summary ---
:1950 Author Organization [facility] Address [address] [place] [address] Care Team Providers Name Role Phone GonzalezModesto rojasmayte Garcia APRN, CANDICE Primary Care Provider Encounter Details Date Type Department Care Team Description 05/11/2022 Ancillary Procedure [place] [facility] [address] [facility] [place], [place] [address] Social History Tobacco Use Types [...] on filedocumented in this encounter Care Teams Gas Welding Machine Operator Relationship Specialty Start Date End Date Palak Cooley, ASSISTANT HOUSEKEEPING MANAGER, SKIVER BLOCKERS PCP - General 05/19/21 [place] [address] documented as of this encounter
--- OUTSIDE RECORDS SUMMARY | 2022-08-21 10:33 | XMS_ITS | Encounter Summary ---
:1950 Author Organization [facility] Address [address] [place] [address] Care Team Providers Name Role Phone Palak Cooley APRN, SHEETMETAL WORKER Primary Care Provider Reason for Visit Reason Onset Date Comments Levothyroxine refill 10/29/2021 Encounter Details Date Type Department Care Team Description 10/29/2021 Telephone [place] Palak Cooley APRN, Levothyroxine refill [address] [place], [place] [address] [address] [facility] [phone] [place], [place] [address] (Wo rk) Social History Tobacco Use Types Packs/Day Years Used Date Smoking Tobacco: Former Cigarettes 1 Smokeless Tobacco: Never Comments: Former smoker x [...] LPN - 11/19/2021 3:42 PM CST noted SCALE WORKER Telephone Encounter - Karena Maddox - 11/19/2021 3:32 PM CST Thyroid lab scheduled for Wednesday11/24/21. Thyroid review with Fredy Cooley scheduled for 11/27/21. SCALE WORKER Telephone Encounter - Karena Maddox - 11/18/2021 9:09 AM CST Left message requesting med review with lab work. SCALE WORKER Telephone Encounter - Palak Cooley APRN, CNP - 10/29/2021 11:08 AM CST Needs recheck tsh non fasting for more refills. Sent #[phone] to [facility]. Lab ordered to start 10/31/21. Need appt with provider after for tsh review/bp recheck. SCALE WORKER Telephone Encounter - Karena Maddox - 10/29/2021 10:52 AM CST Pt called stating she realized she only has 5 pills of her Levothyroxine remaining and the bottle states no refills. Pt is needing this refilled. Pt uses [facility] pharmacy. Please call Pt at [phone] to advise. 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 [address] documented as of this encounter
--- OUTSIDE RECORDS SUMMARY | 2022-08-21 10:33 | XMS_ITS | Encounter Summary ---
:1950 Author Organization [facility] Address [address] [place] [address] Care Team Providers Name Role Phone GonzalezWarner rojasbreonna Garcia APRN, OIL FIELD WORKER Primary Care Provider Encounter Details Date Type Department Care Team Description 03/04/2022 Lab [place] Essential (primary) hyperten harmony; [address] Mixed hyperlipidemia [place], [place] [address] Social History Tobacco Use [...] filtration rate (GFR) (03/04/2022 11:09 AM CDT) P athologist Signature GFR >60 03/05/2022 [facility] 1:54 PM CDT [facility] >60 03/05/2022 [facility] [place] GFR 1:54 PM T [facility]ENTER [facility] Comment: [...] Organization Address City/State/ZIP Code Phon e Number [facility] [address] [place] [address] (ABNORMAL) Hemoglobin A1c (03/04/2022 11:09 AM CDT) Analysis Performed At Patho logist Time Signature Hemoglobin A1C 6.1 (H) 4.0 - 5.6 03/05/2022 [facility] % A1C 12:57 PM CDT MEDICAL CENTER [...] Organization Address City/State/ZIP Code Phon e Number [facility] [address] [place] [address] (ABNORMAL) Lipid panel (03/04/2022 11:09 AM CDT) athologist Signature Cholesterol 183 0 - 199 03/05/2022 [facility] mg/dL 1:54 PM [facility] Comment: Recommended by National Cholesterol Education Program (ATP III) -------- Cholesterol Ranges -------- <200 ?Desirable 200-239 ? Borderline high >=240 ? High Triglycerides 96 0 - 149 mg/dL 03/05/2022 1:54 PM CDT [facility] Comment: -------- TRIG Ranges -------- <150 ?Normal 150-199 ? Borderline high 200-499 ? High >=500 ? Very high HDL 44 40 - 250 mg/dL 03/05/2022 1:54 PM CDT [facility] Comment: -------- HDL Ranges -------- <40 ?Low 40-59 ?Normal >=60 ? Optimal LDL Calculated 120 (H) 0 - 99 mg/dL 03/05/2022 1:54 PM T [facility] Comment: -------- LDL Ranges -------- <100 ? Optimal 100-129 ?Near optimal/above op timal 130-159 ?Borderline high 160-189 ?High >=190 ?Very high Specimen Anatomical Collection Method Collection Time Receive d Time (Source) Location / / Volume Laterality Blood 03/04/2022 11:09 03/05/2022 AM CDT 12:19 PM CDT Palak Jose Cooley SILK WASHING MACHINE OPERATOR, OIL FIELD WORKER LAB BLOOD ORDERABLES Performing Organization Address City/State/ZIP Code Phon e Number [facility] [address] [place] [address] (ABNORMAL) Comprehensive metabolic panel (03/04/2022 11:09 AM CDT) [facility] Method Time Signature Total Protein 6.7 6.3 - 8.2 03/05/2022 [place] g/dL 1:54 PM [facility] Albumin, Serum 4.1 3.5 - 5.0 03/05/2022 [place] g/dL 1:54 PM [facility] Total Bilirubin 0.8 0.1 - 1.0 03/05/2022 [place] mg/dL 1:54 PM [facility] AST 18 8 - 43 U/L 03/05/2022 [place] 1:54 PM [facility] Alkaline 77 38 - 128 03/05/2022 [place] Phosphatase U/L 1:54 PM [facility] ALT (SGPT) 16 0 - 34 U/L 03/05/2022 [place] 1:54 PM [facility] Sodium 139 135 - 145 03/05/2022 [place] mEq/L 1:54 PM [facility] Potassium 4.5 3.5 - 5.1 03/05/2022 [place] mEq/L 1:54 PM [facility] Chloride 106 98 - 107 03/05/2022 [place] mEq/L 1:54 PM [facility] CO2 30 (H) 22 - 29 03/05/2022 [place] mmol/L 1:54 PM [facility] BUN 15 5 - 25 03/05/2022 [place] mg/dL 1:54 PM [facility] Creatinine 0.9 0.4 - 1.2 03/05/2022 [place] mg/dL 1:54 PM [facility] Glucose 123 (H) 70 - 100 03/05/2022 [place] mg/dL 1:54 PM [facility] Calcium, Total,S 9.3 8.4 - 10.2 03/05/2022 [place] mg/dL 1:54 PM [facility] Fasting? Yes 03/04/2022 [facility] 11:13 AM [facility] Specimen Anatomical Collection Method Collection Time Receive d Time (Source) Location / / Volume Laterality Blood 03/04/2022 11:09 03/05/2022 AM CDT 12:19 PM CDT Palak Cooley APRN, CNP LAB BLOOD ORDERABLES Performing Organization Address City/State/ZIP Code Phon e Number [facility] [address] [place] [address] documented in this encounter Visit Diagnoses Diagnosis Essential (primary) hypertension Unspecified essential hypertension Mixed hyperlipidemia documented in this encounter Care Teams Jet Mechanic Relationship Specialty Start Date End Date Palak Cooley APRN, CNP PCP - General 05/19/[address] [place] [address] documented as of this encounter
--- OUTSIDE RECORDS SUMMARY | 2022-08-21 10:33 | XMS_ITS | Encounter Summary ---
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 Generalized edema; [address] [place], [place] Mixed hyperlipidemia; [phone] [address] Primary osteoarthritis of both knees Social History [...] Comments Blood Pressure 110/72 11/27/2021 10:26 AM PLATE WORKER HELPER Pulse 60 11/27/2021 10:26 AM PLATE WORKER HELPER Temperature 36 ??C (96.8 ??F) 11/27/2021 10:26 AM PLATE WORKER HELPER Respiratory Rate 14 11/27/2021 10:26 AM PLATE WORKER HELPER Oxygen Saturation 98% 11/27/2021 10:26 AM PLATE WORKER HELPER Inhaled Oxygen Concentration - - Weight 96.6 kg (213 lb) 11/27/2021 10:26 AM PLATE WORKER HELPER Height 159 cm (5' 2.6) 11/27/2021 10:26 AM PLATE WORKER HELPER Body Mass Index 38.22 11/27/2021 10:26 AM PLATE WORKER HELPER documented in this encounter Patient Instructions Patient [...] pain. Fasting labs in the near future. E WORKER HELPER documented in this encounter Progress Notes Palak Cooley APRN, CNP - 11/27/2021 10:20 AM CST Subjective Patient ID: Rina Fisher is a 71 y.o. female. Chief Complaint Patient presents with ??? Thyroid review HPI The patient presents to the [facility] for follow up of hypothyroidism. She is taking her thyroid medication as prescribed in the AM. Her thyroid levels were reviewed and stable today. Since we held the hydrochlorothiazide from the last visit per patient her hands and legs appeared more puffy. She also feels achy knees. Patient and her plans to go to [place] this month for vacation. They will drive to [facility]. She denies alcohol use or smoking. [...] Mycelium, Shisandra tao, ginseng, rhodiola root, red sierra leonean ginseng, ginseng root, eleuthero root), Disp: , Rfl: ??? [place]-3 Fatty Acids ([facility] FISH OIL) 1200 MG [...] pain. Fasting labs in the near future. E WORKER HELPER Yesi Yee - 11/27/2021 10:20 AM CST [...] Left message requesting lab appt for A1C. Karnea Maddox - 11/27/2021 10:20 AM CST Left [...] Comprehensive metabolic panel (03/04/2022 11:09 AM CDT) [facility] Time Signature Total Protein 6.7 6.3 - 8.2 03/05/2022 [place] g/dL 1:54 PM [facility] Albumin, Serum 4.1 3.5 - 5.0 03/05/2022 [place] g/dL 1:54 PM [facility] Total Bilirubin 0.8 0.1 - 1.0 03/05/2022 [place] mg/dL 1:54 PM [facility] AST 18 8 - 43 U/L 03/05/2022 [place] 1:54 PM [facility] Alkaline 77 38 - 128 03/05/2022 [place] Phosphatase U/L 1:54 PM [facility] ALT (SGPT) 16 0 - 34 U/L 03/05/2022 [place] 1:54 PM [facility] Sodium 139 135 - 145 03/05/2022 [place] mEq/L 1:54 PM [facility] Potassium 4.5 3.5 - 5.1 03/05/2022 [place] mEq/L 1:54 PM [facility] Chloride 106 98 - 107 03/05/2022 [place] mEq/L 1:54 PM [facility] CO2 30 (H) 22 - 29 03/05/2022 [place] mmol/L 1:54 PM [facility] BUN 15 5 - 25 03/05/2022 [place] mg/dL 1:54 PM [facility] Creatinine 0.9 0.4 - 1.2 03/05/2022 [place] mg/dL 1:54 PM [facility] Glucose 123 (H) 70 - 100 03/05/2022 [place] mg/dL 1:54 PM [facility] Calcium, Total,S 9.3 8.4 - 10.2 03/05/2022 [place] mg/dL 1:54 PM [facility] Fasting? Yes 03/04/2022 [place] 11:13 AM [facility] Specimen Anatomical Collection Method Collection Time Receive d Time (Source) Location / / Volume Laterality Blood 03/04/2022 11:09 03/05/2022 AM CDT 12:19 PM CDT Palak Cooley APRN, CNP LAB BLOOD ORDERABLES Performing Organization Address City/State/ZIP Code Phon e Number [facility] [address] [place] [address] (ABNORMAL) Lipid panel (03/04/2022 11:09 AM CDT) athologist Signature Cholesterol 183 0 - 199 03/05/2022 [facility] [facility] mg/dL 1:54 PM [facility] Comment: Recommended by National Cholesterol Education Program (ATP III) -------- Cholesterol Ranges -------- <200 ?Desirable 200-239 ? Borderline high >=240 ? High Triglycerides 96 0 - 149 mg/dL 03/05/2022 1:54 PM CDT [facility] Comment: -------- TRIG Ranges -------- <150 ?Normal 150-199 ? Borderline high 200-499 ? High >=500 ? Very high HDL 44 40 - 250 mg/dL 03/05/2022 1:[address] [facility] Comment: -------- HDL Ranges -------- <40 ?Low 40-59 ?Normal >=60 ? Optimal LDL Calculated 120 (H) 0 - 99 mg/dL 03/05/2022 1:54 PM T [facility] Comment: -------- LDL Ranges -------- <100 ? Optimal 100-129 ?Near optimal/above op timal 130-159 ?Borderline high 160-189 ?High >=190 ?Very high Specimen Anatomical Collection Method Collection Time Receive d Time (Source) Location / / Volume Laterality Blood 03/04/2022 11:09 03/05/2022 AM CDT 12:19 PM CDT Palak Cooley APRN, HAND SEWER SHOES LAB BLOOD ORDERABLES Performing Organization Address City/State/ZIP Code Phon e Number [facility] [address] [place] [address] (ABNORMAL) Hemoglobin A1c (03/04/2022 11:09 AM CDT) Analysis Performed At Patho logist Time Signature Hemoglobin A1C 6.1 (H) 4.0 - 5.6 03/05/2022 [place] % A1C 12:57 PM [facility] Comment: Reference Range 4.0-5.6% [...] Organization Address City/State/ZIP Code Phon e Number [facility] [address] [place] [address] documented in this encounter Visit Diagnoses Diagnosis 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 [place], [place] [address] documented as of this encounter
--- OUTSIDE RECORDS SUMMARY | 2022-08-21 10:33 | XMS_ITS | Encounter Summary ---
:[address] [facility] Address [address] [place] [address] Care Team Providers Name Role Phone None, Pcp Primary Care Provider Unavailable Reason for Visit Reason Onset Date Comments return call 11/27/2020 Encounter Details Date Type Department Care Team Description 11/27/2020 Telephone [place] Palak Cooley, BOW MAKER, TORCH BRAZER return call [address] [place], [place] [address] [place] [address] [phone] (Wo rk) Social History Tobacco Use Types [...] 11/27/2020 1:04 PM CST See other notes DER OPERATOR Telephone Encounter - Margret Romano - 11/27/2020 10:32 AM CST Patient called back in regards to lab tests. She had received a call. Please call her again. (no nurse available) DER OPERATOR documented in this encounter Plan of Treatment Not on filedocumented as of this encounter Visit Diagnoses Not on filedocumented in this encounter Care Teams Stevedore Dock Relationship Specialty Start Date End Date None, Pcp PCP - General Sas Clinical Programmer 11/06/20 05/18/21 [address] [place] [address] documented as of this encounter
--- OUTSIDE RECORDS SUMMARY | 2022-08-21 10:33 | XMS_ITS | Encounter Summary ---
:1950 Author Organization [facility] Address [address] [place] [address] Care Team Providers Name Role Phone Palak Cooley APRN, CNP Primary Care Provider Encounter Details Date Type Department Care Team Description 05/29/2021 Lab [place] Prediabetes; [address] Elevated TSH [place], [place] [address] Social History Tobacco [...] 05/29/2021 10:15 AM CDT Letter routed to [facility] to print and mail to patient per [...] Urine 252 mg/dL 05/30/2021 2:21 PM CDT [facility] Comment: No established reference range. Microalb/Creat Ratio 4 0 - 24 mg/g 05/30/2021 2:2 1 PM CDT [facility] Specimen Anatomical Collection Method Collection Time Receive d Time (Source) Location / / Volume Laterality Urine 05/29/2021 11:54 05/30/2021 AM CDT 12:49 PM CDT Palak Cooley APRN, CNP LAB URINE ORDERABLES Performing Organization Address City/State/ZIP Code Phon e Number [facility] [address] [place] [address] T4, free (05/29/2021 11:45 AM CDT) P athologist Signature Free T4 0.79 0.78 - 2.19 05/30/2021 [facility] ng/dL 5:04 PM CDT CENTER LABORATORY [...] Address City/State/ZIP Code Phon e Number [facility] [address] [place] [address] (ABNORMAL) Thyroperoxidase (TPO) Ab (05/29/2021 11:45 AM CDT) Patholo gist Method Time Signature Thyroid 245.3 (H) <9.0 06/02/2021 [facility] Peroxidase IU/mL 1:53 PM CDT LABORATORIES (TPO) Ab Comment: Test Performed by: [facility] [address] [address] Computer Systems Software Engineer: Graham Beach M.D. Ph. D.; CLIA# [id number] Specimen Anatomical Collection Method Collection Time Receive d Time (Source) Location / / Volume Laterality 05/29/2021 11:45 05/30/2021 8:16 AM CDT PM CDT Palak Cooley APRN, CNP LAB BLOOD ORDERABLES Performing Organization Address City/State/ZIP Code Phon e Number [facility] see result attachment for specific address Fasting ? (05/29/2021 11:45 AM CDT) athologist Signature Fasting? Yes 05/29/2021 [facility] 12:09 PM CDT [place] Specimen Anatomical Collection Method Collection Time Receive d Time (Source) Location / / Volume Laterality 05/29/2021 11:45 05/29/2021 AM CDT 11:45 AM CDT Palak Cooley APRN, CITIZENSHIP TEACHER LAB BLOOD ORDERABLES Performing Organization Address City/[facility]/ZIP Code Phon e Number [facility] [place] [address] [place] [address] (ABNORMAL) Thyroid Function [place] (05/29/2021 11:45 AM CDT) Analysis Performed At [facility] Signature TSH, Sensitive 8.50 (H) 0.46 - 05/30/2021 [place] 4.68 mIU/L 2:39 PM CDT [facility] Comment: The results from this or [...] CDT 12:56 PM CDT Palak Cooley APRN, CITIZENSHIP TEACHER LAB BLOOD ORDERABLES Performing Organization Address City/State/ZIP Code Phon e Number [facility] [address] [place] [address] (ABNORMAL) Hemoglobin A1c (05/29/2021 11:45 AM CDT) Analysis [facility] Time Signature Hemoglobin A1C 5.8 (H) 4.0 - 5.6 05/30/2021 [place] % A1C 3:15 PM CDT MEDICAL CENTER [...] Address City/State/ZIP Code Phon e Number [facility] [address] [place] [address] (ABNORMAL) HemoCue glucose (05/29/2021 11:45 AM CDT) athologist Signature Glucose, Bld 111 (H) 70 - 100 05/29/2021 [facility] mg/dL 12:10 PM CDT [place] Comment: . Specimen Anatomical Collection Method Collection Time Receive d Time (Source) Location / / Volume Laterality Blood 05/29/2021 11:45 05/29/2021 AM CDT 12:09 PM CDT Palak Cooley APRN, CNP LAB BLOOD ORDERABLES Performing Organization Address City/[facility]/ZIP Code Phon e Number [facility] [address] [place] [address] documented in this encounter Visit Diagnoses Diagnosis Prediabetes Other abnormal glucose Elevated TSH Other abnormal blood chemistry documented in this encounter Care Teams Zigzag Stitcher Relationship Specialty Start Date End Date Palak Cooley APRN, CNP PCP - General 05/19/[address] [place] [address] documented as of this encounter
--- OUTSIDE RECORDS SUMMARY | 2022-08-21 10:33 | XMS_ITS | Encounter Summary ---
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); [address] CANDICE ALEGRIA Essential (primary) hypertension [place], [place] [address] [place] [address] [place], [place] [phone] Social History Tobacco Use Types Packs/Day Years [...] Comments Blood Pressure 112/60 07/31/2021 1:44 PM HEATING AND COOLING TECHNICIAN Pulse 67 07/31/2021 1:03 PM HEATING AND COOLING TECHNICIAN Temperature 36.1 ??C (96.9 ??F) 07/31/2021 1:03 PM HEATING AND COOLING TECHNICIAN Respiratory Rate 16 07/31/2021 1:03 PM HEATING AND COOLING TECHNICIAN Oxygen Saturation 98% 07/31/2021 1:03 PM HEATING AND COOLING TECHNICIAN Inhaled Oxygen Concentration - - Weight 92.5 kg (204 lb) 07/31/2021 1:03 PM HEATING AND COOLING TECHNICIAN Height - - Body Mass Index 37.31 05/29/2021 10:59 AM CDT documented in this encounter Patient Instructions Patient InstructionsPalak Cooley APRN, CNP - 07/31/2021 1:00 PM CST Refill synthroid 75mcg daily x3mons revisit; wt changes, recheck tsh hydrochlorothiazide water pill cut in half x5 days then stop Come check bp in about 2-3weeks nurse visit. ING AND COOLING TECHNICIAN documented in this encounter Progress Notes Palak Cooley APRN, CNP - 07/31/2021 1:00 PM CST Subjective Patient ID: Rina Fisher is a 70 y.o. female. Chief Complaint Patient presents with ??? Follow-up 2 weeks HPI The patient presents to the [place] [facility] for follow-up, recently diagnosed hypothyroidism dueto Param's [...] Mycelium, Shisandra tao, ginseng, rhodiola root, red belarusian ginseng, ginseng root, eleuthero root), Disp: , Rfl: ??? [place]-3 Fatty Acids ([facility] FISH OIL) 1200 MG [...] bp in about 2-3weeks nurse visit. ING AND COOLING TECHNICIAN documented in this encounter Plan of Treatment Not on filedocumented as of this encounter Results TSH (11/24/2021 11:01 AM HEATING AND COOLING TECHNICIAN) athologist Signature TSH, Sensitive 3.10 0.46 - 11/25/2021 [facility] MEDICA L 4.68 mIU/L 2:30 PM HEATING AND COOLING TECHNICIAN [facility] Comment: The results from [...] Volume Laterality Blood 11/24/2021 11:01 11/25/2021 AM HEATING AND COOLING TECHNICIAN 12:53 PM HEATING AND COOLING TECHNICIAN Palak Cooley APRN, CNP LAB BLOOD ORDERABLES Performing Organization Address City/State/ZIP Code Phon e Number [facility] [address] [place] [address] documented in this encounter Visit Diagnoses Diagnosis 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 [address] documented as of this encounter
--- OUTSIDE RECORDS SUMMARY | 2022-08-21 10:33 | XMS_ITS | Encounter Summary ---
:1950 Author Organization [facility] Address [address] [place] [address] Care Team Providers Name Role Phone None, Pcp Primary Care Provider Unavailable Reason for Visit Reason Comments Hearing Loss 5+ years Tinnitus 5+ years Consultation (Routine) - Closed Specialty Diagnoses / Procedures Referred By Contact Refer red To Contact Audiology Diagnoses Presbycusis of both ears Palak Cooley, APPRENTICE STYLIST, ASSEMBLER ARRANGER Audiology [address] [place] [address] [place] [address] [place] [address] Fax: Referral ID Status Reason Start Date Expiration Date Visits V isits Requested Authorized [id number] Closed Specialty 11/07/2020 11/07/2021 1 1 Services Required Encounter Details Date Type Department Care Team Description 12/10/2020 Office Visit Audiology Batsheva Zambrano, Sensorineural hearing loss ( SNHL) of both ears (Primary Dx); [address] [place] [address] Au.D. Tinnitus of both ears [address] [phone] [place] [phone] Social History Tobacco Use Types Packs/Day Years [...] Name Type Priority Associated Diagnoses Order S [facility] Ambulatory referral Outpatient Referral Routine Presbycusis of both Ordered: to Audiology ears 11/07/2020 documented as of this encounter Visit Diagnoses Diagnosis Sensorineural hearing loss (SNHL) of bot h ears - Primary Tinnitus of both ears Unspecified tinnitus documented in this encounter Care Teams Food And Nutrition Services Assistant Relationship Specialty Start Date End Date None, Pcp PCP - General Unit Aide 11/06/20 05/18/21 210 [place] [address] documented as of this encounter
--- OUTSIDE RECORDS SUMMARY | 2022-08-21 10:33 | XMS_ITS | Encounter Summary ---
:[address] [facility] Address [address] [place] [address] Care Team Providers Name Role Phone None, [...] Comments Blood Pressure 138/76 11/07/2020 9:25 AM GARAGE DOOR HANGER Pulse 84 11/07/2020 9:25 AM GARAGE DOOR HANGER Temperature 35.6 ??C (96.1 ??F) 11/07/2020 9:25 AM GARAGE DOOR HANGER Respiratory Rate 14 11/07/2020 9:25 AM GARAGE DOOR HANGER Oxygen Saturation 99% 11/07/2020 9:25 AM GARAGE DOOR HANGER Inhaled Oxygen Concentration - - Weight 106 kg (233 lb) 11/07/2020 9:25 AM GARAGE DOOR HANGER Height 157.5 cm (5' 2.01) 11/07/2020 9:25 AM GARAGE DOOR HANGER Body Mass Index 42.61 11/07/2020 9:25 AM GARAGE DOOR HANGER documented in this encounter Progress Notes Asmita Yun LPN - 11/07/2020 11:20 AM CST Annual Wellness Visit CARE TEAM / RESOURCES: Patient Care Team: Pcp None as PCP - General (Tool And Production Planner) Eye Care: [facility] Dental Care: NONE at this time Pharmacy: [facility] [address] [address] Other: Visit Vitals BP 138/76 (BP Location: [...] (one) time each day No Iron ??? [place]-3 Fatty Acids ([facility] FISH OIL) 1200 MG [...] college, no degree Occupational History ??? 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 Social Needs ??? Financial resource strain: [...] on phone: None Gets together: None Attends restoration service: None Active member of club or [...] transfusion before 1991. ?? Those born between [birth year]-1742. Glaucoma: Medicare Part B (Medical Insurance) covers [...] of one pack a dayfor 30 years). GE DOOR HANGER documented in this encounter Plan of Treatment Not on filedocumented as of this encounter Visit Diagnoses Diagnosis Medicare annual wellness visit, initial documented in this encounter Care Teams Associate Engineer Relationship Specialty Start Date End Date None, Pcp PCP - General Tool And Production Planner 11/06/20 05/18/21 [address] [place] [address] documented as of this encounter
--- OUTSIDE RECORDS SUMMARY | 2022-08-21 10:33 | XMS_ITS | Encounter Summary ---
:[address] [facility] Address [address] [place] [address] Care Team Providers Name Role Phone GonzalezPalak rojas Jose NICOLEN, COMMUNICATIONS TOWER TECHNICIAN Primary Care Provider Reason for Visit Reason Comments Facial Injury 2 weeks ago nasal injury, pa in radiating to left eye and ear Encounter Details Date Type Department Care Team Description 10/13/2021 Office Visit [place] Chad Nava, Nose injury, initial [address] MD encounter (Primary Dx) [place], [place] [address] [facility] [address] [place], [place] [phone] Social History Tobacco Use Types Packs/Day Years [...] Comments Blood Pressure 130/72 10/13/2021 2:57 PM FUNCTIONAL MENTAL DISABILITY TEACHER Pulse 68 10/13/2021 2:57 PM FUNCTIONAL MENTAL DISABILITY TEACHER Temperature 36.3 ??C (97.3 ??F) 10/13/2021 2:57 PM FUNCTIONAL MENTAL DISABILITY TEACHER Respiratory Rate 14 10/13/2021 2:57 PM FUNCTIONAL MENTAL DISABILITY TEACHER Oxygen Saturation 95% 10/13/2021 2:57 PM FUNCTIONAL MENTAL DISABILITY TEACHER Inhaled Oxygen Concentration - - Weight 95.4 kg (210 lb 6.4 oz) 10/13/2021 2:57 PM FUNCTIONAL MENTAL DISABILITY TEACHER Height 159 cm (5' 2.6) 10/13/2021 2:57 PM FUNCTIONAL MENTAL DISABILITY TEACHER Body Mass Index 37.75 10/13/2021 2:57 PM FUNCTIONAL MENTAL DISABILITY TEACHER documented in this encounter Patient Instructions Patient InstructionsCharjuan Nava MD - 10/13/2021 3:00 PM CST If persisting or worsening let me know. Continue warm or ice compresses and ibuprofen. TIONAL MENTAL DISABILITY TEACHER documented in this encounter Progress Notes Chad [...] Mycelium, Shisandra tao, ginseng, rhodiola root, red malaysian ginseng, ginseng root, eleuthero root) ??? UNABLE [...] improve. Note created using voice dictation software. TIONAL MENTAL DISABILITY TEACHER documented in this encounter Plan of Treatment Not on filedocumented as of this encounter Visit Diagnoses Diagnosis Nose injury, initial encounter - Primary documented in this encounter Care Teams Electroencephalographic Technologist Relationship Specialty Start Date End Date Palak Cooley, RAJI, COMMUNICATIONS TOWER TECHNICIAN PCP - General 05/19/21 [address], [place] [address] documented as of this encounter
--- OUTSIDE RECORDS SUMMARY | 2022-08-21 10:33 | XMS_ITS | Encounter Summary ---
:1950 Author Organization [facility] Address [address] [place] [address] Care Team Providers Name Role Phone GonzalezWarner rojasbreonna Garcia APRN, MASKING MACHINE FEEDER Primary Care Provider Reason for Visit Reason Comments Blood Pressure Check Encounter Details Date Type Department Care Team Description 09/10/2021 Clinical Support [place] [address] [place], [place] [address] Social History Tobacco Use [...] Comments Blood Pressure 123/72 09/10/2021 2:39 PM PRECISION AGRICULTURE SPECIALIST Pulse 70 09/10/2021 2:39 PM PRECISION AGRICULTURE SPECIALIST Temperature - - Respiratory Rate - - Oxygen Saturation - - Inhaled Oxygen Concentration - - Weight - - Height - - Body Mass Index - - documented in this encounter Plan of Treatment Not on filedocumented as of this encounter Visit Diagnoses Not on filedocumented in this encounter Care Teams Press Clipper Relationship Specialty Start Date End Date Palak Cooley APRN, MASKING MACHINE FEEDER PCP - General 05/19/21 [address] [place] [address] documented as of this encounter
--- OUTSIDE RECORDS SUMMARY | 2022-08-21 10:33 | XMS_ITS | Encounter Summary ---
:1950 Author Organization [facility] Address [address] [place] [address] Care Team Providers Name Role Phone Palak Cooley APRN, CANDICE Primary Care Provider Reason for Visit Reason Comments Medication Visit Encounter Details Date Type Department Care Team Description 05/29/2021 Office Visit [place] Palak Cooley, Essential (primary) hyperten harmony (Primary Dx); [address] CANDICE ALEGRIA Prediabetes; [place], [place] [address] [facility] [address] Primary osteoarthritis of both knees; [address] [place], [place] Mixed hyperlipidemia [phone] Social History Tobacco Use Types Packs/Day Years [...] Visit HPI The patient presents to the [facility] for medication/lab visit. She is doing well [...] Mycelium, Shisandra tao, ginseng, rhodiola root, red danish ginseng, ginseng root, eleuthero root), Disp: , Rfl: ??? [place]-3 Fatty Acids ([facility]S FISH OIL) 1200 MG [...] Signature Microalbumin,m 11.3 0.0 - 16.6 05/30/2021 [facility] g/day mg/L 2:17 PM CDT [facility] Comment: . Creatinine, Urine 252 mg/dL 05/30/2021 2:21 PM CDT [facility] Comment: No established reference range. Microalb/Creat Ratio 4 0 - 24 mg/g 05/30/2021 2:2 1 PM CDT [facility] Specimen Anatomical Collection Method Collection Time Receive d Time (Source) Location / / Volume Laterality Urine 05/29/2021 11:54 05/30/2021 AM CDT 12:49 PM CDT Palak Cooley APRN, CNP LAB URINE ORDERABLES Performing Organization Address City/State/ZIP Code Phon e Number [facility] [address] [place] [address] (ABNORMAL) HemoCue glucose (05/29/2021 11:45 AM CDT) P athologist Signature Glucose, Bld 111 (H) 70 - 100 05/29/2021 [facility] mg/[facility] 12:10 PM CDT [place] Comment: . Specimen Anatomical Collection Method Collection Time Receive d Time (Source) Location / / Volume Laterality Blood 05/29/2021 11:45 05/29/2021 AM CDT 12:09 PM CDT Palak Cooley APRN, CNP LAB BLOOD ORDERABLES Performing Organization Address City/State/ZIP Code Phon e Number [facility] [place] [address] [place] [address] (ABNORMAL) Hemoglobin A1c (05/29/2021 11:45 AM CDT) Analysis Performed At Patho logist Time Signature Hemoglobin A1C 5.8 (H) 4.0 - 5.6 05/30/2021 [place] % A1C 3:15 PM CDT [facility]ENTER [...] Organization Address City/State/ZIP Code Phon e Number [facility] [address] [place] [address] documented in this encounter Visit Diagnoses Diagnosis Essential (primary) hypertension - Prima ry Unspecified essential hypertension Prediabetes Other abnormal glucose Primary osteoarthritis of both knees Mixed hyperlipidemia documented in this encounter Care Teams Director Of Field Coordination Relationship Specialty Start Date End Date Palak Cooley APRN, CNP PCP - General 05/19/[address] [place] [address] documented as of this encounter
--- OUTSIDE RECORDS SUMMARY | 2022-08-21 10:33 | XMS_ITS | Encounter Summary ---
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 At the end she was agreeable to try the synthroid and f/u in 2 months to recheck. 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 [address] documented as of this encounter
--- OUTSIDE RECORDS SUMMARY | 2022-08-21 10:33 | XMS_ITS | Encounter Summary ---
:1950 Author Organization [facility] Address [address] [place] [address] Care Team Providers Name Role Phone LenoraModestoPalakmayte Garcia APRN, WASTE COTTON CLEANER Primary Care Provider Encounter Details Date Type Department Care Team Description 11/24/2021 Lab [place] Hypothyroidism due to [address] Param's thyroiditis [place] [address] Social History Tobacco [...] AM Hypothyroidism due to Results for this FASHION DESIGN PROFESSOR Param's thyroiditis proc edure are in the results section. documented in this encounter Results TSH (11/24/2021 11:01 AM FASHION DESIGN PROFESSOR) P athologist Signature TSH, Sensitive 3.10 0.46 - 11/25/2021 [facility] MEDICA L 4.68 mIU/L 2:30 PM FASHION DESIGN PROFESSOR [facility] Comment: The results from this [...] Volume Laterality Blood 11/24/2021 11:01 11/25/2021 AM FASHION DESIGN PROFESSOR 12:53 PM FASHION DESIGN PROFESSOR Palak Cooley APRN, CNP LAB BLOOD ORDERABLES Performing Organization Address City/State/ZIP Code Phon e Number [facility] [address] [place] [address] documented in this encounter Visit Diagnoses Diagnosis 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 [address] documented as of this encounter
--- OUTSIDE RECORDS SUMMARY | 2022-08-21 10:33 | XMS_ITS | Encounter Summary ---
:1950 Author Organization [facility] Address [address] [place] [address] Care Team Providers Name Role Phone Palak Cooley APRN, CNP Primary Care Provider Reason for Visit Reason Onset Date Comments lab results 03/04/2022 Encounter Details Date Type Department Care Team Description 03/04/2022 Telephone [place] Plaak Cooley APRN, CNP lab results [address] [place], [place] [address] [place] [address] (Wo rk) Social History Tobacco Use Types [...] Yee - 03/06/2022 12:53 PM CDT To credit verification clerk bag, 6., to be mailed. Telephone Encounter - Asmita [...] on filedocumented in this encounter Care Teams Retail Leasing Agent Relationship Specialty Start Date End Date Palak Cooley, RAJI, PROVIDER NETWORK ANALYST PCP - General 05/19/[address] [place] [address] documented as of this encounter
--- OUTSIDE RECORDS SUMMARY | 2022-08-21 10:33 | XMS_ITS | Encounter Summary ---
:1950 Author Organization [facility] Address [address] [place] [address] Care Team Providers Name Role Phone Palak Cooley APRN, CNP Primary Care Provider Encounter Details Date Type Department Care Team Description 06/02/2021 Telephone [facility] Palak Cooley APRN, CNP [address] [place] [address] [place], [place] [address] (Wo rk) Social History Tobacco Use Types [...] this encounter Results TSH (07/28/2021 10:55 AM CHILD SUPPORT AGENT) P athologist Signature TSH, Sensitive 2.13 0.46 - 07/28/2021 LUISA LEON L 4.68 mIU/L 7:32 PM CHILD SUPPORT AGENT [facility] Comment: The results from this [...] (Blood, 07/28/2021 10:55 07/28/2021 6:31 Venous) AM CHILD SUPPORT AGENT PM CHILD SUPPORT AGENT Palak Cooley APRN, CNP LAB BLOOD ORDERABLES Performing Organization Address City/State/ZIP Code Phon e Number [facility] [address] [place] [address] documented in this encounter Visit Diagnoses Diagnosis 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 [address] documented as of this encounter
--- OUTSIDE RECORDS SUMMARY | 2022-08-21 10:33 | XMS_ITS | Encounter Summary ---
:1950 Author Organization [facility] Address [address] [place] [address] Care Team Providers Name Role Phone None, Pcp Primary Care Provider Unavailable Reason for Referral Consultation (Routine) - Closed Specialty Diagnoses / Procedures Referred By Contact Refer red To Contact Audiology Diagnoses Presbycusis of both ears Palak Cooley APRN, CNP Se Audiology [address] [place] [address] [place] [address] Fax: Referral ID Status Reason Start Date Expiration Date Visits V isits Requested Authorized [id number] Closed Specialty 11/07/2020 11/07/2021 1 1 Services Required Scheduling Instructions Please call the Audiology [employer] desk at [phone] ext. [phone] to schedule an appointment. Tinnitus + hearing loss test 1 yr ago pe r patient. RSE UNIT OPERATOR Reason for Visit Reason Comments BP Med review Encounter Details Date Type Department Care Team Description 11/07/2020 Office Visit [place] Palak Cooley, Well woman exam (Primary Dx) ; [address] CANDICE ALEGRIA Essential (primary) hypertension; [place], [place] [address] Prediabetes; [address] [place], [place] Primary osteoarthritis of venkata th knees; [phone] [id number] Varicose veins of right lower extremity with pain; [phone] Rosacea; (Work) Encounter for hepatitis C screening test for low risk patient; [phone] Presbycusis of both ears; (Fax) Elevated TSH; [...] Comments Blood Pressure 138/76 11/07/2020 9:07 AM REVERSE UNIT OPERATOR Pulse 84 11/07/2020 9:07 AM REVERSE UNIT OPERATOR Temperature 35.6 ??C (96.1 ??F) 11/07/2020 9:07 AM REVERSE UNIT OPERATOR Respiratory Rate 14 11/07/2020 9:07 AM REVERSE UNIT OPERATOR Oxygen Saturation 99% 11/07/2020 9:07 AM REVERSE UNIT OPERATOR Inhaled Oxygen Concentration - - Weight 101 kg (223 lb) 11/07/2020 9:07 AM REVERSE UNIT OPERATOR Height 157.5 cm (5' 2) 11/07/2020 9:07 AM REVERSE UNIT OPERATOR Body Mass Index 40.79 11/07/2020 9:07 AM REVERSE UNIT OPERATOR documented in this encounter Patient Instructions Patient InstructionsTamadou Cooley APRN, PASTE MIXING SUPERVISOR - 11/07/2020 9:00 AM CST Look into twin fruit Higher protein foods. Protein/fruit smoothies Low carb soups. Fit on francisco javier, [employer] exercise videos. Get better sleep RSE UNIT OPERATOR documented in this encounter Progress Notes Palak Cooley APRN, CNP - 11/07/2020 9:00 AM CST Subjective Patient ID: Rina Fisher is a 69 y.o. female. Chief Complaint Patient presents with ??? BP Med review HPI Patient presents to the [facility] for a medication refill. She is [...] each day No Iron,Disp: , Rfl: ??? [place]-3 Fatty Acids ([facility] FISH OIL) 1200 MG [...] ??? Cataract 2017 wears glasses, [employer] [facility] [place], [place] ??? Depression ??? Herpes zoster without [...] college, no degree Occupational History ??? 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 Financial resource strain: [...] file Gets together: Not on file Attends amish service: Not on file Active member of [...] on weight loss and exercise. Taking horse [place] supplement and states this is helping. Presbycusis [...] Low carb soups. Fit on francisco javier, [employer] exercise videos. Get better sleep RSE UNIT OPERATOR documented in this encounter Miscellaneous Notes Assessment & Plan Note - Palak Cooley APRN, CNP - 11/08/2020 7:55 AM REVERSE UNIT OPERATOR Associated Problem(s): Primary osteoarthritis of both knees Currently doing well and has no complaints. RSE UNIT OPERATOR Assessment & Plan Note - Palak Cooley APRN, CNP - 11/08/2020 7:54 AM REVERSE UNIT OPERATOR Associated Problem(s): Presbycusis of both ears She was agreeable for an audiology referral. RSE UNIT OPERATOR Assessment & Plan Note - Palak Cooley APRN, CNP - 11/08/2020 7:53 AM REVERSE UNIT OPERATOR Associated Problem(s): Mixed hyperlipidemia Recommended statin therapy, patient would like time to think about it and continue to work on the diet and exercise. She is currently taking baby aspirin and fish oil. RSE UNIT OPERATOR Assessment & Plan Note - Palak Cooley APRN, CNP - 11/08/2020 7:52 AM REVERSE UNIT OPERATOR Associated Problem(s): Prediabetes Discuss results with the patient and at this time she would like to have time to work on her diet and exercise. She will follow up in 6 months and we can recheck this. RSE UNIT OPERATOR Assessment & Plan Note - Palak Cooley APRN, CNP - 11/07/2020 12:27 PM REVERSE UNIT OPERATOR Associated Problem(s): Essential (primary) hypertension Follow-up in 6 months. Patient was agreeable. RSE UNIT OPERATOR documented in this encounter Plan of Treatment Scheduled Referrals Name Type Priority Associated Diagnoses [facility] Outpatient Referral Routine Presbycusis of both Ordered: to Audiology ears 11/07/2020 documented as of this encounter Procedures Procedure Name Priority Date/Time Associated Diagnosis Comme nts ADD-ON TEST REQUEST Routine 11/07/2020 5:12 PM Elevated TSH Re sults for this REVERSE UNIT OPERATOR procedure are i n the results section. documented in this encounter Results (ABNORMAL) TSH (11/25/2020 2:03 PM REVERSE UNIT OPERATOR) Analysis Performed At Patho logist Time Signature TSH, Sensitive 6.88 (H) 0.46 - 11/26/2020 [place] 4.68 mIU/L 4:46 PM [facility] Comment: The results from [...] Laterality Blood 11/25/2020 2:03 PM 1 1:53 REVERSE UNIT OPERATOR PM REVERSE UNIT OPERATOR Palak Cooley APRN, PASTE MIXING SUPERVISOR LAB BLOOD ORDERABLES Performing Organization Address City/[facility]/ZIP Code Phon e Number [facility] [address] [place] [address] Add-On Test Request (11/07/2020 5:12 PM REVERSE UNIT OPERATOR) [facility] Method Time Signature Add-on Testing SEE BELOW 11/07/2020 [place] 6:30 PM [facility] Comment: Free T4 and T3 added. Specimen Anatomical Collection Method Collection Time Receive d Time (Source) Location / / Volume Laterality 11/07/2020 5:12 PM 1 5:12 REVERSE UNIT OPERATOR PM REVERSE UNIT OPERATOR Palak Cooley APRN, PASTE MIXING SUPERVISOR LAB BLOOD ORDERABLES Performing Organization Address City/[facility] Code Phon e Number [facility] [address] [place] [phone] Hepatitis C antibody (11/06/2020 10:16 AM REVERSE UNIT OPERATOR) [facility] Method Time Signature Hepatitis C NON-REACTI Non-Reacti 11/07/2020 [place] Antibody VE ve 2:35 PM REVERSE UNIT OPERATOR [facility] Comment: [...] Blood (Blood, 11/06/2020 10:16 11/07/2020 Venous) AM REVERSE UNIT OPERATOR 12:45 PM REVERSE UNIT OPERATOR Palak Cooley APRN, CNP LAB BLOOD ORDERABLES Performing Organization Address City/[facility]/ZIP Code Phon e Number [facility] [address] [place] [phone] Magnesium (11/06/2020 10:16 AM REVERSE UNIT OPERATOR) P athologist Signature Magnesium 2.1 1.6 - 2.3 11/07/2020 [place] [facility] mg/dL 1:07 PM [facility] Specimen Anatomical Collection Method Collection Time Receive d Time (Source) Location / / Volume Laterality Blood 11/06/2020 10:16 11/07/2020 AM REVERSE UNIT OPERATOR 12:32 PM REVERSE UNIT OPERATOR Palak Cooley APRN, CNP LAB BLOOD ORDERABLES Performing Organization Address [facility] Code Phon e Number [facility] [address] [place] [phone] (ABNORMAL) Comprehensive metabolic panel (11/06/2020 10:16 AM REVERSE UNIT OPERATOR) Patholo gist Method Time Signature Total Protein 6.9 6.3 - 8.2 11/07/2020 [place] g/dL 1:07 PM [facility] Albumin, Serum 4.2 3.5 - 5.0 11/07/2020 [place] g/dL 1:07 PM [facility] Total Bilirubin 0.8 0.1 - 1.0 11/07/2020 [place] mg/dL 1:07 PM [facility] AST 21 8 - 43 U/L 11/07/2020 [place] 1:07 PM [facility] Alkaline 76 38 - 128 11/07/2020 [place] Phosphatase U/L 1:07 PM [facility] ALT (SGPT) 16 0 - 34 U/L 11/07/2020 [place] 1:07 PM [facility] Sodium 140 135 - 145 11/07/2020 [place] mEq/L 1:07 PM [facility] Potassium 3.8 3.5 - 5.1 11/07/2020 [place] mEq/L 1:07 PM [facility] Chloride 104 98 - 107 11/07/2020 [place] mEq/L 1:07 PM [facility] CO2 30 (H) 22 - 29 11/07/2020 [place] mmol/L 1:07 PM [facility] BUN 22 5 - 25 11/07/2020 [place] mg/dL 1:07 PM [facility] Creatinine 0.8 0.4 - 1.2 11/07/2020 [place] mg/dL 1:07 PM [facility] Glucose 138 (H) 70 - 100 11/07/2020 [place] mg/dL 1:07 PM [facility] Calcium, Total,S 9.3 8.4 - 10.2 11/07/2020 [place] mg/dL 1:07 PM [facility] Fasting? Yes 11/06/2020 [place] 10:19 AM [facility] Specimen Anatomical Collection Method Collection Time Receive d Time (Source) Location / / Volume Laterality Blood 11/06/2020 10:16 11/07/2020 AM REVERSE UNIT OPERATOR 12:32 PM REVERSE UNIT OPERATOR Palak Cooley APRN, PASTE MIXING SUPERVISOR LAB BLOOD ORDERABLES Performing Organization Address City/State/ZIP Code Phon e Number [facility] [address] [place] [address] (ABNORMAL) TSH (11/06/2020 10:16 AM REVERSE UNIT OPERATOR) [facility] gist Method Time Signature TSH, Sensitive 14.30 (H) 0.46 - 11/07/2020 [place] 4.68 mIU/L 2:11 PM [facility] Comment: The results from this [...] Volume Laterality Blood 11/06/2020 10:16 11/07/2020 AM REVERSE UNIT OPERATOR 12:45 PM REVERSE UNIT OPERATOR Palak A Lenora ENTRY LEVEL, PASTE MIXING SUPERVISOR LAB BLOOD ORDERABLES Performing Organization Address City/State/ZIP Code Osiel e Óscar [facility] [address] [place] [address] (ABNORMAL) Lipid panel (11/06/2020 10:16 AM REVERSE UNIT OPERATOR) P athologist Signature Cholesterol 183 0 - 199 11/07/2020 [facility] mg/dL 1:07 PM [facility] Comment: Recommended by National Cholesterol Education Program (ATP III) -------- Cholesterol Ranges -------- <200 ?Desirable 200-239 ? Borderline high >=240 ? High Triglycerides 119 0 - 149 mg/dL 11/07/2020 1:07 PM [facility] Comment: -------- TRIG Ranges -------- <150 ?Normal 150-199 ? Borderline high 200-499 ? High >=500 ? Very high HDL 38 (L) 40 - 250 mg/dL 11/07/2020 1:07 PM [facility] Comment: -------- HDL Ranges -------- <40 ?Low 40-59 ?Normal >=60 ? Optimal LDL Calculated 121 (H) 0 - 99 mg/dL 11/07/2020 1:07 PM [facility] Comment: -------- LDL Ranges -------- <100 ? Optimal 100-129 ?Near optimal/above op timal 130-159 ?Borderline high 160-189 ?High >=190 ?Very high Specimen Anatomical Collection Method Collection Time Receive d Time (Source) Location / / Volume Laterality Blood 11/06/2020 10:16 11/07/2020 AM REVERSE UNIT OPERATOR 12:32 PM REVERSE UNIT OPERATOR Palak Cooley APRN, CNP LAB BLOOD ORDERABLES Performing Organization Address City/[facility]/ZIP Code Phon e Number [facility] [address] [place] [phone] (ABNORMAL) Hemoglobin A1c (11/06/2020 10:16 AM REVERSE UNIT OPERATOR) Analysis Performed At Patho logist Time Signature Hemoglobin A1C 6.1 (H) 4.0 - 5.6 11/07/2020 [place] % A1C 1:07 PM REVERSE UNIT OPERATOR [facility] Comment: Reference Range 4.0-5.6% is [...] Volume Laterality Blood 11/06/2020 10:16 11/07/2020 AM REVERSE UNIT OPERATOR 12:32 PM REVERSE UNIT OPERATOR Palak Cooley APRN, CNP LAB BLOOD ORDERABLES Performing Organization Address City/[facility] Phon e Number [facility] [address] [place] [phone] documented in this encounter Visit Diagnoses Diagnosis [...] hyperlipidemia documented in this encounter Care Teams Leave Coordinator Relationship Specialty Start Date End Date None, Pcp PCP - General Continuous Yarn Dyeing Machine Operator 11/06/20 05/18/21 [address] [place] [address] documented as of this encounter
--- OUTSIDE RECORDS SUMMARY | 2022-08-21 10:33 | XMS_ITS | Encounter Summary ---
:1950 Author Organization [facility] Address [address] [place] [address] Care Team Providers Name Role Phone None, Pcp Primary Care Provider Unavailable Encounter Details Date Type Department Care Team Description 11/25/2020 Lab [place] Elevated TSH [address] [place], [place] [address] Social History Tobacco Use [...] Cooley APRN, CNP - 11/25/2020 2:00 PM IN SCHOOL SUSPENSION AIDE We can recheck this in 8 weeks, ask that patient hold the biotin supplment 1 week prior to checking.Somewhat elevated but not interventions needed. SCHOOL SUSPENSION AIDE Result Encounter Note - Palak Cooley APRN, CNP - 11/25/2020 2:00 PM IN SCHOOL SUSPENSION AIDE She can resume the supplement for now hold for 1 week before next tsh recheck. SCHOOL SUSPENSION AIDE documented in this encounter Plan of Treatment Not on filedocumented as of this encounter Procedures Procedure Name Priority Date/Time Associated Diagnosis Comme nts TSH Routine 11/25/2020 2:03 PM Elevated TSH Results f or this IN SCHOOL SUSPENSION AIDE procedure are i n the results section . documented in this encounter Results (ABNORMAL) Thyroid Function [facility] (05/29/2021 11:45 AM CDT) Analysis Performed At Patho logist Time Signature TSH, Sensitive 8.50 (H) 0.46 - 05/30/2021 [place] 4.68 mIU/L 2:39 PM CDT [facility] Comment: The results from this or [...] Organization Address City/State/ZIP Code Phon e Number [facility] [address] [place] [address] (ABNORMAL) TSH (11/25/2020 2:03 PM IN SCHOOL SUSPENSION AIDE) Analysis Performed At Patho logist Time Signature TSH, Sensitive 6.88 (H) 0.46 - 11/26/2020 [place] 4.68 mIU/L 4:46 PM IN SCHOOL SUSPENSION AIDE [facility] Comment: The results from this [...] Laterality Blood 11/25/2020 2:03 PM 1 1:53 IN SCHOOL SUSPENSION AIDE PM IN SCHOOL SUSPENSION AIDE Palak Cooley APRN, SENIOR PROJECT ACCOUNTANT LAB BLOOD ORDERABLES Performing Organization Address City/State/ZIP Code Phon e Number [facility] [address] [place] [address] documented in this encounter Visit Diagnoses Diagnosis Elevated TSH Other abnormal blood chemistry documented in this encounter Care Teams Manager Property Relationship Specialty Start Date End Date None, Pcp PCP - General Poultry Vaccinator 11/06/20 05/18/[address] [place] [address] documented as of this encounter
--- OUTSIDE RECORDS SUMMARY | 2022-08-21 10:33 | XMS_ITS | Encounter Summary ---
:1950 Author Organization [facility] Address [address] [place] [address] Care Team Providers Name Role Phone GonzalezPalak rojas Jose ALEGRIA, UTILIZATION REVIEW NURSE Primary Care Provider Encounter Details Date Type Department Care Team Description 05/04/2022 Orders Only [place] Eneida Ayers MD [address] [facility] [address] [facility] 20 [place], [place] [address] [place], [place] [phone] (Wo rk) Social History Tobacco Use Types [...] on filedocumented in this encounter Care Teams Trial Examiner Relationship Specialty Start Date End Date Palak Cooley APRN, UTILIZATION REVIEW NURSE PCP - General 05/19/21 [address] [place] [address] documented as of this encounter
--- OUTSIDE RECORDS SUMMARY | 2022-08-21 10:33 | XMS_ITS | Encounter Summary ---
:1950 Author Organization [facility] Address [address] [place] [address] Care Team Providers Name Role Phone GonzalezWarner rojasbreonna Garcia APRN, CANDICE Primary Care Provider Reason for Visit Reason Comments Medicare Annual Wellness Visit Subsequent Encounter Details Date Type Department Care Team Description 11/27/2021 Clinical Support [place] Medicare annual wellness [address] visit, subsequent [place], [place] [address] Social History Tobacco Use [...] Comments Blood Pressure 110/72 11/27/2021 11:05 AM TALENT COORDINATOR Pulse 60 11/27/2021 11:05 AM TALENT COORDINATOR Temperature 36 ??C (96.8 ??F) 11/27/2021 11:05 AM TALENT COORDINATOR Respiratory Rate 14 11/27/2021 11:05 AM TALENT COORDINATOR Oxygen Saturation 98% 11/27/2021 11:05 AM TALENT COORDINATOR Inhaled Oxygen Concentration - - Weight 96.6 kg (213 lb) 11/27/2021 11:05 AM TALENT COORDINATOR Height 157.5 cm (5' 2) 11/27/2021 11:05 AM TALENT COORDINATOR Body Mass Index 38.96 11/27/2021 11:05 AM TALENT COORDINATOR documented in this encounter Progress Notes Asmita Yun LPN - 11/27/2021 10:20 AM CST Annual Wellness Visit CARE TEAM / RESOURCES: Patient Care Team: Palak Cooley APRN, HARM REDUCTION WORKER as PCP - General Eye Care: [facility] Dental Care: None at this time Pharmacy: [address] [address] Other: Visit Vitals BP 110/72 (BP Location: [...] cordyceps Mycelium, Shisandraberry, ginseng, rhodiola root, red yemeni ginseng, ginseng root, eleuthero root) ??? [place]-3 Fatty Acids ([facility] FISH OIL) 1200 MG [...] ??? Cataract 2017 wears glasses, [facility] [place], [place] ??? Depression ??? Disease of thyroid [...] the patient's advance care planning wishes:: No Evangelical or spiritual beliefs that impact treatment:: No Chronic pain:: No Pain Assessment Scored: 0-No pain and location: Utilization / Navigation of Health Care Systems: Does not overuse the [facility], Acute Care, eVisits or Emergency Room. PHQ-9 mental health screening performed. Scored: LEONIDAS-7 anxiety screening performed. Scored: 0 Mini-Cog test performed. Scored: 5 / CAGE-AID test performed. BMI/weight management reviewed. BMI: [...] transfusion before 1991. ?? Those born between 3596-8913. Glaucoma: Medicare Part B (Medical Insurance) covers [...] pack a day for 20 years).Nurse Note NT COORDINATOR documented in this encounter Plan of Treatment Not on filedocumented as of this encounter Visit Diagnoses Diagnosis Medicare annual wellness visit, subseque nt documented in this encounter Care Teams Mail Clerk Bills Relationship Specialty Start Date End Date Palak Cooley APRN, HARM REDUCTION WORKER PCP - General 05/19/[address] [place] [address] documented as of this encounter
--- OUTSIDE RECORDS SUMMARY | 2022-08-21 10:33 | XMS_ITS | Encounter Summary ---
:1950 Author Organization [facility] Address [address] [place] [address] Care Team Providers Name Role Phone GonzalezModesto rojasmayte Garcia APRN, MANAGER CONTACT Primary Care Provider Encounter Details Date Type Department Care Team Description 07/28/2021 Lab [place] Hypothyroidism due to [address] [...] AM Hypothyroidism due to Results for this TOOL GRINDING TECHNICIAN Param's thyroiditis proc edure are in the results section. documented in this encounter Results TSH (07/28/2021 10:55 AM TOOL GRINDING TECHNICIAN) P athologist Signature TSH, Sensitive 2.13 0.46 - 07/28/2021 [place] LEON L 4.68 mIU/L 7:32 PM TOOL GRINDING TECHNICIAN [facility] Comment: The results from [...] (Blood, 07/28/2021 10:55 07/28/2021 6:31 Venous) AM TOOL GRINDING TECHNICIAN PM TOOL GRINDING TECHNICIAN Palak Cooley APRN, CNP LAB BLOOD ORDERABLES Performing Organization Address City/State/ZIP Code Phon e Number [facility] [address] [place] [address] documented in this encounter Visit Diagnoses Diagnosis 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 [address] documented as of this encounter
--- OUTSIDE RECORDS SUMMARY | 2022-08-21 10:33 | XMS_ITS | Encounter Summary ---
:1950 Author Organization [facility] Address [address] [place] [address] Care Team Providers Name Role Phone Palak Cooley APRN, CNP Primary Care Provider Encounter Details Date Type Department Care Team Description 01/28/2022 Telephone [place] Palak Cooley APRN, CNP [address] [place], [place] [address] [place] [address] (Wo rk) Social History Tobacco Use Types [...] and he is home. Telephone Encounter - Yeis Yee - 01/28/2022 1:31 PM CDT Left message with patient to make appointment for fasting labs per message from Fredy Cooley. documented in this encounter Plan of Treatment Not on filedocumented as of this encounter Visit Diagnoses Not on filedocumented in this encounter Care Teams Ocular Care Aide Relationship Specialty Start Date End Date Palak Cooley APRN, COATING MACHINE OPERATOR PCP - General 05/19/21 [address], [place] [address] documented as of this encounter
--- OUTSIDE RECORDS SUMMARY | 2022-08-21 10:33 | XMS_ITS | Encounter Summary ---
:1950 Author Organization [facility] Address [address] [place] [address] Care Team Providers Name Role Phone Palak Cooley APRN, CNP Primary Care Provider Encounter Details Date Type Department Care Team Description 05/06/2022 Telephone [place] Palak Cooley APRN, CNP [address] [place], [place] [address] [place] [address] (Wo rk) Social History Tobacco Use Types [...] to Pt we do not have a olive grader in CF until nextweek 05/15/22. I [...] hips and back. Please call Pt at [phone] to advise. Telephone Encounter - Jackson Flowers LPN - 05/08/2022 10:41 AM CDT Please review and advise on x-rays for this patient Telephone Encounter - Yesi Yee - 05/06/2022 2:16 PM CDT Pt seeing Dr. Jose Alberto Amato for home care companion in [place], painful joints, pain management. Stated a letterwas sent from Dr. Amato 8.15.22 as wanting x-rays to be taken if possible. Pt on , could possibly pay toward further chiropractic treatment, which is what pt desires. Advise [phone]. documented in this encounter Plan of Treatment Not on filedocumented as of this encounter Visit Diagnoses Not on filedocumented in this encounter Care Teams Government Affairs Researcher Relationship Specialty Start Date End Date Palak Cooley, NUCLEAR POWERPLANT MECHANIC, ION EXCHANGE OPERATOR PCP - General 05/19/21 [address] [place] [address] documented as of this encounter
--- OUTSIDE RECORDS SUMMARY | 2022-08-21 10:34 | XMS_ITS | Encounter Summary ---
:1950 Author Organization [facility] Address [address] [place] [address] Care Team Providers Name Role Phone Margie Mcmanus APRN, INSURANCE CLAIMS SPECIALIST Primary Care Provider Encounter Details Date Type Department Care Team Description 09/05/2019 Lab Kiel Gong Essential (primary) hyperten harmony; [address] Prediabetes [place], [place] [address] Social History Tobacco Use [...] (prim alan) Results for this RATE AM ACCESS DIRECTOR hypertension procedure are i n the results section. HEMOGLOBIN A1C Routine 09/05/2019 10:57 Prediabetes Results f or this AM ACCESS DIRECTOR procedure are i n the results section. COMPREHENSIVE Routine 09/05/2019 10:57 Essential (primary) Res ults for this METABOLIC PANEL AM ACCESS DIRECTOR hypertension procedure ar e in the results section. documented in this encounter Results Glomerular filtration rate (GFR) (09/05/2019 10:57 AM ACCESS DIRECTOR) P athologist Signature GFR >60 09/06/2019 [facility] 1:50 PM [facility] >60 09/06/2019 [facility] English GFR 1:50 PM [facility] Comment: GFR calculated from serum creatinine v alue Chronic Kidney Disease less than 60 mL/m in/1.73 m2 Kidney Failure less than 15 mL/min/1.73 m2 Note: effective 02/02/07 IDMS-Traceable MDRD Study Equation used. Specimen Anatomical Collection Method Collection Time Receive d Time (Source) Location / / Volume Laterality 09/05/2019 10:57 09/05/2019 AM ACCESS DIRECTOR 10:57 AM ACCESS DIRECTOR Margie Mcmanus APRN, INSURANCE CLAIMS SPECIALIST LAB BLOOD ORDERABLES Performing Organization Address City/State/ZIP Code Phon e Number [facility] [address] [place] [address] (ABNORMAL) Hemoglobin A1c (09/05/2019 10:57 AM ACCESS DIRECTOR) Analysis Performed At Patho logist Time Signature Hemoglobin A1C 6.2 (H) 4.0 - 5.6 09/06/2019 [place] % A1C 1:32 PM [facility] Comment: Reference Range 4.0-5.6% is [...] Volume Laterality Blood 09/05/2019 10:57 09/06/2019 AM ACCESS DIRECTOR 12:56 PM ACCESS DIRECTOR Margie Mcmanus STORE LOSS PREVENTION MANAGER, INSURANCE CLAIMS SPECIALIST LAB BLOOD ORDERABLES Performing Organization Address City/State/ZIP Code Phon e Number [facility] [address] [place] [address] (ABNORMAL) Comprehensive metabolic panel (09/05/2019 10:57 AM ACCESS DIRECTOR) [facility] Method Time Signature Total Protein 7.1 6.3 - 8.2 09/06/2019 [place] g/dL 1:50 PM [facility] Albumin, Serum 4.1 3.5 - 5.0 09/06/2019 [place] g/dL 1:50 PM [facility] Total Bilirubin 1.1 (H) 0.1 - 1.0 09/06/2019 [place] mg/dL 1:50 PM [facility] AST 24 8 - 43 U/L 09/06/2019 [place] 1:50 PM [facility] Alkaline 66 38 - 128 09/06/2019 [place] Phosphatase U/L 1:50 PM [facility] ALT (SGPT) 23 0 - 34 U/L 09/06/2019 [place] 1:50 PM [facility] Sodium 143 135 - 145 09/06/2019 [place] mEq/L 1:50 PM [facility] Potassium 4.3 3.5 - 5.1 09/06/2019 [place] mEq/L 1:50 PM [facility] Chloride 105 98 - 107 09/06/2019 [place] mEq/L 1:50 PM [facility] CO2 30 (H) 22 - 29 09/06/2019 [place] mmol/L 1:50 PM [facility] BUN 15 5 - 25 09/06/2019 [place] mg/dL 1:50 PM [facility] Creatinine 0.9 0.4 - 1.2 09/06/2019 [place] mg/dL 1:50 PM [facility] Glucose 129 (H) 70 - 100 09/06/2019 [place] mg/dL 1:50 PM [facility] Calcium, Total,S 9.6 8.4 - 10.2 09/06/2019 [place] mg/dL 1:50 PM [facility] Fasting? Yes 09/05/2019 [place] 10:59 AM [facility] Specimen Anatomical Collection Method Collection Time Receive d Time (Source) Location / / Volume Laterality Blood 09/05/2019 10:57 09/06/2019 AM ACCESS DIRECTOR 12:56 PM ACCESS DIRECTOR Margie Mcmanus APRN, CNP LAB BLOOD ORDERABLES Performing Organization Address City/State/ZIP Code Phon e Number [facility] [address] [place] [address] documented in this encounter Visit Diagnoses Diagnosis Essential (primary) hypertension Unspecified essential hypertension Prediabetes Other abnormal glucose documented in this encounter Care Teams Manager Front Relationship Specialty Start Date End Date Margie Mcmanus APRN, INSURANCE CLAIMS SPECIALIST PCP - General 04/26/18 05/27/[address] [place] [address] documented as of this encounter
--- OUTSIDE RECORDS SUMMARY | 2022-08-21 10:34 | XMS_ITS | Encounter Summary ---
:1950 Author Organization [facility] Address [address] [place] [address] Care Team Providers Name Role Phone Margie Mcmanus APRN, CANDICE Primary Care Provider Reason for Visit Reason Comments Follow-up blood pressure Labs Only would like an A1c Encounter Details Date Type Department Care Team Description 09/05/2019 Office Visit [place] Margie Mcmanus Essential (primary) hyperten harmony (Primary Dx); [address] M, CANDICE ALEGRIA Prediabetes [address] [address] [place] [address] Social History Tobacco Use Types Packs/Day Years [...] Comments Blood Pressure 147/60 09/05/2019 10:02 AM MOTION STUDY ANALYST Pulse 61 09/05/2019 10:02 AM MOTION STUDY ANALYST Temperature 35.8 ??C (96.5 ??F) 09/05/2019 10:02 AM MOTION STUDY ANALYST Respiratory Rate 16 09/05/2019 10:02 AM MOTION STUDY ANALYST Oxygen Saturation - - Inhaled Oxygen Concentration - - Weight 100 kg (221 lb 8 oz) 09/05/2019 10:02 AM MOTION STUDY ANALYST Height - - Body Mass Index 39.25 05/18/2019 12:31 PM CDT documented in this encounter Patient Instructions Patient InstructionsChera Mcmanus APRN, CNP - 09/05/2019 10:00 AM MOTION STUDY ANALYST Will call with lab results ON STUDY ANALYST documented in this encounter Progress Notes Margie [...] started taking a probiotic, and a horse [place] extract supplement. The patient reports by incorporating [...] was evaluated by a vascular specialist at [place] on 03/03/19, with the recommendation of wearing [...] she was on a turbulent flight to [place] this fall, without eating, she became quite [...] (one) time each day, Disp: ,Rfl: ??? [place]-3 Fatty Acids ([facility] FISH OIL) 1200 MG [...] understands this planof care. Margie Mcmanus APRN, CANIDCE [facility] documented in this encounter Plan of Treatment Not on filedocumented as of this encounter Results (ABNORMAL) Comprehensive metabolic panel (09/05/2019 10:57 AM MOTION STUDY ANALYST) [facility] Time Signature Total Protein 7.1 6.3 - 8.2 09/06/2019 [place] g/dL 1:50 PM [facility] Albumin, Serum 4.1 3.5 - 5.0 09/06/2019 [place] g/dL 1:50 PM [facility] Total Bilirubin 1.1 (H) 0.1 - 1.0 09/06/2019 [place] mg/dL 1:50 PM [facility] AST 24 8 - 43 U/L 09/06/2019 [place] 1:50 PM [facility] Alkaline 66 38 - 128 09/06/2019 [place] Phosphatase U/L 1:50 PM [facility] ALT (SGPT) 23 0 - 34 U/L 09/06/2019 [place] 1:50 PM [facility] Sodium 143 135 - 145 09/06/2019 [place] mEq/L 1:50 PM [facility] Potassium 4.3 3.5 - 5.1 09/06/2019 [place] mEq/L 1:50 PM [facility] Chloride 105 98 - 107 09/06/2019 [place] mEq/L 1:50 PM [facility] CO2 30 (H) 22 - 29 09/06/2019 [place] mmol/L 1:50 PM [facility] BUN 15 5 - 25 09/06/2019 [place] mg/dL 1:50 PM [facility] Creatinine 0.9 0.4 - 1.2 09/06/2019 [place] mg/dL 1:50 PM [facility] Glucose 129 (H) 70 - 100 09/06/2019 [place] mg/dL 1:50 PM [facility] Calcium, Total,S 9.6 8.4 - 10.2 09/06/2019 [place] mg/dL 1:50 PM [facility] Fasting? Yes 09/05/2019 [place] 10:59 AM [facility] Specimen Anatomical Collection Method Collection Time Receive d Time (Source) Location / / Volume Laterality Blood 09/05/2019 10:57 09/06/2019 AM MOTION STUDY ANALYST 12:56 PM MOTION STUDY ANALYST Margie Mcmanus APRN, BACK FEEDER [employer] LAB BLOOD ORDERABLES Performing Organization Address City/[facility]/ZIP Code Phon e Number [facility] [address] [place] [address] (ABNORMAL) Hemoglobin A1c (09/05/2019 10:57 AM MOTION STUDY ANALYST) Analysis Performed At Patho logist Time Signature Hemoglobin A1C 6.2 (H) 4.0 - 5.6 09/06/2019 [place] % A1C 1:32 PM [facility] Comment: Reference Range 4.0-5.6% [...] Volume Laterality Blood 09/05/2019 10:57 09/06/2019 AM MOTION STUDY ANALYST 12:56 PM MOTION STUDY ANALYST Margie Mcmanus APRN, BACK FEEDER [employer] LAB BLOOD ORDERABLES Performing Organization Address City/[facility]/ZIP Code Phon e Number [facility] [address] [place] [address] documented in this encounter Visit Diagnoses Diagnosis Essential (primary) hypertension - Prima ry Unspecified essential hypertension Prediabetes Other abnormal glucose documented in this encounter Care Teams Assembly Manager Relationship Specialty Start Date End Date Margie Mcmanus APRN, BACK FEEDER [employer] PCP - General 04/26/18 05/27/20 [address] [facility] [place] [address] documented as of this encounter
--- OUTSIDE RECORDS SUMMARY | 2022-08-21 10:34 | XMS_ITS | Encounter Summary ---
:1950 Author Organization [facility] Address [address] [place] [address] Care Team Providers Name Role Phone Margie Mcmanus MAIL DELIVERER, HARNESS WORKER Primary Care Provider [phone] Reason for Visit Reason Onset Date Comments QUESTIONS ABOUT KNEE INJ. 11/17/2018 Encounter Details Date Type Department Care Team Description 11/17/2018 Telephone [place] Margie Mcmanus, QUESTIONS ABOUT KNEE [address] RAJI, CANDICE INJ. [place], [place] [address] 100 [facility] [address] [phone] [place], [place] [address] Social History Tobacco Use Types Packs/Day Years Used Date Smoking Tobacco: Former Cigarettes 1 Comments: Former smoker x one year [...] Mcmanus APRN, CNP - 11/22/2018 2:48 PM ONLINE MERCHANT Referral completed. NE MERCHANT Telephone Encounter - Karena Maddox - 11/17/2018 4:41 PM CST Pt would like to see Dr Karena Christiansen Podiatry at [facility]. Pt will make appt to consult with Dr. Ayers about knee injections. NE MERCHANT Telephone Encounter - Geena Webb MA - 11/17/2018 1:39 PM CST Patient informed and will call back when she gets the podiatry information NE MERCHANT Telephone Encounter - Margie Mcmanus APRN, CNP - 11/17/2018 12:43 PM ONLINE MERCHANT The patient should come in for consultation with Dr. Crisostomo regarding the Synvisc injections, as they do need to be prior off before she can receive them. When she knows where she would like to go to podiatry it certainly be willing to make those arrangements, referrals. Say hi to her for me. Thanks Vern. NE MERCHANT Telephone Encounter - Geena Webb MA - [...] out where she is covered for podiatry. NE MERCHANT Telephone Encounter - Karena Maddox - 11/17/2018 10:50 AM CST Pt called with some questions about possible knee injections Vern Mcmanus had given her some information on. Pt also noted she would like to go ahead with the podiatry referral, but would like to know her options on where to go for that. Please call Pt to advise. NE MERCHANT documented in this encounter Plan of Treatment Not on filedocumented as of this encounter Visit Diagnoses Not on filedocumented in this encounter Care Teams Water Resources Project Manager Relationship Specialty Start Date End Date Margie Mcmanus, MAIL DELIVERER, HARNESS WORKER PCP - General 04/26/18 05/27/[address] [place] [address] [place] BLAKELY [id number] documented as of this encounter
--- OUTSIDE RECORDS SUMMARY | 2022-08-21 10:34 | XMS_ITS | Encounter Summary ---
:1950 Author Organization [facility] Address [address] [place] [address] Care Team Providers Name Role Phone Margie Mcmanus ROLLING MILL OPERATOR, CARTON FOLDER Primary Care Provider [phone] Reason for Visit Reason Comments Med Refill Encounter Details Date Type Department Care Team Description 11/04/2019 Refill Kiel Gong Margie Mcmanus, Hypertension, [address] ROLLING MILL OPERATOR, CANDICE unspecified type [place], [place] [address] [address] [facility] [address] [phone] [place], [place] [address] Social History Tobacco Use [...] this encounter Miscellaneous Notes Telephone Encounter - Leigh Langford LPN - 11/06/2019 11:04 AM CST [...] Last 2 Encounters: 10/06/19 128/60 09/05/19 147/60 TROGRAPHER documented in this encounter Plan of Treatment Not on filedocumented as of this encounter Visit Diagnoses Diagnosis Hypertension, unspecified type documented in this encounter Care Teams Manager Cargo Relationship Specialty Start Date End Date Margie Mcmanus APRN, CARTON FOLDER PCP - General 04/26/18 05/27/20 100 [facility] [place]LAK[place] [id number] documented as of this encounter
--- OUTSIDE RECORDS SUMMARY | 2022-08-21 10:34 | XMS_ITS | Encounter Summary ---
:1950 Author Organization [facility] Address [address] [place] [address] Care Team Providers Name Role Phone Margie Mcmanus SQL DATA ARCHITECT, TAN ROOM SUPERVISOR Primary Care Provider [phone] Encounter Details Date Type Department Care Team Description 01/05/2019 Telephone Kiel Gong Margie Mcmanus, [address] SQL DATA ARCHITECT, CANDICE Kiel Gong [place] [address] [address] [facility] [address] [phone] [place], [place] [address] Social History Tobacco Use [...] CDT Please fax order for PT to [facility] Telephone Encounter - Margie Mcmanus [...] stated her insurance will cover PT in [facility]. She isn't sure if she [...] on filedocumented in this encounter Care Teams Computer Technician Relationship Specialty Start Date End Date Margie Mcmanus APRN, TAN ROOM SUPERVISOR PCP - General 04/26/18 05/27/20 [address] [place], [place] [address] documented as of this encounter
--- OUTSIDE RECORDS SUMMARY | 2022-08-21 10:34 | XMS_ITS | Encounter Summary ---
:[address] [facility] Address [address] [place] [address] Care Team Providers Name Role Phone Margie Mcmanus APRN, CNP Primary Care Provider [phone] Reason for Referral Consultation (Routine) - Canceled Specialty Diagnoses / Procedures Referred By Contact Refer red To Contact Diagnoses Benign paroxysmal positional vertigo, unspecified laterality Margie Mcmanus, [facility] RAJI, COMMUNITY ASSISTANT SYSTEM - [place] [id number] [place] [address] Phone: Fax: Referral ID Status Reason Start Date Expiration Date Visits V isits Requested Authorized [id number] Canceled 05/18/2019 05/18/2020 1 1 Consultation (Routine) - Closed Specialty Diagnoses / Procedures Referred By Contact Refer red To Contact Diagnoses Benign paroxysmal positional vertigo, unspecified laterality Margie Mcmanus, [facility] RAJI, COMMUNITY ASSISTANT SYSTEM - [address] [address] [place] [address] Phone: Fax: Referral ID Status Reason Start Date Expiration Date Visits Requ ested Visits Authorized [id number] Closed 05/18/2019 05/18/2020 1 1 Consultation (Routine) - Closed Specialty Diagnoses / Procedures Referred By Contact Refer red To Contact Diagnoses Benign paroxysmal positional vertigo, unspecified laterality Margie Mcmanus, [facility] COATER, COMMUNITY ASSISTANT SYSTEM - [facility] [place] [address] [address] [place] [address] Phone: Fax: Referral ID Status Reason Start Date Expiration Date Visits Requ ested Visits Authorized [id number] Closed 05/18/2019 05/18/2020 1 1 Reason for Visit Reason Comments Nausea Dizziness Encounter Details Date Type Department Care Team Description 05/18/2019 Office Visit [place] Margie Mcmanus Benign paroxysmal [address] M, RAJI, CANDICE positional vertigo, [place], [place] [address] [place] [address] [place] [address] laterality (Primary [phone] Dx) Social History Tobacco Use Types Packs/Day [...] 1:20 PM CDT Will have Binu Gong [place] to arrange a physical therapy documented in [...] (one) time each day, Disp: ,Rfl: ??? [place]-3 Fatty Acids ([facility] FISH OIL) 1200 MG [...] to arrange a physical therapy consultation at [facility] today. The patient will not drive [...] Primary documented in this encounter Care Teams Branch Service Leader Relationship Specialty Start Date End Date Margie Mcmanus, COATER, COMMUNITY ASSISTANT PCP - General 04/26/18 05/27/20 100 [place] [address] documented as of this encounter
--- OUTSIDE RECORDS SUMMARY | 2022-08-21 10:34 | XMS_ITS | Encounter Summary ---
:1950 Author Organization [facility] Address [address] [place] [address] Care Team Providers Name Role Phone Margie Mcmanus APRN, CNP Primary Care Provider [phone] Reason for Referral Consultation (Routine) - Closed Specialty Diagnoses / Procedures Referred By Contact Refer red To Contact Diagnoses Left foot pain Margie Mcmanus, [facility] CANDICE ALEGRIA [address] [facility] [address] [place] [address] Fax: Referral ID Status Reason Start Date Expiration Date Visits Requ ested Visits Authorized [id number] Closed 11/22/2018 11/23/2019 1 1 WORKER Encounter Details Date Type Department Care Team Description 11/22/2018 Orders Only [place] Margie Mcmanus, Left foot pain [address] CANDICE ALEGRIA (Primary Dx) [place], [place] 100 [facility] [address] [place] [address] Social History Tobacco Use Types Packs/Day Years [...] documented as of this encounter Progress Notes Margei Mcmanus APRN, CNP - 11/22/2018 2:46 PM CST Please see note. WORKER documented in this encounter Plan of Treatment Scheduled Referrals Name Type Priority Associated Order Schedule Diagnoses Ambulatory External Outpatient Referral Routine Left foot pain Ordered: Referral 11/22/2018 documented as of this encounter Visit Diagnoses Diagnosis Left foot pain - Primary Pain in soft tissues of limb documented in this encounter Care Teams Copy Cutter Relationship Specialty Start Date End Date Margie Mcmanus APRN, CNP PCP - General 04/26/18 05/27/[address] [place] [address] [place] [address] documented as of this encounter
--- OUTSIDE RECORDS SUMMARY | 2022-08-21 10:34 | XMS_ITS | Encounter Summary ---
:[address] [facility] Address [address] [place] [address] Care Team Providers Name Role Phone Margie Mcmanus PUBLIC WEIGHER, SECURITY SOLUTIONS ARCHITECT Primary Care Provider [phone] Encounter Details Date Type Department Care Team Description 12/19/2018 Telephone [place] Margie Mcmanus, [address] PUBLIC WEIGHER, CANDICE [place] [address] 100 [facility] [address] [phone] [place], [place] [address] Social History Tobacco Use [...] we will need to refer her to [facility] in [place] for 8-12 sessions of PT before we [...] on filedocumented in this encounter Care Teams Health Services Director Relationship Specialty Start Date End Date Margie Mcmanus, PUBLIC WEIGHER, SECURITY SOLUTIONS ARCHITECT PCP - General 04/26/18 05/27/20 100 [facility] [place] [address] documented as of this encounter
--- OUTSIDE RECORDS SUMMARY | 2022-08-21 10:34 | XMS_ITS | Encounter Summary ---
:1950 Author Organization [facility] Address [address] [place] [address] Care Team Providers Name Role Phone Margie Mcmanus CHIEF PETROLEUM ENGINEER, MASTER FIRE CONTROL TECHNICIAN Primary Care Provider [phone] Encounter Details Date Type Department Care Team Description 05/18/2019 Telephone [place]iel [place] Margie Mcmanus, [address] CHIEF PETROLEUM ENGINEER, CANDICE [place] [address] [facility] [address] [phone] [place], [place] [address] Social History Tobacco Use [...] - 05/18/2019 1:34 PM CDT P.T. FAX: [phone] order so we can fax the referral over. documented in this encounter Plan of Treatment Not on filedocumented as of this encounter Visit Diagnoses Not on filedocumented in this encounter Care Teams Senior Climate Advisor Relationship Specialty Start Date End Date Margie Mcmanus APRN, MASTER FIRE CONTROL TECHNICIAN PCP - General 04/26/18 05/27/[address] [place] [address] [place] [id number] documented as of this encounter
--- OUTSIDE RECORDS SUMMARY | 2022-08-21 10:34 | XMS_ITS | Encounter Summary ---
:1950 Author Organization [facility] Address [address] [place] [address] Care Team Providers Name Role Phone Margie Mcmanus SURGICAL ONCOLOGIST, CIGAR INSPECTOR Primary Care Provider [phone] Encounter Details Date Type Department Care Team Description 09/06/2019 Orders Only [place]iel Gong Margie Mcmanus, Prediabetes (Primary [address] SURGICAL ONCOLOGIST, CIGAR INSPECTOR Dx) [place], [place] 100 [facility] [address] [place] [address] Social History Tobacco Use Types Packs/Day Years [...] glucose documented in this encounter Care Teams Informatics Coordinator Relationship Specialty Start Date End Date Margie Mcmanus APRN, CIGAR INSPECTOR PCP - General 04/26/18 05/27/20 100 [facility] [place] [id number] documented as of this encounter
--- OUTSIDE RECORDS SUMMARY | 2022-08-21 10:34 | XMS_ITS | Encounter Summary ---
:1950 Author Organization [facility] Address [address] [place] [address] Care Team Providers Name Role Phone Margie Mcmanus GREASE CUP FILLER, RECORDS TECHNICIAN Primary Care Provider [phone] Encounter Details Date Type Department Care Team Description 12/26/2018 Abstract [facility] Margie Mcmanus, GREASE CUP FILLER, [address] [place] [address] [place] [address] AVE [phone] [place], [place] [address] Social History Tobacco Use [...] on filedocumented in this encounter Care Teams Fishing Reel Assembler Relationship Specialty Start Date End Date Margie Mcmanus APRN, RECORDS TECHNICIAN PCP - General 04/26/18 05/27/[address] [place] [address] [place] [id number] documented as of this encounter
--- OUTSIDE RECORDS SUMMARY | 2022-08-21 10:34 | XMS_ITS | Encounter Summary ---
:1950 Author Organization [facility] Address [address] [place] [address] Care Team Providers Name Role Phone Margie Mcmanus Claudine ALEGRIA, LOGISTICS INTERN Primary Care Provider Reason for Referral Consultation (Routine) - Denied Specialty Diagnoses / Procedures Referred By Contact Refer red To Contact Diagnoses Primary osteoarthritis of both knees Eneida Ayers MD Molenaar, D. Karl, MD [address] [place] [address] [place], [place] [facility] [phone] Fax: Referral ID Status Reason Start Date Expiration Date Visits Requ ested Visits Authorized [id number] Denied 11/29/2018 11/30/2019 1 0 Scheduling Instructions [...] our patient for this procedure at the [facility] [place] site in [place]. Consultation (Routine) - Closed Specialty Diagnoses / Procedures Referred By Contact Refer red To Contact Diagnoses Left foot pain Eneida Ayers MD [facility] [address] [place] [address] [place] [phone] Referral ID Status Reason Start Date Expiration Date Visits Requ ested Visits Authorized [id number] Closed 11/29/2018 11/30/2019 1 1 Scheduling Instructions Please refer patient to Dr. Stark P odiatrist, [facility] Reason for Visit Reason Comments Consult knee injection Encounter Details Date Type Department Care Team Description 11/28/2018 Office Visit Eneida Gray Chronic pain of both knees ( Primary Dx); [address] MD Kranthi Left foot pain; [place], [place] [address] Primary ost eoarthritis of both knees [address] [place] [phone] KAREN Butts [address] Social History Tobacco Use Types Packs/Day Years [...] reasons. First she has previously seen the near east archeology professor down in [facility] a Dr. Stark who she liked referral again to because of some left foot pain and discomfort so we will put that referral secondary to some left foot pain unstable ankle and affecting her gait. She has had x-rays previously takenof her ankles and feet and will let the near east archeology professor do further x-rays if they feel necessary. [...] for that is referral to Dr. Stark near east archeology professor done in [facility]. Assessment/Plan Diagnoses and all orders for [...] knees documented in this encounter Care Teams Professor Of Religious Studies Relationship Specialty Start Date End Date Margie Mcmanus, RANGE MANAGEMENT SPECIALIST, LOGISTICS INTERN PCP - General 04/26/18 05/27/20 100 [place] [address] documented as of this encounter
--- OUTSIDE RECORDS SUMMARY | 2022-08-21 10:34 | XMS_ITS | Encounter Summary ---
:1950 Author Organization [facility] Address [address] [place] [address] Care Team Providers Name Role Phone Margie Mcmanus APRN, CNP Primary Care Provider [phone] Reason for Referral Consultation (Routine) - Closed Specialty Diagnoses / Procedures Referred By Contact Refer red To Contact Diagnoses Chronic pain of both knees Margie Mcmanus, [facility] CANDICE ALEGRIA SYSTEM - [place] [address] [address] [place] [address] Phone: Fax: Referral ID Status Reason Start Date Expiration Date Visits Requ ested Visits Authorized [id number] Closed 01/05/2019 01/06/2020 1 1 Encounter Details Date Type Department Care Team Description 01/05/2019 Orders Only [place] Margie Mcmanus, Chronic pain of both [address] CANDICE ALEGRIA knees (Primary Dx) [place], [place] [address] [address] [place] [address] [phone] Social History Tobacco Use Types Packs/Day Years [...] Primary documented in this encounter Care Teams Youth Corrections Officer Relationship Specialty Start Date End Date Margie Mcmanus, CELL PLASTERER, DIRECTOR OF COUNTERINTELLIGENCE PCP - General 04/26/18 05/27/[address] [place], [place] [address] [address] documented as of this encounter
--- OUTSIDE RECORDS SUMMARY | 2022-08-21 10:34 | XMS_ITS | Encounter Summary ---
:[address] [facility] Address [address] [place] [address] Care Team Providers Name Role Phone Margie Mcmanus RAIL SWITCHMAN, HYDROGEN CELL TENDER Primary Care Provider [phone] Reason for Visit Reason Onset Date Comments talk with nurse 05/18/2019 Encounter Details Date Type Department Care Team Description 05/18/2019 Telephone [place] Margie Mcmanus, talk with nurse [address] RAIL SWITCHMAN, HYDROGEN CELL TENDER [place], [place] [address] [address] [facility] [address] [phone] [place], [place] [address] Social History Tobacco Use [...] up both times. Please call Pt at [phone] to advise. documented in this encounter Plan of Treatment Not on filedocumented as of this encounter Visit Diagnoses Not on filedocumented in this encounter Care Teams Celery Stripper Relationship Specialty Start Date End Date Margie Mcmanus APRN, HYDROGEN CELL TENDER PCP - General 04/26/18 05/27/20 100 [facility] [place] [address] documented as of this encounter
--- OUTSIDE RECORDS SUMMARY | 2022-08-21 10:34 | XMS_ITS | Encounter Summary ---
:1950 Author Organization [facility] Address [address] [place] [address] Care Team Providers Name Role Phone Margie Mcmanus APRN, DATA OPERATIONS MANAGER Primary Care Provider [phone] Reason for Visit Reason Comments Blood Pressure Check Encounter Details Date Type Department Care Team Description 10/06/2019 Clinical Support Kiel Gong [address] [place], [place] [address] Social History Tobacco Use [...] Comments Blood Pressure 128/60 10/06/2019 11:51 AM ETIOLOGIST Pulse 62 10/06/2019 11:51 AM ETIOLOGIST Temperature - - Respiratory Rate - - Oxygen Saturation - - Inhaled Oxygen Concentration - - Weight - - Height - - Body Mass Index - - documented in this encounter Progress Notes Asmita Yun LPN - 10/06/2019 11:30 AM CST BP: 128/60 Right arm P: 62 LOGIST Margie Mcmanus APRN, CNP - 10/06/2019 11:30 AM CST The patient should be checked on both arms with next blood pressure recheck. LOGIST Margie Mcmanus APRN, CNP - 10/06/2019 11:30 AM CST The patient was notified she should continue to take the aspirin. LOGIST documented in this encounter Plan of Treatment Not on filedocumented as of this encounter Visit Diagnoses Not on filedocumented in this encounter Care Teams Ship'S Captain Relationship Specialty Start Date End Date Margie Mcmanus APRN, CNP PCP - General 04/26/18 05/27/20 100 [facility] [place] [address] documented as of this encounter
--- OUTSIDE RECORDS SUMMARY | 2022-08-21 10:34 | XMS_ITS | Encounter Summary ---
:1950 Author Organization [facility] Address [address] [place] [address] Care Team Providers Name Role Phone None, Pcp Primary Care Provider Unavailable Encounter Details Date Type Department Care Team Description 11/06/2020 Lab Kiel Gong Prediabetes; [address] [facility] Encounter for hepatitis C sc reening test for low risk patient; [place], [place] [address] Essential (primary) hyperten harmony [phone] Social History Tobacco Use Types Packs/Day Years [...] (prim alan) Results for this RATE AM ELECTRIC MOTOR CONTROLS ASSEMBLER hypertension procedure are i n the results section. HEPATITIS C ANTIBODY Routine 11/06/2020 10:16 Encounter for Re sults for this AM ELECTRIC MOTOR CONTROLS ASSEMBLER hepatitis C procedure are i n screening test for the resul ts low risk patient section. T3 Routine 11/06/2020 10:16 Results for this AM ELECTRIC MOTOR CONTROLS ASSEMBLER procedure are i n the results section. TSH Routine 11/06/2020 10:16 Essential (primary) Resu lts for this AM ELECTRIC MOTOR CONTROLS ASSEMBLER hypertension procedure are i n the results section. T4, FREE Routine 11/06/2020 10:16 Results for this AM ELECTRIC MOTOR CONTROLS ASSEMBLER procedure are i n the results section. MAGNESIUM Routine 11/06/2020 10:16 Essential (primary) Resu lts for this AM ELECTRIC MOTOR CONTROLS ASSEMBLER hypertension procedure are i n the results section. HEMOGLOBIN A1C Routine 11/06/2020 10:16 Prediabetes Results f or this AM ELECTRIC MOTOR CONTROLS ASSEMBLER procedure are i n the results section. LIPID PANEL Routine 11/06/2020 10:16 Prediabetes Results for this AM ELECTRIC MOTOR CONTROLS ASSEMBLER procedure are i n the results section. COMPREHENSIVE Routine 11/06/2020 10:16 Essential (primary) Res ults for this METABOLIC PANEL AM ELECTRIC MOTOR CONTROLS ASSEMBLER hypertension procedure ar e in the results section. documented in this encounter Results (ABNORMAL) T3 (11/06/2020 10:16 AM ELECTRIC MOTOR CONTROLS ASSEMBLER) P athologist Signature T3, Total 4.31 (H) 0.97 - 1.69 11/07/2020 [facility] ng/mL 7:21 PM ELECTRIC MOTOR CONTROLS ASSEMBLER [facility] Comment: The results from this [...] / Volume Laterality 11/06/2020 10:16 11/07/2020 AM ELECTRIC MOTOR CONTROLS ASSEMBLER 12:45 PM ELECTRIC MOTOR CONTROLS ASSEMBLER Palak Cooley ELECTROGALVANIZING MACHINE OPERATOR, VC++ DEVELOPER LAB BLOOD ORDERABLES Performing Organization Address City/State/ZIP Code Phon e Number [facility] [address] [place] [address] T4, free (11/06/2020 10:16 AM ELECTRIC MOTOR CONTROLS ASSEMBLER) athologist Signature Free T4 0.81 0.78 - 2.19 11/07/2020 [facility] ng/dL 7:08 PM [facility] Comment: The results from this [...] / Volume Laterality 11/06/2020 10:16 11/07/2020 AM ELECTRIC MOTOR CONTROLS ASSEMBLER 12:45 PM ELECTRIC MOTOR CONTROLS ASSEMBLER Palak Cooley APRN, CNP LAB BLOOD ORDERABLES Performing Organization Address City/[facility] [address]/[facility] Phon e Number [facility] [address] [place] [phone] Glomerular filtration rate (GFR) (11/06/2020 10:16 AM ELECTRIC MOTOR CONTROLS ASSEMBLER) athologist Signature GFR >60 11/07/2020 [facility] 1:07 PM [facility]S AS[facility] >60 11/07/2020 [facility] Brazilian GFR 1:07 PM [facility] Comment: GFR calculated from serum creatinine v alue Chronic Kidney Disease less than 60 mL/m in/1.73 m2 Kidney Failure less than 15 mL/min/1.73 m2 Note: effective 02/02/07 IDMS-Traceable MDRD Study Equation used. Specimen Anatomical Collection Method Collection Time Receive d Time (Source) Location / / Volume Laterality 11/06/2020 10:16 11/06/2020 AM ELECTRIC MOTOR CONTROLS ASSEMBLER 10:16 AM ELECTRIC MOTOR CONTROLS ASSEMBLER Palak Cooley APRN, CNP LAB BLOOD ORDERABLES Performing Organization Address [facility] Phon e Number [facility] [address] [place] [phone] (ABNORMAL) Lipid panel (11/06/2020 10:16 AM ELECTRIC MOTOR CONTROLS ASSEMBLER) athologist Signature Cholesterol 183 0 - 199 11/07/2020 [facility] mg/dL 1:07 PM [facility] Comment: Recommended by National Cholesterol Education Program (ATP III) -------- Cholesterol Ranges -------- <200 ?Desirable 200-239 ? Borderline high >=240 ? High Triglycerides 119 0 - 149 mg/dL 11/07/2020 1:07 PM [facility] Comment: -------- TRIG Ranges -------- <150 ?Normal 150-199 ? Borderline high 200-499 ? High >=500 ? Very high HDL 38 (L) 40 - 250 mg/dL 11/07/2020 1:07 PM [facility] Comment: -------- HDL Ranges -------- <40 ?Low 40-59 ?Normal >=60 ? Optimal LDL Calculated 121 (H) 0 - 99 mg/dL 11/07/2020 1:07 PM [facility] Comment: -------- LDL Ranges -------- <100 ? Optimal 100-129 ?Near optimal/above op timal 130-159 ?Borderline high 160-189 ?High >=190 ?Very high Specimen Anatomical Collection Method Collection Time Receive d Time (Source) Location / / Volume Laterality Blood 11/06/2020 10:16 11/07/2020 AM ELECTRIC MOTOR CONTROLS ASSEMBLER 12:32 PM ELECTRIC MOTOR CONTROLS ASSEMBLER Palak Cooley ELECTROGALVANIZING MACHINE OPERATOR, VC++ DEVELOPER LAB BLOOD ORDERABLES Performing Organization Address City/State/ZIP Code Phon e Number [facility] [address] [place] [phone] (ABNORMAL) TSH (11/06/2020 10:16 AM ELECTRIC MOTOR CONTROLS ASSEMBLER) [facility] Method Time Signature TSH, Sensitive 14.30 (H) 0.46 - 11/07/2020 [facility] 4.68 mIU/L 2:11 PM [facility] Comment: The results from [...] Volume Laterality Blood 11/06/2020 10:16 11/07/2020 AM ELECTRIC MOTOR CONTROLS ASSEMBLER 12:45 PM ELECTRIC MOTOR CONTROLS ASSEMBLER Palak Cooley APRN, VC++ DEVELOPER LAB BLOOD ORDERABLES Performing Organization Address City/State/ZIP Code Phon e Number [facility] [address] [place] [phone] (ABNORMAL) Comprehensive metabolic panel (11/06/2020 10:16 AM ELECTRIC MOTOR CONTROLS ASSEMBLER) [facility] Method Time Signature Total Protein 6.9 6.3 - 8.2 11/07/2020 [place] g/dL 1:07 PM [facility] Albumin, Serum 4.2 3.5 - 5.0 11/07/2020 [place] g/dL 1:07 PM [facility] Total Bilirubin 0.8 0.1 - 1.0 11/07/2020 [place] mg/dL 1:07 PM [facility] AST 21 8 - 43 U/L 11/07/2020 [place] 1:07 PM [facility] Alkaline 76 38 - 128 11/07/2020 [facility] Phosphatase U/L 1:07 PM [facility] ALT (SGPT) 16 0 - 34 U/L 11/07/2020 [place] 1:07 PM [facility] Sodium 140 135 - 145 11/07/2020 [facility] mEq/L 1:07 PM [facility] Potassium 3.8 3.5 - 5.1 11/07/2020 [place] mEq/L 1:07 PM [facility] Chloride 104 98 - 107 11/07/2020 [facility] mEq/L 1:07 PM [facility] CO2 30 (H) 22 - 29 11/07/2020 [facility] mmol/L 1:07 PM [facility] BUN 22 5 - 25 11/07/2020 [facility] mg/dL 1:07 PM [facility] Creatinine 0.8 0.4 - 1.2 11/07/2020 [facility] mg/dL 1:07 PM [facility] Glucose 138 (H) 70 - 100 11/07/2020 [facility] mg/dL 1:07 PM [facility] Calcium, Total,S 9.3 8.4 - 10.2 11/07/2020 [facility] mg/dL 1:07 PM [facility] Fasting? Yes 11/06/2020 [facility] 10:19 AM [facility] Specimen Anatomical Collection Method Collection Time Receive d Time (Source) Location / / Volume Laterality Blood 11/06/2020 10:16 11/07/2020 AM ELECTRIC MOTOR CONTROLS ASSEMBLER 12:32 PM ELECTRIC MOTOR CONTROLS ASSEMBLER Palak Cooley APRN, CNP LAB BLOOD ORDERABLES Performing Organization Address [facility] Code Phon e Number [facility] [address] [place] [phone] Magnesium (11/06/2020 10:16 AM ELECTRIC MOTOR CONTROLS ASSEMBLER) P athologist Signature Magnesium 2.1 1.6 - 2.3 11/07/2020 [facility] mg/dL 1:07 PM [facility] Specimen Anatomical Collection Method Collection Time Receive d Time (Source) Location / / Volume Laterality Blood 11/06/2020 10:16 11/07/2020 AM ELECTRIC MOTOR CONTROLS ASSEMBLER 12:32 PM ELECTRIC MOTOR CONTROLS ASSEMBLER Palak Cooley APRN, VC++ DEVELOPER LAB BLOOD ORDERABLES Performing Organization Address City/[facility] [address]/[facility] Code Phon e Number [facility] [address] [place] [phone] Hepatitis C antibody (11/06/2020 10:16 AM ELECTRIC MOTOR CONTROLS ASSEMBLER) [facility] Method Time Signature Hepatitis C NON-REACTI Non-Reacti 11/07/2020 [facility] Antibody VE ve 2:35 PM [facility] Comment: The results from [...] Blood (Blood, 11/06/2020 10:16 11/07/2020 Venous) AM ELECTRIC MOTOR CONTROLS ASSEMBLER 12:45 PM ELECTRIC MOTOR CONTROLS ASSEMBLER Palak Cooley APRN, VC++ DEVELOPER LAB BLOOD ORDERABLES Performing Organization Address City/[facility] [address]/ZIP Code Phon e Number [facility] [address] [place] [phone] (ABNORMAL) Hemoglobin A1c (11/06/2020 10:16 AM ELECTRIC MOTOR CONTROLS ASSEMBLER) Analysis Performed At [facility] logist Time Signature Hemoglobin A1C 6.1 (H) 4.0 - 5.6 11/07/2020 [facility] % A1C 1:07 PM [facility] Comment: Reference Range 4.0-5.6% [...] Volume Laterality Blood 11/06/2020 10:16 11/07/2020 AM ELECTRIC MOTOR CONTROLS ASSEMBLER 12:32 PM ELECTRIC MOTOR CONTROLS ASSEMBLER Palak Cooley APRN, VC++ DEVELOPER LAB BLOOD ORDERABLES Performing Organization Address City/State/ZIP Code Phon e Number [facility] [address] [place] [phone] documented in this encounter Visit Diagnoses Diagnosis Prediabetes Other abnormal glucose Encounter for hepatitis C screening test for low risk patient Essential (primary) hypertension Unspecified essential hypertension documented in this encounter Care Teams Structural Iron Erector Relationship Specialty Start Date End Date None, Pcp PCP - General Cell Pourer 11/06/20 05/18/21 [address] [place] [address] documented as of this encounter
--- OUTSIDE RECORDS SUMMARY | 2022-08-21 10:34 | XMS_ITS | Encounter Summary ---
:1950 Author Organization [facility] Address [address] [place] [address] Care Team Providers Name Role Phone Palak Cooley BLOCK AND CASE MAKER, PROFESSOR OF LITERACY Primary Care Provider Reason for Visit Reason Comments Med Refill Encounter Details Date Type Department Care Team Description 2018 Refill [place] Margie Mcmanus, Hypertension, [address] RAJI, CANDICE unspecified type [place], [place] [address] [address] [facility] [address] [phone] [place], [place] [address] Social History Tobacco Use [...] Myrtle Carter MA - 11/15/2018 6:28 AM SALES ORDER CLERK HCTZ 25mg last rx 07/25/18 #90 no [...] mg/dL 9.6 No pending labs in chart S ORDER CLERK documented in this encounter Plan of Treatment Not on filedocumented as of this encounter Visit Diagnoses Diagnosis Hypertension, unspecified type documented in this encounter Care Teams Supervisor Waterworks Relationship Specialty Start Date End Date Palak Cooley, BLOCK AND CASE MAKER, PROFESSOR OF LITERACY PCP - General 05/19/[address] [place] [address] documented as of this encounter
--- OUTSIDE RECORDS SUMMARY | 2022-08-21 10:35 | XMS_ITS | Encounter Summary ---
:1950 Author Organization [facility] Address [address] [place] [address] Care Team Providers Name Role Phone Margie Mcmanus APRN, ORCHID HAND Primary Care Provider Encounter Details Date Type Department Care Team Description 10/27/2018 Lab [place] Screening, anemia, deficienc y, iron; [address] Lipid screening; [place], [place] [address] Essential hypertension; [phone] Bilateral lower extremity edema; Screening for d [...] Essential Results f or this FILTRATION RATE DIRECTOR OF MAINTENANCE hypertension procedure are in Bilateral lower the results extremity edema section. CBC BRANCH OFFICE Routine 10/27/2018 8:57 AM Screening, anemia , Results for this W/DIFF DIRECTOR OF MAINTENANCE deficiency, iron procedure a re in the results section. HEMOGLOBIN A1C Routine 10/27/2018 8:57 AM Screening for Result s for this DIRECTOR OF MAINTENANCE diabetes mellitus procedure are in the results section. LIPID PANEL Routine 10/27/2018 8:57 AM Lipid screening Result s for this DIRECTOR OF MAINTENANCE procedure are i n the results section. BASIC METABOLIC Routine 10/27/2018 8:57 AM Essential Result s for this PANEL DIRECTOR OF MAINTENANCE hypertension procedure are in Bilateral lower the results extremity edema section. documented in this encounter Results (ABNORMAL) Glomerular filtration rate (GFR) (10/27/2018 8:57 AM DIRECTOR OF MAINTENANCE) P athologist Signature GFR 55 (A) 10/27/2018 [facility] 11:15 AM [facility] >60 10/27/2018 [facility] Brazilian GFR 11:15 AM [facility] Comment: GFR calculated from serum creatinine v alue Chronic Kidney Disease less than 60 mL/m in/1.73 m2 Kidney Failure less than 15 mL/min/1.73 m2 Note: effective 02/02/07 IDMS-Traceable MDRD Study Equation used. Specimen Anatomical Collection Method Collection Time Receive d Time (Source) Location / / Volume Laterality 10/27/2018 8:57 AM 9 8:57 DIRECTOR OF MAINTENANCE AM DIRECTOR OF MAINTENANCE Margie Mcmanus APRN, ORCHID HAND LAB BLOOD ORDERABLES Performing Organization Address City/State/ZIP Code Phon e Number [facility] [address] [place] [address] (ABNORMAL) Hemoglobin A1c (10/27/2018 8:57 AM DIRECTOR OF MAINTENANCE) Analysis Performed At Patho logist Time Signature Hemoglobin A1C 6.5 (H) 4.0 - 5.6 10/27/2018 [place] % A1C 1:45 PM [facility] Comment: Reference Range [...] 10/27/2018 8:57 AM 10/27/19 19 1:19 Venous) DIRECTOR OF MAINTENANCE PM DIRECTOR OF MAINTENANCE Margie Mcmanus APRN, CNP LAB BLOOD ORDERABLES Performing Organization Address City/[facility]/ZIP [facility] Phon e Number [facility] [address] [place] [address] (ABNORMAL) Basic metabolic panel (10/27/2018 8:57 AM DIRECTOR OF MAINTENANCE) P athologist Signature Sodium 147 (H) 135 - 145 10/27/2018 [facility] [place] mmol/L 11:15 AM DIRECTOR OF MAINTENANCE [place] Potassium 3.5 3.5 - 5.1 10/27/2018 [facility] [place] mmol/L 11:15 AM DIRECTOR OF MAINTENANCE [place] Comment: . Chloride 106 98 - 107 mmol/L 10/27/2018 11:15 AM DIRECTOR OF MAINTENANCE [facility] [place] Comment: . CO2 31 (H) 22 - 29 mmol/L 10/27/2018 11:15 AM DIRECTOR OF MAINTENANCE [facility] [place] Comment: . Creatinine 1.0 0.4 - 1.2 mg/dL 10/27/2018 11:15 AM DIRECTOR OF MAINTENANCE [facility] [place] Comment: . BUN 16 5 - 25 mg/dL 10/27/2018 11:15 AM DIRECTOR OF MAINTENANCE [facility] [place] Comment: . Glucose 138 (H) 70 - 100 mg/dL 10/27/2018 11:15 AM [facility] [place] DIRECTOR OF MAINTENANCE Calcium, Total,S 9.6 8.4 - 10.2 mg/dL 10/27/2018 11:15 AM [facility] [place] DIRECTOR OF MAINTENANCE Comment: . Specimen Anatomical Collection Method Collection Time Receive d Time (Source) Location / / Volume Laterality Blood (Blood, 10/27/2018 8:57 AM 10/27/19 19 9:02 Venous) DIRECTOR OF MAINTENANCE AM DIRECTOR OF MAINTENANCE Margie Mcmanus APRN, CNP LAB BLOOD ORDERABLES Performing Organization Address City/[facility]/ZIP [facility] Phon e Number [facility] [place] [address] [place] [address] (ABNORMAL) Lipid panel (10/27/2018 8:57 AM DIRECTOR OF MAINTENANCE) athologist Signature Cholesterol 150 0 - 199 10/28/2018 [facility] mg/dL 1:52 PM [facility] Comment: Recommended by National Cholesterol Education Program (ATP III) -------- Cholesterol Ranges -------- <200 ? Desirable 200-239 ? Borderline high >=240 ? High Triglycerides 88 0 - 149 mg/dL 10/28/2018 1:[address] [facility] Comment: -------- TRIG Ranges -------- <150 ?Normal 150-199 ? Borderline high 200-499 ? High >=500 ? Very high HDL 33 (A) 40 - 60 mg/dL 10/28/2018 1:[address] [facility] Comment: -------- HDL Ranges -------- <40 ?Low 40-59 ?Normal >=60 ? Optimal LDL Calculated 99 0 - 99 mg/dL 10/28/2018 1:[address] [facility] Comment: -------- LDL Ranges -------- <100 ? Optimal 100-129 ?Near optimal/above op timal 130-159 ?Borderline high 160-189 ?High >=190 ?Very high Fasting? Yes 10/27/2018 9:[address] [facility] Specimen Anatomical Collection Method Collection Time Receive d Time (Source) Location / / Volume Laterality Blood (Blood, 10/27/2018 8:57 AM 10/28/19 19 Venous) DIRECTOR OF MAINTENANCE 12:30 PM DIRECTOR OF MAINTENANCE Margie Mcmanus APRN, ORCHID HAND LAB BLOOD ORDERABLES Performing Organization Address City/State/ZIP Code Phon e Number [facility] [address] [place] [address] CBC Branch Off w/Diff (10/27/2018 8:57 AM DIRECTOR OF MAINTENANCE) P athologist Signature WBC 7.4 3.5 - 10.5 10/27/2018 [facility] K/uL 9:03 AM DIRECTOR OF MAINTENANCE [place] RBC 4.83 3.90 - 10/27/2018 [facility] 5.00 M/uL 9:03 AM DIRECTOR OF MAINTENANCE [place] Hemoglobin 14.6 12.0 - 10/27/2018 [facility] 15.5 g/dL 9:03 AM DIRECTOR OF MAINTENANCE [place] Hematocrit 43.5 35.0 - 10/27/2018 [facility] 44.0 % 9:03 AM DIRECTOR OF MAINTENANCE [place] Platelets 231 150 - 450 10/27/2018 [facility] K/uL 9:03 AM DIRECTOR OF MAINTENANCE [place] MCV 90.1 81.6 - 10/27/2018 [facility] 98.3 fL 9:03 AM DIRECTOR OF MAINTENANCE [place] MCH 30.2 26.0 - 10/27/2018 [facility] 32.0 pg 9:03 AM DIRECTOR OF MAINTENANCE [place] MCHC 33.6 32.0 - 10/27/2018 [facility] 36.0 g/dL 9:03 AM DIRECTOR OF MAINTENANCE [place] RDW 13.1 11.9 - 10/27/2018 [facility] 15.5 % 9:03 AM DIRECTOR OF MAINTENANCE [place] Lymphocytes % 22.6 18.0 - 10/27/2018 [facility] 45.0 % 9:03 AM DIRECTOR OF MAINTENANCE [place] Mid-size Cells 8.8 3.3 - 10.1 10/27/2018 [facility] % 9:03 AM DIRECTOR OF MAINTENANCE [place] Granulocytes/Fabienne 68.6 45.8 - 10/27/2018 [facility] trophils 73.7 % 9:03 AM DIRECTOR OF MAINTENANCE [place] Lymphocytes 1.7 0.9 - 2.9 10/27/2018 [facility] Absolute K/uL 9:03 AM DIRECTOR OF MAINTENANCE [place] MIDS Absolute 0.7 0.2 - 0.8 10/27/2018 [facility] K/uL 9:03 AM DIRECTOR OF MAINTENANCE [place] Granulocytes/Fabienne 5.0 2.1 - 8.7 10/27/2018 [facility] trophils K/uL 9:03 AM DIRECTOR OF MAINTENANCE [place] Absolute Specimen Anatomical Collection Method Collection Time Receive d Time (Source) Location / / Volume Laterality Blood (Blood, 10/27/2018 8:57 AM 10/27/19 19 9:02 Venous) DIRECTOR OF MAINTENANCE AM DIRECTOR OF MAINTENANCE Margie Mcmanus APRN, CNP LAB BLOOD ORDERABLES Performing Organization Address City/State/ZIP Code Phon e Number [facility] [place] [address] [place] [address] documented in this encounter Visit Diagnoses Diagnosis Screening, anemia, deficiency, iron Screening for iron deficiency anemia Lipid screening Screening for lipoid disorders Essential hypertension Unspecified essential hypertension Bilateral lower extremity edema Screening for diabetes mellitus documented in this encounter Care Teams [place] Manager Relationship Specialty Start Date End Date Margie Mcmanus APRN, ORCHID HAND PCP - General 04/26/18 05/27/[address] [place] [address] [place] [id number] documented as of this encounter
--- OUTSIDE RECORDS SUMMARY | 2022-08-21 10:35 | XMS_ITS | Encounter Summary ---
:1950 Author Organization [facility] Address [address] [place] [address] Care Team Providers Name Role Phone Margie Mcmanus APRN, PRODUCTION TEAM MANAGER Primary Care Provider [phone] Reason for Visit Reason Comments Annual Exam Encounter Details Date Type Department Care Team Description 10/27/2018 Office Visit [place] Margie Mcmanus Annual physical exam (Primar y Dx); [address] M, CANDICE ALEGRIA Essential hypertension; [place], [place] [address] Bilateral lower extremity edema; [address] [place] [address] Left foot pain; [phone] Chronic pain of both knees; Situational dep ression; Screening, anem ia, deficiency, iron; Lipid screening ; Screening for d iabetes mellitus Social History Tobacco Use Types Packs/Day Years Used Date Smoking Tobacco: Former Cigarettes 1 Tobacco Cessation: Counseling Given: No Comments: [...] Comments Blood Pressure 128/68 10/27/2018 9:16 AM MANAGER TITLE Pulse 74 10/27/2018 9:16 AM MANAGER TITLE Temperature 37 ??C (98.6 ??F) 10/27/2018 9:16 AM MANAGER TITLE Respiratory Rate 16 10/27/2018 9:16 AM MANAGER TITLE Oxygen Saturation 95% 10/27/2018 9:16 AM MANAGER TITLE Inhaled Oxygen Concentration - - Weight 106 kg (234 lb 2.1 oz) 10/27/2018 9:16 AM MANAGER TITLE Height 160 cm (5' 2.99) 10/27/2018 9:16 AM MANAGER TITLE Body Mass Index 41.48 10/27/2018 9:16 AM MANAGER TITLE documented in this encounter Patient Instructions Patient InstructionsChera Mcmanus APRN, CNP - 10/27/2018 8:00 AM MANAGER TITLE Mammogram please consider Colonoscopy first recommendation (Cologuard) Will call with the official radiology reports Left foot pain - consider podiatry Osteoarthritis - could consider Sinvisc injections DEXA scan Immunizations Varicosities could consider general surgery referral GER TITLE documented in this encounter Progress Notes Margie [...] like to be cold in the winter, 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 The patient's son then moved into a hot in [place], and felt as if she was his STAMP CLERK. The mother reports her son made the decision to move to [place], and was attempting to facilitate rehab. She received a call from a hospital in [place],with a physician on the line, as her [...] friends,her second cousin, who is now in [place], lost her 40-year-old son, from an apparent [...] (one) time each day, Disp: ,Rfl: ??? Tolono-3 Fatty Acids ([employer] FISH OIL) 1200 MG [...] college, no degree Occupational History ??? 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 Financial resource strain: Not [...] file Gets together: Not on file Attends bahai service: Not on file Active member of [...] and stress incontinence. No hematuria or dysuria. CHIEF DEPUTY CORONER: 1, para 1. The patient is unable to recall when her last menstrual period was, no vaginal bleeding since. She is sexually active with no discomfort. ENDOCRINOLOGY: No thyroid dysfunction, diabetes, nor osteoporosis. MUSCULOSKELETAL: See HPI. The patient has had bilateral knee discomfort, as she points to her distalpatellar area, bilaterally, which she noticed before going to [place] in July, which were swollen in October. [...] discomfort, unstable feeling, but she is considering medicare sales representative. She will be notified of her left [...] plan of care. Margie Mcmanus APRN, CANDICE GER TITLE documented in this encounter Plan of Treatment Not on filedocumented as of this encounter Procedures Procedure Name Priority Date/Time Associated Diagnosis Comme nts XR FOOT 3+ VIEWS Routine 10/27/2018 10:18 AM Resu lts for this LEFT MANAGER TITLE procedure are i n the results section. XR KNEE 1-2 VIEWS Routine 10/27/2018 10:15 AM Chronic pain of both Results for this LEFT MANAGER TITLE knees procedure are i n the results section. XR KNEE 4+ VIEWS Routine 10/27/2018 10:13 AM Resu lts for this RIGHT MANAGER TITLE procedure are i n the results section. documented in this encounter Results X-ray foot 3+ views left (10/27/2018 10:18 AM MANAGER TITLE) Anatomical Region Laterality Modality Lower Extremities, Foot Left Radiographic Nicol ging Specimen (Source) Anatomical Collection Method Collection Time Re ceived Time Location / / Volume Laterality 10/27/2018 10:18 AM MANAGER TITLE Impressions 10/27/2018 10:30 AM MANAGER TITLE IMPRESSION: FOOT COMPLETE LEFT MIN 3 VIEWS No fracture or dislocation. ??No lytic l esion or erosion. ??There is mild spurring medially at the 1st metatarsal head. ??There is a moderate to large plantar calcaneal spur. ??Small sc lerotic bone island is seen at the base of the great toe proximal phalanx. Narrative 10/27/2018 10:30 AM MANAGER TITLE INDICATION: left foot pain since march, unstable [...] the great toe proximal phalanx. Margie Mcmanus APRN, PRODUCTION TEAM MANAGER IMG XR PROCEDURES X-ray Knee 1-2 Views Left (10/27/2018 10:15 AM MANAGER TITLE) Anatomical Region Laterality Modality Lower Extremities, Knee Left Radiographic Nicol ging Specimen (Source) Anatomical Collection Method Collection Time Re ceived Time Location / / Volume Laterality 10/27/2018 10:15 AM MANAGER TITLE Impressions 10/27/2018 10:30 AM MANAGER TITLE IMPRESSION: KNEE LEFT (1-2 VIEWS) There is mild patellofemoral joint spurr ing. ??There is a minimal effusion. ?? No fracture, dislocation, or lytic or bl astic lesion. Narrative 10/27/2018 10:30 AM MANAGER TITLE INDICATION: bilateral knee pain COMPARISON: None available Procedure Note Jackelyn Mcclelland MD - 10/27/2018 INDICATION: bilateral knee pain COMPARISON: None available IMPRESSION: KNEE LEFT (1-2 VIEWS) There is mild patellofemoral joint spurr ing. There is a minimal effusion. No fracture, dislocation, or lytic or bl astic lesion. Margie Mcmanus APRN, CNP IMG XR PROCEDURES X-ray knee 4+ views right (10/27/2018 10:13 AM MANAGER TITLE) Anatomical Region Laterality Modality Lower Extremities, Knee Right Radiographic Nicol ging Specimen (Source) Anatomical Collection Method Collection Time Re ceived Time Location / / Volume Laterality 10/27/2018 10:13 AM MANAGER TITLE Impressions 10/27/2018 10:34 AM MANAGER TITLE IMPRESSION: KNEE COMPLETE RIGHT (MIN 4 VIEWS) [...] or blastic lesion. Narrative 10/27/2018 10:34 AM MANAGER TITLE INDICATION: bilateral knee pain COMPARISON: None available [...] lytic or blastic lesion. Margie Mcmanus APRN, CNP IMG XR PROCEDURES (ABNORMAL) Hemoglobin A1c (10/27/2018 8:57 AM MANAGER TITLE) Analysis Performed At Patho logist Time Signature Hemoglobin A1C 6.5 (H) 4.0 - 5.6 10/27/2018 [place] % A1C 1:45 PM [facility] Comment: Reference Range [...] 10/27/2018 8:57 AM 10/27/19 19 1:19 Venous) MANAGER TITLE PM MANAGER TITLE Margie Mcmanus APRN, PRODUCTION TEAM MANAGER LAB BLOOD ORDERABLES Performing Organization Address City/State/ZIP Code Phon e Number [facility] [address] [place] [address] CBC Branch Off w/Diff (10/27/2018 8:57 AM MANAGER TITLE) P athologist Signature WBC 7.4 3.5 - 10.5 10/27/2018 [facility] K/uL 9:03 AM MANAGER TITLE [place] RBC 4.83 3.90 - 10/27/2018 [facility] 5.00 M/uL 9:03 AM MANAGER TITLE [place] Hemoglobin 14.6 12.0 - 10/27/2018 [facility] 15.5 g/dL 9:03 AM MANAGER TITLE [place] Hematocrit 43.5 35.0 - 10/27/2018 [facility] 44.0 % 9:03 AM MANAGER TITLE [place] Platelets 231 150 - 450 10/27/2018 [facility] K/uL 9:03 AM MANAGER TITLE [place] MCV 90.1 81.6 - 10/27/2018 [facility] 98.3 fL 9:03 AM MANAGER TITLE [place] MCH 30.2 26.0 - 10/27/2018 [facility] 32.0 pg 9:03 AM MANAGER TITLE [place] MCHC 33.6 32.0 - 10/27/2018 [facility] 36.0 g/dL 9:03 AM MANAGER TITLE [place] RDW 13.1 11.9 - 10/27/2018 [facility] 15.5 % 9:03 AM MANAGER TITLE [place] Lymphocytes % 22.6 18.0 - 10/27/2018 [facility] 45.0 % 9:03 AM MANAGER TITLE [place] Mid-size Cells 8.8 3.3 - 10.1 10/27/2018 [facility] % 9:03 AM MANAGER TITLE [place] Granulocytes/Fabienne 68.6 45.8 - 10/27/2018 [facility] trophils 73.7 % 9:03 AM MANAGER TITLE [place] Lymphocytes 1.7 0.9 - 2.9 10/27/2018 [facility] Absolute K/uL 9:03 AM MANAGER TITLE [place] MIDS Absolute 0.7 0.2 - 0.8 10/27/2018 [facility] [place] K/uL 9:03 AM MANAGER TITLE FALL[place] Granulocytes/Fabienne 5.0 2.1 - 8.7 10/27/2018 [facility] [place] trophils K/uL 9:03 AM MANAGER TITLE [place] Absolute Specimen Anatomical Collection Method Collection Time Receive d Time (Source) Location / / Volume Laterality Blood (Blood, 10/27/2018 8:57 AM 10/27/19 19 9:02 Venous) MANAGER TITLE AM MANAGER TITLE Margie Mcmanus APRN, PRODUCTION TEAM MANAGER LAB BLOOD ORDERABLES Performing Organization Address City/State/ZIP Code Phon e Number [facility] [place] [address] [place] [address] (ABNORMAL) Lipid panel (10/27/2018 8:57 AM MANAGER TITLE) athologist Signature Cholesterol 150 0 - 199 10/28/2018 [facility] mg/dL 1:52 PM [facility] Comment: Recommended by National Cholesterol Education Program (ATP III) -------- Cholesterol Ranges -------- <200 ? Desirable 200-239 ? Borderline high >=240 ? High Triglycerides 88 0 - 149 mg/dL 10/28/2018 1:52 PM [facility] Comment: -------- TRIG Ranges -------- <150 ?Normal 150-199 ? Borderline high 200-499 ? High >=500 ? Very high HDL 33 (A) 40 - 60 mg/dL 10/28/2018 1:52 PM [facility] Comment: -------- HDL Ranges -------- <40 ?Low 40-59 ?Normal >=60 ? Optimal LDL Calculated 99 0 - 99 mg/dL 10/28/2018 1:52 PM MANAGER TITLE [facility] Comment: -------- LDL Ranges -------- <100 ? Optimal 100-129 ?Near optimal/above op timal 130-159 ?Borderline high 160-189 ?High >=190 ?Very high Fasting? Yes 10/27/2018 9:02 AM [facility] Specimen Anatomical Collection Method Collection Time Receive d Time (Source) Location / / Volume Laterality Blood (Blood, 10/27/2018 8:57 AM 10/28/19 19 Venous) MANAGER TITLE 12:30 PM MANAGER TITLE Margie Mcmanus APRN, PRODUCTION TEAM MANAGER LAB BLOOD ORDERABLES Performing Organization Address City/State/ZIP Code Phon e Number [facility] [address] [place] [address] (ABNORMAL) Basic metabolic panel (10/27/2018 8:57 AM MANAGER TITLE) P athologist Signature Sodium 147 (H) 135 - 145 10/27/2018 [facility] [place] mmol/L 11:15 AM [facility] Potassium 3.5 3.5 - 5.1 10/27/2018 [facility] [place] mmol/L 11:15 AM [facility] Comment: . Chloride 106 98 - 107 mmol/L 10/27/2018 11:15 AM [facility] Comment: . CO2 31 (H) 22 - 29 mmol/L 10/27/2018 11:15 AM [facility] Comment: . Creatinine 1.0 0.4 - 1.2 mg/dL 10/27/2018 11:15 AM [facility] Comment: . BUN 16 5 - 25 mg/dL 10/27/2018 11:15 AM [facility] Comment: . Glucose 138 (H) 70 - 100 mg/dL 10/27/2018 11:15 AM [facility] Aranza GONG MANAGER TITLE Calcium, Total,S 9.6 8.4 - 10.2 mg/dL 10/27/2018 11:15 AM [facility] [place] MANAGER TITLE Comment: . Specimen Anatomical Collection Method Collection Time Receive d Time (Source) Location / / Volume Laterality Blood (Blood, 10/27/2018 8:57 AM 10/27/19 19 9:02 Venous) MANAGER TITLE AM MANAGER TITLE Margie Mcmanus APRN, PRODUCTION TEAM MANAGER LAB BLOOD ORDERABLES Performing Organization Address City/State/ZIP Code Phon e Number [facility] [place] [address] [place] [address] documented in this encounter Visit Diagnoses Diagnosis [...] mellitus documented in this encounter Care Teams Harvest Crew Supervisor Relationship Specialty Start Date End Date Margie Mcmanus APRN, PRODUCTION TEAM MANAGER PCP - General 04/26/18 05/27/[address] [place] [address] KAREN BLAKELY [id number] documented as of this encounter
--- OUTSIDE RECORDS SUMMARY | 2022-08-21 10:35 | XMS_ITS | Encounter Summary ---
:[address] [facility] Address [address] [place] [address] Care Team Providers Name Role Phone Margie Mcmanus APRN, [facility] Primary Care Provider [phone] Encounter Details Date Type Department Care Team Description 10/21/2018 Abstract [facility] Margie Mcmanus, GLASS MAKER, [address] [place] [address] [place] [address] AV [phone] [place], [place] [address] Social History Tobacco Use [...] on filedocumented in this encounter Care Teams Administrative Services Officer Relationship Specialty Start Date End Date Margie Mcmanus APRN, PLANT HEALTH CARE TECHNICIAN PCP - General 04/26/18 05/27/20 [address] [facility] KAR[place] BLAK[place] [id number] documented as of this encounter
--- OUTSIDE RECORDS SUMMARY | 2022-08-21 10:35 | XMS_ITS | Encounter Summary ---
:1950 Author Organization [facility] Address [address] [place] [address] Care Team Providers Name Role Phone Margie Mcmanus FINANCIAL PLANNING CONSULTANT, PRICING SPECIALIST Primary Care Provider Reason for Visit Reason Onset Date Comments MED REFILL 07/25/2018 Encounter Details Date Type Department Care Team Description 07/25/2018 Telephone [place] Margie Mcmanus, MED REFILL [address] [place], CANDICE [place], [place] [address] [phone] [place], [place] [address] Social History Tobacco Use Types Packs/Day Years Used Date Smoking Tobacco: Never Assessed Alcohol Habits Answer Date Recorded [...] is the HCTZ and not the Atenolol. M CLEANING MACHINE OPERATOR Telephone Encounter - Margie Mcmanus APRN, CNP - 07/25/2018 3:18 PM STEAM CLEANING MACHINE OPERATOR This is been renewed times 90 days hydrochlorothiazide 25 mg that she will need a clinical visit formedication review and that period of time. M CLEANING MACHINE OPERATOR Telephone Encounter - Geena Webb MA - 07/25/2018 3:01 PM CST I have pended a medication for your review. M CLEANING MACHINE OPERATOR Telephone Encounter - An Kierra - 07/25/2018 2:47 PM CST The patient is short one 90-day supply of Hydroclorothyazide. [facility]ill to [facility]. She willcall back this afternoon to talk to nurse. M CLEANING MACHINE OPERATOR documented in this encounter Plan of Treatment Not on filedocumented as of this encounter Visit Diagnoses Diagnosis Hypertension, unspecified type - Primary documented in this encounter Care Teams Reconciliation Analyst Relationship Specialty Start Date End Date Margie Mcmanus APRN, CNP PCP - General 04/26/18 05/27/20 [address] [place] [address] documented as of this encounter
[2022-08-21 11:06] LABS: Appearance Urine Clear (Clear); Bilirubin Urine 1+ (Negative); Blood Urine Negative (Negative); Color Urine Yellow (Yellow); Glucose Urine Negative (Negative); Ketones Urine Negative (Negative); Leukocyte Esterase Urine Negative (Negative); Nitrite Urine Negative (Negative); Protein Urine Trace (Negative); Specific Gravity Urine >= 1.030 (1.000-1.030); Urobilinogen Urine 0.2 (0.2-1.0); pH Urine 5.5 (5.0-8.5)
[2022-08-21 11:10] LABS: Hemoglobin A1C* 5.7 % (0-5.6)
[2022-08-21 15:15] LABS: Basophils Absolute Auto 0.05 K/uL (0.00-0.30); Basophils Percent Auto 0.5 % (0.0-3.0); Hematocrit 40.7 % (33.0-51.0); Hemoglobin* 13.3 gm/dL (12.0-16.0); Immature Granulocytes Abs Auto 0.01 K/uL (0.00-0.30); Immature Granulocytes Pct Auto 0.1 %; Lymphocytes Absolute Auto 2.46 K/uL (0.90-2.90); Lymphocytes Percent Auto 25.8 % (20-44); Mean Corpuscular HGB Conc 33 gm/dL (32-36); Mean Corpuscular Hemoglobin 30 pg (26-34); Mean Corpuscular Volume 93 fL (80-100); Monocytes Percent Auto 6.3 % (0.0-11.0); Neutrophils Absolute Auto 5.66 K/uL (1.7-7.0); Neutrophils Percent Auto 59.3 % (42.0-72.0); Platelet Count* 294 K/uL (140-440); RDW Coefficient of Variation % 13.9 % (11.5-15.5); White Blood Count* 9.54 K/uL (4.50-11.00)
[2022-08-21 15:17] LABS: Slide Review Reflex No
[2022-08-21 15:22] LABS: Cholesterol* 168 mg/dL (90-199)
[2022-08-21 15:23] LABS: HDL Cholesterol* 53 mg/dL (>=50); LDL Cholesterol Calculated 90 mg/dL (<100); Triglycerides* 123 mg/dL (40-149)
[2022-08-21 15:39] LABS: C Reactive Protein* < 0.5 mg/dL (0.5-1.0)
[2022-08-21 16:11] LABS: Erythrocyte SedimentationRate* 12 mm/hr (2-20)
[2022-08-21 17:10] LABS: RBC Urine 0-2 (0-2); Squamous Epithelial Cell Urine Few (None-Few); WBC Urine 0-2 (0-5)
[2022-08-21 17:12] LABS: Calcium Oxalate Crystals Urine Moderate
== END 2022-08-21 10:31 | disposition home or self-care (01) ==
PROVIDERS: PCP Nurse Practitioner Family; Visit Provider Nurse Practitioner Family
DX: R73.03 Prediabetes (principal); N39.46 Mixed incontinence; M79.10 Myalgia, unspecified site; E78.2 Mixed hyperlipidemia; M35.3 Polymyalgia rheumatica
CPT/HCPCS: 80061; 81003; 81015; 83036; 85025; 85651; 86140; 87086

== ENCOUNTER 2022-11-09 15:38 | Outpatient (CLI) | payer MEDICARE, BC, SELFPAY ==
[2022-11-09 22:14] LABS: Basophils Absolute Auto 0.03 K/uL (0.00-0.30); Basophils Percent Auto 0.4 % (0.0-3.0); Eosinophils Absolute Auto 0.27 K/uL (0.00-0.50); Hematocrit 44.3 % (33.0-51.0); Hemoglobin* 14.1 gm/dL (12.0-16.0); Immature Granulocytes Abs Auto 0.01 K/uL (0.00-0.30); Immature Granulocytes Pct Auto 0.1 %; Lymphocytes Percent Auto 19.5 % (20-44); Mean Corpuscular HGB Conc 32 gm/dL (32-36); Mean Corpuscular Hemoglobin 30 pg (26-34); Mean Corpuscular Volume 94 fL (80-100); Neutrophils Absolute Auto 4.64 K/uL (1.7-7.0); Platelet Count* 282 K/uL (140-440); RDW Coefficient of Variation % 11.9 % (11.5-15.5); Red Blood Count 4.72 m/uL (4.00-5.20); White Blood Count* 6.73 K/uL (4.50-11.00)
[2022-11-09 22:25] LABS: Slide Review Reflex No
[2022-11-09 22:49] LABS: C Reactive Protein* < 0.5 mg/dL (0.5-1.0)
[2022-11-10 00:20] LABS: Erythrocyte SedimentationRate* 7 mm/hr (2-20)
== END 2022-11-09 15:39 | disposition home or self-care (01) ==
PROVIDERS: PCP Nurse Practitioner Family; Visit Provider Nurse Practitioner Family
DX: M35.3 Polymyalgia rheumatica (principal); M79.10 Myalgia, unspecified site
CPT/HCPCS: 85025; 85651; 86140

== ENCOUNTER 2023-04-06 14:21 | Outpatient (CLI) | payer MEDICARE, BC, SELFPAY | END 2023-04-06 14:22 | disposition home or self-care (01) | PROVIDERS: PCP Nurse Practitioner Family; Visit Provider Nurse Practitioner Family | DX: M35.3 Polymyalgia rheumatica (principal) | CPT/HCPCS: 85025; 85651; 86140 ==

== ENCOUNTER 2023-07-06 13:19 | Outpatient (CLI) | payer MEDICARE, BC, SELFPAY | END 2023-07-06 13:20 | disposition home or self-care (01) | PROVIDERS: PCP Nurse Practitioner Family; Visit Provider Nurse Practitioner Family | DX: E78.5 Hyperlipidemia, unspecified (principal); I10 Essential (primary) hypertension; E06.3 Autoimmune thyroiditis; R73.03 Prediabetes | CPT/HCPCS: 80053; 84443 ==

== ENCOUNTER 2024-08-08 10:54 | Outpatient (CLI) | payer MEDICARE, BC, SELFPAY ==
--- OUTSIDE RECORDS SUMMARY | 2024-08-08 11:00 | XMS_ITS | Referral Summary ---
Author Organization [facility] Address [address] [place] [address] Care Team Providers Care Rubber Mill Operator Name Role Phone Unavailable Primary Care Provider Unavailabl e Source Comments Patient records contain information from all sites at [facility]. For routine questions regarding patient records, call [phone] during business hours, M-F 8:00 AM - 5:00 PM Central Time. Record requests for emergency care only can be directed to [phone] at any time.[facility] Allergies No known active allergies Medications aspirin [address] tablet Take 81 mg by mouth daily. Active atenolol (TENORMIN) 25 mg tablet Take 1 tablet by mouth daily. 02/09/2019 Active calcium carbonate/vitam in D3 (CALCIUM WITH VITAMIN D ORAL) Take 1 tablet by mouth daily. 12/16/2013 Active glucosamine/msm /chondrt/C/hyal (GLUCOSAMINE-CH ONDROITIN-MSM ORAL) Take 2 tablets by mouth daily. 12/16/2013 Active hydroCHLOROthia zide (HYDRODIURIL) 25 mg tablet Take 1 tablet by mouth daily. 02/09/2019 Active OMEGA-3 FATTY ACIDS-EPA ORAL Take 1,200 mg by mouth daily. Active UNABLE TO FIND Take 1 tablet by mouth daily. Active UNABLE TO FIND Med Name: Tumeric/Curcu men 500 mg tablet 1 daily Active EVENING PRIMROSE OIL ORAL Take 1,300 tablets by mouth daily. Active cholecalciferol (VITAMIN D3) tablet Take 5,000 Units by mouth daily. Active UNABLE TO FIND Med Name: Members Jason eye multiple vitamin tablet Active Active Problems Problem Noted Date Diagnosed Date Body Mass Index 40.0 To 44.9 Adult 03/03/2019 Varicose Vein Lower Extremity With Edema Bilater al 03/03/2019 Swelling Leg 03/03/2019 Vertigo Benign Paroxysmal Positional Left Social History Tobacco Use Types Packs/Day Years Used Date Smoking Tobacco: Former Smokeless Tobacco: Never Comments:quit 30 plus years ago Social Connection and Isolat ion Panel [NHANES] Answer Date Recorded Frequency of Communication w ith Friends and Family Once a week 03/03/2019 Frequency of Social Gatherin gs with Friends and Family Patient declined 03/03/2019 Attends [employer] Services More than 4 times per year 03/03/2019 Active Member of Clubs or Organizations Yes 03/03/2019 Attends Club or Organization Meetings More than 4 times per year 03/03/2019 Marital Status 03/03/2019 AUDIT-C Answer Date Recorded Frequency of Alcohol Consumption Never 03/03/2019 Average Number of Drinks Not on file 019 Frequency of Binge Drinking Not on file 02/18 Overall Financial Resource Strain (CARDIA) Answe r Date Recorded Difficulty of Paying Living Expenses Not hard at all 03/03/2019 [facility] - Occupational Stress Questionnaire Answer Date Recorded Feeling of Stress Not at all 03/03/2019 Exercise Vital Sign Answer Date Recorde d Days of Exercise per Week 0 days 2018 Minutes of Exercise per Session 0 min 03/03/2019 Hunger Vital Sign Answer Date Recorded Worried About Running Out of Food in the Last Ye ar Never true 03/03/2019 Ran Out of Food in the Last Year Never true 03/03/2019 PRAPARE - Transportation Answer Date Re corded Lack of Transportation (Medical) No 03/03/2019 Lack of Transportation (Non-Medical) No 03/03/2019 Nutrition Answer Date Recorded Nutrition: EVOO Fat Source Unknown 11/12 Nutrition: Servings of Fruits/Vegetables per Day Not on file 2020 Dental Answer Date Recorded Dental: Regular Dentist Unknown 11/12/19 21 Education Answer Date Recorded What is the highest level of school you have completed or the highest degree you have received? Some college, no degree 03/03/2019 Comments No Sex and Gender Information Value Date Recorded Sex Assigned at Not on file Legal Sex Female 10:26 AM OCCUPATIONAL THERAPY DIRECTOR Gender Identity Not on file Sexual Orientation Not on file Last Filed Vital Signs Vital Sign Reading Time Taken Comments Blood Pressure 126/49 09/18/2023 3:00 PM OCCUPATIONAL THERAPY DIRECTOR Pulse 79 09/18/2023 4:00 PM OCCUPATIONAL THERAPY DIRECTOR Temperature 36.7 C (98.1 F) 09/18/2023 1:13 PM OCCUPATIONAL THERAPY DIRECTOR Respiratory Rate - - Oxygen Saturation 99% 09/18/2023 4:00 PM OCCUPATIONAL THERAPY DIRECTOR Inhaled Oxygen Concentration - - Weight 104 kg (230 lb 2.6 oz) 03/03/2019 2:50 PM CDT Height 157.5 cm (5' 2) 09/18/2023 1:13 PM OCCUPATIONAL THERAPY DIRECTOR Body Mass Index 41.3 03/03/2019 2:50 PM CDT Plan of Treatment Not on file Procedures Procedure Name Priority Date/Time Associated Diagnosis Comments COMPREHENSIVE METABOLIC PANEL, S/P STAT 09/18/2023 3:06 PM OCCUPATIONAL THERAPY DIRECTOR from Last 3 Months or Most Recently Relevant to Health Maintenance Results * (ABNORMAL) Comprehensive Metabolic Panel (09/18/2023 3:06 PM OCCUPATIONAL THERAPY DIRECTOR) Potassium, P 3.9 3.6 - 5.2 mmol/L 09/18/2023 3:36 PM OCCUPATIONAL THERAPY DIRECTOR CNFL Sodium, P 145 135 - 145 mmol/L 09/18/2023 3:36 PM OCCUPATIONAL THERAPY DIRECTOR CNFL Chloride, P 110(H) 98 - 107 mmol/L 09/18/2023 3:36 PM OCCUPATIONAL THERAPY DIRECTOR CNFL Bicarbonate, P 23 22 - 29 mmol/L 09/18/2023 3:36 PM OCCUPATIONAL THERAPY DIRECTOR CNFL Anion Gap, P 12 7 - 15 09/18/2023 3:36 PM OCCUPATIONAL THERAPY DIRECTOR CNFL BUN (Blood Urea Nitrogen), P 16 6 - 21 mg/dL 09/18/2023 3:36 PM OCCUPATIONAL THERAPY DIRECTOR CNFL Creatinine 0.89 0.59 - 1.04 mg/dL 09/18/2023 3:36 PM OCCUPATIONAL THERAPY DIRECTOR CNFL Estimated GFR (eGFR) 68 >=60 mL/min/BS A 09/18/2023 3:36 PM OCCUPATIONAL THERAPY DIRECTOR CNFL Comment: Estimated GFR calculated using the 2020 CKD_EPI creatinine equation. Calcium, Total, P 8.9 8.8 - 10.2 mg/dL 09/18/2023 3:36 PM OCCUPATIONAL THERAPY DIRECTOR CNFL Glucose, P 106 70 - 140 mg/dL 09/18/2023 3:36 PM OCCUPATIONAL THERAPY DIRECTOR CNFL Protein, Total, P 6.8 6.3 - 7.9 g/dL 09/18/2023 3:36 PM OCCUPATIONAL THERAPY DIRECTOR CNFL Albumin, P 4.1 3.5 - 5.0 g/dL 09/18/2023 3:36 PM OCCUPATIONAL THERAPY DIRECTOR CNFL Aspartate Aminotransferase (AST), P 27 8 - 43 U/L 09/18/2023 3:36 PM OCCUPATIONAL THERAPY DIRECTOR CNFL Alkaline Phosphatase, P 77 35 - 104 U/L 09/18/2023 3:36 PM OCCUPATIONAL THERAPY DIRECTOR CNFL Alanine Aminotransferase (ALT), P 27 7 - 45 U/L 09/18/2023 3:36 PM OCCUPATIONAL THERAPY DIRECTOR CNFL Bilirubin, Total, P 0.6 0.0 - 1.2 mg/dL 09/18/2023 3:36 PM OCCUPATIONAL THERAPY DIRECTOR CNFL Blood (Blood, Venous) 09/18/2023 3:06 PM OCCUPATIONAL THERAPY DIRECTOR 09/18/2023 3:10 PM OCCUPATIONAL THERAPY DIRECTOR us Jennifer Ortiz APRN C.N.P. LAB BLOOD ADD-O N Final Result Performing Organization Address City/State/[facility] Co de Phone Number [facility] [address] [place] [phone], [facility] CNFL [facility] in [address] [address] from Last 3 Months or Most Recently Relevant to Health Maintenance Insurance [employer] [facility] MEDICARE
--- OUTSIDE RECORDS SUMMARY | 2024-08-08 11:00 | XMS_ITS | Clinical Summary ---
Author Organization [facility] Address [address] [place] [address] Care Team Providers Care Crane Engineer Name Role Phone Unavailable Primary Care Provider Unavailabl e Source Comments Patient records contain information from all sites at [facility]. For routine questions regarding patient records, call [phone] during business hours, M-F 8:00 AM - 5:00 PM Central Time. Record requests for emergency care only can be directed to [phone] at any time.[facility] Allergies No known active allergies Medications aspirin [...] Friends and Family Patient declined 03/03/2019 Attends [employer] Services More than 4 times per year [...] Living Expenses Not hard at all 03/03/2019 [facility] - Occupational Stress [...] on file Legal Sex Female 10:26 AM SENIOR SQL SERVER DATABASE DEVELOPER Gender Identity Not on file Sexual Orientation Not on file Last Filed Vital Signs Vital Sign Reading Time Taken Comments Blood Pressure 126/49 09/18/2023 3:00 PM SENIOR SQL SERVER DATABASE DEVELOPER Pulse 79 09/18/2023 4:00 PM SENIOR SQL SERVER DATABASE DEVELOPER Temperature 36.7 C (98.1 F) 09/18/2023 1:13 PM SENIOR SQL SERVER DATABASE DEVELOPER Respiratory Rate - - Oxygen Saturation 99% 09/18/2023 4:00 PM SENIOR SQL SERVER DATABASE DEVELOPER Inhaled Oxygen Concentration - - Weight 104 kg (230 lb 2.6 oz) 03/03/2019 2:50 PM CDT Height 157.5 cm (5' 2) 09/18/2023 1:13 PM SENIOR SQL SERVER DATABASE DEVELOPER Body Mass Index 41.3 03/03/2019 2:50 PM CDT Plan of Treatment Health Maintenance Due Date Last Done Comments Bone Density Scan (Osteoporosis Screen) 1949 CT Colonography 1949 Cologuard 1950 Colonoscopy 1950 Colorectal Cancer Screening 1949 FIT 1950 Hepatitis C Screening 1950 Mammogram 1949 DTaP,Tdap,and Td Vaccines (1 - Tdap) 1968 Zoster Vaccines (1 of 2) 1999 Pneumococcal vaccine (65+ years) (1 of 1 - PCV) 2014 Depression Screening (Annual PHQ-2) 09/20/2023 Fall Risk Screen (Annual) 09/20/2023 COVID-19 Vaccine (3 - 2023-2 5 season) 2024 12/13/2020, 11/22/2020 Influenza Vaccine (#1) 2024 Creatinine Level (Kidney Function Test) 09/18/2024 09/18/2023, 10/27/2018 Potassium Level 09/18/2024 09/18/2023, 10/27/2018 Sodium Level 09/18/2024 09/18/2023, 10/27/2018 Fasting Glucose for Diabetes Screening 09/18/2026 09/18/2023, 10/27/2018 IPV Vaccines Aged Out No longer eligi ble based on patient's age to complete this topic Procedures Procedure Name Priority Date/Time Associated Diagnosis Comments COMPREHENSIVE METABOLIC PANEL, S/P STAT 09/18/2023 3:06 PM SENIOR SQL SERVER DATABASE DEVELOPER from Last 3 Months or Most Recently Relevant to Health Maintenance Results * (ABNORMAL) Comprehensive Metabolic Panel (09/18/2023 3:06 PM SENIOR SQL SERVER DATABASE DEVELOPER) Pathologist [facility] Potassium, P 3.9 3.6 - 5.2 mmol/L 09/18/2023 3:36 PM SENIOR SQL SERVER DATABASE DEVELOPER CNFL Sodium, P 145 135 - 145 mmol/L 09/18/2023 3:36 PM SENIOR SQL SERVER DATABASE DEVELOPER CNFL Chloride, P 110(H) 98 - 107 mmol/L 09/18/2023 3:36 PM SENIOR SQL SERVER DATABASE DEVELOPER CNFL Bicarbonate, P 23 22 - 29 mmol/L 09/18/2023 3:36 PM SENIOR SQL SERVER DATABASE DEVELOPER CNFL Anion Gap, P 12 7 - 15 09/18/2023 3:36 PM SENIOR SQL SERVER DATABASE DEVELOPER CNFL BUN (Blood Urea Nitrogen), P 16 6 - 21 mg/dL 09/18/2023 3:36 PM SENIOR SQL SERVER DATABASE DEVELOPER CNFL Creatinine 0.89 0.59 - 1.04 mg/dL 09/18/2023 3:36 PM SENIOR SQL SERVER DATABASE DEVELOPER CNFL Estimated GFR (eGFR) 68 >=60 mL/min/BS A 09/18/2023 3:36 PM SENIOR SQL SERVER DATABASE DEVELOPER CNFL Comment: Estimated GFR calculated using the 2020 CKD_EPI creatinine equation. Calcium, Total, P 8.9 8.8 - 10.2 mg/dL 09/18/2023 3:36 PM SENIOR SQL SERVER DATABASE DEVELOPER CNFL Glucose, P 106 70 - 140 mg/dL 09/18/2023 3:36 PM SENIOR SQL SERVER DATABASE DEVELOPER CNFL Protein, Total, P 6.8 6.3 - 7.9 g/dL 09/18/2023 3:36 PM SENIOR SQL SERVER DATABASE DEVELOPER CNFL Albumin, P 4.1 3.5 - 5.0 g/dL 09/18/2023 3:36 PM SENIOR SQL SERVER DATABASE DEVELOPER CNFL Aspartate Aminotransferase (AST), P 27 8 - 43 U/L 09/18/2023 3:36 PM SENIOR SQL SERVER DATABASE DEVELOPER CNFL Alkaline Phosphatase, P 77 35 - 104 U/L 09/18/2023 3:36 PM SENIOR SQL SERVER DATABASE DEVELOPER CNFL Alanine Aminotransferase (ALT), P 27 7 - 45 U/L 09/18/2023 3:36 PM SENIOR SQL SERVER DATABASE DEVELOPER CNFL Bilirubin, Total, P 0.6 0.0 - 1.2 mg/dL 09/18/2023 3:36 PM SENIOR SQL SERVER DATABASE DEVELOPER CNFL Blood (Blood, Venous) 09/18/2023 3:06 PM SENIOR SQL SERVER DATABASE DEVELOPER 09/18/2023 3:10 PM SENIOR SQL SERVER DATABASE DEVELOPER us Jennifer Ortiz APRN, C.N.P. LAB BLOOD ADD-O N Final Result [facility] [id number] [address], [place] [address] [facility] [place] [address] [facility] [address] [place] [address] from Last 3 Months or Most Recently Relevant to Health Maintenance Insurance [employer] [facility] MEDICARE
--- OUTSIDE RECORDS SUMMARY | 2024-08-08 11:00 | XMS_ITS ---
Author Organization [facility] Address [address] [place] [id number] Care Team Providers Care Delinquent Tax Collector Assistant Name Role Phone Unavailable Unavailable Unavailable Surgery Details Not on file Complications Check Surgery Details section. Procedure Estimated Blood Loss Check Surgery Details section. Procedure Findings Check Surgery Details section. Procedure Specimens Taken Check Surgery Details section.
== END 2024-08-08 10:55 | disposition home or self-care (01) ==
PROVIDERS: PCP Nurse Practitioner Family; Visit Provider Nurse Practitioner Family
DX: I10 Essential (primary) hypertension (principal); R73.03 Prediabetes; E06.3 Autoimmune thyroiditis; E78.5 Hyperlipidemia, unspecified; M35.3 Polymyalgia rheumatica; Z13.0 Encounter for screening for diseases of the blood and blood-forming organs and certain disorders involving the immune mechanism; Z13.228 Encounter for screening for other metabolic disorders
CPT/HCPCS: 80053; 80061; 84443; 85025; 85651; 86140

== ENCOUNTER 2025-08-10 09:34 | Outpatient (CLI) | payer MEDICARE, BC, SELFPAY | END 2025-08-10 09:35 | disposition home or self-care (01) | PROVIDERS: PCP Nurse Practitioner Family; Visit Provider Nurse Practitioner Family | DX: I10 Essential (primary) hypertension (principal); E78.5 Hyperlipidemia, unspecified; Z13.0 Encounter for screening for diseases of the blood and blood-forming organs and certain disorders involving the immune mechanism; R20.9 Unspecified disturbances of skin sensation; Z13.21 Encounter for screening for nutritional disorder; M25.50 Pain in unspecified joint; E06.3 Autoimmune thyroiditis | CPT/HCPCS: 80053; 80061; 82306; 82607; 84443; 85025; 85651; 86140 ==